=== PATIENT | female | born 1940 | race Hispanic/Latino ===

== ENCOUNTER 2018-08-24 08:00 | Emergency (ER) | payer OTHER ==
[2018-08-24] MEDS ORDERED: LEVALBUTEROL 1.25 MG/3 ML NEB ONE ×3 (08:51→10:12)
[2018-08-24 08:56] LABS: Absolute Lymphocytes (CBC) 1.9 K/uL (0.7-4.9); Absolute Monocytes 0.5 K/uL (0.1-1.3); Absolute Neutrophil 5.2 K/uL (1.8-8.0); Basophils % 0.7 % (0-1.3); Eosinophils % 6.4 % (0-4.4); Hematocrit 33.4 % (36.0-45.0); Lymphocytes % 22.8 % (15.3-44.8); MCH 32.6 pg (27.0-35.0); MCV 95.1 fL (80-100); MPV 10.9 fL (7.6-11.3); Monocytes % 6.6 % (3.3-12.3); RBC Red Blood Cell Count 3.51 M/uL (3.86-4.86)
[2018-08-24 08:57] LABS: Protime INR 1.02
[2018-08-24 09:14] LABS: ALT/SGPT 21 U/L (12-78); AST/SGOT 14 U/L (15-37); Albumin 3.4 g/dL (3.4-5.0); Alkaline Phosphatase 46 U/L (45-117); BUN Blood Urea Nitrogen 28 mg/dL (7-18); Bicarbonate 26 mmol/L (21-32); Bilirubin Direct 0.1 mg/dL (0-0.2); Bilirubin Total 0.3 mg/dL (0.2-1.0); Glucose Level 137 mg/dL (74-106); Magnesium 2.1 mg/dL (1.8-2.4); NT PRO-BNP 377 pg/mL (<450); Potassium 4.7 mmol/L (3.5-5.1); Protein, Total 7.1 g/dL (6.4-8.2); Sodium Level 143 mmol/L (136-145); Troponin (Emerg Dept Use Only) < 0.02 ng/mL (0.0-0.045)
--- NOTE | 2018-08-24 09:15 | RAD REPORT ---
EXAM DESCRIPTION: RAD - Chest Single View - 08/24/2018 8:56 am CLINICAL HISTORY: Cough, and a history of back pain COMPARISON: December 2017 TECHNIQUE: AP portable chest image was obtained 0828 hours . FINDINGS: Lung volumes are low. Mild baseline interstitial pattern is not clearly different. No foca l infiltrate, mass or failure finding. Heart and vasculature are normal. No measurable pleural effusi on and no pneumothorax. No acute bony abnormality seen. No acute aortic findings suspected. IMPRESSION: No acute cardiopulmonary process. No significant change from comparison.
[2018-08-24] MEDS ORDERED: TRAMADOL HCL 50 MG TAB ONE (10:11)
--- NOTE | 2018-08-24 10:12 | EDPHYS ---
Physician Documentation [facility] Name: Poly Granados Age: 77 yrs Sex: Female : 1940 Arrival Date: 08/24/2018 Time: 08:06 Bed 6 Private MD: Danial Crowder ED Physician Alfonso Silva HPI: 08/24 17:36 This 77 yrs old Female presents to ER via Ambulatory with complaints of Back kdr Pain \\T\\ cough. 17:37 The patient c/o generalized back pain and cough that has been ongoing got the last few kdr weeks. She has seen her doctor for this problem and was given Neurontin for the pain but she had continued to have the pain and has now developed a cough and mild SOB. 22:57 Onset: The symptoms/episode began/occurred gradually, 3 week(s) ago. Severity of kdr symptoms: At their worst the symptoms were mild moderate just prior to arrival, in the emergency department the symptoms are unchanged. The patient has not experienced similar symptoms in the past. The patient has been recently seen by a physician: Dr. Crowder. Historical: - Allergies: 08:08 NKDA; aa5 - Home Meds: 09:15 Vitamin D3 oral oral daily [Active]; alendronate 70 mg oral tab once wkly [Active]; aa5 metformin 500 mg Oral tab BID. Pt states "I only take it once a day because my kidney doctor said to do that instead of twice a day" [Active]; gabapentin 300 mg oral cap 1 cap 3 times per day [Active]; fenofibrate 54 mg oral tab once daily [Active]; losartan 50 mg oral tab once daily [Active]; - PMHx: 08:08 Diabetes - NIDDM; Hypertension; Hyperlipidemia; Arthritis; "heart burn"; aa5 - PSHx: 08:08 None; aa5 - Immunization history:: Pneumococcal vaccine is up to date, Flu vaccine is up to date. - Social history:: Smoking status: Patient/guardian denies using tobacco. - Ebola Screening: : No symptoms or risks identified at this time. ROS: 22:57 Constitutional: Negative for fever, chills, and weight loss, Eyes: Negative for injury, kdr pain, redness, and discharge, ENT: Negative for injury, pain, and discharge, Neck: Negative for injury, pain, and swelling, Cardiovascular: Negative for chest pain, palpitations, and edema, Abdomen/GI: Negative for abdominal pain, nausea, vomiting, diarrhea, and constipation, : Negative for injury, bleeding, discharge, and swelling, MS/Extremity: Negative for injury and deformity, Skin: Negative for injury, rash, and discoloration, Neuro: Negative for headache, weakness, numbness, tingling, and seizure activity. Psych: Negative for depression, anxiety, suicide ideation, homicidal ideation, and hallucinations, Allergy/Immunology: Negative for hives, rash, and allergies, Endocrine: Negative for neck swelling, polydipsia, polyuria, polyphagia, and marked weight changes, Hematologic/Lymphatic: Negative for swollen nodes, abnormal bleeding, and unusual bruising. 22:57 Respiratory: Positive for cough, with no reported sputum, dyspnea on exertion, shortness of breath, Negative for hemoptysis, orthopnea, pleurisy, sputum production. 22:57 Back: Positive for pain at rest, pain with movement, Diffuse broad pain. Exam: 22:57 Constitutional: This is a well developed, well nourished patient who is awake, alert, kdr and in no acute distress. Head/Face: Normocephalic, atraumatic. Eyes: Pupils equal round and reactive to light, extra-ocular motions intact. Lids and lashes normal. Conjunctiva and sclera are non-icteric and not injected. Cornea within normal limits. Periorbital areas with no swelling, redness, or edema. Neck: Trachea midline, no thyromegaly or masses palpated, and no cervical lymphadenopathy. Supple, full range of motion without nuchal rigidity, or vertebral point tenderness. No Meningismus. Chest/axilla: Normal chest wall appearance and motion. Nontender with no deformity. No lesions are appreciated. Cardiovascular: Regular rate and rhythm with a normal S1 and S2. No gallops, murmurs, or rubs. Normal PMI, no JVD. No pulse deficits. Respiratory: Lungs have equal breath sounds bilaterally, clear to auscultation and percussion. No rales, rhonchi or wheezes noted. No increased work of breathing, no retractions or nasal flaring. Abdomen/GI: Soft, non-tender, with normal bowel sounds. No distension or tympany. No guarding or rebound. No evidence of tenderness throughout. Skin: Warm, dry with normal turgor. Normal color with no rashes, no lesions, and no evidence of cellulitis. MS/ Extremity: Pulses equal, no cyanosis. Neurovascular intact. Full, normal range of motion. Neuro: Awake and alert, GCS 15, oriented to person, place, time, and situation. Cranial nerves II-XII grossly intact. Motor strength 5/5 in all extremities. Sensory grossly intact. Cerebellar exam normal. Normal gait. Psych: Awake, alert, with orientation to person, place and time. Behavior, mood, and affect are within normal limits. 22:57 Back: pain, that is very mild, of the left trapezius, left scapular area, right scapular area, left flank and right flank, ROM is painful, with all movement, Very minor - she is poorly mobile and not flexible as she is semi-contracted. Vital Signs: 08:10 BP 138 / 68; Pulse 80; Resp 16 S; Temp 98.6(TE); Pulse Ox 97% on R/A; Weight 69.4 kg aa5 (R); Height 5 ft. 1 in. (154.94 cm) (R); Pain 8/10; 09:00 BP 138 / 74; Pulse 80; Resp 18 S; Pulse Ox 99% on R/A; aa5 10:15 BP 124 / 84; Pulse 80; Resp 18 S; Temp 98.4(TE); Pulse Ox 97% on R/A; Pain 5/10; aa5 08:10 Body Mass Index 28.91 (69.40 kg, 154.94 cm) aa5 MDM: 10:11 Patient medically screened. kdr 22:57 Data reviewed: vital signs, nurses notes, lab test result(s), radiologic studies. kdr Counseling: I had a detailed discussion with the patient and/or guardian regarding: the historical points, exam findings, and any diagnostic results supporting the discharge/admit diagnosis, lab results, radiology results, the need for outpatient follow up. 08/24 08:29 Order name: Basic Metabolic Panel; Complete Time: :53 kdr 08/24 08:29 Order name: CBC with Diff; Complete Time: :53 kdr 08/24 08:29 Order name: LFT's; Complete Time: kdr 08/24 08:29 Order name: Magnesium; Complete Time: kdr 08/24 08:29 Order name: NT PRO-BNP; Complete Time: 09:53 kdr 08/24 08:29 Order name: PT-INR; Complete Time: 09:53 kdr 08/24 08:29 Order name: Troponin (emerg Dept Use Only); Complete Time: 09:53 kdr 08/24 08:29 Order name: XRAY Chest (1 view); Complete Time: 09:53 kdr 08/24 08:29 Order name: EKG; Complete Time: 08:30 kdr 08/24 08:29 Order name: Cardiac monitoring; Complete Time: 08:51 kdr 08/24 08:29 Order name: EKG - Nurse/Tech; Complete Time: 08:51 kdr 08/24 08:29 Order name: IV Saline Lock; Complete Time: 08:51 kdr 08/24 08:29 Order name: Labs collected and sent; Complete Time: 08:51 kdr 08/24 08:29 Order name: O2 Per Protocol; Complete Time: 08:51 kdr 08/24 08:29 Order name: O2 Sat Monitoring; Complete Time: 08:51 kdr Administered Medications: 08:45 Drug: Xopenex (3) 1.25 mg Route: Inhalation; aa5 09:59 Drug: traMADol 50 mg Route: PO; aa5 10:25 Follow up: Response: No adverse reaction; Pain is decreased aa5 09:59 Drug: Xopenex 1.25 mg Route: Inhalation; aa5 10:31 Follow up: Response: No adverse reaction aa5 Disposition: 08/24/18 10:11 Discharged to Home. Impression: Cough, Generalized back pain, Congestion, Bronchitis. - Condition is Stable. - Discharge Instructions: Back Pain, Adult, Chronic Back Pain, Cough, Adult, [id number]. - Prescriptions for Albuterol Sulfate 90 mcg/actuation - inhale 1-2 puff by INHALATION route every 4-6 hours; 1 Inhaler. Tramadol 50 mg Oral Tablet - take 1 tablet by ORAL route every 8 hours as needed; 12 tablet. - Medication Reconciliation Form, Thank You Letter form. - Follow up: Danial Crowder MD; When: 2 - 3 days; Reason: If symptoms return, Further diagnostic work-up, Recheck today's complaints, Continuance of care, Re-evaluation by your physician. Signatures: Dispatcher [employer] [facility] Alfonso Silva MD MD kdr Debbie Moss, RN RN aa5 Corrections: (The following items were deleted from the chart) 10:50 10:11 08/24/2018 10:11 Discharged to Home. Impression: Cough; Generalized back pain; aa5 Congestion; Bronchitis. Condition is Stable. Forms are Medication Reconciliation Form, Thank You Letter, Antibiotic Education, Prescription Opioid Use. Follow up: Danial Crowder; When: 2 - 3 days; Reason: If symptoms return, Further diagnostic work-up, Recheck today's complaints, Continuance of care, Re-evaluation by your physician. kdr 23:03 17:37 The patient c/o generalized back poain and cough that has been ongoing got the . kdr kdr
--- NOTE | 2018-08-24 10:12 | ER ---
Nurse's Notes [facility] Name: Poly Granados Age: 77 yrs Sex: Female : 1940 Arrival Date: 08/24/2018 Time: 08:06 Bed 6 Private MD: Danial Crowder Diagnosis: Cough;Generalized back pain;Congestion;Bronchitis Presentation: 08/24 08:08 Presenting complaint: Patient states: upper back pain that began 10 days ago. Pt also aa5 reports cough with whitish sputum x 10 days ago. Pt reports worse pain is to right subscapular area. Transition of care: patient was not received from another setting of care. Onset of symptoms was August 2018. Risk Assessment: Do you want to hurt yourself or someone else? Patient reports no desire to harm self or others. Initial Sepsis Screen: Does the patient meet any 2 criteria? No. Patient's initial sepsis screen is negative. Does the patient have a suspected source of infection? No. Patient's initial sepsis screen is negative. Care prior to arrival: None. 08:08 Method Of Arrival: Ambulatory aa5 08:08 Acuity: CODY 3 aa5 Historical: - Allergies: 08:08 NKDA; aa5 - Home Meds: 09:15 Vitamin D3 oral oral daily [Active]; alendronate 70 mg oral tab once wkly [Active]; aa5 metformin 500 mg Oral tab BID. Pt states "I only take it once a day because my kidney doctor said to do that instead of twice a day" [Active]; gabapentin 300 mg oral cap 1 cap 3 times per day [Active]; fenofibrate 54 mg oral tab once daily [Active]; losartan 50 mg oral tab once daily [Active]; - PMHx: 08:08 Diabetes - NIDDM; Hypertension; Hyperlipidemia; Arthritis; "heart burn"; aa5 - PSHx: 08:08 None; aa5 - Immunization history:: Pneumococcal vaccine is up to date, Flu vaccine is up to date. - Social history:: Smoking status: Patient/guardian denies using tobacco. - Ebola Screening: : No symptoms or risks identified at this time. Screenin:10 Abuse screen: Denies threats or abuse. Nutritional screening: No deficits noted. aa5 Tuberculosis screening: No symptoms or risk factors identified. Fall Risk None identified. Assessment: 08:15 General: Appears uncomfortable, Behavior is calm, cooperative. Pain: Complains of pain aa5 in left scapular area, right scapular area, left subscapular area and right subscapular area Pain does not radiate. Pain currently is 8 out of 10 on a pain scale. Quality of pain is described as aching, Pain began 10 days ago Is continuous, Aggravated by increased activity. Neuro: Level of Consciousness is awake, alert, obeys commands, Oriented to person, place, time, situation. Cardiovascular: Heart tones S1 S2 present Rhythm is regular. Respiratory: Airway is patent Respiratory effort is even, unlabored, Respiratory pattern is regular, symmetrical, Breath sounds are clear in right upper lobe, left upper lobe, right middle lobe, left lower lobe, right lower lobe, left posterior upper lobe and right posterior upper lobe Breath sounds are coarse in left posterior lower lobe, right posterior middle lobe and right posterior lower lobe. GI: No signs and/or symptoms were reported involving the gastrointestinal system. : No signs and/or symptoms were reported regarding the genitourinary system. EENT: No signs and/or symptoms were reported regarding the EENT system. Derm: Skin is pink, warm \\T\\ dry. Musculoskeletal: Range of motion: intact in all extremities. 08:45 Reassessment: Patient and/or family updated on plan of care and expected duration. Pain aa5 level reassessed. Patient is alert, oriented x 3, equal unlabored respirations, skin warm/dry/pink. Pt sitting up in bed receiving neb tx at this time. . Cardiovascular: Rhythm is sinus rhythm. 09:00 Reassessment: Patient and/or family updated on plan of care and expected duration. Pain aa5 level reassessed. Patient is alert, oriented x 3, equal unlabored respirations, skin warm/dry/pink. Patient states feeling better. Respiratory: Breath sounds are coarse bilaterally. 09:00 Pain: Pain currently is 6 out of 10 on a pain scale. aa5 10:15 Reassessment: Patient and/or family updated on plan of care and expected duration. Pain aa5 level reassessed. Patient is alert, oriented x 3, equal unlabored respirations, skin warm/dry/pink. Patient states feeling better. 10:25 Reassessment: Dr. Silva speaking to patient about plan of care. . aa5 10:25 Reassessment: Patient and/or family updated on plan of care and expected duration. Pain aa5 level reassessed. Patient is alert, oriented x 3, equal unlabored respirations, skin warm/dry/pink. Respiratory: Breath sounds are clear bilaterally. 10:45 Reassessment: Patient is alert, oriented x 3, equal unlabored respirations, skin aa5 warm/dry/pink. Vital Signs: 08:10 BP 138 / 68; Pulse 80; Resp 16 S; Temp 98.6(TE); Pulse Ox 97% on R/A; Weight 69.4 kg aa5 (R); Height 5 ft. 1 in. (154.94 cm) (R); Pain 8/10; 09:00 BP 138 / 74; Pulse 80; Resp 18 S; Pulse Ox 99% on R/A; aa5 10:15 BP 124 / 84; Pulse 80; Resp 18 S; Temp 98.4(TE); Pulse Ox 97% on R/A; Pain 5/10; aa5 08:10 Body Mass Index 28.91 (69.40 kg, 154.94 cm) aa5 ED Course: 08:06 Patient arrived in ED. mr 08:06 Danial Crowder MD is Private Physician. mr 08:08 Arm band placed on. aa5 08:08 Patient has correct armband on for positive identification. Placed in gown. Bed in low aa5 position. Call light in reach. Side rails up X2. 08:13 Debbie Moss, RN is Primary Nurse. aa5 08:13 Alfonso Silva MD is Attending Physician. kdr 08:16 Triage completed. aa5 08:42 X-ray completed. Portable x-ray completed in exam room. Patient tolerated procedure jb2 well. 08:44 EKG done, by radiocommunications technician. reviewed by Alfonso Silva MD. at1 08:50 XRAY Chest (1 view) In Process Unspecified. EDMS 08:56 Initial lab(s) drawn, by me, sent to lab. Inserted saline lock: 20 gauge in right em1 antecubital area, using aseptic technique. Blood collected. 10:00 No provider procedures requiring assistance completed. aa5 10:09 Danial Crowder MD is Referral Physician. kdr 10:45 IV discontinued, intact, bleeding controlled, No redness/swelling at site. Pressure aa5 dressing applied. Administered Medications: 08:45 Drug: Xopenex (3) 1.25 mg Route: Inhalation; aa5 09:59 Drug: traMADol 50 mg Route: PO; aa5 10:25 Follow up: Response: No adverse reaction; Pain is decreased aa5 09:59 Drug: Xopenex 1.25 mg Route: Inhalation; aa5 10:31 Follow up: Response: No adverse reaction aa5 Outcome: 10:11 Discharge ordered by . kdr 10:45 Discharged to home ambulatory, with family. aa5 10:45 Condition: stable 10:45 Discharge instructions given to patient, family, Instructed on discharge instructions, follow up and referral plans. medication usage, Demonstrated understanding of instructions, follow-up care, medications, Prescriptions given X 2. 10:50 Patient left the ED. aa5 Signatures: Dispatcher [employer] EDMS Alfonso Silva MD MD kdr Rivera, Jacquie RooseveltcindiCodey Eric em1 Debbie Moss RN RN aa5 Evelia Lopez, lead warehouse associate EKG Tat1 Corrections: (The following items were deleted from the chart) 08:15 Presenting complaint: Patient states: upper back pain that began 10 days ago. Pt aa5 also reports cough with whitish sputum x 10 days ago. Pt reports worse pain is to right subscapular area. aa5 08:15 Transition of care: patient was not received from another setting of care. aa5 aa5 08:15 Onset of symptoms was August 2018 aa5 aa5 08:15 Risk Assessment: Do you want to hurt yourself or someone else? Patient reports no aa5 desire to harm self or others. aa5 08:15 Initial Sepsis Screen: Does the patient meet any 2 criteria? No. Patient's aa5 initial sepsis screen is negative. Does the patient have a suspected source of infection? No. Patient's initial sepsis screen is negative. aa5 08:15 Care prior to arrival: None. aa5 aa5 08:15 Method Of Arrival: Ambulatory aa5 aa5 08:15 Acuity: CODY 3 aa5 aa5
[2018-08-24 10:59] VITALS: BP 124/84; TEMP 98.4; O2SAT 97
--- NOTE | 2018-08-24 14:28 | EKG ---
Test Date: 2018-08-24 Test Time: 08:41:06 Panel Gluer: KATHERIN MEASUREMENT RESULTS: Intervals: Rate: 73 NJ: 128 QRSD: 84 QT: 388 QTc: 427 Farina: P: 84 NJ: 128 QRS: 20 T: 42 INTERPRETIVE STATEMENTS: Sinus rhythm with frequent premature ventricular complexes Otherwise normal ECG Compared to ECG 12/24/2017 13:13:51 Ventricular premature complex(es) now present Electronically Signed On 08-24-18 14:26:23 CDT by Jai Glover
== END 2018-08-24 10:50 | disposition home or self-care (01) ==
LOC: ER 08:00
DX: J40 Bronchitis, not specified as acute or chronic (principal); M54.89 Other dorsalgia; R09.89 Other specified symptoms and signs involving the circulatory and respiratory systems; I10 Essential (primary) hypertension; E11.9 Type 2 diabetes mellitus without complications; E78.5 Hyperlipidemia, unspecified
CPT/HCPCS: 36415; 71045; 80048; 80076; 83735; 83880; 84484; 85025; 85610; 93005; 99285

== ENCOUNTER 2018-09-09 16:49 | Emergency (ER) | payer OTHER ==
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
[2018-09-09 18:06] VITALS: TEMP 98
[2018-09-09 18:07] VITALS: BP 156/80; O2SAT 97
== END 2018-09-09 18:01 | disposition home or self-care (01) ==
LOC: ER 16:49
DX: G89.11 Acute pain due to trauma (principal); V43.62XA Car passenger injured in collision with other type car in traffic accident, initial encounter; Y93.89 Activity, other specified; Y92.410 Unspecified street and highway as the place of occurrence of the external cause; Z88.6 Allergy status to analgesic agent
CPT/HCPCS: 71046; 99283

== ENCOUNTER 2019-02-01 09:56 | Emergency (ER) | payer OTHER ==
--- OUTSIDE RECORDS SUMMARY | 2019-02-01 09:58 | XMS REPORT ---
:1940 Author Organization eClinicalWorks Care Team Providers Name Role Phone Gill, Na Provider Role Unavailable Allergies No Known Allergies Problems Problem Type Condition Code Onset Dates Condition Status Problem Hyperlipemia E78.5 Active Problem Benign essential HTN I10 Active Problem Gastro-esophageal reflux K21.9 Active Problem Controlled type 2 diabetes E11.9 Active mellitus without complication, without long-term current use of insulin Problem Osteoporosis without current M81.0 Active pathological fracture, unspecified osteoporosis type Problem Mixed stress and urge urinary N39.46 Active incontinence Problem Osteoarthritis of both knees, M17.0 Active unspecified osteoarthritis type Problem Acute gout M10.9 Active Problem Chronic kidney disease (CKD), N18.3 Active stage III (moderate) Problem Neuropathy G62.9 Active Problem Diabetes E11.9 Active Problem Other osteoporosis M81.8 Active Problem Respiratory tract congestion with R05 Active cough Problem Systolic congestive heart failure I50.20 Active Problem DJD (degenerative joint disease), M51.37 Active lumbosacral Problem Allergic rhinitis, seasonal J30.2 Active Problem Lumbosacral spinal stenosis M48.07 Active Problem Varicose vein I86.8 Active Problem Generalized osteoarthritis M15.9 Active Problem Compression fracture of spine M48.50XA Active Medications No Known Medications Results No Known Results Summary Purpose eClinicalWorks Submission
--- OUTSIDE RECORDS SUMMARY | 2019-02-01 09:59 | XMS REPORT ---
:1940 Author Organization eClinicalWorks Care Team Providers Name Role Phone Gill, Na Provider Role Unavailable Allergies, Adverse Reactions, Alerts Substance Reaction Event Type N.K.D.A. Info Not Available Non Drug Allergy Problems Problem Type Condition Code Onset Dates Condition Status Assessment Chronic kidney disease (CKD), N18.3 Active stage III (moderate) Assessment Osteoporosis without current M81.0 Active pathological fracture, unspecified osteoporosis type Assessment Gastro-esophageal reflux K21.9 Active Assessment DJD (degenerative joint disease), M51.37 Active lumbosacral Assessment Osteoarthritis of both knees, M17.0 Active unspecified osteoarthritis type Assessment Systolic congestive heart failure I50.20 Active Problem Varicose vein I86.8 Active Assessment Neuropathy G62.9 Active Problem Compression fracture of spine M48.50XA Active Assessment Hyperlipemia E78.5 Active Problem Hyperlipemia E78.5 Active Problem Benign essential HTN I10 Active Problem Gastro-esophageal reflux K21.9 Active Problem Controlled type 2 diabetes E11.9 Active mellitus without complication, without long-term current use of insulin Problem Osteoporosis without current M81.0 Active pathological fracture, unspecified osteoporosis type Assessment Controlled type 2 diabetes E11.9 Active mellitus without complication, without long-term current use of insulin Problem Mixed stress and urge urinary N39.46 Active incontinence Assessment Benign essential HTN I10 Active Problem Osteoarthritis of both knees, M17.0 Active [...] Problem Lumbosacral spinal stenosis M48.07 Active Problem Generalized osteoarthritis M15.9 Active Medications Medication Code Code Instructions Start End Status Dosage System Date Date Gabapentin NDC 46593285663 300MG Active TAKE ONE CAPSULE BY MOUTH THREE TIMES DAILY Lyrica [facility] 24953303997 75 MG Orally Sep 27, Active 1 capsule Twice a day [address] [facility] 48742812232 70 MG Orally Active [address] [facility] 82143599181 0.05 % Active 1 drop into Ophthalmic affected Twice a day eye Metformin HCl [facility] 67392028889 500 MG Orally Active 1 tablet Once a day with meals Fenofibrate [facility] 51999922869 54 MG Active TAKE ONE TABLET BY MOUTH ONCE DAILY Voltaren [facility] 04144815687 1% Active APPLY TO AFFECTED AREA(S) UP TO FOUR TIMES A DAY NEEDED FOR PAIN Losartan [facility] 74991749435 50 MG Active TAKE ONE Potassium TABLET BY MOUTH ONCE DAILY Nexium [facility] 85259796386 40 MG Orally Active 1 capsule Once a day Results No Known Results Summary Purpose eClinicalWorks Submission
--- OUTSIDE RECORDS SUMMARY | 2019-02-01 09:59 | XMS REPORT ---
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 [...] Compression fracture of spine M48.50XA Active Medications Medication Code Code Instructions Start End Status Dosage System Date Fenofibrate ND 55226806134 54 MG Active TAKE ONE TABLET BY MOUTH ONCE DAILY Nexium ND 11958446487 40 MG Orally Active 1 capsule Once a day Lyrica ND 04012242184 75MG Active TAKE 1 CAPSULE BY MOUTH TWICE DAILY Losartan ND 48379659712 50 MG Active TAKE ONE Potassium TABLET BY MOUTH ONCE DAILY Restasis ND 25142631051 0.05 % Active 1 drop into Ophthalmic affected Twice a day eye Metformin HCl ND 89026469183 500 MG Orally Active 1 tablet Once a day with meals Fosamax ND 27861239404 70 MG Orally April Active 1 tablet weekly 2018 Accu-Chek Sue ND 55043977458 - test once a Active USE Plus day DIRECTED Ale [facility] 79215350877 1% Active APPLY TO AFFECTED AREA(S) UP TO FOUR TIMES A DAY NEEDED FOR PAIN Results No Known Results Summary Purpose eClinicalWorks Submission
--- OUTSIDE RECORDS SUMMARY | 2019-02-01 09:59 | XMS REPORT ---
[...] Medications Medication Code Code Instructions Start End Date Status [facility]osage System Date [facility] [id number] - once a day Active USE Sue Plus DIRECTED Results No Known Results Summary Purpose eClinicalWorks Submission
--- OUTSIDE RECORDS SUMMARY | 2019-02-01 09:59 | XMS REPORT ---
:1940 Author Organization eClinicalWorks Care Team Providers Name Role Phone Gill, Na Provider Role Unavailable Allergies No Known Allergies Problems Problem Type Condition Code Onset Dates Condition Status Assessment Mixed stress and urge urinary N39.46 Active incontinence Assessment Chronic kidney disease (CKD), N18.3 Active [...] Active pathological fracture, unspecified osteoporosis type Assessment Benign essential HTN I10 Active Problem Mixed stress and urge urinary N39.46 Active incontinence Assessment Controlled type 2 diabetes E11.9 Active mellitus without complication, without long-term current use of insulin Problem Osteoarthritis of both knees, M17.0 Active [...] Start End Status Dosage System Date Date Lyrica [facility] 11239876235 75 MG Orally Active 1 capsule Twice a day Fosamax [facility] 07258757801 70 MG Orally Jenae Active 1 tablet weekly 2018 Voltaren [facility] 69736950921 1% Active APPLY TO AFFECTED AREA(S) UP TO FOUR TIMES A DAY NEEDED FOR PAIN Gabapentin [facility] 88032409076 300MG Inactive TAKE ONE CAPSULE BY MOUTH THREE TIMES DAILY Fenofibrate [facility] 35426606187 54 MG Active TAKE ONE TABLET BY MOUTH ONCE DAILY Restasis [facility] 84804278169 0.05 % Active 1 drop into Ophthalmic affected Twice a day eye Metformin HCl [facility] 06777323967 500 MG Orally Active 1 tablet Once a day with meals Nexium [facility] 87570067607 40 MG Orally Active 1 capsule Once a day Losartan [facility] 44891196382 50 MG Active TAKE ONE Potassium TABLET BY MOUTH ONCE DAILY Results No Known Results Summary Purpose eClinicalWorks Submission
--- NOTE | 2019-02-01 10:44 | ER ---
Nurse's Notes [facility] Name: Poly Granados Age: 78 yrs Sex: Female : 1940 Arrival Date: 02/01/2019 Time: 09:58 Bed 9 Private MD: Diagnosis: Pain in thoracic spine;Low back pain Presentation: 02/01 10:09 Presenting complaint: Patient states: back pain since December, worse yesterday. no ch trauma. now having numbness and tingling down both arms. states the pain is all in spine. denies urinary symptoms. Transition of care: patient was not received from another setting of care. Onset of symptoms was December 2018. Risk Assessment: Do you want to hurt yourself or someone else? Patient reports no desire to harm self or others. Initial Sepsis Screen: Does the patient meet any 2 criteria? No. Patient's initial sepsis screen is negative. Does the patient have a suspected source of infection? No. Patient's initial sepsis screen is negative. Care prior to arrival: None. 10:09 Method Of Arrival: Ambulatory 10:09 Acuity: CODY 4 Triage Assessment: 10:10 General: Appears in no apparent distress. uncomfortable, Behavior is calm, cooperative, ch appropriate for age. Pain: Complains of pain in left trapezius, right trapezius, thoracic area, lumbar area, right arm and left arm Pain currently is 9 out of 10 on a pain scale. Musculoskeletal: Circulation, motion, and sensation intact. Capillary refill < 3 seconds. Historical: - Allergies: 10:10 Ibuprofen; ch - PMHx: 10:10 "heart burn"; Arthritis; Diabetes - NIDDM; Hyperlipidemia; Hypertension; - PSHx: 10:10 None; ch - Immunization history:: Adult Immunizations up to date, Flu vaccine is not up to date. - Social history:: Smoking status: Patient/guardian denies using tobacco. - Ebola Screening: : Patient negative for fever greater than or equal to 101.5 degrees Fahrenheit, and additional compatible Ebola Virus Disease symptoms Patient denies exposure to infectious person Patient denies travel to an Ebola-affected area in the 21 days before illness onset No symptoms or risks identified at this time. Screenin:15 Abuse screen: Denies threats or abuse. Denies injuries from another. Nutritional ch screening: No deficits noted. Tuberculosis screening: No symptoms or risk factors identified. Fall Risk None identified. Assessment: 10:15 Reassessment: Patient appears in no apparent distress at this time. Patient and/or family updated on plan of care and expected duration. Pain level reassessed. Patient is alert, oriented x 3, equal unlabored respirations, skin warm/dry/pink. Reassessment: No changes from previously documented assessment. General: Appears in no apparent distress. uncomfortable, Behavior is calm, cooperative, appropriate for age. Pain:. Neuro: No deficits noted. Vital Signs: 10:10 BP 160 / 90; Pulse 80; Resp 16; Temp 98.2; Pulse Ox 99% on R/A; Weight 70.76 kg; Height ch 5 ft. (152.40 cm); Pain 9/10; 10:10 Body Mass Index 30.47 (70.76 kg, 152.40 cm) ED Course: 09:58 Patient arrived in ED. as 10:10 Triage completed. ch 10:10 Arm band placed on left wrist. Patient placed in an exam room, on a stretcher. ch 10:15 Enedina Rayo, RN is Primary Nurse. iw 10:15 No apparent distress. Resting quietly. ch 10:15 Patient has correct armband on for positive identification. Bed in low position. Call light in reach. Side rails up X 1. 10:15 No provider procedures requiring assistance completed. Patient did not have IV access ch during this emergency room visit. 10:19 Diana Corrigan FNP-C is [facility]. kb 10:19 Patrick Villeda MD is Attending Physician. kb Administered Medications: No medications were administered Outcome: 10:43 Discharge ordered by . kb 10:51 Discharged to home ambulatory. iw 10:51 Condition: good 10:51 Discharge instructions given to patient, Instructed on discharge instructions, follow up and referral plans. medication usage, Demonstrated understanding of instructions, follow-up care, medications, Prescriptions given X 1. 10:52 Patient left the ED. iw Signatures: Diana Corrigan FNP-C FNP-Tia Kim, RN RN Helen Magdaleno as Enedina Rayo, RN RN iw
--- NOTE | 2019-02-01 10:44 | EDPHYS ---
Physician Documentation [facility] Name: Poly Granados Age: 78 yrs Sex: Female : 1940 Arrival Date: 02/01/2019 Time: 09:58 Bed 9 Private MD: ED Physician Patrick Villeda HPI: 02/01 10:37 This 78 yrs old Female presents to ER via Ambulatory with complaints of Back kb Pain. 10:37 The patient presents with pain that is chronic, with no known mechanism of injury, and kb tenderness. The symptoms are located in the thoracic area. Onset: The symptoms/episode began/occurred 2 month(s) ago. The pain does not radiate. Associated signs and symptoms: Pertinent positives: tingling, Pertinent negatives: abdominal pain, chest pain, constipation, dysuria, fever, headache, hematuria, incontinence, nausea, numbness, urinary retention, vomiting, weakness. The problem was sustained without known cause. Modifying factors: The patient symptoms are alleviated by nothing, the patient symptoms are aggravated by any movement. Severity of symptoms: At their worst the symptoms were moderate, in the emergency department the symptoms are unchanged. The patient has not experienced similar symptoms in the past. The patient has not recently seen a physician. Historical: - Allergies: 10:10 Ibuprofen; ch - PMHx: 10:10 "heart burn"; Arthritis; Diabetes - NIDDM; Hyperlipidemia; Hypertension; ch - PSHx: 10:10 None; ch - Immunization history:: Adult Immunizations up to date, Flu vaccine is not up to date. - Social history:: Smoking status: Patient/guardian denies using tobacco. - Ebola Screening: : Patient negative for fever greater than or equal to 101.5 degrees Fahrenheit, and additional compatible Ebola Virus Disease symptoms Patient denies exposure to infectious person Patient denies travel to an Ebola-affected area in the 21 days before illness onset No symptoms or risks identified at this time. ROS: 10:36 Constitutional: Negative for fever, chills, and weight loss, Cardiovascular: Negative kb for chest pain, palpitations, and edema, Respiratory: Negative for shortness of breath, cough, wheezing, and pleuritic chest pain, Abdomen/GI: Negative for abdominal pain, nausea, vomiting, diarrhea, and constipation, : Negative for injury, bleeding, discharge, and swelling, MS/Extremity: Negative for injury and deformity, Skin: Negative for injury, rash, and discoloration, Neuro: Negative for headache, weakness, numbness, tingling, and seizure. 10:36 Back: Positive for pain at rest, pain with movement, of the thoracic area. Exam: 10:36 Constitutional: This is a well developed, well nourished patient who is awake, alert, kb and in no acute distress. Head/Face: Normocephalic, atraumatic. Chest/axilla: Normal chest wall appearance and motion. Nontender with no deformity. No lesions are appreciated. Cardiovascular: Regular rate and rhythm with a normal S1 and S2. No gallops, murmurs, or rubs. Normal PMI, no JVD. No pulse deficits. Respiratory: Lungs have equal breath sounds bilaterally, clear to auscultation and percussion. No rales, rhonchi or wheezes noted. No increased work of breathing, no retractions or nasal flaring. Abdomen/GI: Soft, non-tender, with normal bowel sounds. No distension or tympany. No guarding or rebound. No evidence of tenderness throughout. Skin: Warm, dry with normal turgor. Normal color with no rashes, no lesions, and no evidence of cellulitis. MS/ Extremity: Pulses equal, no cyanosis. Neurovascular intact. Full, normal range of motion. Neuro: Awake and alert, GCS 15, oriented to person, place, time, and situation. Cranial nerves II-XII grossly intact. Motor strength 5/5 in all extremities. Sensory grossly intact. Cerebellar exam normal. Normal gait. 10:36 Back: pain, that is moderate, ROM is painful, with rotation to the right, with rotation to the left, normal spinal alignment noted, CVA tenderness, is absent, vertebral tenderness, is appreciated at thoracic spine and lumbar spine. Vital Signs: 10:10 BP 160 / 90; Pulse 80; Resp 16; Temp 98.2; Pulse Ox 99% on R/A; Weight 70.76 kg; Height ch 5 ft. (152.40 cm); Pain 9/10; 10:10 Body Mass Index 30.47 (70.76 kg, 152.40 cm) MDM: 10:19 Patient medically screened. kb 10:35 Data reviewed: vital signs, nurses notes. Data interpreted: Pulse oximetry: on room air kb is 99 %. Interpretation: normal. Counseling: I had a detailed discussion with the patient and/or guardian regarding: the historical points, exam findings, and any diagnostic results supporting the discharge/admit diagnosis, the need for outpatient follow up, a family practitioner, to return to the emergency department if symptoms worsen or persist or if there are any questions or concerns that arise at home. 10:40 ED course: Pt educated that she needs to have outpatient MRI done to evaluate back pain kb that has been going on for 2 months. Pt has full ROM of extremities, equal strength. . 02/01 10:30 Order name: Urine Dipstick--Ancillary (enter results) [id number] Administered Medications: No medications were administered Disposition: 12:37 Co-signature as Attending Physician, Patrick Villeda MD I agree with the assessment and raymond plan of care. Disposition: 02/01/19 10:43 Discharged to Home. Impression: Pain in thoracic spine, Low back pain. - Condition is Stable. - Discharge Instructions: Back Pain, Adult, [id number], Back Exercises, [id number]. - Prescriptions for Cyclobenzaprine 5 mg Oral Tablet - take 1 tablet by ORAL route 3 times per day As needed; 15 tablet. - Medication Reconciliation Form, Thank You Letter form. - Follow up: Emergency Department; When: As needed; Reason: Worsening of condition. Follow up: Private Physician; When: 2 - 3 days; Reason: Recheck today's complaints, Continuance of care, Re-evaluation by your physician. Signatures: Dispatcher [employer] EDDiana Diallo, GINNY-C LEAD SPRINKLER-Tia Kim RN RN ch Anderson, Corey, MD MD cha Williams, Irene RN RN iw Corrections: (The following items were deleted from the chart) 10:42 10:36 Back: pain, that is moderate, ROM is painful, with rotation to the right, with kb rotation to the left, normal spinal alignment noted, CVA tenderness, is absent, kb 10:52 10:43 02/01/2019 10:43 Discharged to Home. Impression: Pain in thoracic spine; Low back iw pain. Condition is Stable. Forms are Medication Reconciliation Form, Thank You Letter, Antibiotic Education, Prescription Opioid Use. Follow up: Emergency Department; When: As needed; Reason: Worsening of condition. Follow up: Private Physician; When: 2 - 3 days; Reason: Recheck today's complaints, Continuance of care, Re-evaluation by your physician. kb
[2019-02-01 11:45] LABS: Urine Blood NEGATIVE (NEG); Urine Glucose NEGATIVE (NEG); Urine Protein NEGATIVE (NEG)
[2019-02-01 12:27] VITALS: BP 160/90; TEMP 98.2; O2SAT 99
== END 2019-02-01 10:52 | disposition home or self-care (01) ==
LOC: ER 09:56
DX: M54.6 Pain in thoracic spine (principal); M54.5 Low back pain; E11.9 Type 2 diabetes mellitus without complications; E78.5 Hyperlipidemia, unspecified; I10 Essential (primary) hypertension
CPT/HCPCS: 81003; 99282

== ENCOUNTER 2019-09-15 11:00 | Observation (INO) | payer OTHER ==
[2019-09-15 12:05] LABS: Absolute Lymphocytes (CBC) 1.3 K/uL (0.7-4.9); Basophils % 0.9 % (0-1.3); Hematocrit 33.9 % (36.0-45.0); MPV 10.9 fL (7.6-11.3); RBC Red Blood Cell Count 3.54 M/uL (3.86-4.86)
[2019-09-15 12:06] LABS: Protime INR 1.08
--- NOTE | 2019-09-15 12:22 | RAD REPORT ---
EXAM DESCRIPTION: RAD - Chest Single View - 09/15/2019 11:56 am CLINICAL HISTORY: CHEST PAIN Chest pain. COMPARISON: Chest Pa And Lat (2 Views) dated 02/14/2019; Chest Pa And Lat (2 Views) dated 09/09/2018; Chest Single View dated 08/24/2018; Chest Single View dated 12/24/2017 FINDINGS: Portable technique limits examination quality. Mild interstitial pulmonary edema. The heart is upper limit of normal in size. No displaced fractures . IMPRESSION: No acute intrathoracic process suspected.
[2019-09-15 12:27] LABS: ALT/SGPT 23 U/L (12-78); AST/SGOT 22 U/L (15-37); Albumin 3.5 g/dL (3.4-5.0); Alkaline Phosphatase 53 U/L (45-117); BUN Blood Urea Nitrogen 33 mg/dL (7-18); Bicarbonate 25 mmol/L (21-32); Bilirubin Direct < 0.1 mg/dL (0-0.2); Bilirubin Total 0.3 mg/dL (0.2-1.0); Glucose Level 107 mg/dL (74-106); Magnesium 2.3 mg/dL (1.8-2.4); NT PRO-BNP 379 pg/mL (<450); Potassium 4.1 mmol/L (3.5-5.1); Sodium Level 143 mmol/L (136-145); Troponin (Emerg Dept Use Only) < 0.02 ng/mL (0.0-0.045)
[2019-09-15] MEDS ORDERED: MAGNE/ALUM HYDROXD 30 ML UCUP ONE (12:40)
[2019-09-15] MEDS ORDERED: LIDOCAINE VISCOUS 2% SOLN 15 ML UDC ONE (12:40)
[2019-09-15] MEDS ORDERED: NA CHLORIDE 0.9% 500 ML ONE (12:40)
--- NOTE | 2019-09-15 14:52 | EDPHYS ---
Physician Documentation [facility] Name: Poly Granados Age: 78 yrs Sex: Female : 1940 Arrival Date: 09/15/2019 Time: 11:02 Bed 19 Private MD: Shabana Gill ED Physician Biju Parr HPI: 09/15 12:09 This 78 yrs old Female presents to ER via Ambulatory with complaints of Chest pm1 Pain, Back Pain, Headache. 12:09 The patient or guardian reports chest pain that is located primarily in the mid-sternal pm1 area. Onset: On and off for multiple months and became worse yesterday. The pain does not radiate. Associated signs and symptoms: Pertinent positives: headache, palpitations, back pain, Pertinent negatives: abdominal pain, dizziness, shortness of breath. The chest pain is described as sharp. Duration: The patient or guardian reports multiple episodes, with no pattern. Modifying factors: The symptoms are alleviated by nothing. the symptoms are aggravated by eating, exertion, movement. Severity of pain: in the emergency department the pain is actually worse. The patient has not recently seen a physician, the patient's primary care provider is Dr. Gill. Historical: - Allergies: 11:04 Ibuprofen; la1 - PMHx: 11:04 "heart burn"; Arthritis; Diabetes - NIDDM; Hyperlipidemia; Hypertension; la1 - Immunization history:: Adult Immunizations up to date. - Social history:: Smoking status: Patient/guardian denies using tobacco. - Ebola Screening: : No symptoms or risks identified at this time. ROS: 12:09 Constitutional: Negative for fever, chills, and weight loss, Eyes: Negative for injury, pm1 pain, redness, and discharge, ENT: Negative for injury, pain, and discharge, Neck: Negative for injury, pain, and swelling. 12:09 Respiratory: Negative for shortness of breath, cough, wheezing, and pleuritic chest pain, Abdomen/GI: Negative for abdominal pain, nausea, vomiting, diarrhea, and constipation, Back: Negative for injury and pain, : Negative for injury, bleeding, discharge, and swelling, MS/Extremity: Negative for injury and deformity, Skin: Negative for injury, rash, and discoloration, Neuro: Negative for headache, weakness, numbness, tingling, and seizure. 12:09 Cardiovascular: Positive for chest pain, palpitations, Negative for edema, orthopnea. Exam: 12:09 Constitutional: This is a well developed, well nourished patient who is awake, alert, pm1 and in no acute distress. Head/Face: Normocephalic, atraumatic. Neck: Trachea midline, no thyromegaly or masses palpated, and no cervical lymphadenopathy. Supple, full range of motion without nuchal rigidity, or vertebral point tenderness. No Meningismus. Chest/axilla: Normal chest wall appearance and motion. Nontender with no deformity. No lesions are appreciated. Cardiovascular: Regular rate and rhythm with a normal S1 and S2. No gallops, murmurs, or rubs. Normal PMI, no JVD. No pulse deficits. Respiratory: Lungs have equal breath sounds bilaterally, clear to auscultation and percussion. No rales, rhonchi or wheezes noted. No increased work of breathing, no retractions or nasal flaring. 12:09 Abdomen/GI: Soft, non-tender, with normal bowel sounds. No distension or tympany. No guarding or rebound. No evidence of tenderness throughout. Back: No spinal tenderness. No costovertebral tenderness. Full range of motion. Skin: Warm, dry with normal turgor. Normal color with no rashes, no lesions, and no evidence of cellulitis. MS/ Extremity: Pulses equal, no cyanosis. Neurovascular intact. Full, normal range of motion. 12:09 Neuro: Orientation: is normal, Motor: is normal, moves all fours. Vital Signs: 11:07 Pulse 86; Resp 16; Temp 97.9; Pulse Ox 97% on R/A; Weight 72.57 kg; la1 11:07 BP 143 / 67; la1 12:09 BP 121 / 71; Pulse 79; Resp 18; Pulse Ox 99% on R/A; Pain 8/10; em 13:31 BP 155 / 73; Pulse 81; Resp 15; Pulse Ox 97% on R/A; Pain 6/10; em 14:25 BP 172 / 76; Pulse 78; Resp 18; Pulse Ox 99% on R/A; Pain 5/10; em 16:01 BP 144 / 70; Pulse 89; Resp 18; Pulse Ox 97% on R/A; Pain 5/10; em 16:44 BP 169 / 79; Pulse 77; Resp 22; Temp 98.1(O); Pulse Ox 96% on R/A; mh5 18:14 BP 140 / 75; Pulse 78; Resp 18; Pulse Ox 99% on R/A; Pain 5/10; em MDM: 11:27 Patient medically screened. pm1 14:50 Data reviewed: vital signs. Data interpreted: Pulse oximetry: on room air is 99 %. pm1 Interpretation: normal. Counseling: I had a detailed discussion with the patient and/or guardian regarding: the historical points, exam findings, and any diagnostic results supporting the discharge/admit diagnosis, lab results, radiology results, the need for further work-up and treatment in the hospital. 09/15 11:26 Order name: Basic Metabolic Panel; Complete Time: 12:36 pm1 09/15 11:26 Order name: CBC with Diff; Complete Time: 12:11 pm1 09/15 11:26 Order name: LFT's; Complete Time: 12:36 pm1 09/15 11:26 Order name: Magnesium; Complete Time: 12:36 pm1 09/15 11:26 Order name: NT PRO-BNP; Complete Time: 12:36 pm1 09/15 11:26 Order name: PT-INR; Complete Time: 12:11 pm1 09/15 11:26 Order name: Troponin (emerg Dept Use Only); Complete Time: 12:36 pm1 09/15 11:26 Order name: XRAY Chest (1 view); Complete Time: 12:36 pm1 09/15 11:27 Order name: Flu; Complete Time: 12:36 pm1 09/15 11:45 Order name: Strep; Complete Time: 12:36 pm1 09/15 12:26 Order name: Throat Culture EDIA 09/15 11:11 Order name: EKG; Complete Time: 11:11 iw 09/15 11:11 Order name: EKG - Nurse/Tech; Complete Time: 11: iw 09/15 11:26 Order name: Cardiac monitoring; Complete Time: 11:31 pm1 09/15 11:26 Order name: IV Saline Lock; Complete Time: 13:01 pm1 09/15 11:26 Order name: Labs collected and sent; Complete Time: 11: pm1 11/03 11:26 Order name: O2 Per Protocol; Complete Time: 11:31 pm1 09/15 11:26 Order name: O2 Sat Monitoring; Complete Time: 11:31 pm1 09/15 13:04 Order name: EKG - Nurse/Tech; Complete Time: 14:01 pm1 09/15 13:04 Order name: EKG; Complete Time: 13:04 pm1 09/15 16:49 Order name: Diet Ada 1800 Valentin; Complete Time: 16:49 em EC:09 Rate is 87 beats/min. Rhythm is regular, Sinus Rhythm with Trigemeny. No Q waves. T pm1 waves are Normal. No ST changes noted. Clinical impression: Trigemeny. Administered Medications: 12:50 Drug: NS 0.9% 500 ml Route: IV; Rate: bolus; Site: left antecubital; em 14:37 Follow up: IV Status: Completed infusion; IV Intake: 500ml em 12:50 Drug: GI Cocktail without - (Maalox Suspension 30 ml, Lidocaine Liquid 2 % 15 em ml) Route: PO; 13:27 Follow up: Response: No adverse reaction; Pain is decreased em 16:11 Drug: Calcium Carbonate 500 mg Route: PO; em 16:49 Follow up: Response: No adverse reaction em Disposition: 18:54 Co-signature as Attending Physician, Biju Parr MD. rn Disposition: 09/15/19 14:51 Hospitalization ordered by Pankaj Daniel for Observation. Preliminary diagnosis are Chest pain, unspecified, Abnormal electrocardiogram [ECG] [EKG] - Trigeminy. - Bed requested for Telemetry/MedSurg (observation). - Status is Observation. em - Condition is Stable. - Problem is new. - Symptoms have improved. UTI on Admission? No Signatures: Dispatcher [employer] EDMS Albert, Guillermo, WORKING SECOND HAND WORKING SECOND HAND em Enedina Rayo RN CARLOS iw Biju Parr MD MD rn Attema, Lee, RN RN la1 Enrique Alvarez NP MACHINE ADJUSTER LEADER CASE TRIM pm1 Corrections: (The following items were deleted from the chart) 16:54 14:51 Hospitalization Ordered by Pankaj Daniel DO for Observation. Preliminary iw diagnosis is Chest pain, unspecified; Abnormal electrocardiogram [ECG] [EKG] - Trigeminy. Bed requested for Telemetry/MedSurg (observation). Status is Observation. Condition is Stable. Problem is new. Symptoms have improved. UTI on Admission? No. pm1 18:22 16:54 09/15/2019 14:51 Hospitalization Ordered by Pankaj Daniel DO for Observation. em Preliminary diagnosis is Chest pain, unspecified; Abnormal electrocardiogram [ECG] [EKG] - Trigeminy. Bed requested for Telemetry/MedSurg (observation). Status is Observation. Condition is Stable. Problem is new. Symptoms have improved. UTI on Admission? No. iw
--- NOTE | 2019-09-15 14:52 | ER ---
Nurse's Notes [facility] Name: Poly Granados Age: 78 yrs Sex: Female : 1940 Arrival Date: 09/15/2019 Time: 11:02 Bed 19 Private MD: Shabana Gill Diagnosis: Chest pain, unspecified;Abnormal electrocardiogram [ECG] [EKG]-Trigeminy Presentation: 09/15 11:04 Presenting complaint: Patient states: Pain in chest, back, head, since Monday but worse la1 yesterday and today. Transition of care: patient was not received from another setting of care. Onset of symptoms was September 15, 2019. Risk Assessment: Do you want to hurt yourself or someone else? Patient reports no desire to harm self or others. Initial Sepsis Screen: Does the patient meet any 2 criteria? No. Patient's initial sepsis screen is negative. Does the patient have a suspected source of infection? No. Patient's initial sepsis screen is negative. Care prior to arrival: None. 11:04 Method Of Arrival: Ambulatory la1 11:04 Acuity: CODY 3 la1 Historical: - Allergies: 11:04 Ibuprofen; la1 - PMHx: 11:04 "heart burn"; Arthritis; Diabetes - NIDDM; Hyperlipidemia; Hypertension; la1 - Immunization history:: Adult Immunizations up to date. - Social history:: Smoking status: Patient/guardian denies using tobacco. - Ebola Screening: : No symptoms or risks identified at this time. Screenin:18 Abuse screen: Denies threats or abuse. Nutritional screening: No deficits noted. em Tuberculosis screening: No symptoms or risk factors identified. Fall Risk None identified. Assessment: 11:17 General: Appears in no apparent distress. comfortable, Behavior is calm, cooperative, em appropriate for age, Denies fever. Pain: Complains of pain in xyphoid area Pain radiates to back Pain currently is 8 out of 10 on a pain scale. Pain began 0500 this morning. Neuro: Level of Consciousness is awake, alert, obeys commands, Oriented to person, place, time, situation, Appropriate for age. Cardiovascular: Denies nausea, shortness of breath, vomiting, Capillary refill < 3 seconds Patient's skin is warm and dry. Rhythm is sinus rhythm with unifocal PVCs. Respiratory: Airway is patent Respiratory effort is even, unlabored, Respiratory pattern is regular, symmetrical, Breath sounds are clear bilaterally. Denies cough. EENT: Nares are clear Oral mucosa is moist. Throat is clear is pink Reports pain when swallowing. Derm: Skin is intact, is healthy with good turgor, Skin is pink, warm \\T\\ dry. Musculoskeletal: Capillary refill < 3 seconds, Range of motion: intact in all extremities. 12:09 Reassessment: Patient appears in no apparent distress at this time. Patient and/or em family updated on plan of care and expected duration. Pain level reassessed. Patient is alert, oriented x 3, equal unlabored respirations, skin warm/dry/pink. 13:30 Reassessment: Patient appears in no apparent distress at this time. Patient and/or em family updated on plan of care and expected duration. Pain level reassessed. Patient is alert, oriented x 3, equal unlabored respirations, skin warm/dry/pink. rates pain 6/10 Patient states feeling better. Patient states symptoms have improved. 14:24 Reassessment: Patient appears in no apparent distress at this time. Patient and/or em family updated on plan of care and expected duration. Pain level reassessed. Patient is alert, oriented x 3, equal unlabored respirations, skin warm/dry/pink. 16:01 Reassessment: Patient appears in no apparent distress at this time. Patient and/or em family updated on plan of care and expected duration. Pain level reassessed. Patient is alert, oriented x 3, equal unlabored respirations, skin warm/dry/pink. pending room assignment Patient states feeling better. Patient states symptoms have improved. 16:30 Reassessment: Patient appears in no apparent distress at this time. Patient and/or em family updated on plan of care and expected duration. Pain level reassessed. Patient is alert, oriented x 3, equal unlabored respirations, skin warm/dry/pink. dinner tray given, tolerated well. 16:57 Reassessment: unable to received report due to nurse not available. em 17:27 Reassessment: unable to give report due to floor nurse pt having an incident on the em fourth floor, charge nurse notified. 18:13 Reassessment: Patient appears in no apparent distress at this time. Patient and/or em family updated on plan of care and expected duration. Pain level reassessed. Patient is alert, oriented x 3, equal unlabored respirations, skin warm/dry/pink. Vital Signs: 11:07 Pulse 86; Resp 16; Temp 97.9; Pulse Ox 97% on R/A; Weight 72.57 kg; la1 11:07 BP 143 / 67; la1 12:09 BP 121 / 71; Pulse 79; Resp 18; Pulse Ox 99% on R/A; Pain 8/10; em 13:31 BP 155 / 73; Pulse 81; Resp 15; Pulse Ox 97% on R/A; Pain 6/10; em 14:25 BP 172 / 76; Pulse 78; Resp 18; Pulse Ox 99% on R/A; Pain 5/10; em 16:01 BP 144 / 70; Pulse 89; Resp 18; Pulse Ox 97% on R/A; Pain 5/10; em 16:44 BP 169 / 79; Pulse 77; Resp 22; Temp 98.1(O); Pulse Ox 96% on R/A; mh5 18:14 BP 140 / 75; Pulse 78; Resp 18; Pulse Ox 99% on R/A; Pain 5/10; em ED Course: 11:02 Patient arrived in ED. as 11:02 Shabana Gill MD is Private Physician. as 11:05 Triage completed. la1 11:05 Arm band placed on left wrist. la1 11:11 Enrique Alvarez NP is PHCP. pm1 11:11 Biju Parr MD is Attending Physician. pm1 11:12 Guillermo Price LVN is Primary Nurse. em 11:18 Patient maintains SpO2 saturation greater than 95% on room air. em 11:19 EKG done, by ED staff, reviewed by Enrique Alvarez NP. em 11:54 Patient has correct armband on for positive identification. Placed in gown. Bed in low mh5 position. Call light in reach. Side rails up X 1. Adult w/ patient. Warm blanket given. Pillow given. sanitarian on. Pulse ox on. NIBP on. 11:54 Initial lab(s) drawn, by me, sent to lab. Missed attempt(s): 22 gauge in right mh5 antecubital area. upper arm. 11:55 Troponin (emerg Dept Use Only) Sent. 5 11:55 Basic Metabolic Panel Sent. 5 11:56 CBC with Diff Sent. mh5 11:56 LFT's Sent. mh5 11:56 Magnesium Sent. mh5 11:56 NT PRO-BNP Sent. mh5 11:56 PT-INR Sent. mh5 12:02 XRAY Chest (1 view) In Process Unspecified. EDMS 14:51 Pankaj Daniel DO is Hospitalizing Provider. pm1 18:11 No provider procedures requiring assistance completed. Patient admitted, IV remains in em place. Administered Medications: 12:50 Drug: NS 0.9% 500 ml Route: IV; Rate: bolus; Site: left antecubital; em 14:37 Follow up: IV Status: Completed infusion; IV Intake: 500ml em 12:50 Drug: GI Cocktail without - (Maalox Suspension 30 ml, Lidocaine Liquid 2 % 15 em ml) Route: PO; 13:27 Follow up: Response: No adverse reaction; Pain is decreased em 16:11 Drug: Calcium Carbonate 500 mg Route: PO; em 16:49 Follow up: Response: No adverse reaction em Intake: 14:37 IV: 500ml; Total: 500ml. em Outcome: 14:51 Decision to Hospitalize by Provider. pm1 18:13 Admitted to Tele accompanied by tech, family with patient, via wheelchair, room 411, em with chart, Report called to CARLOS Pacheco 18:13 Condition: good 18:13 Instructed on the need for admit, Demonstrated understanding of instructions. 18:22 Patient left the ED. em Signatures: Dispatcher [employer] EDNV Guillermo Price, REGISTERED NURSE CARDIOVASCULAR ICU REGISTERED NURSE CARDIOVASCULAR ICU em Helen Magdaleno Lee, RN RN omar1 Enrique Alvarez NP CLOTH PRINTING UTILITY WORKER 1 Nelda Magdaleno [facility]
[2019-09-15] MEDS ORDERED: CALCIUM CARBONATE 500 MG TAB PO ONE (16:00)
--- NOTE | 2019-09-15 16:32 | P.HP ---
Certification for Inpatient Patient admitted to: Observation With expected LOS: <2 Midnights Patient will require the following post-hospital care: None Practitioner: I am a practitioner with admitting privileges, knowledge of patient current condition, hospital course, and medical plan of care. Services: Services provided to patient in accordance with Admission requirements found in Title 42 Section 412.3 of the Code of Federal Regulations Patient History Date of Service: 09/15/19 Primary Care Provider: Dr. Gill; Cardiology-Dr. Glover Reason for admission: Chest pain History of Present Illness: 78-year-old female with history of diabetes, hypertension, diabetic neuropathy presented to the emergency room with chest pain. Over the last 2 days patient has been reporting chest pain to the substernal region. It radiates to the epigastric region. Mild shortness of breath is noted. She denies any nausea, vomiting. Reports some radiation to her extremities as well. Patient is seen by cardiology. It is been quite sometime since she last saw Cardiology. Patient denies any fever, chills, significant headaches or dizziness. She came to the ER for further evaluation. In the ER patient evaluated. Blood pressure was elevated at 150/100. Heart rate 101. Initial EKG showed PVCs with trigeminy. On lab white count 6.4, hemoglobin 11.3. Platelet count 171. Sodium 143, potassium 4.1, BUN of 33, creatinine 1.29 with a GFR 40. Glucose 107. Troponin unremarkable. Chest x- ray unremarkable. Patient was given IV fluids in the emergency room. She was admitted for further evaluation and treatment. When I saw the patient in the ER, she appeared stable. Chest pain has resolved. Chest pain has been new. Patient does not report any palpitations. Allergies ibuprofen [From Advil] Adverse Reaction (Verified 04/04/12 10:31) kidney damage naproxen Adverse Reaction (Verified 04/04/12 10:31) kidney damage NKA Allergy (Uncoded 11/03/15 00:28) Unknown NKDA Allergy (Uncoded 11/30/15 04:44) Unknown No Known Aller Allergy (Uncoded 08/12/16 15:12) Unknown Home medications list reviewed: Yes Home Medications: Esomeprazole Mag Trihydrate [Nexium] 40 mg PO DAILY 12/31/13 Fenofibrate [Lofibra] 54 mg PO DAILY 02/18/14 Gabapentin [Neurontin*] 100 mg PO TID 12/31/13 Glipizide [Glipizide ER] 5 mg PO BID 12/31/13 Lisinopril [Zestril] 2.5 mg PO DAILY 12/31/13 Metoprolol Tartrate [Lopressor*] 25 mg PO BID 12/31/13 Multivitamin/Iron/Folic Acid [Multi-Day Plus Iron Tablet] 1 each PO DAILY Pentoxifylline 400 mg PO DAILY 12/31/13 Tramadol HCl [Ultram] 50 mg PO TID PRN 12/31/13 Aspirin [Ecotrin 81 MG] 81 mg PO DAILY 02/17/15 Cyclosporine [Restasis] 1 each OP BID 02/17/15 Hydrocodone 7.5/APAP 325 [[place] 7.5/325 mg*] 1 tab PO Q6H PRN 02/17/15 levoFLOXacin [Levaquin*] 500 mg PO DAILY #7 tab 02/18/15 methylPREDNISolone [Medrol*] 4 mg PO DAILY #1 tab 02/18/15 - Past Medical/Surgical History Diabetic: Yes -: HTN -: GERD -: Diabetic neuropathy -: Diabetes mellitus type 2 [id number] -: Chronic renal disease stage III -: Cataracts -: Bryce leg surgery for varicose veins Psychosocial/ Personal History: Patient lives at home by herself. - Family History Father -: Other (see notes) Notes: Asthma Mother Notes: Rheumatoid Arthritis - Social History Smoking Status: Never smoker Alcohol use: No CD- Drugs: No Caffeine use: Yes Place of Residence: Home Review of Systems General: As per HPI Eyes: Unremarkable ENT: Unremarkable Respiratory: Shortness of Breath, As per HPI Cardiovascular: Chest Pain, As per HPI Gastrointestinal: Unremarkable Genitourinary: Unremarkable Musculoskeletal: Pedal edema, As per HPI Integumentary: Unremarkable Neurological: Unremarkable Lymphatics: Unremarkable Physical Examination - Physical Exam General: Alert, In no apparent distress, Oriented x3, Cooperative HEENT: Atraumatic, Normocephalic, Mucous membr. moist/pink Neck: Supple, No Thyromegaly Respiratory: Clear to auscultation bilaterally, Normal air movement Cardiovascular: Normal pulses, Regular rate/rhythm Gastrointestinal: Normal bowel sounds, Soft and benign, Non-distended, No tenderness, No masses, No rebound, No guarding Musculoskeletal: No erythema, No tenderness, No warmth Integumentary: No tenderness/swelling, No erythema, No warmth, No cyanosis Neurological: Normal speech, Normal strength at 5/5 x4 extr, Normal tone, Normal affect Lymphatics: No axilla or inguinal lymphadenopathy - Studies Laboratory Data (last 24 hrs) 09/15/19 11:50: PT 12.7 H, INR 1.08 09/15/19 11:50: WBC 6.4, Hgb 11.3 L, Hct 33.9 L, Plt Count 171 09/15/19 11:50: Sodium 143, Potassium 4.1, BUN 33 H, Creatinine 1.29, Glucose 107 H, Magnesium 2.3, Total Bilirubin 0.3, AST 22, ALT 23, Alkaline Phosphatase 53 Microbiology Data (last 24 hrs): 09/15/19 11:50 Throat Group A Streptococcus Rapid Screen - Final 09/15/19 11:50 Nasopharnyx Influenza Type A Antigen Screen - Final 09/15/19 11:50 Nasopharnyx Influenza Type B Antigen Screen - Final Assessment and Plan - Plan Impression: Chest pain with PVCs Diabetes mellitus type 2 non insulin-dependent Hypertension Chronic renal disease stage III Diabetic neuropathy GERD Plan: Chest pain with PVCs: Patient will be admitted for further evaluation and observation. Will continue to monitor telemetry and cardiac enzymes. Will order echocardiogram to further evaluate. Will consult cardiology for further evaluation and recommendation. Will keep the patient NPO as the patient may require further cardiac evaluation/intervention. Patient is allergic to anti- inflammatories therefore will not start aspirin. Will verify this. Will continue with DVT prophylaxis-Lovenox. Will provide metoprolol. Provide nitroglycerin as needed. Will monitor closely. Await further recommendation from Cardiology. I will turn the service over to Dr. Steele tomorrow. I will go over the plan with her with her. Anticipate discharge likely tomorrow pending clinical evaluation and cardiology workup. Diabetes mellitus type 2 non insulin-dependent: Will continue with Accu-Cheks and sliding scale. Hold metformin at this time. Hypertension: Continue with metoprolol. Obtain and restart other home medication. Chronic renal disease stage III: Patient given IV fluids in the emergency room. Will recheck lab in the morning. This appears stable. Diabetic neuropathy: Continue Lyrica. GERD: Continue with home medication Discharge Plan: Home Plan to discharge in: 24 Hours - Advance Directives Does patient have a Living Will: No Does patient have a Durable POA for Healthcare: No - Code Status/Comfort Care Code Status Assessed: Yes (Patient is full code) Time Spent Managing Pts Care (In Minutes): 55
[2019-09-15 18:54] VITALS: BMI 29.2
[2019-09-15] MEDS ORDERED: ACETAMINOPHEN 500 MG TAB PO PRN (19:23)
[2019-09-15] MEDS ORDERED: ONDANSETRON 4 MG/2 ML VIAL IV PRN (19:23)
[2019-09-15] MEDS: INSULIN -REGULAR HUMAN 50 UNIT/0.5 ML ML SQ SCH ×2 (19:23→19:57)
[2019-09-15 20:12] LABS: CKMB Creatine Kinase MB 1.4 ng/mL (0.3-3.6); Creatine Phosphokinase 103 U/L (26-192); Troponin I < 0.02 ng/mL (0.0-0.045)
[2019-09-15] MEDS: METOPROLOL TAR 25 MG TAB PO SCH (20:22)
[2019-09-15] MEDS: PREGABALIN 75 MG CAP PO SCH (20:23)
[2019-09-15] MEDS ORDERED: ENOXAPARIN 30 MG/0.3 ML SQ SCH (21:00)
[2019-09-15] MEDS ORDERED: ATORVASTATIN 40 MG TAB PO SCH (21:00)
[2019-09-15] MEDS ORDERED: FENOFIBRATE 48 MG TAB PO SCH (21:00)
[2019-09-16 03:57] LABS: Absolute Lymphocytes (CBC) 1.8 K/uL (0.7-4.9); Basophils % 0.9 % (0-1.3); Hematocrit 33.9 % (36.0-45.0); Lymphocytes % 31.9 % (15.3-44.8); MPV 11.1 fL (7.6-11.3); RBC Red Blood Cell Count 3.56 M/uL (3.86-4.86)
[2019-09-16 04:20] LABS: Magnesium 2.3 mg/dL (1.8-2.4); Potassium 4.1 mmol/L (3.5-5.1); Thyroid Stimulating Hormone 1.43 uIU/mL (0.360-3.740)
[2019-09-16 04:21] LABS: CKMB Creatine Kinase MB 1.1 ng/mL (0.3-3.6); Creatine Phosphokinase 89 U/L (26-192); Troponin I < 0.02 ng/mL (0.0-0.045)
[2019-09-16 05:11] LABS: Urine Appearance CLEAR; Urine Bilirubin NEGATIVE (NEG); Urine Blood NEGATIVE (NEG); Urine Color YELLOW; Urine Glucose NEGATIVE (NEG); Urine Protein NEGATIVE (NEG); Urine Urobilinogen 0.2 mg/dL (0.2-1.0); Urine pH 7.5 (5.0-7.0)
--- NOTE | 2019-09-16 05:20 | EKG ---
Test Date: 2019-09-15 Test Time: 14:56:31 Web Applications Developer: SHIRA MEASUREMENT RESULTS: Intervals: Rate: 83 AR: 146 QRSD: 88 QT: 388 QTc: 455 [place]: P: 17 AR: 146 QRS: 4 T: 42 INTERPRETIVE STATEMENTS: Sinus rhythm with occasional premature ventricular complexes Otherwise normal ECG Compared to ECG 09/15/2019 12:19:44 No significant changes Electronically Signed On 09-16-19 05:20:24 PHYSICAL PLANT EMPLOYEE by Jai Glover
--- NOTE | 2019-09-16 05:23 | EKG ---
Test Date: 2019-09-15 Test Time: 12:19:44 Patient Care Coordinator: SHIRA MEASUREMENT RESULTS: Intervals: Rate: 87 NM: 128 QRSD: 84 QT: 372 QTc: 447 [place]: P: 12 NM: 128 QRS: -4 T: 34 INTERPRETIVE STATEMENTS: Sinus rhythm with frequent premature ventricular complexes Otherwise normal ECG Compared to ECG 08/24/2018 08:41:06 No significant changes Electronically Signed On 09-16-19 05:22:35 PILE FABRIC KNITTER by Jai Glover
[2019-09-16] MEDS ORDERED: HYDRALAZINE HCL 20 MG/ML VIAL IV ONE (05:27)
[2019-09-16] MEDS: METOPROLOL TAR 25 MG TAB PO SCH (05:27)
[2019-09-16 05:28] LABS: Urine Microscopic Reflex NO UMIC
[2019-09-16] MEDS ORDERED: SODIUM CHLORIDE 0.9% 10ML INJ IV PRN (05:28)
[2019-09-16] MEDS ORDERED: PANTOPRAZOLE 40 MG INJ IVP ONE (05:28)
[2019-09-16] MEDS ORDERED: PANTOPRAZOLE 40MG TABLET PO SCH (06:30)
[2019-09-16] MEDS: INSULIN -REGULAR HUMAN 50 UNIT/0.5 ML ML SQ SCH ×2 (07:30→11:30)
--- NOTE | 2019-09-16 07:34 | EKG ---
Test Date: 2019-09-15 Test Time: 14:57:06 Planting Machine Operator: SHIRA MEASUREMENT RESULTS: Intervals: Rate: 85 RI: 146 QRSD: 90 QT: 384 QTc: 456 [place]: P: 35 RI: 146 QRS: 4 T: 22 INTERPRETIVE STATEMENTS: Sinus rhythm with occasional premature ventricular complexes Otherwise normal ECG Compared to ECG 09/15/2019 14:56:31 No significant changes Electronically Signed On 09-16-19 07:33:06 SURVEYOR GEODETIC by Jai Glover
[2019-09-16] MEDS: PREGABALIN 75 MG CAP PO SCH (08:25)
[2019-09-16 08:29] VITALS: BP 124/66; TEMP 98.4
[2019-09-16] MEDS ORDERED: ASPIRIN EC 81 MG TAB PO SCH (09:00)
[2019-09-16 10:36] VITALS: O2SAT 94
--- NOTE | 2019-09-16 12:36 | CON ---
History Of Present Illness: Ms. Granados is 78 and she was admitted to the hospital for chest pain. He r chest pain actually began 3 days before admission and has now completely resolved. It started afte r a flu shot. She started having pain in her back, shoulders, upper part of her chest, lower part of her chest. It was not pleuritic. There may have been a slight fever associated with it and she nate mes it on the flu shot. Since she has been in the hospital, EKGs show PVCs, otherwise normal. Her l aboratory exam shows all normal cardiac enzymes. Troponins are less than 0.02, and her pain is compl etely resolved. She has underlying diabetes, hypertension, dyslipidemia. She takes aspirin, ranitidine, Lyrica, losartan, glimepiride, Flovent, fenofibrate, cyclosporine, vit peacock B12, cetirizine, alendronate. Physical Examination: General: 5 feet 2 inches, 160 pounds, mildly overweight. Alert, oriented, pleasant, cooperative, no t in distress. Lungs: Clear. Cardiac: Within normal limits. Abdomen: Soft. Vital Signs: Blood pressure yesterday was 117/63, this morning 160/70, and I think she missed her us ual blood pressure medicines. Extremities: Diminished but palpable distal pulses. No cyanosis, clubbing, or edema. Impression: The patient could be discharged right now and she will call my office. We will schedule an outpatient pharmacologic nuclear stress test. She has diabetic peripheral neuropathy and does not believe she could walk on a treadmi ll. DAYANA/NEYMAR Voice ID: [id number] Report ID: [id number]
--- NOTE | 2019-09-16 12:45 | ECHO ---
HEIGHT: 5 ft 2 in WEIGHT: 160 lb 0 oz DATE OF STUDY: 09/16/[address]: Pankaj Daniel DO 2-DIMENSIONAL: YES M.MODE: YES DOPPLER: YES COLOR FLOW: YES TDS: PORTABLE: DEFINITY: BUBBLE STUDY: DIAGNOSIS: CHEST PAIN/ PERIPHERAL VASCULAR DISEASE CARDIAC HISTORY: CATHERIZATION: NO SURGERY: NO PROSTHETIC VALVE: NO PACEMAKER: NO MEASUREMENTS (cm) DIASTOLIC (NORMALS) SYSTOLIC (NORMALS) IVSd 1.2 (0.6-1.2) LA Diam 3.6 (1.9-4.0) LVEF 66% LVIDd 4.1 (3.5-5.7) LVIDs 2.6 (2.0-3.5) %FS 36% LVPWd 1.2 (0.6-1.2) Ao Diam 2.4 (2.0-3.7) 2 DIMENSIONAL ASSESSMENT: RIGHT ATRIUM: NORMAL LEFT ATRIUM: NORMAL RIGHT VENTRICLE: NORMAL LEFT VENTRICLE: NORMAL TRICUSPID VALVE: NORMAL MITRAL VALVE: MITRAL ANNULAR CALCIFICATION PULMONIC VALVE: NORMAL AORTIC VALVE: NORMAL PERICARDIAL EFFUSION: NONE AORTIC ROOT: NORMAL LEFT VENTRICULAR WALL MOTION: NORMAL DOPPLER/COLOR FLOW: MILD MITRAL AND TRICUSPID REGURGITATION. NORMAL RIGHT VENTRICULAR SYSTOLIC PRESSURE. COMMENTS: NORMAL LEFT VENTRICULAR EJECTION FRACTION. MITRAL ANNULAR CALCIFICATION. MILD MITRAL AND TRICUSPID REGURGITATION. TECHNOLOGIST: NIKI JANG
--- NOTE | 2019-09-16 14:57 | P.SSS ---
Patient History Date of Service: 09/16/19 Primary Care Provider: Dr. Gill; Cardiology-Dr. Glover Reason for admission: Chest pain History of Present Illness: See HPI Allergies No Known Allergies Allergy (Unverified 09/16/19 01:36) Home Medications: Acetaminophen [8Hr Arthritis Pain] 1 tab PO BIDP PRN 09/15/19 Alendronate Sodium [Fosamax] 1 tab PO DIRECTED 09/15/19 Aspirin Chewable [Aspirin Chewable*] 1 tab PO DAILY 09/15/19 Cetirizine HCl [Zyrtec*] 10 mg PO DAILY PRN 09/15/19 Cyanocobalamin (Vitamin B-12) [Vitamin B12] 1 tab PO DAILY 09/15/19 Cyclosporine [Restasis] 1 gtt OPTH BID 09/15/19 Fenofibrate [Tricor*] 54 mg PO DAILY 09/15/19 Fluticasone Propionate [Flovent Diskus] 1 sherri IH BIDP PRN 09/15/19 Glimepiride 1 tab PO DAILY 09/15/19 Losartan Potassium 1 tab PO DAILY 09/15/19 Pregabalin [Lyrica*] 1 tab PO BID 09/15/19 Ranitidine [Zantac*] 1 tab PO BID 09/15/19 Turmeric Root Extract [Turmeric Curcumin] 1 tab PO DAILY 09/15/19 - Past Medical/Surgical History Has patient received pneumonia vaccine in the past: Yes Diabetic: Yes -: HTN -: GERD -: Diabetic neuropathy -: Diabetes mellitus type 2 [id number] -: Chronic renal disease -: Hyperlipidemia -: Arthritis?unsure what kind -: eye - lens placement -: Bryce leg surgery for varicose veins Psychosocial/ Personal History: Patient lives at home by herself. - Family History Father -: Other (see notes) Notes: Asthma Mother Notes: Rheumatoid Arthritis - Social History Smoking Status: Never smoker Alcohol use: No CD- Drugs: No Caffeine use: Yes Place of Residence: Home Review of Systems 10-point ROS is otherwise unremarkable Physical Examination - Vital Signs Temperature: 98.4 F Blood Pressure: 124/66 Pulse: 66 Respirations: 66 Pulse Ox (%): 97 - Physical Exam General: Alert, In no apparent distress HEENT: Atraumatic, PERRLA, Mucous membr. moist/pink, EOMI, Sclerae nonicteric Neck: Supple, 2+ carotid pulse no bruit, No LAD, Without JVD or thyroid abnormality Respiratory: Clear to auscultation bilaterally, Normal air movement Cardiovascular: Regular rate/rhythm, Normal S1 S2 Gastrointestinal: Normal bowel sounds, No tenderness Musculoskeletal: No tenderness Integumentary: No rashes Neurological: Normal gait, Normal speech, Normal strength at 5/5 x4 extr, Normal tone, Normal affect Lymphatics: No axilla or inguinal lymphadenopathy - Studies Microbiology Data (last 24 hrs): 09/15/19 11:50 Throat Group A Streptococcus Rapid Screen - Final 09/15/19 11:50 Nasopharnyx Influenza Type A Antigen Screen - Final 09/15/19 11:50 Nasopharnyx Influenza Type B Antigen Screen - Final - Diagnosis (Problem(s)) (1) Chest pain Status: Acute Qualifiers: Chest pain type: unspecified Qualified Code(s): R07.9 - Chest pain, unspecified (2) Diabetes mellitus Status: Chronic (3) Gastroesophageal reflux disease Status: Chronic (4) History of - hypertension Status: Chronic Treatment Summary: Overall during the hospital stay patient remained stable Patient was initially admitted to the hospital for chest pain. Troponin x2 was negative. Cardiology was consulted. Cardiology recommended outpatient stress test and echocardiogram. Patient's chest pain resolved and thus she was discharged home under stable condition. - Disposition Disposition: ROUTINE DISCHARGE Condition: GOOD Patient Discharge Instructions: Please f.u with Cardiology in 1 week post discharge to Schedule for Outpt Stress test Diet: Regular Activity: Ad manisha
--- OUTSIDE RECORDS SUMMARY | 2019-09-22 20:19 | XMS REPORT ---
:1940 Author Organization [employer] Care Team Providers Name Role Phone Gill, Na Provider Role Unavailable Allergies, Adverse Reactions, Alerts Substance Reaction Event Type N.K.D.A. Info Not Available Non Drug Allergy Problems Problem Type Condition Code Onset Dates Condition Status Assessment Generalized headaches R51 Active Assessment Osteoarthritis of both knees, M17.0 Active unspecified osteoarthritis type Assessment Neuropathy G62.9 Active Assessment Infection of skin L08.9 Active Assessment DJD (degenerative joint disease), M51.37 Active lumbosacral Assessment Chronic kidney disease, stage III N18.3 Active (moderate) Assessment Hyperlipemia E78.5 Active Assessment Type 2 diabetes mellitus with E11.22 Active diabetic chronic kidney disease Assessment Benign essential HTN I10 Active Problem Systolic congestive heart failure I50.20 Active Problem Acute gout M10.9 Active Problem Respiratory tract congestion with R05 Active cough Problem Osteoarthritis of both knees, M17.0 Active unspecified osteoarthritis type Problem Osteoporosis without current M81.0 Active pathological fracture, unspecified osteoporosis type Problem Chronic kidney disease (CKD), N18.3 Active stage III (moderate) Problem Type 2 diabetes mellitus with E11.22 Active diabetic chronic kidney disease Problem Wheezing R06.2 Active Problem DJD (degenerative joint disease), M51.37 Active lumbosacral Problem Generalized osteoarthritis M15.9 Active Problem Chronic kidney disease, stage III N18.3 Active (moderate) Problem Lumbosacral spinal stenosis M48.07 Active Problem Neuropathy G62.9 Active Problem Controlled type 2 diabetes E11.9 Active mellitus without complication, without long-term current use of insulin Problem Pneumonia of both lower lobes due J18.1 Active to infectious organism Problem Mixed stress and urge urinary N39.46 Active incontinence Assessment Gastro-esophageal reflux K21.9 Active Problem Varicose vein I86.8 Active Assessment Systolic congestive heart failure I50.20 Active Problem Compression fracture of spine M48.50XA Active Problem Diabetes E11.9 Active Assessment Allergic rhinitis, seasonal J30.2 Active Problem Allergic rhinitis, seasonal J30.2 Active Problem Benign essential HTN I10 Active Problem Other osteoporosis M81.8 Active Problem Hyperlipemia E78.5 Active Problem Gastro-esophageal reflux K21.9 Active Medications Medication Code Code Instructions Start End Status Dosage System Date Date Tramadol HCl [facility] 32460702713 50 MG Orally Jun 27Jul Active 1 tablet every 12 hours 2018 14, prn pain of 2019 7-10 scale Fenofibrate [facility] 92391019076 54 MG Active TAKE ONE TABLET BY MOUTH ONCE DAILY Lyrica [facility] 55918304277 75MG Active TAKE 1 CAPSULE BY MOUTH TWICE DAILY Flonase [facility] 60637329789 50 MCG/ACT Active 2 spray in Nasally Once a each nostril day Ranitidine HCl [facility] 31344061731 150 MG Orally Active 1 tablet Twice a day Accu-Chek [facility] 91451786394 - Active USE Sue Plus DIRECTED DAILY Losartan ND 01460072134 100 MG Orally Active take one Potassium Once a day tablet by mouth once daily Metformin HCl [facility] 65486734828 500 MG Orally Inactive 1 tablet with Once a day meals Zyrtec Allergy [facility] 02058716029 10 MG Orally Active 1 tablet Once a day Glimepiride [facility] 48369127839 1 MG Orally Active 1 tablet with Once a day breakfast or the first main meal of the day Voltaren [facility] 09372791368 1% Active APPLY TO AFFECTED AREA(S) UP TO FOUR TIMES A DAY NEEDED FOR PAIN Fosamax [facility] 14546823090 70 MG Orally Active 1 tablet weekly Nexium [facility] 23110437313 40 MG Orally Active 1 capsule Once a day Mupirocin [facility] 77454094725 2 % Externally Jun 27Jun Active 1 application Three times a 2018 22, to affected day 2019 area Lyrica [facility] 38535029935 75 MG Orally Active 1 capsule three times a day Fosamax [facility] 00557298200 70 MG Orally Active 1 tablet weekly ProAir HFA [facility] 35357293056 108 (90 Base) February Active 2 puffs as MCG/ACT 04, needed Inhalation 2018 every 6 hrs Tylenol ND 0 Active not defined Arthritis Pain Restasis ND 07790660648 0.05 % Active 1 drop into Ophthalmic affected eye Twice a day Nexium [facility] 48281133783 40 MG Orally Active 1 capsule Once a day Results No Known Results Summary Purpose [employer] Submission
== END 2019-09-16 12:35 | disposition home or self-care (01) ==
LOC: ER 11:00 → ERHOLD 16:18 → 4TH 18:13
PROVIDERS: ADMIT Family Medicine; ATTEND Family Medicine
DX: I49.3 Ventricular premature depolarization (principal); R07.9 Chest pain, unspecified; E11.40 Type 2 diabetes mellitus with diabetic neuropathy, unspecified; I12.9 Hypertensive chronic kidney disease with stage 1 through stage 4 chronic kidney disease, or unspecified chronic kidney disease; N18.3 Chronic kidney disease, stage 3 (moderate); K21.9 Gastro-esophageal reflux disease without esophagitis; E11.22 Type 2 diabetes mellitus with diabetic chronic kidney disease
CPT/HCPCS: 96361; 93005 ×3; 93306; 87070; 85025 ×2; 80048 ×2; 36415; 83735 ×2; 82550 ×2; 85610; 80061; 82947 ×3; 80076; 87081; 84443; 81003; 84484 ×3; 82553 ×2; 84439; 83880; 87804 ×2; 71045; 96360; 99285; J0360; C9113; J1650; J7040; G0378 ×3

== ENCOUNTER 2020-07-24 22:43 | Emergency (ER) | payer OTHER ==
--- OUTSIDE RECORDS SUMMARY | 2020-07-24 22:45 | XMS REPORT ---
:1940 Author Organization eClinicalWorks Care Team Providers Name Role Phone Gill, Na Provider Role Unavailable Allergies, Adverse Reactions, Alerts Substance Reaction Event Type N.K.D.A. Info Not Available Non Drug Allergy Problems Problem Type Condition Code Onset Dates Condition Statu s Assessment DJD (degenerative joint disease), M51.37 Active lumbosacral Assessment Osteoarthritis of multiple joints, M15.9 Active unspecified osteoarthritis type Assessment Chronic kidney disease, stage III N18.3 Active (moderate) Assessment Yeast dermatitis B37.2 Active Assessment Hyperlipemia E78.5 Active Assessment Benign essential HTN I10 Active Assessment Type 2 diabetes mellitus with E11.22 Active diabetic chronic kidney disease Problem Respiratory tract congestion with R05 Active cough Problem Generalized osteoarthritis M15.9 A ctive Problem Osteoarthritis of both knees, M17.0 Active unspecified osteoarthritis type Problem Chronic kidney disease (CKD), N18.3 Active stage III (moderate) Problem DJD (degenerative joint disease), M51.37 Active lumbosacral Problem Osteoporosis without current M81.0 Active pathological fracture, unspecified osteoporosis type Problem Neuropathy G62.9 Active Problem Controlled type 2 diabetes E11.9 A ctive mellitus without complication, without long-term current use of insulin Problem Osteoarthritis of multiple joints, M15.9 Active unspecified osteoarthritis type Problem Chronic kidney disease, stage III N18.3 Active (moderate) Problem Allergic rhinitis, seasonal J30.2 Active Problem Lumbosacral spinal stenosis M48.07 Active Problem Age-related osteoporosis without M81.0 Active current pathological fracture Problem Diabetes E11.9 Active Problem Wheezing R06.2 Active Problem Mixed stress and urge urinary N39.46 Active incontinence Problem Type 2 diabetes mellitus with E11.22 Active diabetic chronic kidney disease Problem Pneumonia of both lower lobes due J18.1 Active to infectious organism Assessment Allergic rhinitis, seasonal J30.2 Active Problem Hyperlipemia E78.5 Active Assessment Neuropathy G62.9 Active Problem Gastro-esophageal reflux K21.9 Act shwetha Assessment 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 Problem Varicose vein I86.8 Active Assessment Gastro-esophageal reflux K21.9 Act shwetha Problem Compression fracture of spine M48.50XA Active Problem Systolic congestive heart failure I50.20 Active Problem Acute gout M10.9 Active Problem Benign essential HTN I10 Active Problem Other osteoporosis M81.8 Active Medications Medication Code Code Instructions Start End Status Dosage System Date Date Fenofibrate [facility][NOTE 3] 78634834907 54 MG Active TAKE ONE TABLET BY MOUTH ONCE DAILY Losartan ND 52169786967 100 MG Orally Active take one Potassium Once a day tablet by mouth once daily Zyrtec Allergy [facility][NOTE 3] 38977000542 10 MG Orally Active 1 tablet Once a day Restasis ND 71812286388 0.05 % Active 1 drop into Ophthalmic affected eye Twice a day Famotidine ND 77798759481 40 MG Orally Active 1 ta blet as Twice a day needed ProAir HFA [facility][NOTE 3] 08059389707 108 (90 Base) February Active 2 p uffs as MCG/ACT 2018 needed Inhalation every 6 hrs Nexium [facility][NOTE 3] 86448115393 40 MG Orally Active 1 capsu le Once a day Glimepiride [facility][NOTE 3] 14894655462 1 MG Orally Active 1 ta blet with Once a day breakfast or the first main meal of the day Famotidine ND 99674563266 20 MG Orally Oct 18, Active 1 ta blet as Twice a day 2018 needed Nystatin [facility][NOTE 3] 02460395496 264095 UNIT/GM Jun 26, Aug 25, Active 1 ap plication Externally 2019 2019 to affected Twice a day area Fenofibrate ND 29832530030 54 MG Active TAKE ONE TABLET BY MOUTH ONCE DAILY Voltaren [facility][NOTE 3] 21626277023 1% Active APPLY TO AFFECTED AREA(S) UP TO FOUR TIMES A DAY NEEDED FOR PAIN Tramadol HCl ND 08554220096 50 MG Orally Active 1 tablet every 12 hours prn pain of 7-10 scale Fosamax [facility][NOTE 3] 58827350759 70 MG Orally Active 1 table t weekly Flonase [facility][NOTE 3] 82753817847 50 MCG/ACT Active 2 spray i n Nasally Once a each nost ril day Lyrica ND 63033826819 75 MG Orally Active 1 capsu le three times a day Accu-Chek [facility][NOTE 3] 05417052596 - daily Active USE Sue Plus DIRECTED DAILY Glimepiride [facility][NOTE 3] 63246016816 1 MG Active TAKE 1 T ABLET BY MOUTH WITH BREAKFAST OR THE FIRST MAIN MEAL OR THE DAY ONCE A DAY Tylenol NDC 0 Active not defined Arthritis Pain Tramadol HCl [facility][NOTE 3] 20990058889 50 MG Orally Jun 26, Sept Active 1 tablet every 12 hours 2019 13, prn pain 2019 Losartan ND 31611227235 100 MG Orally Active take one Potassium Once a day tablet by mouth once daily Results No Known Results Summary Purpose eClinicalWorks Submission
--- OUTSIDE RECORDS SUMMARY | 2020-07-24 22:45 | XMS REPORT | Continuity of Care Document ---
:1939 Author Organization [facility] t Address [address] [place] [address] Care Team Providers Name Role Phone Brian Lobo MD Attending Clinician Problems Condition Condition Condition Status Onset Resolution Last Treating Co mments Source Name Details Category Date Date Treatment Clinician Date Hyperlipem Hyperlipem Problem Active [facility] Benign Benign Problem Active [facility] essential essential [facility] HTN HTN [facility] Gastro-eso Gastro-eso Problem Active [facility] phageal phageal [facility] reflux reflux [facility] Diabetes Diabetes Problem [facility] Age-relate Age-relate Problem Active [facility] - osteoporos osteoporos Me moria is without is without l current current Outpati pathologic pathologic en t al al Clinics fracture fracture Mixed Mixed Problem Active [facility] stress and stress and Viviane kes - urge urge Memoria urinary urinary l incontinen incontinen Ou tpati ce ce ent Clinics Osteoarthr Osteoarthr Problem Active [facility] itis of itis of [facility] - both both Memoria knees, knees, l unspecifie unspecifie Ou tpati d d ent osteoarthr osteoarthr Cl inics itis type itis type Acute gout Acute gout Problem Active [facility] Chronic Chronic Problem Active [facility] kidney kidney [facility] - disease, disease, Memori a stage III stage III l (moderate) (moderate) Ou tpati ent Clinics Neuropathy Neuropathy Problem [facility] Other Other Problem Active [facility] osteoporos osteoporos [facility]iane kes - [facility] is [facility] Respirator Respirator Problem Active [facility] y tract y tract [facility] - congestion congestion Me moria with cough with cough l [facility] Systolic Systolic Problem Active [facility] congestive congestive Viviane kes - heart heart Memoria failure failure l Outpati ent Clinics DJD DJD Problem Active [facility] (degenerat (degenerat Viviane kes - shwetha joint shwetha joint Sridhar wilfredo disease), disease), l lumbosacra lumbosacra Ou tpati l l ent Clinics Allergic Allergic Problem Active [facility] rhinitis, rhinitis, [facility] - seasonal seasonal Memori a l [facility] Lumbosacra Lumbosacra Problem Active [facility] l spinal l spinal [facility] stenosis stenosis [facility] a [facility] Varicose Varicose Problem Active [facility] vein [facility] Osteoarthr Osteoarthr Problem Active [facility] itis of itis of [facility] - multiple multiple Memori a joints, joints, l unspecifie unspecifie Ou tpati d d ent osteoarthr osteoarthr Cl inics itis type itis type Compressio Compressio Problem Active [facility] n fracture n fracture Viviane kes - of spine of spine [facility]ori a l [facility] Pneumonia Pneumonia Problem Active [facility] of both of both [facility] - lower lower Memoria lobes due lobes due l to to Outpati infectious infectious en t organism organism Clinic s Wheezing Wheezing Problem [facility] Type 2 Type [address] [facility] diabetes diabetes [facility] - mellitus mellitus Memori a with with l diabetic diabetic Outpat i chronic chronic ent kidney kidney Clinics disease disease Allergies, Adverse Reactions, Alerts This patient has no known allergies or adverse reactions. Medications Ordered Filled Start Stop Current Ordering Indication Dosage Frequency Signature Comments Components Source Medication Medication Date Date Medication? Clinician (SIG) Name Name Nystatin Nystatin 2019- Yes Na Gill [address] 06-26 applicatio [facility] - 00:00: 00:00 n to Memoria 00 :00 affected l [facility] Tramadol Tramadol 2019- Yes Na Gill [address] [facility] HCl HCl 8-14 09-13 [facility] - 00:00: 00:00 [facility] 00 [facility] Famotidine Famotidine 2018-11 Yes Na Gill [address] [facility] 2-06 as needed [facility] - 00:[facility]: [facility] 00 [facility] ProAir HFA ProAir HFA Yes Na Gill [address] [facility] 4-04 needed [facility] - 00:[facility]: [facility] 00 [facility] Accu-Chek Accu-Chek Yes Na Gill USE [facility] Sue Plus Sue Plus DIRECTED [facility] - DAILY [facility] Na Gill [address] [facility] Allergy Allergy [facility] Tylenol Tylenol Yes Na Gill not [facility] Arthritis Arthritis defined Viviane kes - Pain Pain [facility] Losartan Losartan Yes Na Gill take one [facility] Potassium Potassium tablet by [facility] - mouth once Memoria daily l [facility] Flonase Flonase Yes Na Gill [address] [facility] each [facility] - nostril [facility]oria l [facility] Glimepiride Glimepiride Yes Na Gill TAKE [address] [facility] [facility] TABLET BY [facility] - MOUTH WITH Memoria BREAKFAST l OR THE [facility] MAIN MEAL Clinics OR THE DAY ONCE A DAY Lyrica Lyrica Yes Na Gill [address] [facility]ics Fenofibrate Fenofibrate Yes Na Gill TAKE ONE [facility] TABLET BY [facility] - MOUTH ONCE Memoria DAILY l [facility] Restasis Restasis Yes Na Gill [address] [facility] - affected [facility]oria eye l [facility] Nexium Nexium Yes Na Gill [address] [facility] Famotidine Famotidine Yes Na Gill [address] as needed [facility] Voltaren Voltaren Yes Na Gill APPLY TO [facility] AFFECTED [facility] - AREA(S) UP Memoria TO FOUR l TIMES A Outpati DAY ent NEEDED FOR Clinics PAIN Fosamax Fosamax Yes Na Gill [address] [facility] Losartan Losartan Yes Na Gill take one [facility] Potassium Potassium tablet by [facility] - mouth once Memoria daily l Outpati ent Clinics Procedures This patient has no known procedures. Encounters Start End Encounter Admission Attending Care Care Encounter Source Date/Time Date/Time Type Type Clinicians Facility Department ID 2020-07-21 2020-07-21 [facility] [id number] [facility] 09:41:00 09:41:00 [employer] Medicine Outpati ent Clinics 2020-06-26 2020-06-26 [facility] [id number] [facility] 10:20:00 10:20:00 t [facility] Medicine Outpati ent Clinics 2020-03-20 2020-03-20 [facility] [id number] [facility] 09:40:00 09:40:00 t [facility] Medicine Outpati ent Clinics 2020-03-06 2020-03-06 [facility] [id number] 17:08:00 17:08:00 t [facility] Medicine Outpati ent Clinics 2020-03-06 2020-03-06 [facility] [id number] 10:51:00 10:51:00 t [facility] Clinics 2020-01-20 2020-01-20 [facility] [id number] [facility] 15:19:00 15:19:00 t [place] Out[facility] Clinics 2020-01-17 2020-01-17 [facility] [id number] 11:00:00 11:00:00 t [place] Medicine Outpati ent Clinics 2019-12-20 2019-12-20 Office [facility] [id number] 09:17:00 09:36:32 Visit [facility] [id number] Surgical [id number] Specialti [id number] [address] 2019-10-24 2019-10-24 [facility] [id number] 13:44:00 13:44:[place] [address] [place] [address] [place] - Drive [facility] Medicine Medicine Outpati ent Clinics 2019-10-24 2019-10-24 [facility] [id number] 13:00:00 13:00:00 [place] [address] [facility] - Drive [facility] l Medicine Outpati ent Clinics 2019-10-21 2019-10-21 [facility] [id number] 12:48:00 12:48:00 [place] [facility] Luke s - Drive [facility] Medicine Outpati ent Clinics 2019-10-21 2019-10-21 [facility] [id number] 09:20:00 09:20:00 [place] [facility] Luke [facility] - Drive [facility] Medicine Outpati ent Clinics 2019-10-18 2019-10-18 [facility] [id number] 13:40:00 13:40:00 [place] [facility] [place] [facility] - Drive [facility] Medicine Outpati ent Clinics 2019-10-07 2019-10-07 [facility] [id number] 15:44:00 15:44:00 [place] [facility] Luke s - Drive [facility] Medicine Outpati ent Clinics 2019-09-23 2019-09-23 [facility] [id number] 16:40:00 16:40:00 [place] [facility] s - Drive [facility] Medicine Outpati ent Clinics 2019-06-27 2019-06-27 [facility] [id number] 10:40:00 10:40:00 [place] [facility] - Drive [facility] Medicine Outpati ent Clinics 2019-06-07 2019-06-07 [facility] [id number] 10:52:00 10:52:00 [place] [facility] [place] [facility] - Drive [facility] Medicine Outpati ent Clinics 2019-04-30 2019-04-30 [facility] [id number] 15:00:00 15:00:00 [place] [facility] Luke [facility] - Drive [facility] Medicine Outpati ent Clinics 2019-02-22 2019-02-22 [facility] [id number] 14:00:00 14:00:00 [place] [address] [place] [address] [place] - Drive [facility] Medicine Outpati ent Clinics 2019-02-18 2019-02-18 [facility] [id number] 11:57:00 11:57:00 [place] [address] [place] [address] [facility] s - Drive [facility] Medicine Outpati ent Clinics 2019-02-14 2019-02-14 [facility] [id number] 11:40:00 11:40:00 [place] [facility] s - Drive [facility] Medicine Outpati ent Clinics 2019-02-14 2019-02-14 [facility] [id number] [facility] 11:31:00 11:31:00 [place] [facility] s - Drive [facility] Medicine Outpati ent Clinics 2018-12-19 2018-12-19 [facility] [id number] [facility] 13:18:00 13:18:00 [place] [facility] - Drive [facility] Medicine Outpati ent Clinics 2018-12-14 2018-12-14 [facility] [id number] 15:13:00 15:13:00 [place] [facility] - Drive [facility] Medicine Outpati ent Clinics 2018-11-08 2018-11-08 [facility] [id number] [facility] 08:15:00 08:15:00 [place] [facility] - Drive [facility] Medicine Outpati ent Clinics 2018-11-07 2018-11-07 [facility] [id number] 10:02:00 10:02:00 [place] [facility] - Drive [facility] Medicine Outpati ent Clinics 2018-09-27 2018-09-27 [facility] [id number] 11:00:00 11:00:00 [place] [facility] - Drive [facility] Medicine Outpati ent Clinics Results This patient has no known results.
--- OUTSIDE RECORDS SUMMARY | 2020-07-24 22:45 | XMS REPORT ---
:1939 Author Organization eClinicalWorks Care Team Providers Name Role Phone Gill, Na Provider Role Unavailable Allergies No Known Allergies Problems Problem Type Condition Code Onset Dates Condition Statu s Problem Respiratory tract congestion with R05 Active [...] due J18.1 Active to infectious organism Problem Hyperlipemia E78.5 Active Problem Gastro-esophageal reflux K21.9 Act shwetha Problem Varicose vein I86.8 Active Problem Compression fracture of spine M48.50XA Active Problem Systolic congestive heart failure I50.20 Active Problem Acute gout M10.9 Active Problem Benign essential HTN I10 Active Problem Other osteoporosis M81.8 Active Medications No Known Medications Results No Known Results Summary Purpose eClinicalWorks Submission
[2020-07-24 23:40] LABS: Absolute Lymphocytes (CBC) 2.2 K/uL (0.7-4.9); Basophils % 0.9 % (0-1.3); Hematocrit 32.6 % (36.0-45.0); Lymphocytes % 37.9 % (15.3-44.8); Protime INR 1.02; RBC Red Blood Cell Count 3.46 M/uL (3.86-4.86)
[2020-07-24 23:58] LABS: ALT/SGPT 23 U/L (12-78); AST/SGOT 15 U/L (15-37); Albumin 3.6 g/dL (3.4-5.0); Alkaline Phosphatase 45 U/L (45-117); BUN Blood Urea Nitrogen 43 mg/dL (7-18); Bicarbonate 27 mmol/L (21-32); Bilirubin Direct < 0.1 mg/dL (0-0.2); Bilirubin Total 0.3 mg/dL (0.2-1.0); Glucose Level 109 mg/dL (74-106); Magnesium 2.2 mg/dL (1.8-2.4); NT PRO-BNP 266 pg/mL (<450); Potassium 4.7 mmol/L (3.5-5.1); Protein, Total 7.3 g/dL (6.4-8.2); Sodium Level 145 mmol/L (136-145); Troponin (Emerg Dept Use Only) < 0.02 ng/mL (0.0-0.045)
--- NOTE | 2020-07-25 00:49 | EDPHYS ---
Physician Documentation [facility] Name: Poly Granados Age: 79 yrs Sex: Female : 1940 Arrival Date: 07/24/2020 Time: 22:46 Bed 8 Private MD: ED Physician Ruben Silva HPI: 07/24 23:51 This 79 yrs old Female presents to ER via Wheelchair with complaints of Chest tw4 Pain. 23:51 The patient or guardian reports chest pain that is located primarily in the substernal tw4 area. Onset: today. The pain does not radiate. Associated signs and symptoms: The patient has no apparent associated signs or symptoms. The chest pain is described as dull. Duration: The patient or guardian reports a single episode. Modifying factors: The symptoms are alleviated by nothing. the symptoms are aggravated by nothing. Severity of pain: At its worst the pain was moderate in the emergency department the pain is unchanged. Historical: - Allergies: 23:17 NKDA; lp1 - Home Meds: 23:17 losartan 100 mg oral tab once daily [Active]; Lyrica 75 mg oral cap three times a day lp1 [Active]; fenofibrate 54 mg Oral tab once daily [Active]; glimepiride 1 mg Oral tab 1 tab once daily [Active]; alendronate 70 mg Oral tab once wkly [Active]; cetirizine 10 mg oral tab 1 tab once daily [Active]; Pepcid 40 mg Oral tab 1 tab 2 times per day [Active]; - PMHx: 23:17 "heart burn"; Arthritis; Diabetes - NIDDM; Hyperlipidemia; Hypertension; lp1 - PSHx: 23:17 None; lp1 - Immunization history:: Adult Immunizations up to date. - Social history:: Smoking status: Patient denies any tobacco usage or history of. ROS: 23:51 Constitutional: Negative for fever, chills, and weight loss. tw4 07/25 03:10 Respiratory: Negative for shortness of breath, cough, wheezing, and pleuritic chest tw4 pain, Abdomen/GI: Negative for abdominal pain, nausea, vomiting, diarrhea, and constipation, Back: Negative for injury and pain, MS/Extremity: Negative for injury and deformity, Skin: Negative for injury, rash, and discoloration, Neuro: Negative for headache, weakness, numbness, tingling, and seizure. Cardiovascular: Positive for chest pain, Negative for edema, orthopnea, palpitations, paroxysmal nocturnal dyspnea. Exam: 03:09 Constitutional: This is a well developed, well nourished patient who is awake, alert, tw4 and in no acute distress. Head/Face: Normocephalic, atraumatic. Chest/axilla: Normal chest wall appearance and motion. Nontender with no deformity. No lesions are appreciated. Cardiovascular: Regular rate and rhythm with a normal S1 and S2. No gallops, murmurs, or rubs. Normal PMI, no JVD. No pulse deficits. Respiratory: Lungs have equal breath sounds bilaterally, clear to auscultation and percussion. No rales, rhonchi or wheezes noted. No increased work of breathing, no retractions or nasal flaring. Abdomen/GI: Soft, non-tender, with normal bowel sounds. No distension or tympany. No guarding or rebound. No evidence of tenderness throughout. Back: No spinal tenderness. No costovertebral tenderness. Full range of motion. MS/ Extremity: Pulses equal, no cyanosis. Neurovascular intact. Full, normal range of motion. Neuro: Awake and alert, GCS 15, oriented to person, place, time, and situation. Cranial nerves II-XII grossly intact. Motor strength 5/5 in all extremities. Sensory grossly intact. Cerebellar exam normal. Normal gait. Vital Signs: 07/24 23:13 BP 149 / 70; Pulse 76; Resp 18; Pulse Ox 97% on R/A; Weight 73.03 kg (R); Height 5 ft. lp1 1 in. (154.94 cm); Pain 8/10; 23:56 BP 150 / 75; Pulse 73; Resp 17; Temp 98.2(O); Pulse Ox 99% on R/A; rv 12 00:50 BP 155 / 66; Pulse 72; Resp 18; Pulse Ox 98% on R/A; ea 01:30 BP 168 / 97; Pulse 72; Resp 18; Pulse Ox 98% on R/A; ea 02:29 BP 175 / 88; Pulse 70; Resp 18; Pulse Ox 98% on R/A; ea 07/24 23:13 Body Mass Index 30.42 (73.03 kg, 154.94 cm) lp1 MDM: 07/24 22:51 Patient medically screened. tw07/25 03:11 Differential diagnosis: pancreatitis, peptic ulcer disease, pericarditis, pulmonary tw4 embolus. HEART Score: History: Moderately Suspicious (1), ECG: Normal (0), Age: > or = 65 years (2), Risk Factors: 1 or 2 risk factors (1), [Hypertension] [DM] Troponin: < or = 1 x Normal Limit (0), Total Score = 4. The patient was given aspirin in the Emergency Department. Data reviewed: vital signs, nurses notes. Data reviewed: lab test result(s), cardiac enzymes, CBC, hepatic panel, EKG, radiologic studies, plain films. Data interpreted: custom bookbinder: rhythm is normal sinus rhythm, Pulse oximetry: Interpretation: normal. Test interpretation: by ED physician or midlevel provider: plain radiologic studies. Counseling: I had a detailed discussion with the patient and/or guardian regarding: the historical points, exam findings, and any diagnostic results supporting the discharge/admit diagnosis, lab results, radiology results. Refusal of service: The patient/guardian displays adequate decision making capability and despite a detailed discussion of alternatives, benefits, risks, and consequences refuses: Admission to the hospital for further work-up and treatment. ED course: risks of leaving explained to patient and pt understood risks. Pt states that she felt her pain was related to arthritis. pt instructed to return to the ED if symptoms return or worsen. 07/24 23:10 Order name: Basic Metabolic Panel; Complete Time: 00:09 07/25 00:09 Interpretation: Normal except: CL 112; GFR 30; CRE 1.63; BUN 43; GLUC 109. 07/24 23:10 Order name: CBC with Diff; Complete Time: 00:09 07/25 00:10 Interpretation: Normal except: RBC 3.46; HGB 11.1; HCT 32.6. 07/24 23:10 Order name: LFT's; Complete Time: 00:09 07/25 00:10 Interpretation: Normal except: GLOB 3.7; A/G 1.0. 07/24 23:10 Order name: Magnesium; Complete Time: 00:09 07/25 00:10 Interpretation: Within normal limits: MG 2.2. 07/24 23:10 Order name: NT PRO-BNP; Complete Time: 00:09 07/25 00:10 Interpretation: Within normal limits: NT PRO-BNP 266. 07/24 23:10 Order name: PT-INR; Complete Time: 00:09 07/25 00:10 Interpretation: Within normal limits: PT 12.0. 07/24 23:10 Order name: Troponin (emerg Dept Use Only); Complete Time: 00:09 07/25 00:11 Interpretation: Within normal limits: TROPED < 0.02. 07/24 23:10 Order name: XRAY Chest (1 view) 07/24 23:10 Order name: EKG; Complete Time: 23:11 07/24 23:10 Order name: Cardiac monitoring; Complete Time: 23:12 07/24 23:10 Order name: EKG - Nurse/Tech; Complete Time: 23:12 07/24 23:10 Order name: IV Saline Lock; Complete Time: 23:34 07/24 23:10 Order name: Labs collected and sent; Complete Time: 23:34 07/25 01:52 Order name: Troponin (emerg Dept Use Only); Complete Time: 03:08 07/25 03:08 Interpretation: Within normal limits: TROPED < 0.02. 07/24 23:10 Order name: O2 Per Protocol; Complete Time: 23:13 07/24 23:10 Order name: O2 Sat Monitoring; Complete Time: 23:13 4 EC:09 Rate is 78 beats/min. Rhythm is regular with Unifocal PVCs. QRS [place] is Normal. DC tw4 interval is normal. QRS interval is normal. QT interval is normal. No Q waves. T waves are Normal. No ST changes noted. Clinical impression: NSR w/ Non-specific ST/T Changes. Interpreted by me. Reviewed by me. Administered Medications: No medications were administered Disposition: 07/25/20 03:05 Patient has left against medical advice. Impression: Other chest pain. - Patients states they are going to Home. - Condition is Stable. - Discharge Instructions: Nonspecific Chest Pain. Medication Reconciliation Form, Thank You Letter, Antibiotic Education form. Follow up: Private Physician; When: Upon discharge from the Emergency Department; Reason: Recheck today's complaints, Continuance of care, Re-evaluation by your physician. - Problem is new. - Symptoms have improved. Signatures: Dispatcher [employer] EDMS Susannah Rodriguez RN CARLOS Malena Singh, RN RN lp1 Elba Collier, RN Ruben Alvarez ea, MD MD tw4 Corrections: (The following items were deleted from the chart) 02:35 00:49 Hospitalization Ordered by Mouna Hayes MD for Observation. Preliminary mw diagnosis is Other chest pain. Bed requested for Telemetry/MedSurg (observation). Status is Observation. Condition is Stable. Problem is new. Symptoms have improved. tw4 02:50 02:35 07/25/2020 00:49 Hospitalization Ordered by Mouna Hayes MD for Observation. Preliminary diagnosis is Other chest pain. Bed requested for Telemetry/MedSurg (observation). Status is Observation. Condition is Stable. Problem is new. Symptoms have improved. 03:04 02:50 07/25/2020 00:49 Hospitalization Ordered by Mouna Hayes MD for Observation. tw4 Preliminary diagnosis is Other chest pain. Bed requested for Telemetry/MedSurg (Inpatient). Status is Observation. Condition is Stable. Problem is new. Symptoms have improved. 03:38 03:05 07/25/2020 03:05 Patients has left against medical advice. Impression: Other ea chest pain. Patient states they are going to Home. Condition is Stable. Follow up: Private Physician; When: Upon discharge from the Emergency Department; Reason: Recheck today's complaints, Continuance of care, Re-evaluation by your physician. Problem is new. Symptoms have improved. tw4
--- NOTE | 2020-07-25 00:49 | ER ---
Nurse's Notes [facility] Name: Poly Granados Age: 79 yrs Sex: Female : 1940 Arrival Date: 07/24/2020 Time: 22:46 Bed 8 Private MD: Diagnosis: Other chest pain Presentation: 07/24 23:13 Chief complaint: Patient states: Chest pain since 1600 today radiating to left arm; lp1 states slight cough; Denies shortness of breath, dizziness at this time. Coronavirus screen: Client denies travel out of the [place] in the last 14 days. cough unrelated to allergies. Ebola Screen: No symptoms or risks identified at this time. Initial Sepsis Screen: Does the patient meet any 2 criteria? No. Patient's initial sepsis screen is negative. Does the patient have a suspected source of infection? No. Patient's initial sepsis screen is negative. Risk Assessment: Do you want to hurt yourself or someone else? Patient reports no desire to harm self or others. Onset of symptoms was July 24, 2020 at 16:00. 23:13 Method Of Arrival: Wheelchair lp1 23:13 Acuity: CODY 3 lp1 Historical: - Allergies: 23:17 NKDA; lp1 - Home Meds: 23:17 losartan 100 mg oral tab once daily [Active]; Lyrica 75 mg oral cap three times a day lp1 [Active]; fenofibrate 54 mg Oral tab once daily [Active]; glimepiride 1 mg Oral tab 1 tab once daily [Active]; alendronate 70 mg Oral tab once wkly [Active]; cetirizine 10 mg oral tab 1 tab once daily [Active]; Pepcid 40 mg Oral tab 1 tab 2 times per day [Active]; - PMHx: 23:17 "heart burn"; Arthritis; Diabetes - NIDDM; Hyperlipidemia; Hypertension; lp1 - PSHx: 23:17 None; lp1 - Immunization history:: Adult Immunizations up to date. - Social history:: Smoking status: Patient denies any tobacco usage or history of. Screenin:17 Abuse screen: Denies threats or abuse. Denies injuries from another. Nutritional lp1 screening: No deficits noted. Tuberculosis screening: No symptoms or risk factors identified. 23:35 Fall Risk IV access (20 points). ea Assessment: 23:32 General: Appears in no apparent distress. Behavior is appropriate for age. Pain: ea Complains of pain in chest Pain radiates to right arm. Pain: Pain began 1 day ago. Neuro: Level of Consciousness is awake, alert, obeys commands, Oriented to person, place, time, situation. Cardiovascular: Patient's skin is warm and dry. Respiratory: Airway is patent Respiratory effort is even, unlabored, Respiratory pattern is regular, symmetrical. Respiratory: Breath sounds with crackles. Derm: Skin is pink, warm \\T\\ dry. 07/25 00:00 Reassessment: Patient and/or family updated on plan of care and expected duration. Pain ea level reassessed. Patient is alert, oriented x 3, equal unlabored respirations, skin warm/dry/pink. 01:50 Reassessment: Patient and/or family updated on plan of care and expected duration. Pain ea level reassessed. Patient is alert, oriented x 3, equal unlabored respirations, skin warm/dry/pink. 02:50 Reassessment: Patient and/or family updated on plan of care and expected duration. Pain ea level reassessed. Patient is alert, oriented x 3, equal unlabored respirations, skin warm/dry/pink. 03:35 Reassessment: Patient and/or family updated on plan of care and expected duration. Pain ea level reassessed. Patient is alert, oriented x 3, equal unlabored respirations, skin warm/dry/pink. Pt reported she did not want to stay in the hospital. AMA form signed pt verbalized the understanding of risk on leaving against medical advice. Pt left ED via wheelchair accompanied by daughter, assisted to private vehicle per ED staff, pt tolerating well. Patient states feeling better. Vital Signs: 07/24 23:13 BP 149 / 70; Pulse 76; Resp 18; Pulse Ox 97% on R/A; Weight 73.03 kg (R); Height 5 ft. lp1 1 in. (154.94 cm); Pain 8/10; 23:56 BP 150 / 75; Pulse 73; Resp 17; Temp 98.2(O); Pulse Ox 99% on R/A; rv 07/25 00:50 BP 155 / 66; Pulse 72; Resp 18; Pulse Ox 98% on R/A; ea 01:30 BP 168 / 97; Pulse 72; Resp 18; Pulse Ox 98% on R/A; ea 02:29 BP 175 / 88; Pulse 70; Resp 18; Pulse Ox 98% on R/A; ea 07/24 23:13 Body Mass Index 30.42 (73.03 kg, 154.94 cm) lp1 ED Course: 07/24 22:46 Patient arrived in ED. cf2 22:51 Ruben Silva MD is Attending Physician. tw4 23:14 Triage completed. lp1 23:14 Arm band placed on. lp1 23:17 Patient maintains SpO2 saturation greater than 95% on room air. lp1 23:18 Patient has correct armband on for positive identification. Placed in gown. Cardiac lp1 monitor on. Pulse ox on. NIBP on. 23:22 Missed attempt(s): 20 gauge in right antecubital area. tt3 23:26 XRAY Chest (1 view) In Process Unspecified. EDMS 23:31 Elba Collier RN is Primary Nurse. ea 23:32 Inserted saline lock: 20 gauge in right antecubital area, using aseptic technique. ea Blood collected. 07/25 00:46 Mouna Hayes MD is Hospitalizing Provider. tw4 02:30 No provider procedures requiring assistance completed. Patient admitted, IV remains in ea place. Administered Medications: No medications were administered Outcome: 00:49 Decision to Hospitalize by Provider. tw4 02:30 Instructed on the need for admit, Demonstrated understanding of instructions. ea 03:35 AMA AMA form signed ea 03:35 Condition: stable 03:38 Patient left the ED. ea Signatures: Dispatcher [employer] EDMS Malena Singh RN RN lp1 Elba Collier, RN Ruben Alvarez ea, MD MD tw4 Mario Lopez RN RN rv [place], [place] cf2 Tank Duong tt3
--- NOTE | 2020-07-25 02:26 | P.CNS ---
Date of Consult: 07/25/20 Reason for Consult: Possible admission Requesting Physician: Ruben Silva Chief Complaint: Chest pain History of Present Illness: 79-year-old Khmer-speaking female with past medical history of rheumatoid arthritis, diabetes mellitus, hyperlipidemia and hypertension presents to the emergency room with complaints of chest pain. Patient states that over the past 2 months she has had progressively worsening pain in her shoulder and more difficulty lifting heavy objects in particular 5 gal bucket and a 1 gal milk. States that at she has rheumatoid arthritis in her left shoulder and that it is just bothering her more. States that her physician started her on Lyrica but it is not helping. Patient states that she told the emergency room nurse that she answered yes when asked if it was chest pain. On physical exam patient is alert and oriented x3, in no distress and very pleasant and cooperative. She is Khmer-speaking only. As described above patient states that her left arm pain has been going on for approximately 2 months and does not believe the Lyrica she gap prescribed is helping any. Daughter bedside. Daughter also states same. States that her mother keeps trying to do more than what she believes she is capable of doing. Patient's neurologic exam is unremarkable. Has some limitation to range of motion of the left shoulder above her head. Strength in all 4 extremities is 5/5. Blood work in the ER his fairly unremarkable. Troponin is negative at <0.02, 2nd troponin pending. BNP is 266, EKG unremarkable. Patient also states that she does not want to be admitted to the hospital. Patient states that this is rheumatoid arthritis flare up and not cardiac. States that she just saw her medical records analyst in the last 2 weeks and was told that everything looked fine. Daughter states similar. Patient does have a slightly elevated creatinine at 1.63 with a GFR of 30. She does have a history of chronic kidney disease, stage3 and is likely at baseline. Discussed with both patient and daughter and both agree that patient does not want to be admitted for observation. Patient and daughter state that if she feels worse or her pain increases she will come back to ER. I discussed her findings with the patient and the daughter, answered all questions to their satisfaction. Allergies No Known Allergies Allergy (Unverified 09/16/19 01:36) Home medications list reviewed: Yes Home Medications: Acetaminophen [8Hr Arthritis Pain] 1 tab PO BIDP PRN 09/15/19 Alendronate Sodium [Fosamax] 1 tab PO DIRECTED 09/15/19 Aspirin Chewable [Aspirin Chewable*] 1 tab PO DAILY 09/15/19 Cetirizine HCl [Zyrtec*] 10 mg PO DAILY PRN 09/15/19 Cyanocobalamin (Vitamin B-12) [Vitamin B12] 1 tab PO DAILY 09/15/19 Cyclosporine [Restasis] 1 gtt OPTH BID 09/15/19 Fenofibrate [Tricor*] 54 mg PO DAILY 09/15/19 Fluticasone Propionate [Flovent Diskus] 1 sherri IH BIDP PRN 09/15/19 Glimepiride 1 tab PO DAILY 09/15/19 Losartan Potassium 1 tab PO DAILY 09/15/19 Pregabalin [Lyrica*] 1 tab PO BID 09/15/19 Ranitidine [Zantac*] 1 tab PO BID 09/15/19 Turmeric Root Extract [Turmeric Curcumin] 1 tab PO DAILY 09/15/19 - Past Medical/Surgical History Diabetic: Yes -: HTN -: GERD -: Diabetic neuropathy -: Diabetes mellitus type 2 [id number] -: Chronic renal disease -: Hyperlipidemia -: Arthritis?unsure what kind -: eye - lens placement -: Bryce leg surgery for varicose veins Psychosocial/ Personal History: Patient lives at home by herself. - Family History Father Medical History: Other (see notes) Notes: Asthma Mother Notes: Rheumatoid Arthritis - Social History Smoking Status: Never smoker Alcohol use: No CD- Drugs: No Caffeine use: Yes Place of Residence: Home Review of Systems General: As per HPI Eyes: Unremarkable ENT: Unremarkable Respiratory: Unremarkable Cardiovascular: Unremarkable Musculoskeletal: Shoulder Pain (Left), As per HPI Neurological: Weakness (Left), As per HPI Lymphatics: Unremarkable Physical Examination General: Alert, In no apparent distress, Oriented x3 HEENT: Atraumatic, Normocephalic, PERRLA Neck: Supple, No Thyromegaly, Other (Trachea midline) Respiratory: Clear to auscultation bilaterally, Normal air movement Cardiovascular: No edema, Normal pulses, Regular rate/rhythm, Normal S1 S2 Capillary refill: <2 Seconds Gastrointestinal: Normal bowel sounds, Soft and benign, Non-distended Musculoskeletal: No clubbing, No swelling, No contractures, No erythema, Tenderness (Left shoulder, mild at rest more moderate when the left arm extended over head), Other (Some limitation in movement of left arm above head) Integumentary: No rashes, No breakdown, No significant lesion, No tenderness/swelling Neurological: Normal gait, Normal speech, Normal strength at 5/5 x4 extr, Normal tone Laboratory Data (last 24 hrs) 07/24/20 23:28: PT 12.0, INR 1.02 07/24/20 23:28: WBC 5.7, Hgb 11.1 L, Hct 32.6 L, Plt Count 162 07/24/20 23:28: Sodium 145, Potassium 4.7, BUN 43 H, Creatinine 1.63 H, Glucose 109 H, Magnesium 2.2, Total Bilirubin 0.3, AST 15, ALT 23, Alkaline Phosphatase 45 Conclusions/Impression: Impression: Chest pain?: History of rheumatoid arthritis: Conclusion: Based on lab work and H&P findings as well as physical findings this is less likely cardiac in nature and more likely a rheumatoid/arthritis flareup of the left shoulder. It has been going on for more than 2 months and the patient's pain is worse when shoulder extended above head. Neurologic exam is unremarkable and patient recently saw her medical records analyst and was told everything looked fine. Lab work also unremarkable. Patient has a known chronic kidney disease with slightly elevated creatinine of 1.6 and a GFR of 30. Troponins were negative x1. 2nd set of troponins pending. Patient states that Lyrica is not helping. Also patient refused admission for observation Overnite. Daughter bedside and agreed. States still come back if her pain increases or worsens. Time Spent Managing Pts care (In Minutes): 50
[2020-07-25 04:04] VITALS: TEMP 98.2
[2020-07-25 04:05] VITALS: O2SAT 98
[2020-07-25 04:08] VITALS: BP 175/88
--- NOTE | 2020-07-25 09:28 | RAD REPORT ---
EXAM DESCRIPTION: RAD - Chest Single View - 07/24/2020 11:27 pm CLINICAL HISTORY: CHEST PAIN COMPARISON: Portable September 2019 TECHNIQUE: AP portable chest image was obtained 07/24/2020 11:27 pm . FINDINGS: Exam suffers from low lung volume effects and respiratory motion artifacts. No peripheral mass or consolidations seen. Patient has a baseline interstitial pattern accentuated by the low lung volumes and motion. Early edema or viral type infiltrate could be masked. Heart size and vasculature are accentuated by low lung volumes and respiratory motion. No significant cardiomegaly suspected. No measurable pleural effusion and no pneumothorax. No acute bony abnormality seen. No acute aortic findings suspected. IMPRESSION: Limited portable examination without acute cardiopulmonary finding.
--- NOTE | 2020-07-26 09:46 | EKG ---
Test Date: 2020-07-24 Test Time: 23:01:58 Semiconductor Technician: MONTRELL MEASUREMENT RESULTS: Intervals: Rate: 78 NM: 150 QRSD: 88 QT: 380 QTc: 433 [place]: P: 46 NM: 150 QRS: 35 T: 40 INTERPRETIVE STATEMENTS: Sinus rhythm with premature atrial complexes with aberrant conduction Otherwise normal ECG Compared to ECG 09/15/2019 14:57:06 Atrial premature complex(es) now present Aberrant conduction of supraventricular beat(s) now present Ventricular premature complex(es) no longer present Electronically Signed On 07-26-20 09:44:31 CDT by Fidencio Marks
== END 2020-07-25 03:38 | disposition left against medical advice (07) ==
LOC: ER 22:43
DX: R07.89 Other chest pain (principal); I10 Essential (primary) hypertension; E78.5 Hyperlipidemia, unspecified; E11.9 Type 2 diabetes mellitus without complications
CPT/HCPCS: 36415; 71045; 80048; 80076; 83735; 83880; 84484; 85025; 85610; 93005; 99285

== ENCOUNTER 2021-01-16 11:23 | Emergency (ER) | payer OTHER ==
[2012-04-04 10:30] VITALS: BP 125/71
--- OUTSIDE RECORDS SUMMARY | 2021-01-16 11:26 | XMS REPORT | Continuity of Care Document ---
:1940 Author Organization [facility] t Address [address] [place] [address] Care Team Providers Name Role Phone Brian Lobo MD Attending Clinician Problems This patient has no known problems. Allergies, Adverse Reactions, Alerts This patient has no known allergies or adverse reactions. Medications Ordered Filled Start Stop Current Ordering Indication Dosage Frequency Signature Comments Components Source Medication Medication Date Date Medication? Clinician (SIG) Name Name Nystatin Nystatin 2020- No Na Gill [address] 06-26 [facility] to [facility] 00 :00 affected l area [facility] Tramadol Tramadol 2019- No Na Gill [address] [facility] HCl HCl 06-26 [facility] Famotidine Famotidine 2018-11 Yes Na Gill [address] [facility] 2-06 as needed [facility] ProAir HFA ProAir HFA Yes Na Gill [address] [facility] 4-04 needed [facility] 00 l [facility] Accu-Chek Accu-Chek Yes Na Gill USE [facility] Sue Plus Sue Plus DIRECTED [facility] - DAILY [facility] Zyrtec Zyrtec Yes Na Gill [address] [facility] Allergy Allergy [facility] Tylenol Tylenol Yes Na Gill not [facility] Arthritis Arthritis defined Viviane kes - Pain Pain [facility] Losartan Losartan Yes Na Gill take one [facility] Potassium Potassium tablet by [facility] - mouth once [facility] daily l [facility] Flonase Flonase Yes Na Gill [address] [facility] each [facility] - nostril [facility] Glimepiride Glimepiride Yes Na Gill TAKE [address] [facility] TABLET BY [facility] - MOUTH WITH [facility] BREAKFAST l OR THE [facility] MAIN MEAL Clinics OR THE DAY ONCE A DAY Lyrica Lyrica Yes Na Gill [address] [facility] Fenofibrate Fenofibrate Yes Na Gill TAKE ONE [facility] TABLET BY [facility] - MOUTH ONCE [facility] DAILY l [facility] Restasis Restasis Yes Na Gill [address] [facility] [address] [facility] affected [facility] eye l [facility] Nexium Nexium Yes Na Gill [address] [facility] Famotidine Famotidine Yes Na Gill [address] [facility] as needed [facility] Voltaren Voltaren Yes Na Gill APPLY TO [facility] AFFECTED [facility] AREA(S) UP Memoria TO FOUR l TIMES A Outpati DAY ent NEEDED FOR Clinics PAIN Fosamax Fosamax Yes Na Gill [address] [facility] Losartan Losartan Yes Na Gill take one [facility] Potassium Potassium tablet by [facility] - mouth once [facility] daily l [facility] Procedures This patient has no known procedures. Encounters Start End Encounter Admission Attending Care Care Encounter Source Date/Time Date/Time Type Type Clinicians Facility Department ID 2021-01-01 2021-01-01 Outpatient [facility] [id number] [facility] 2020-12-25 2020-12-25 Outpatient [facility] [id number] [facility] 2020-10-28 2020[facility]10-28 Out[facility] [id number] [facility] 2020-10-07 2020-10-07 Out[facility] [id number] [facility] 2020-10-06 2020-10-06 Out[facility] [id number] [facility] 2020-10-02 2020-10-02 Out[facility] [id number] [facility] 2020-07-21 2020-07-21 [facility] [id number] [facility] 09[facility]41:00 09:41:00 [place] [employer] [place] [facility] Family Medicine l Medicine Outpati ent Clinics 2020-06-26 2020-06-26 [facility] [id number] 10:20:00 10:20:00 [place] [employer] [place] [address] [facility] Family Medicine l Medicine Outpati ent Clinics 2020-03-20 2020-03-20 [facility] [id number] [facility] 09[facility]40:00 09:40:00 [place] [employer] [place] [facility] Family Medicine l Medicine Outpati ent Clinics 2020-03-06 2020-03-06 [facility] [id number] [facility] 17:08:00 17:08:00 [place] [employer] [place] [address] [facility] Family Medicine l Medicine Outpati ent Clinics 2020-03-06 2020-03-06 [facility] [id number] 10:51:00 10:51:00 [place] [employer] [place] [facility] Medicine l Medicine Outpati ent Clinics 2020-01-20 2020-01-20 [facility] [id number] [facility] 15:19:00 15:19:00 [place] [employer] [place] [address] [facility] Medicine l Medicine Outpati ent Clinics 2020-01-17 2020-01-17 [facility] [id number] 11:00:00 11:00:00 [place] [employer] [facility] Family Medicine l Medicine Outpati ent Clinics 2019-12-20 2019-12-20 Office Yamil RITRISTON [id number] 09:17:00 09:36:32 Visit [facility] [id number] Surgical [id number] [facility] [id number] [address] [place] 2019-10-24 2019-10-24 [facility] [id number] 13:44:00 13:44:00 [place] [employer] - Drive [facility] Family Medicine l Medicine Outpati ent Clinics 2019-10-24 2019-10-24 [facility] [id number] [address] 13:00:00 13:00:00 [place] [employer] [facility] Family Medicine l Medicine Outpati ent Clinics 2019-10-21 2019-10-21 [facility] [id number] 12:48:00 12:48:00 [place] [employer] - Drive [facility] Family Medicine l Medicine Outpati ent Clinics 2019-10-21 2019-10-21 [facility] [id number] 09:20:00 09:20:00 [place] [employer] [facility] Family Medicine l Medicine Outpati ent Clinics 2019-10-18 2019-10-18 [facility] [id number] 13:40:00 13:40:00 [place] [employer] - Drive [facility] Family Medicine l Medicine Outpati ent Clinics 2019-10-07 2019-10-07 [facility] [id number] 15:44:00 15:44:00 [place] [employer] Luke s - Drive [facility] Family Medicine l Medicine Outpati ent Clinics 2019-09-23 2019-09-23 [facility] [id number] 16:40:00 16:40:00 [place] [employer] - Drive [facility] Medicine l Medicine Outpati ent Clinics 2019-06-27 2019-06-27 [facility] [id number] [facility] 10:40:00 10:40:00 [place] [employer] - Drive [facility] Family Medicine l Medicine Outpati ent Clinics 2019-06-07 2019-06-07 [facility] [id number] 10:52:00 10:52:[address] [place] [address] [place] [address] - Drive [facility] Medicine l Medicine Outpati ent Clinics 2019-04-30 2019-04-30 [facility] [id number] 15:00:00 15:00:[address] [place] [address] [address] [place] [address] - Drive [facility] Medicine l Medicine Outpati ent Clinics 2019-02-22 2019-02-22 [facility] 14:00:00 14:00:[address] [place] [address] [place] [address] - Drive [facility] Medicine l Medicine Outpati ent Clinics 2019-02-18 2019-02-18 [facility] [id number] 11:57:00 11:57:00 [place] [employer] Luke s - Drive [facility] Medicine l Medicine Outpati ent Clinics 2019-02-14 2019-02-14 [facility] [id number] [facility] 11:40:00 11:40:[address] [place] [address] [address] [place] [address] - Drive [facility] Medicine l Medicine Outpati ent Clinics 2019-02-14 2019-02-14 [facility] [id number] [facility] 11:31:00 11:31:00 [place] [employer] Luke s - Drive [facility] Medicine l Medicine Outpati ent Clinics 2018-12-19 2018-12-19 [facility] [id number] [facility] 13:18:00 13:18:[address] [place] [address] [address] [place] [address] - Drive [facility] Medicine l Medicine Outpati ent Clinics 2018-12-14 2018-12-14 [facility] [id number] 15:13:00 15:13:[address] [place] [address] [address] [place] [address] - Drive [facility] Medicine l Medicine Outpati ent Clinics 2018-11-08 2018-11-08 [facility] [id number] [facility] 08:15:00 08:15:[address] [place] [address] [address] [place] [address] - Drive [facility] Medicine l Medicine Outpati ent Clinics 2018-11-07 2018-11-07 [facility] [id number] [facility] 10:02:00 10:02:[address] [place] [address] [address] Luke [address] - Drive [facility] ent [facility] 2018-09-27 2018-09-27 Outpatient Huy Mcnamara [id number] [facility] 11[facility]00 t [employer] [facility] ent Clinics Results This patient has no known results.
--- NOTE | 2021-01-16 12:13 | ER ---
Nurse's Notes [facility] Name: Poly Granados Age: 80 yrs Sex: Female : 1940 Arrival Date: 01/16/2021 Time: 11:25 Bed Waiting Private MD: Shabana Gill Diagnosis: ED Course: 01/16 11:25 Patient arrived in ED. am2 11:26 Shabana Gill MD is Private Physician. am2 12:08 Enrique Alvarez NP is PHCP. pm1 12:08 Patrick Villeda MD is Attending Physician. pm1 12:13 Patrick Villeda MD is Attending Physician. aa5 Administered Medications: No medications were administered Outcome: 12:06 Patient left the ED. aa5 12:06 Eloped from waiting room, Pt states she is leaving ER due to no visitor policy at this aa5 time per hospital (pt does not have hx of dementia). Signatures: Debbie Moss RN RN aa5 Enrique Alvarez NP [employer] pm1 Evelia Wells am2 Corrections: (The following items were deleted from the chart) 12:13 12:13 Patient left the ED. aa5 aa5 12:14 12:12 Patient left the ED. aa5 aa5
== END 2021-01-16 12:13 | disposition left against medical advice (07) ==
LOC: ER 11:23
DX: Z02.9 Encounter for administrative examinations, unspecified (principal)

== ENCOUNTER 2021-11-07 15:14 | Emergency (ER) | payer OTHER ==
--- OUTSIDE RECORDS SUMMARY | 2021-11-07 15:19 | XMS REPORT | Continuity of Care Document ---
:1940 Author Organization [facility] t Address [address] [place] [address] Care Team Providers Name Role Phone LUIS CARLOS LUKE Primary Care Physician Unavailable MICHELE Attending Clinician Unavailable Thompson LEYVA Attending Clinician Unavailable Gordon MASTERSON S Attending Clinician Victor Manuel RAMIRES S Attending Clinician Skip MASTERSON Attending Clinician Doctor Unassigned, Name Attending Clinician Unavailable Gloria BOOTH Attending Clinician Unavailable Yamil MASTERSON L Attending Clinician Sarah GROSS R Attending Clinician Thompson LEYVA Admitting Clinician Unavailable Payers Payer Name Policy Type Policy Number Effective Date Expiration Date S nisha MEDICARE PART A \\T\\ [id number] 2004 B 00:00:00 [place]ICAID [place] [id number] 2011 00:00:00 [facility] [id number] 2016 MEDICAID 00:00:00 Problems Condition Condition Condition Status Onset Resolution Last Treating Co mments Source Name Details Category Date Date Treatment Clinician Date Venous Venous Disease Active 2016-11 Univers stasis stasis -03 ity of ulcer of ulcer of 00:00: [place] right right 00 Medical ankle with ankle with Br anch fat layer fat layer exposed exposed with with varicose varicose veins veins Allergies, Adverse Reactions, Alerts Allergy Allergy Status Severity Reaction(s) Onset Inactive Treating Comm ents Source Name Type Date Date Clinician NO KNOWN Drug Active [facility] ALLERGIE Class ity of S [facility] Social History Social Habit Start Date Stop Date Quantity Comments Source Exposure to Not sure [facility] SARS-CoV-2 [facility] (event) Branch Alcohol intake 2021-10-21 2021-10-21 Current [facility] 00:00:00 00:00:00 non-drinker of [facility] alcohol [place] (finding) Tobacco use and 2017-09-19 2017-09-19 Never used Universit y of exposure 00:00:00 00:00:00 [facility] Sex Assigned At [birth year] Universit y of 00:00:00 00:00:00 [facility] Smoking Status Start Date Stop Date Source Never smoker [facility] Medications Ordered Filled Start Stop Current Ordering Indication Dosage Frequency Signature Comments Components Source Medication Medication Date Date Medication? Clinician (SIG) Name Name HYDROcodone 2020-11- No 1{tbl} 1 tablet, Univers -acetaminop 12-23-10 Oral, ity of hen (NORCO 03:15: 03:04 ONCE, 1 M[place] as 5) 5-325 mg 00 :00 dose, On [facility] anthony tablet u [place] tablet 10/21/21 at 2115, [place] traMADoL 2020-11 Yes [id number] 50mg Take 1 Univers (ULTRAM) 50 2-09 tablet by ity of mg tablet 00:00: mouth [place] 00 every 6 Medical (six) Branch hours as needed for Pain (scale 7-10). Indication s: acute pain iopamidol 2020- No [id number] 80mL 80 mL, Univers (ISOVUE 04-13 Intravenou ity o f 370-500 mL) 02:30: 01:26 s, ONCE, 1 [place] injection 00 :00 dose, Mon Medic al 80 mL 04/12/21 at Branch 2130, Routine NaCl 0.9% 2020- No 500mL at 999 Univ ers (NS) bolus 04-13 mL/hr, 500 it y of infusion 02:00: 02:00 mL, IV [place] 500 mL 00 :00 Infusion, Medical ONCE, 1 Branch dose, 04/12/21 at 2100, STAT ondansetron 2020- No 4mg 4 mg, Slow Univers (ZOFRAN 04-13 IV Push, ity of (PF)) 01:45: 00:52 ONCE, 1 [place] injection 4 00 :00 dose, Mon Med ical mg 04/12/21 at Branch 2045, [place] ondansetron Yes [id number] 4mg Take 1 Univers (ZOFRAN 5-31 tablet by ity of ODT) 4 mg 00:00: mouth [place] disintegrat 00 every 8 Medic al ing tablet (eight) Branch hours as needed for Nausea and Vomiting (N/V). ondansetron Yes [id number] 4mg Take 1 Univers (ZOFRAN 5-31 tablet by ity of ODT) 4 mg 00:00: mouth [place] disintegrat 00 every 8 Medic al ing tablet (eight) Branch hours as needed for Nausea and Vomiting (N/V). ketorolac 2020- No 15mg 15 mg, Unive rs (TORADOL) 01-16 03-06 Slow IV ity of injection 21:00: 19:58 Push, [place] 15 mg 00 :00 ONCE, 1 Medical dose, Sat Branch 01/16/21 at 1500, [place]
[facility] Restricted medication : JOSE VALDIVIA predniSONE Yes [id number] 10mg Take 1 U nivers 10 mg 3-06 tablet by ity of tablet 00:00: mouth [place] 00 daily. [facility] Branch methocarbam 2020- Yes [id number] 500mg Take 1 Univers oL 500 mg 3-06 tablet by ity o f tablet 00:00: mouth 2 [place] 00 (two) Medical times Branch daily as needed for Pain (scale 7-10). predniSONE 2020- Yes [id number] 10mg Take 1 U nivers 10 mg 3-06 tablet by ity of tablet 00:00: mouth [place] 00 daily. [facility] Branch methocarbam Yes [id number] 500mg Take 1 Univers oL 500 mg 3-06 tablet by ity o f tablet 00:00: mouth 2 (two) Medical times Branch daily as needed for Pain (scale 7-10). predniSONE Yes [id number] 10mg Take 1 U nivers 10 mg 3-06 tablet by ity of tablet 00:00: mouth 00 daily. Medical Branch methocarbam Yes [id number] 500mg Take 1 Univers oL 500 mg 3-06 tablet by ity o f tablet 00:00: mouth 2 (two) Medical times Branch daily as needed for Pain (scale 7-10). Nystatin Nystatin 2020- No Na Luke [address] 06-26 applicatio [facility]: [facility] n to [facility]oria 00 :00 affected l area Outpati ent Clinics Tramadol Tramadol 0 2020- No Na Luke [address] HCl HCl 06-26 [facility] - 00:00: 00:00 [facility] alendronate 2019-0 Yes TAKE 1 Univ ers 70 mg 2-02 TABLET BY ity of tablet 00:00: MOUTH ONCE A WEEK FOR Medical 90 DAYS Branch glimepiride 2020-0 Yes TAKE 1 Univ ers 1 mg tablet 2-02 TABLET BY ity of 00:00: MOUTH WITH BREAKFAST Medical OR THE Branch FIRST MAIN MEAL OR THE DAY ONCE A DAY pregabalin 2020-0 Yes TAKE 1 Unive rs 75 mg 2-02 CAPSULE BY ity of capsule 00:00: MOUTH THREE Medical TIMES Branch DAILY FOR 30 DAYS alendronate 2020-0 Yes TAKE 1 Univ ers 70 mg 2-02 TABLET BY ity of tablet 00:00: MOUTH ONCE A WEEK FOR Medical 90 DAYS Branch glimepiride 2020-0 Yes TAKE 1 Univ ers 1 mg tablet 2-02 TABLET BY ity of 00:00: MOUTH WITH BREAKFAST Medical OR THE Branch FIRST MAIN MEAL OR THE DAY ONCE A DAY pregabalin 2020-0 Yes TAKE 1 Unive rs 75 mg 2-02 CAPSULE BY ity of capsule 00:00: MOUTH THREE Medical TIMES Branch DAILY FOR 30 DAYS alendronate 2020-0 Yes TAKE 1 Univ ers 70 mg 2-02 TABLET BY ity of tablet 00:00: MOUTH ONCE 00 A WEEK FOR Medical 90 DAYS Branch glimepiride 2020-0 Yes TAKE 1 Univ ers 1 mg tablet 2-02 TABLET BY ity of 00:00: MOUTH WITH [place] BREAKFAST Medical OR THE Branch FIRST MAIN MEAL OR THE DAY ONCE A DAY pregabalin 2020-0 Yes TAKE 1 Unive rs 75 mg 2-02 CAPSULE BY ity of capsule 00:00: MOUTH THREE Medical TIMES Branch DAILY FOR 30 DAYS alendronate 2020-0 Yes TAKE 1 Univ ers 70 mg 2-02 TABLET BY ity of tablet 00:00: MOUTH ONCE A WEEK FOR Medical 90 DAYS Branch glimepiride 2020-0 Yes TAKE 1 Univ ers 1 mg tablet 2-02 TABLET BY ity of 00:00: MOUTH WITH BREAKFAST Medical OR THE Branch FIRST MAIN MEAL OR THE DAY ONCE A DAY pregabalin 2020-0 Yes TAKE 1 Unive rs 75 mg 2-02 CAPSULE BY ity of capsule 00:00: MOUTH THREE Medical TIMES Branch DAILY FOR 30 DAYS alendronate 2020-0 Yes TAKE 1 Univ ers 70 mg 2-02 TABLET BY ity of tablet 00:00: MOUTH ONCE A WEEK FOR Medical 90 DAYS Branch glimepiride 2020-0 Yes TAKE 1 Univ ers 1 mg tablet 2-02 TABLET BY ity of 00:00: MOUTH WITH BREAKFAST Medical OR THE Branch FIRST MAIN MEAL OR THE DAY ONCE A DAY pregabalin 2020-0 Yes TAKE 1 Unive rs 75 mg 2-02 CAPSULE BY ity of capsule 00:00: MOUTH THREE Medical TIMES Branch DAILY FOR 30 DAYS alendronate 2020-0 Yes TAKE 1 Univ ers 70 mg 2-02 TABLET BY ity of tablet 00:00: MOUTH ONCE A WEEK FOR Medical 90 DAYS Branch glimepiride 2020-0 Yes TAKE 1 Univ ers 1 mg tablet 2-02 TABLET BY ity of 00:00: MOUTH WITH BREAKFAST Medical OR THE Branch FIRST MAIN MEAL OR THE DAY ONCE A DAY pregabalin 2020-0 Yes TAKE 1 Unive rs 75 mg 2-02 CAPSULE BY ity of capsule 00:00: MOUTH THREE Medical TIMES Branch DAILY FOR 30 DAYS RESTASIS 2020-0 Yes INSTILL 1 Univ ers 0.05 % 1-27 DROP INTO ity of ophthalmic 00:00: EACH EYE Miki as drops 00 TWICE Medical DAILY Branch RESTASIS 2020-0 Yes INSTILL 1 Univ ers 0.05 % 1-27 DROP INTO ity of ophthalmic 00:00: EACH EYE [place] as drops 00 TWICE Medical DAILY Branch RESTASIS 2020-0 Yes INSTILL 1 Univ ers 0.05 % 1-27 DROP INTO ity of ophthalmic 00:00: EACH EYE [place] as drops 00 TWICE Medical DAILY Branch RESTASIS 2020-0 Yes INSTILL 1 Univ ers 0.05 % 1-27 DROP INTO ity of ophthalmic 00:00: EACH EYE [place] as drops 00 TWICE Medical DAILY Branch RESTASIS 2020-0 Yes INSTILL 1 Univ ers 0.05 % 1-27 DROP INTO ity of ophthalmic 00:00: EACH EYE [place] as drops 00 TWICE Medical DAILY Branch RESTASIS 2020-0 Yes INSTILL 1 Univ ers 0.05 % 1-27 DROP INTO ity of ophthalmic 00:00: EACH EYE [place] as drops 00 TWICE Medical DAILY Branch cefdinir 2020-0 Yes 300mg Take 300 Univ ers 300 mg 1-24 mg by ity of capsule 00:00: mouth [place] (two) Medical times Branch daily. cefdinir 2020-0 Yes 300mg Take 300 Univ ers 300 mg 1-24 mg by ity of capsule 00:00: mouth [place] (two) Medical times Branch daily. cefdinir 2020-0 Yes 300mg Take 300 Univ ers 300 mg 1-24 mg by ity of capsule 00:00: mouth [place] (two) Medical times Branch daily. cefdinir 2020-0 Yes 300mg Take 300 Univ ers 300 mg 1-24 mg by ity of capsule 00:00: mouth [place] (two) Medical times Branch daily. cefdinir 2020-0 Yes 300mg Take 300 Univ ers 300 mg 1-24 mg by ity of capsule 00:00: mouth [place] (two) Medical times Branch daily. cefdinir 2020-0 Yes 300mg Take 300 Univ ers 300 mg 1-24 mg by ity of capsule 00:00: mouth [place] (two) Medical times Branch daily. famotidine 2018-11 Yes TAKE 1 Unive rs 40 mg 2-19 TABLET BY ity of tablet 00:00: MOUTH [place] TWICE Medical DAILY Branch NEEDED FOR 90 DAYS famotidine 2018-11 Yes TAKE 1 Unive rs 40 mg 2-19 TABLET BY ity of tablet 00:00: MOUTH [place] 00 TWICE Medical DAILY Branch NEEDED FOR 90 DAYS famotidine 2019 Yes TAKE 1 Unive rs 40 mg 2-19 TABLET BY ity of tablet 00:00: MOUTH 00 TWICE Medical DAILY Branch NEEDED FOR 90 DAYS famotidine 2018-11 Yes TAKE 1 Unive rs 40 mg 2-19 TABLET BY ity of tablet 00:00: MOUTH 00 TWICE Medical DAILY Branch NEEDED FOR 90 DAYS famotidine 2018-11 Yes TAKE 1 Unive rs 40 mg 2-19 TABLET BY ity of tablet 00:00: MOUTH 00 TWICE Medical DAILY Branch NEEDED FOR 90 DAYS famotidine 2018-11 Yes TAKE 1 Unive rs 40 mg 2-19 TABLET BY ity of tablet 00:00: MOUTH 00 TWICE Medical DAILY Branch NEEDED FOR 90 DAYS ACCU-CHEK 2018-11 Yes USE Univer s SUE PLUS 2-12 DIRECTED ity o f TEST STRP 00:00: DAILY [place] strip Medical Branch traMADol 50 2018- Yes TAKE 1 Univ ers mg tablet 2-12 TABLET BY ity o f 00:00: MOUTH 00 EVERY 12 Medical HOURS Branch NEEDED FOR PAIN OF 7 10 SCALE FOR 10 DAYS ACCU-CHEK 2018-11 Yes USE Univer s SUE PLUS 2-12 DIRECTED ity o f TEST STRP 00:00: DAILY [place] strip Medical Branch traMADol 50 2018- Yes TAKE 1 Univ ers mg tablet 2-12 TABLET BY ity o f 00:00: MOUTH 00 EVERY 12 Medical HOURS Branch NEEDED FOR PAIN OF 7 10 SCALE FOR 10 DAYS ACCU-CHEK 2019 Yes USE Univer s SUE PLUS 2-12 DIRECTED ity o f TEST STRP 00:00: DAILY [place] strip Medical Branch traMADol 50 2019- Yes TAKE 1 Univ ers mg tablet 2-12 TABLET BY ity o f 00:00: MOUTH 00 EVERY 12 Medical HOURS Branch NEEDED FOR PAIN OF 7 10 SCALE FOR 10 DAYS ACCU-CHEK 2019- Yes USE Univer s SUE PLUS 2-12 DIRECTED ity o f TEST STRP 00:00: DAILY [place] strip Medical Branch traMADol 50 2019- Yes TAKE 1 Univ ers mg tablet 2-12 TABLET BY ity o f 00:00: MOUTH [place] 00 EVERY 12 Medical HOURS Branch NEEDED FOR PAIN OF 7 10 SCALE FOR 10 DAYS ACCU-CHEK 2018-11 Yes USE Univer s SUE PLUS 2-12 DIRECTED ity o f TEST STRP 00:00: DAILY [address] Branch traMADol 50 2018-11 Yes TAKE 1 Univ ers mg tablet 2-12 TABLET BY ity o f 00:00: MOUTH [place] EVERY 12 Medical HOURS Branch NEEDED FOR PAIN OF 7 10 SCALE FOR 10 DAYS ACCU-CHEK 2018-11 Yes USE Univer s SUE PLUS 2-12 DIRECTED ity o f TEST STRP 00:00: DAILY [place] [address] Medical Branch traMADol 50 2018-11 Yes TAKE 1 Univ ers mg tablet 2-12 TABLET BY ity o f 00:00: MOUTH [place] [id number] EVERY 12 Medical HOURS Branch NEEDED FOR PAIN OF 7 10 SCALE FOR 10 DAYS fenofibrate 2018-11 Yes 54mg Take 54 mg Univers 54 mg 2-09 by mouth ity of tablet 00:00: daily. [place] [facility] fenofibrate 2018-11 Yes 54mg Take 54 mg Univers 54 mg 2-09 by mouth ity of tablet 00:00: daily. [place] [facility] fenofibrate 2018-11 Yes 54mg Take 54 mg Univers 54 mg 2-09 by mouth ity of tablet 00:00: daily. [place] [facility] fenofibrate 2018-11 Yes 54mg Take 54 mg Univers 54 mg 2-09 by mouth ity of tablet 00:00: daily. [place] [facility] fenofibrate 2018-11 Yes 54mg Take 54 mg Univers 54 mg 2-09 by mouth ity of tablet 00:00: daily. [address] fenofibrate 2018-11 Yes 54mg Take 54 mg Univers 54 mg 2-09 by mouth ity of tablet 00:00: daily. [address] fluticasone 2018-11 Yes USE 2 Unive rs propionate 2-06 SPRAY(S) ity o f 50 00:00: IN EACH [place] mcg/actuati 00 NOSTRIL Medic al on nasal ONCE DAILY Branc h spray FOR 30 DAYS fluticasone 2018-11 Yes USE 2 Unive rs propionate 2-06 SPRAY(S) ity o f 50 00:00: IN EACH [place] mcg/actuati 00 NOSTRIL Medic al on nasal ONCE DAILY Branc h spray FOR 30 DAYS fluticasone 2018-11 Yes USE 2 Unive rs propionate 2-06 SPRAY(S) ity o f 50 00:00: IN EACH [place] mcg/actuati 00 NOSTRIL Medic al on nasal ONCE DAILY Branc h spray FOR 30 DAYS fluticasone 2018-11 Yes USE 2 Unive rs propionate 2-06 SPRAY(S) ity o f 50 00:00: IN EACH [place] mcg/actuati 00 NOSTRIL Medic al on nasal ONCE DAILY Branc h spray FOR 30 DAYS fluticasone 2018-11 Yes USE 2 Unive rs propionate 2-06 SPRAY(S) ity o f 50 00:00: IN EACH [place] mcg/actuati 00 NOSTRIL Medic al on nasal ONCE DAILY Branc h spray FOR 30 DAYS fluticasone 2018-11 Yes USE 2 Unive rs propionate 2-06 SPRAY(S) ity o f 50 00:00: IN EACH [place] mcg/actuati 00 NOSTRIL Medic al on nasal ONCE DAILY Branc h spray FOR 30 DAYS Famotidine Famotidine 2018-11 Yes Na Luke [address] [facility] 2-06 as needed [facility] - 00:[facility]: [facility] 00 l Outpati ent Clinics losartan 2018-11 Yes TAKE 1 Univers 100 mg 1-29 TABLET BY ity of tablet 00:00: MOUTH ONCE [place] DAILY FOR Medical 90 DAYS Branch losartan 2018-11 Yes TAKE 1 Univers 100 mg 1-29 TABLET BY ity of tablet 00:00: MOUTH ONCE [place] DAILY FOR Medical 90 DAYS Branch losartan 2018-11 Yes TAKE 1 Univers 100 mg 1-29 TABLET BY ity of tablet 00:00: MOUTH ONCE [place] DAILY FOR Medical 90 DAYS Branch losartan 2018-11 Yes TAKE 1 Univers 100 mg 1-29 TABLET BY ity of tablet 00:00: MOUTH ONCE [place] DAILY FOR Medical 90 DAYS Branch losartan 2018-11 Yes TAKE 1 Univers 100 mg 1-29 TABLET BY ity of tablet 00:00: MOUTH ONCE [place] DAILY FOR Medical 90 DAYS Branch losartan 2018-11 Yes TAKE 1 Univers 100 mg 1-29 TABLET BY ity of tablet 00:00: MOUTH ONCE [place] DAILY FOR Medical 90 DAYS Branch loratadine 2018-11 Yes 10mg Take 10 mg U nivers 10 mg 1-15 by mouth ity of tablet 00:00: daily. [place] Medical Branch loratadine 2018-11 Yes 10mg Take 10 mg U nivers 10 mg 1-15 by mouth ity of tablet 00:00: daily. [place] [facility] loratadine 2018-11 Yes 10mg Take 10 mg U nivers 10 mg 1-15 by mouth ity of tablet 00:00: daily. [place] [facility] loratadine 2018-11 Yes 10mg Take 10 mg U nivers 10 mg 1-15 by mouth ity of tablet 00:00: daily. [place] [facility] loratadine 2018-11 Yes 10mg Take 10 mg U nivers 10 mg 1-15 by mouth ity of tablet 00:00: daily. [place] [facility] loratadine 2018-11 Yes 10mg Take 10 mg U nivers 10 mg 1-15 by mouth ity of tablet 00:00: daily. [place] [facility] ProAir HFA ProAir HFA Yes Na Luke [address] [facility] [address] 4-04 needed [facility] - 00:[facility]: [facility] 00 l Outpat[facility] Clinics Hydrocolloi Yes [id number] Use as Univers d Dressing 5-10 directed ity o f (DUODERM 00:00: [place] CGF EXTRA 00 Medical THIN) 4 X 4 Branch " Bndg Hydrocolloi Yes [id number] Use as Univers d Dressing 5-10 directed ity o f (DUODERM 00:00: [place] CGF EXTRA 00 Medical THIN) 4 X 4 Branch " Bndg Hydrocolloi Yes [id number] Use as Univers d Dressing 5-10 directed ity o f (DUODERM 00:00: [place] CGF EXTRA 00 Medical THIN) 4 X 4 Branch " Bndg Hydrocolloi Yes [id number] Use as Univers d Dressing 5-10 directed ity o f (DUODERM 00:00: [place] CGF EXTRA 00 Medical THIN) 4 X 4 Branch " Bndg Hydrocolloi Yes [id number] Use as Univers d Dressing 5-10 directed ity o f (DUODERM 00:00: [place] CGF EXTRA 00 Medical THIN) 4 X 4 Branch " Bndg Hydrocolloi Yes [id number] Use as Univers d Dressing 5-10 directed ity o f (DUODERM 00:00: [place] CGF EXTRA 00 Medical THIN) 4 X 4 Branch " Bndg Hydrocolloi Yes [id number] Use as Univers d Dressing 5-10 directed ity o f (DUODERM 00:00: [place] CGF EXTRA 00 Medical THIN) 4 X 4 Branch " Bndg Hydrocolloi 2018-0 Yes [id number] Use as Univers d Dressing 5-10 directed ity o f (DUODERM 00:00: [place] CGF EXTRA 00 Medical THIN) 4 X 4 Branch " Bndg Hydrocolloi 2018-0 Yes [id number] Use as Univers d Dressing 5-10 directed ity o f (DUODERM 00:00: [place] CGF EXTRA 00 Medical THIN) 4 X 4 Branch " Bndg collagenase Yes Apply to U nivers (SANTYL) 1-09 affected ity of 250 00:00: area(s) [place] unit/gram 00 daily. Medical ointment Branch acetaminoph Yes [id number] 1{tbl} Take 1 Univers en-codeine 1-09 tablet by ity of 300-30 mg 00:00: mouth [place] tablet 00 every 4 Medical (four) Branch hours as needed for Pain (scale 4-6). collagenase Yes Apply to U nivers (SANTYL) 11-21 affected ity of 250 00:00: area(s) [place] unit/gram 00 daily. Medical ointment Branch acetaminoph Yes [id number] 1{tbl} Take 1 Univers en-codeine 1-09 tablet by ity of 300-30 mg 00:00: mouth [place] tablet 00 every 4 Medical (four) Branch hours as needed for Pain (scale 4-6). collagenase Yes Apply to U nivers (SANTYL) 11-21 affected ity of 250 00:00: area(s) [place] unit/gram 00 daily. Medical ointment Branch acetaminoph Yes [id number] 1{tbl} Take 1 Univers en-codeine 1-09 tablet by ity of 300-30 mg 00:00: mouth [place] tablet 00 every 4 Medical (four) Branch hours as needed for Pain (scale 4-6). collagenase 2017-0 Yes Apply to U nivers (SANTYL) 11-21 affected ity of 250 00:00: area(s) [place] unit/gram 00 daily. Medical ointment Branch acetaminoph 0 Yes [id number] 1{tbl} Take 1 Univers en-codeine 1-09 tablet by ity of 300-30 mg 00:00: mouth [place] tablet 00 every 4 Medical (four) Branch hours as needed for Pain (scale 4-6). collagenase 2017- Yes Apply to U nivers (SANTYL) 1- affected ity of 250 00:00: area(s) [place] unit/gram 00 daily. Medical ointment Branch acetaminoph Yes [id number] 1{tbl} Take 1 Univers en-codeine 1-09 tablet by ity of 300-30 mg 00:00: mouth [place] tablet 00 every 4 Medical (four) Branch hours as needed for Pain (scale 4-6). collagenase 2017-0 Yes Apply to U nivers (SANTYL) 1- affected ity of 250 00:00: area(s) [place] unit/gram 00 daily. Medical ointment Branch acetaminoph Yes [id number] 1{tbl} Take 1 Univers en-codeine 1-09 tablet by ity of 300-30 mg 00:00: mouth [place] tablet 00 every 4 Medical (four) Branch hours as needed for Pain (scale 4-6). collagenase 2017- Yes Apply to U nivers (SANTYL) 11-21 affected ity of 250 00:00: area(s) [place] unit/gram 00 daily. Medical ointment Branch acetaminoph Yes [id number] 1{tbl} Take 1 Univers en-codeine 1-09 tablet by ity of 300-30 mg 00:00: mouth [place] tablet 00 every 4 Medical (four) Branch hours as needed for Pain (scale 4-6). collagenase 2017- Yes Apply to U nivers (SANTYL) 11-21 affected ity of 250 00:00: area(s) [place] unit/gram 00 daily. Medical ointment Branch acetaminoph Yes [id number] 1{tbl} Take 1 Univers en-codeine 1-09 tablet by ity of 300-30 mg 00:00: mouth [place] tablet 00 every 4 Medical (four) Branch hours as needed for Pain (scale 4-6). collagenase 2017-0 Yes Apply to U nivers (SANTYL) 11-21 affected ity of 250 00:00: area(s) [place] unit/gram 00 daily. Medical ointment Branch acetaminoph 2017-0 Yes [id number] 1{tbl} Take 1 Univers en-codeine 1-09 tablet by ity of 300-30 mg 00:00: mouth [place] tablet 00 every 4 Medical (four) Branch hours as needed for Pain (scale 4-6). Accu-Chek Accu-Chek Yes Na Luke USE [facility] Sue Plus Sue Plus DIRECTED [facility] - DAILY [facility] Clin[facility] Yes Na Luke [address] [facility] Allergy Allergy [facility] Tylenol Tylenol Yes Na Luke not [facility] Arthritis Arthritis defined Viviane kes - Pain Pain [facility] Losartan Losartan Yes Na Luke take one [facility] Potassium Potassium tablet by [facility] - mouth once Memoria daily l Outpati ent Clinics Flonase Flonase Yes Na Luke [address] [facility] each [facility] - nostril [facility] Glimepiride Glimepiride Yes Na Luke TAKE [address] [facility] TABLET BY [facility] - MOUTH WITH Memoria BREAKFAST l OR THE [facility] MAIN MEAL Clinics OR THE DAY ONCE A DAY Lyrica Lyrica Yes Na Luke [address] [facility] Fenofibrate Fenofibrate Yes Na Luke TAKE ONE [facility] TABLET BY [facility] - MOUTH ONCE Memoria DAILY l Outpati ent Clinics Restasis Restasis Yes Na Luke [address] [facility] - affected Memoria eye l Outpati ent Clinics Nexium Nexium Yes Na Luke [address] [facility] Famotidine Famotidine Yes Na Luke [address] [facility] as needed [facility] Voltaren Voltaren Yes Na Luke APPLY TO [facility] AFFECTED [facility] - AREA(S) UP Memoria TO FOUR l TIMES A Outpati DAY ent NEEDED FOR Clinics PAIN Fosamax Fosamax Yes Na Luke [address] [facility] Losartan Losartan Yes Na Luke take one [facility] Potassium Potassium tablet by [facility] - mouth once [facility]oria daily l [facility] Immunizations Ordered Filled Immunization Date Status Comments [facility] e Immunization Name Name SARS-COV-2 COVID-19 2020-12-20 Completed Unive rsity of MODERNA VACCINE 00:00:00 [facility] Branch SARS-COV-2 COVID-19 2020-12-20 Completed Unive rsity of MODERNA VACCINE 00:00:00 [facility] ical Branch SARS-COV-2 COVID-19 2020-12-20 Completed Unive rsity of MODERNA VACCINE 00:00:00 [facility] ical Branch SARS-COV-2 COVID-19 2020-12-20 Completed Unive rsity of MODERNA VACCINE 00:00:00 [facility] Branch SARS-COV-2 COVID-19 2020-11-22 Completed Unive rsity of MODERNA VACCINE 00:00:00 [facility] Branch SARS-COV-2 COVID-19 2020-11-22 Completed Unive rsity of MODERNA VACCINE 00:00:00 [facility] Branch SARS-COV-2 COVID-19 2020-11-22 Completed Unive rsity of MODERNA VACCINE 00:00:00 [place] [facility] SARS-COV-2 COVID-19 2020-11-22 Completed Unive rsity of MODERNA VACCINE 00:00:00 [facility] Vital Signs Vital Name Observation Time Observation Value Comments Source Systolic blood 2021-10-22 04:48:26 174 mm[Hg] Univer sity of pressure [facility] Diastolic blood 2021-10-22 04:48:26 64 mm[Hg] Unive rsity of pressure [facility] Heart rate 2021-10-22 04:48:26 63 /min [facility] Body temperature 2021-10-22 04:48:26 35.67 [facility] rate 2021-10-22 04:48:26 18 /min [facility] Oxygen saturation in 2021-10-22 04:48:26 98 /min [facility] Arterial blood by [facility] Pulse oximetry [place] Body height 2021-10-22 01:05:00 154.9 cm [facility] Body weight 2021-10-22 01:05:00 74.844 kg [facility] BMI 2021-10-22 01:05:00 31.18 kg/m2 [facility] Systolic blood 2021-04-13 03:12:37 141 mm[Hg] Univer sity of pressure [facility] Diastolic blood 2021-04-13 03:12:37 60 mm[Hg] Unive [facility] Heart rate 2021-04-13 03:12:37 84 /min [facility] Respiratory rate 2021-04-13 03:12:37 21 /min [facility] [place] [facility] Oxygen saturation in 2021-04-13 03:12:37 96 /min [facility] of Arterial blood by [facility] Pulse oximetry Branch Body temperature 2021-04-12 22:39:00 37 Aruna [facility] [place] [facility] Body height 2021-04-12 22:39:00 157.5 cm [facility] Body weight 2021-04-12 22:39:00 75.751 kg [facility] BMI 2021-04-12 22:39:00 30.54 kg/m2 [facility] Systolic blood 2021-01-16 21:10:00 164 mm[Hg] [facility]iver [facility] Diastolic blood 2021-01-16 21:10:00 83 mm[Hg] Unive [facility] Heart rate 2021-01-16 21:10:00 73 /min [facility] Respiratory rate 2021-01-16 21:10:00 12 /min [facility] Oxygen saturation in 2021-01-16 21:10:00 97 /min [facility] of Arterial blood by [facility] Pulse oximetry Branch Body temperature 2021-01-16 18:41:00 36.72 Aruna [facility] Body weight 2021-01-16 18:41:00 70.308 kg [facility] [place] [facility] BMI 2021-01-16 18:41:00 26.61 kg/m2 [facility] Systolic blood 2019-12-20 15:18:00 122 mm[Hg] [facility] Diastolic blood 2019-12-20 15:18:00 58 mm[Hg] Unive [facility] Heart rate 2019-12-20 15:18:00 89 /min [facility] Respiratory rate 2019-12-20 15:18:00 20 /min [facility] Body height 2019-12-20 15:18:00 162.6 cm [facility] Body weight 2019-12-20 15:18:00 68.947 kg [facility] BMI 2019-12-20 15:18:00 26.09 kg/m2 [facility] Systolic blood 2019-12-20 15:18:00 122 mm[Hg] Univer sity of pressure [facility] Diastolic blood 2019-12-20 15:18:00 58 mm[Hg] Unive rsity of [facility] Heart rate 2019-12-20 15:18:00 89 /min [facility] Respiratory rate 2019-12-20 15:18:00 20 /min Univ ersity of [facility] Body height 2019-12-20 15:18:00 162.6 cm Universi ty of [facility] Body weight 2019-12-20 15:18:00 68.947 kg [facility]i [facility] BMI 2019-12-20 15:18:00 26.09 kg/m2 [facility] Systolic blood 2019-12-06 20:22:00 139 mm[Hg] Univer sity of [facility] Diastolic blood 2019-12-06 20:22:00 73 mm[Hg] Unive rsity of [facility] Heart rate 2019-12-06 20:22:00 77 /min Universi ty of [facility] Body temperature 2019-12-06 20:22:00 36.72 Aruna Univ ersity of [facility] Respiratory rate 2019-12-06 20:22:00 16 /min Univ ersity of [facility] Body weight 2019-12-06 20:22:00 68.947 kg Universi ty of [facility] BMI 2019-12-06 20:22:00 26.09 kg/m2 [facility] of [facility] Oxygen saturation in 2019-12-06 20:22:00 96 /min [facility] Arterial blood by [facility] Pulse oximetry Branch Procedures Procedure Date / Time Performing Clinician Source Performed XR ANKLE 3+ VW RIGHT 2021-10-22 02:41:39 Jake Leyva [facility] XR HIP 1 VW RIGHT 2021-10-22 02:41:39 Jake Leyva [facility] CONSENT/REFUSAL FOR 2021-10-22 00:54:58 Doctor Unassigned, No [facility] Name Medical [place] [facility] ABDOMEN PELVIS W 2021-04-13 01:28:42 Ml [facility] CONTRAST Medical Branch LIPASE 2021-04-12 23:29:00 Victor Manuel [facility] COMP. METABOLIC PANEL 2021-04-12 23:29:00 Ml Rush [facility] ([id number]) Medical Branch CBC WITH DIFF 2021-04-12 23:29:00 Victor Manuel [facility] URINALYSIS 2021-04-12 23:29:00 Rush, [place] [facility] CONSENT/REFUSAL FOR 2021-04-12 22:15:41 Doctor Unassigned, [facility] Name [facility] CT CERVICAL SPINE WO 2021-01-16 20:15:05 Jose Valdivia [facility] MAGNESIUM 2021-01-16 19:43:00 Jose Valdivia [facility] TROPONIN I 2021-01-16 19:43:00 Skip Jose [facility] HEPATIC FUNCTION PANEL 2021-01-16 19:43:00 Jose Valdivia [facility] ([id number]) (ALB,T.PRO,BILI [facility] T,BU/BC,ALT,AST,ALK PHOS) BASIC METABOLIC PANEL 2021-01-16 19:43:00 Jose Valdivia [facility] (NA, K, CL, CO2, Medical Branch GLUCOSE, BUN, CREATININE, CA) CBC WITH DIFF 2021-01-16 19:43:00 Jose Valdivia [facility] PROTHROMBIN TIME / INR 2021-01-16 19:43:00 Jose Valdivia [facility] ACTIVATED PARTIAL 2021-01-16 19:43:00 Skip Jose [facility] THRMPLAS LESLYE [facility] N-TERMINAL PRO-BNP 2021-01-16 19:43:00 Jose Valdivia [facility] XR CHEST 1 VW 2021-01-16 19:40:05 Jose Valdivia [facility] NOTICE OF PRIVACY 2021-01-16 18:36:17 Doctor Unassigned, No [facility] CONSENT/REFUSAL FOR 2021-01-16 18:35:46 Doctor Unassigned, No [facility] [place] [facility] Name Medical Branch ASSIGNMENT OF BENEFITS 2019-12-20 15:14:51 Doctor Unassigned, No [facility] Medical Branch XR ANKLE 3+ VW LEFT 2019-12-06 20:59:17 Lori Smith [facility] XR FOOT 3+ VW LEFT 2019-12-06 20:59:17 Lori Smith [facility] ED SPLINT APPLICATION 2019-12-06 20:29:22 Lori Smith [facility] NOTICE OF PRIVACY 2019-12-06 20:09:42 Doctor Unassigned, No [facility] Medical Branch CONSENT/REFUSAL FOR 2019-12-06 20:09:21 Doctor Unassigned, No [facility] [place] [facility]AT[facility] Name Medical Branch Encounters Start End Encounter Admission Attending Care Care Encounter Source Date/Time Date/Time Type Type Clinicians Facility Department ID 2021-09-12 Emergency [facility] [id number] Univers 22:14:50 [facility] 2021-09-12 Emergency [facility] [id number] Univers 03:47:55 [facility] 2021-11-08 2021-11-08 Outpatient R [facility] [id number] Univers 19:45:00 19:45:00 [id number] [facility] 2021-11-08 2021-11-08 [facility] [id number] Univers 19:45:00 19:45:00 BLESSING ity [facility] 2021-10-21 2021-10-21 Emergency X [facility] [id number] Univers 19:15:00 23:06:00 JAKE [facility] 2021-10-21 2021-10-21 Emergency [facility] [id number] Univers 19:15:00 23:06:00 Jake AN [id number] ity [facility] [id number] [facility] [id number] [facility] 084 Branch 2021-07-30 2021-07-30 Outpatient [facility]ML[facility] [id number] [facility] 2021-04-12 2021-04-12 Emergency [facility] [id number] Univers 17:42:00 23:14:00 Ml An [id number] i ty of [place] 4.2.7.2.686 [facility] [phone] [facility] 084 Branch 2021-03-01 2021-03-01 Outpatient STLMLC STLMLC [id number] [facility] 2021-01-16 2021-01-16 Emergency [facility] [id number] Univers 12:44:00 15:51:00 Jose An [id number] i ty of [place] [id number] [facility] [phone] [facility] 084 Branch 2021-01-16 2021-01-16 Orders Doctor BLESSING [id number] Univers 00:00:00 00:00:00 Only Unassigned, DOMO [id number] ity of [place] [facility] [id number] [facility] [phone] [facility] 009 Branch 2021-01-01 2021-01-01 Outpatient STLMLC [facility] [id number] [facility] 2020-12-25 2020-12-25 Outpatient STLMLC [facility]LMLC [id number] [facility] 2020-12-20 2020-12-20 Outpatient Ethan BOOTH [facility] [id number] Univers 12:30:00 12:30:00 IZZY [id number] ity of [facility] 2020-12-20 2020-12-20 Outpatient Ethan BOOTH [facility] [id number] Univers 12:30:00 09:07:41 IZZY [facility] 2020-11-22 2020-11-22 Outpatient Ethan EMMY, [facility] [id number] Univers 12:30:00 12:30:00 IZZY [id number] [facility] 2020-11-22 2020-11-22 Outpatient Ethan EMMY, [facility] [id number] Univers 12:30:00 11:53:01 IZZY [facility] 2020-10-28 2020-10-28 Outpatient STLMLC [facility]LMLC [id number] [facility] 2020-10-07 2020-10-07 Outpatient STLMLC [facility]ML[facility] [id number] [facility] 2020-10-06 2020-10-06 Outpatient STLMLC [facility]LMLC [id number] [facility] 2020-10-02 2020-10-02 Outpatient STLMLC [facility]LMLC [id number] [facility] 2020-07-21 2020-07-21 [facility] [id number] 09:41:00 09:41:00 t SureVisit s - Drive [facility] Family Medicine l Medicine Outpati ent Clinics 2020-06-26 2020-06-26 [facility] [id number] 10:20:00 10:20:00 t Sure[employer] s - Drive [facility] Family Medicine l Medicine Outpati ent Clinics 2020-03-20 2020-03-20 [facility] [id number] 09:40:00 09:40:00 t SureVisit s - Drive [facility] Family Medicine l Medicine Outpati ent Clinics 2020-03-06 2020-03-06 [facility] [id number] 17:08:00 17:08:00 t SureVisit s - Drive [facility] Family Medicine l Medicine Outpati ent Clinics 2020-03-06 2020-03-06 [facility] [id number] 10:51:00 10:51:00 [employer] [facility] 2020-01-20 2020-01-20 [facility] [id number] 15:19:00 15:19:00 t [employer] [facility] 2020-01-17 2020-01-17 [facility] [id number] 11:00:00 11:00:00 [facility] [employer] [facility] ent [facility] 2019-12-20 2019-12-20 Office [facility] [id number] Univers 09:17:00 09:36:32 Visit [facility] [id number] it y of Surgical [id number] Miki as Specialti [phone] Me dical es [address] [place] [address] 2019-12-20 2019-12-20 Office [facility] [id number] 09:17:00 09:36:32 Visit [facility] [id number] Surgical [id number] Specialti [id number] es [address] [place] [address] 2019-12-20 2019-12-20 Orders Doctor BLESSING [id number] Univers 00:00:00 00:00:00 Only Unassigned, DOMO [id number] ity of [place] [facility] 4.2.7.2.686 Miki as [id number] [facility] 009 [place] 2019-12-06 2019-12-06 Emergency Sarah, [facility] [id number] Univers 14:27:57 16:23:00 Lori An [id number] i ty of [place] 4.2.7.2.686 [place] [facility] [id number] [facility] 084 Branch 2019-12-06 2019-12-06 Orders Doctor BLESSING [id number] Univers 00:00:00 00:00:00 Only Unassigned, DOMO [id number] ity [place] [facility] [id number] Miik as [phone] [address] 2019-10-24 2019-10-24 [facility] [id number] 13:44:00 13:44:00 t Osborn [employer] Luke s - Drive [facility] Medicine Medicine Outpati ent Clinics 2019-10-24 2019-10-24 [facility] [id number] 13:00:00 13:00:00 t [employer]born [employer] Luke s - Drive [facility] Medicine l Medicine Outpati ent Clinics 2019-10-21 2019-10-21 [facility] [id number] 12:48:00 12:48:00 t Osborn [employer] s - Drive [facility] Medicine Outpati ent Clinics 2019-10-21 2019-10-21 [facility] [id number] 09:20:00 09:20:00 t Osborn [employer] s - Drive [facility] Medicine Medicine Outpati ent Clinics 2019-10-18 2019-10-18 [facility] [id number] 13:40:00 13:40:00 t [employer]born [employer] s - Drive [facility] Medicine Medicine Outpati ent Clinics 2019-10-07 2019-10-07 [facility] [id number] 15:44:00 15:44:00 t [employer]born [employer] Luke s - Drive [facility] Medicine Medicine Outpati ent Clinics 2019-09-23 2019-09-23 [facility] [id number] 16:40:00 16:40:00 t [employer]born [employer] Luke s - Drive [facility] Medicine Medicine Outpati ent Clinics 2019-06-27 2019-06-27 [facility] [id number] 10:40:00 10:40:00 t [employer]born [employer] s - Drive [facility] Medicine Outpati ent Clinics 2019-06-07 2019-06-07 [facility] [id number] 10:52:00 10:52:00 t Osborn [employer] Luke s - Drive [facility] Medicine Outpati ent Clinics 2019-04-30 2019-04-30 [facility] [id number] 15:00:00 15:00:[address] Luke s - Drive [facility] Medicine l Medicine Outpati ent Clinics 2019-02-22 2019-02-22 [facility] [id number] 14:00:00 14:00:[address] Luke s - Drive [facility] Medicine l Medicine Outpati ent Clinics 2019-02-18 2019-02-18 [facility] [id number] 11:57:00 11:57:[address] Luke s - Drive [facility] Medicine l Medicine Outpati ent Clinics 2019-02-14 2019-02-14 [facility] [id number] 11:40:00 11:40:[address] Luke s - Drive [facility] Medicine l Medicine Outpati ent Clinics 2019-02-14 2019-02-14 [facility] [id number] 11:31:00 11:31:[address] Luke s - Drive [facility] Medicine l Medicine Outpati ent Clinics 2018-12-19 2018-12-19 [facility] [id number] 13:18:00 13:18:[address] Luke s - Drive [facility] Medicine l Medicine Outpati ent Clinics 2018-12-14 2018-12-14 [facility] [id number] 15:13:00 15:13:[address] Luke s - Drive [facility] Medicine l Medicine Outpati ent Clinics 2018-11-08 2018-11-08 [facility] [id number] 08:15:00 08:15:[address] Luke s - Drive [facility] Medicine l Medicine Outpati ent Clinics 2018-11-07 2018-11-07 [facility] [id number] 10:02:00 10:02:[address] Luke s - Drive [facility] Medicine l Medicine Outpati ent Clinics 2018-09-27 2018-09-27 [facility] [id number] 11:00:00 11:00:[address] Luke s - Drive [facility] Medicine [facility] Clin[facility] Results Test Description Test Time Test Comments Results Result Comments Source Urinalysis 2021-04-13 00:26:21 Test Item Value Reference Range Interpretation Comme nts APPEARANCE (test code = Clear Clear 7281790650) COLOR (test code = 8978697785) Straw Yellow A PH (test code = 4714177487) 4.8-8.0 SP GRAVITY (test code = 1.003-1.030 6490122168) GLU U QUAL (test code = Normal Normal 7920086306) BLOOD (test code = 9999287541) Negative Negative KETONES (test code = 3450311567) Negative Negative PROTEIN (test code = 2887-8) Negative Negative UROBILIN (test code = 0912682031) Normal Normal BILIRUBIN (test code = Negative Negative 8609790902) NITRITE (test code = 2148820018) Negative Negative LEUK HOMER (test code = Negative Negative 8770865284) RBC/HPF (test code = 9585692353) <1 See_Comment [Automated message] The system which ge nerated this result transmit dion reference range: 0 - 3 HP F. The reference range was not used to interpret th is result as normal/abnormal . WBC/HPF (test code = 8925652744) <1 See_Comment [Automated message] The system which ge nerated this result transmit dion reference range: 0 - 5 HP F. The reference range was not used to interpret th is result as normal/abnormal . BACTERIA (test code = 8482682261) Negative Negative SQ EPITH (test code = 6907279535) <1 HPF Lab Interpretation (test code = Abnormal 01388-2) [facility] [id number] 00:16:40 Test Item Value Reference Range Interpretation Comments NA (test code = 137 mmol/L 135-145 2877818618) K (test code = 5.2 mmol/L 3.5-5.0 H 9295463941) CL (test code = 101 mmol/L 98-108 8108971145) CO2 TOTAL (test code = 28 mmol/L 23-31 0076708743) AGAP (test code = 2-16 0817257631) BUN (test code = 56 mg/dL 7-23 H 0405066336) GLUCOSE (test code = 75 mg/dL 70-110 3563606571) CREATININE (test code = 1.46 mg/dL 0.50-1.04 H 3705514086) TOTAL BILI (test code = 0.4 mg/dL 0.1-1.5 0878758585) CALCIUM (test code = 9.6 mg/dL 8.6-10.6 9619293797) T PROTEIN (test code = 7.3 g/dL 6.3-8.2 6383201888) ALBUMIN (test code = 4.2 g/dL 3.5-5.0 0154437050) ALK PHOS (test code = 44 U/L 34-122 8456081754) ALTv (test code = 22 U/L 5-35 1742-6) AST(SGOT) (test code = 52 U/L 13-40 H 2790294487) eGFR (test code = mL/min/1.73m2 3159782045) MONTY (test code = MONTY) Association of Glomerular Filtration Rate (GFR) and Staging of Kidney Disease* + --+ --+ ------+| GFR (mL/min/1.73 m2) ?| With Kidney Damage ?| ?Without Kidney Damage+ --------+ --------+ +| ?>90 ?| ?Stage one ?| ? Normal ?+ ---+ ---+ -------+| ?60-89 ?| ?Stage two ?| ? Decreased GFR ? + --+ --+ ------+| ?30-59 ?| ?Stage three ?| ? Stage three ? + --+ --+ ------+| ?15-29 ?| ?Stage four ? | ? Stage four ?+ ---+ ---+ -------+| ?<15 (or dialysis) ? ?| ?Stage five ? | ? Stage five ?+ ---+ ---+ -------+ *Each stage assumes the associated GFR level has been in effect for at least three months. ?Stages 1 to 5, with or without kidney disease, indicate chronic kidney disease. Notes: Determination of stages one and two (with eGFR >59mL/min/1.73 m2) requires estimation of kidney damage for at least three months as defined by structural or functional abnormalities of the kidney, manifested by either:Pathological abnormalities or Markers of kidney damage (including abnormalities in the composition of the blood or urine or abnormalities in imaging tests). Lab Interpretation Abnormal (test code = 03980-2) [facility], [id number] 00:16:25 Test Item Value Reference Range Interpretation Comments LIPASE (test code = 2594265468) 143 U/L 0-220 Lab Interpretation (test code = Normal 65428-5) [facility] with [id number] 23:50:22 Test Item Value Reference Range Interpretation Comments WBC (test code = See_Comment [Automated 6690-2) message] The sy stem which generated this result transmitted reference range : 4.30 - 11.10 10*3/?L. The reference range was not used to interpret this result as normal/abnormal . RBC (test code = See_Comment L [Automated 789-8) message] The sy stem which generated this result transmitted reference range : 3.93 - 5.25 10*6/?L. The reference range was not used to interpret this result as normal/abnormal . HGB (test code = 10.5 g/dL 11.6-15.0 L 718-7) HCT (test code = 32.2 % 35.7-45.2 L 4544-3) MCV (test code = 96.1 fL 80.6-95.5 H 787-2) MCH (test code = 31.3 pg 25.9-32.8 785-6) MCHC (test code = 32.6 g/dL 31.6-35.1 786-4) RDW-SD (test code = 47.1 fL 39.0-49.9 35794-3) RDW-CV (test code = 13.5 % 12.0-15.5 788-0) PLT (test code = See_Comment [Automated 777-3) message] The sy stem which generated this result transmitted reference range : 166 - 358 10*3/ ?L. The reference r melisa was not used to interpret this result as normal/abnormal . MPV (test code = 12.5 fL 9.5-12.9 78433-1) NRBC/100 WBC (test See_Comment [Automat ed code = 0068245679) message] The system which generated this result transmitted reference range : 0.0 - 10.0 /100 WBCs. The refer ence range was not u sed to interpret th is result as normal/abnormal . NRBC x10^3 (test code <0.01 See_Comment [Auto mated = 1300124501) message] The s ystem which generated this result transmitted reference range : 10*3/?L. The reference range was not used to interpret this result as normal/abnormal . GRAN MAT (NEUT) % 54.9 % (test code = 770-8) IMM GRAN % (test code 0.20 % = 3246321182) LYMPH % (test code = 30.0 % 736-9) MONO % (test code = 10.0 % 5905-5) EOS % (test code = 4.4 % 713-8) BASO % (test code = 0.5 % 706-2) GRAN MAT x10^3(ANC) 4.62 10*3/uL 1.88-7.09 (test code = 8200674867) IMM GRAN x10^3 (test <0.03 0.00-0.06 code = 5125457915) LYMPH x10^3 (test code 2.52 10*3/uL 1.32-3.29 = 731-0) MONO x10^3 (test code 0.84 10*3/uL 0.33-0.92 = 742-7) EOS x10^3 (test code = 0.37 10*3/uL 0.03-0.39 711-2) BASO x10^3 (test code 0.04 10*3/uL 0.01-0.07 = 704-7) Lab Interpretation Abnormal (test code = 18047-1) [facility] WO [id number] 20:44:07 No acute fracture or traumatic malalignment of the cervical spine.Degenerative changes of the cervical spine as detailed with right C4- N4pnimer foraminal narrowing. EXAMINATION: CT CERVICAL SPINE [place] HISTORY: Neck pain, chronic, no prior imaging Osteoarthritis, cervical Neckpain, acute, no red flags COMPARISON: None available. TECHNIQUE: Routine unenhanced CT of the cervical spine. ? FINDINGS: No acute fracture of the cervical spine. No traumatic malalignment of thecervical spine. This examination does not assess for ligamentous injury orstability.There is mild anterolisthesis of C4 onC5. There are subchondral cysticchanges in C2 and hypertrophic changes posterior to the dens. There aredegenerative changes of the cervical spine with right C2-C3, left C3-C4,and right C4-C5 and C5-C6 facet arthropathy. There is right C4-C5 neuralforaminal narrowing.Nonspecific sclerosis in right C4 pedicle, possibly bone island. [facility], Radiant Results Inft User - 01/16/2021 2:45 PM CSTEXAMINATION: CT CERVICAL SPINE WO CONTRASTHISTORY: Neck pain, chronic, no prior imaging Osteoarthritis, cervical Neckpain, acute, no red flags COMPARISON: None available. TECHNIQUE: Routine unenhanced CT of the cervical spine. FINDINGS:No acute fracture of the cervical spine. No traumatic malalignment of thecervical spine. This examination does not assess for ligamentous injury orstability.There is mild anterolisthesis of C4 on C5. There are subchondral cysticchanges in C2 and hypertrophic changes posterior to the dens. There aredegenerative changes of the cervical spine with right C2-C3, left C3-C4,and right C4-C5 and C5-C6 facet arthropathy. There is right C4-C5 neuralforaminal narrowing.Nonspecific sclerosisin right C4 pedicle, possibly bone island.IMPRESSIONNo acute fracture or traumatic malalignment of the cervical spine.Degenerative changes of the cervical spine as detailed with right C4- A5xiwprh foraminal narrowing.[facility] [facility]:14[facility]00 Test Item Value Reference Range Interpretation Comments TROPONIN I (test 0.005 ng/mL See_Comment [Automated code = 1426532642) message] The system which generated this result transmitted reference range : <=0.034. The reference range was not used to interpret this result as normal/abnormal . MONTY (test code = Equal or Less than MONTY) 0.034 ng/ml---Normal ?Note: Cardiac troponin begins to rise 3-4 hours after the onset of ischemia. Repeat in 4-6 hours if the sample was drawn within 3-4 hours of the onset of the symptom and found normal. Between 0.035 and 0.120 ng/mL--- Borderline. Questionable myocardial injury or necrosis ? ?Note: Serial measurement may be necessary to confirm or exclude the diagnosis of myocardial injury or necrosis; Clinical correlation (symptoms, EKGs, imaging studies, and others) required; Repeat in 4-6 hours if clinically indicated. ? Equal or Higher than 0.121 ng/mL---Abnormal. Myocardial Injury or Necrosis Likely ? Biotin has been reported to cause a negative bias, interpret results relative to patient's use of biotin. ? Lab Interpretation Normal (test code = 58106-1) [id number] 20:10:00 Test Item Value Reference Range Interpretation Comments NT-proBNP (test code 466 pg/mL See_Comment H [Autom ated = 0478323357) message] The system which generated this result transmitted reference range : <=450. The reference range was not used to interpret this result as normal/abnormal . MONTY (test code = MONTY) Biotin has been reported to cause a negative bias, interpret results relative to patient's use of biotin. Lab Interpretation Abnormal (test code = 24466-7) [facility] 1 [id number] 20:09:52 No acute cardiopulmonary abnormality. Preliminary Report Dictated by Resident: Norman Bull MD., have reviewed this study and agree with the abovereport.EXAM: XR CHEST 1 VW CLINICAL INDICATION: left shoulder pain COMPARISON: None FINDINGS: The lungs are well-expanded and clear without focal consolidation, pleuraleffusion, or pneumothorax. Mild cardiomegaly. The aorta is tortuous No acute osseous abnormality. [facility], Radiant Results Inft User - 01/16/2021 2:10 PM CSTEXAM: XR CHEST1 VWCLINICAL INDICATION: left shoulder pain COMPARISON: NoneFINDINGS:The lungs are well-expanded andclear without focal consolidation, pleuraleffusion, or pneumothorax. Mild cardiomegaly. The aorta is tortuousNo acute osseous abnormality. IMPRESSIONNo acute cardiopulmonary abnormality.Preliminary Report Dictated by Resident: Norman Clifton MD., have reviewed this study and agree with the abovereport.[facility] 20:03:00 Test Item Value Reference Range Interpretation Comments APTT Patient (test See_Comment [Automat ed code = 3173-2) message] The system which generated this result transmitted reference range : 23 - 38 Seconds . The reference range was not used to interpr et this result as normal/abnormal . MONTY (test code = MONTY) The [facility] patient population mean normal value for aPTT is 30 seconds. Lab Interpretation Normal (test code = 83214-6) [facility] Metabolic Panel (NA, K, CL, CO2, GLUCOSE, BUN, CREATININE, CA)2021-01-16 20:02:00 Test Item Value Reference Range Interpretation Comments NA (test code = 140 mmol/L 135-145 5412755986) K (test code = 4.5 mmol/L 3.5-5 0293499023) CL (test code = 102 mmol/L 98-108 1417892933) CO2 TOTAL (test code = 31 mmol/L 23-31 6646950819) AGAP (test code = 2-16 0977183416) BUN (test code = 43 mg/dL 7-23 H 9056170009) GLUCOSE (test code = 119 mg/dL 70-110 H 1564741847) CREATININE (test code = 1.20 mg/dL 0.5-1.04 H 3210607491) CALCIUM (test code = 9.4 mg/dL 8.6-10.6 1412098381) eGFR Calculation mL/min/1.73m2 (Non-) (test code = 5755320724) eGFR Calculation mL/min/1.73m2 () (test code = 3929948964) MONTY (test code = MONTY) Association of Glomerular Filtration Rate (GFR) and Staging of Kidney Disease* + --+ --+ ------+| GFR (mL/min/1.73 m2) ?| With Kidney Damage ?| ?Without Kidney Damage+ --------+ --------+ +| ?>90 ?| ?Stage one ?| ? Normal ?+ ---+ ---+ -------+| ?60-89 ?| ?Stage two ?| ? Decreased GFR ? + --+ --+ ------+| ?30-59 ?| ?Stage three ?| ? Stage three ? + --+ --+ ------+| ?15-29 ?| ?Stage four ? | ? Stage four ?+ ---+ ---+ -------+| ?<15 (or dialysis) ? ?| ?Stage five ? | ? Stage five ?+ ---+ ---+ -------+ *Each stage assumes the associated GFR level has been in effect for at least three months. ?Stages 1 to 5, with or without kidney disease, indicate chronic kidney disease. Notes: Determination of stages one and two (with eGFR >59mL/min/1.73 m2) requires estimation of kidney damage for at least three months as defined by structural or functional abnormalities of the kidney, manifested by either:Pathological abnormalities or Markers of kidney damage (including abnormalities in the composition of the blood or urine or abnormalities in imaging tests). Lab Interpretation Abnormal (test code = 03068-7) [facility] (ALB, T.PRO, BILI T, BU/BC, ALT, AST, ALK PHOS)2021-01-16 20:02:00 Test Item Value Reference Range Interpretation Comments TOTAL BILI (test code = 6703471262) 0.4 mg/dL 0.1-1.1 BILI UNCON (test code = 4434968502) 0.3 mg/dL 0.1-1.1 BILI CONJ (test code = 1263060293) 0.0 mg/dL 0-0.3 T PROTEIN (test code = 0079233178) 7.5 g/dL 6.3-8.2 ALBUMIN (test code = 1845778840) 4.6 g/dL 3.5-5 ALK PHOS (test code = 6022114525) 46 U/L 34-122 ALTv (test code = 1742-6) 17 U/L 5-35 AST(SGOT) (test code = 6802613225) 26 U/L 13-40 Lab Interpretation (test code = Normal 97881-4) [facility]2021-03-06 20:02:00 Test Item Value Reference Range Interpretation Comments MAGNESIUM (test code = 5595427506) 1.9 mg/dL 1.7-2.4 Lab Interpretation (test code = Normal 73267-9) [facility] Irving[facility]th[facility] (PT) / [id number] 20:01:00 Test Item Value Reference Range Interpretation Comments PROTIME PATIENT (test See_Comment [Auto mated message] code = 5964-2) The system wh ich generated this result transmitted ref erence range: 12.0 - 1 4.7 Seconds. The re ference range was not u sed to interpret this result as normal/abnor mal. INR (test code = 6301-6) Nor mal INR <1.1; Warfarin Therap eutic range 2.0 to 3. 0 or 2.5 to 3.5, dep ending upon the indica tions. Lab Interpretation (test Normal code = 38719-0) [facility] with [id number] 19:51:00 Test Item Value Reference Range Interpretation Comments WBC (test code = See_Comment [Automated 9790-2) message] The sy stem which generated this result transmitted reference range : 4.30 - 11.10 10*3/?L. The reference range was not used to interpret this result as normal/abnormal . RBC (test code = See_Comment L [Automated 789-8) message] The sy stem which generated this result transmitted reference range : 3.93 - 5.25 10*6/?L. The reference range was not used to interpret this result as normal/abnormal . HGB (test code = 11.2 g/dL 11.6-15 L 718-7) HCT (test code = 35.6 % 35.7-45.2 L 4544-3) MCV (test code = 98.6 fL 80.6-95.5 H 787-2) MCH (test code = 31.0 pg 25.9-32.8 785-6) MCHC (test code = 31.5 g/dL 31.6-35.1 L 786-4) RDW-SD (test code = 47.7 fL 39-49.9 20559-6) RDW-CV (test code = 13.2 % 12-15.5 788-0) PLT (test code = See_Comment [Automated 777-3) message] The sy stem which generated this result transmitted reference range : 166 - 358 10*3/ ?L. The reference r melisa was not used to interpret this result as normal/abnormal . MPV (test code = 12.2 fL 9.5-12.9 23472-2) NRBC/100 WBC (test See_Comment [Automat ed code = 6293137358) message] The system which generated this result transmitted reference range : 0.0 - 10.0 /100 WBCs. The refer ence range was not u sed to interpret th is result as normal/abnormal . NRBC x10^3 (test code <0.01 See_Comment [Auto mated = 4319362193) message] The s ystem which generated this result transmitted reference range : 10*3/?L. The reference range was not used to interpret this result as normal/abnormal . GRAN MAT (NEUT) % 75.7 % (test code = 770-8) IMM GRAN % (test code 0.20 % = 1408593560) LYMPH % (test code = 18.2 % 736-9) MONO % (test code = 4.6 % 5905-5) EOS % (test code = 0.9 % 713-8) BASO % (test code = 0.4 % 706-2) GRAN MAT x10^3(ANC) 6.20 10*3/uL 1.88-7.09 (test code = 1900344620) IMM GRAN x10^3 (test <0.03 0-0.06 code = 0424620118) LYMPH x10^3 (test code 1.49 10*3/uL 1.32-3.29 = 731-0) MONO x10^3 (test code 0.38 10*3/uL 0.33-0.92 = 742-7) EOS x10^3 (test code = 0.07 10*3/uL 0.03-0.39 711-2) BASO x10^3 (test code 0.03 10*3/uL 0.01-0.07 = 704-7) Lab Interpretation Abnormal (test code = 13234-7) [facility]XR FOOT 3+ VW [id number] 21:12:491. Comminuted, intra-articular fracture of the base of the proximal phalanxof the great toe2. Diffuse soft tissue swelling involving the distal lower extremity andmedial malleolus3. Small plantar calcaneal spur EXAM: Left ankle 3 views EXAM: Left foot 3 views HISTORY: Left ankle pain status post fallTECHNIQUE:AP, lateral, oblique view of the left ankle and left foot isobtained. FINDINGS: No acute abnormality of the ankle joint is seen. Ankle mortise is intact.No bone lesion is present. Diffuse soft tissue swelling is seen in thedistal lower extremity and medial malleolus. There is a comminuted intra-articular fracture involving the base of theproximal phalanx of the great toe. No other acute abno rmality of the footis seen. A small plantar calcaneal spur is noted. Pes planus deformity ispresent.Calcifications are seen in the vessels of the foot. [facility], Radiant Results Inft User - 12/06/2019 3:13 PM CSTEXAM: Left ankle 3 viewsEXAM: Left foot 3 viewsHISTORY: Left ankle pain status post fallTECHNIQUE:AP, lateral, oblique view of the left ankle and left foot isobtained.FINDINGS:No acute abnormality of the ankle joint is seen. Ankle mortise is intact.No bone lesion is present. Diffuse soft tissue swelling is seen in thedistal lower extremity and medial malleolus.There is a comminuted intra-articular fracture involving the base of theproximal phalanx of the great toe. No other acute abnormalityof the footis seen. A small plantar calcaneal spur is noted. Pes planus deformity ispresent. Calcifications are seen in the vessels of the foot.IMPRESSION1. Comminuted, intra-articular fracture of the base of the proximal phalanxof the great toe2. Diffuse soft tissue swelling involving the distal lower extremity andmedial malleolus3. Small plantar calcaneal spurUnCHI St. [facility] HospitalXR ANKLE 3+ VW [id number] 21:12:491. Comminuted, intra-articular fracture of the base of the proximal phalanxof the great toe2. Diffuse soft tissue swelling involving the distal lower extremity andmedial malleolus3. Small plantar calcaneal spur EXAM: Left ankle 3 views EXAM: Left foot 3 views HISTORY: Left ankle pain status post fallTECHNIQUE:AP, lateral, oblique view of the left ankle and left foot isobtained. FINDINGS: No acute abnormality of the ankle joint is seen. Ankle mortise is intact.No bone lesion is present. Diffuse soft tissue swelling is seen in thedistal lower extremity and medial malleolus. There is a comminuted intra-articular fracture involving the base of theproximal phalanx of the great toe. No other acute abnormality of the footis seen. A small plantar calcaneal spur is noted. Pes planus deformity ispresent.Calcifications are seen in the vessels of the foot. [facility], Radiant Results Inft User - 12/06/2019 3:13 PM CSTEXAM: Left ankle 3 viewsEXAM: Left foot 3 viewsHISTORY: Left ankle pain status post fallTECHNIQUE:AP, lateral, oblique view of the left ankle and left foot isobtained.FINDINGS:No acute abnormality of the ankle joint is seen. Ankle mortise is intact.No bone lesion is present. Diffuse soft tissue swelling is seen in thedistal lower extremity and medial malleolus.There is a comminuted intra-articular fracture involving the base of theproximal phalanx of the great toe. No other acute abnormalityof the footis seen. A small plantar calcaneal spur is noted. Pes planus deformity ispresent. Calcifications are seen in the vessels of the foot.IMPRESSION1. Comminuted, intra-articular fracture of the base of the proximal phalanxof the great toe2. Diffuse soft tissue swelling involving the distal lower extremity andmedial malleolus3. Small plantar calcaneal spurUnCHI St. [facility]
--- NOTE | 2021-11-07 17:46 | ER ---
Nurse's Notes [facility] Name: Poly Granados Age: 81 yrs Sex: Female : 1940 Arrival Date: 11/07/2021 Time: 15:22 Bed 12 Private MD: Shabana Gill Diagnosis: Presentation: 11/07 15:43 Chief complaint: Patient states: Fatigue, body aches, WU for 2 days. Son wants her ll1 checked for covid. Coronavirus screen: Vaccine status: Patient reports receiving the 2nd dose of the covid vaccine. Client denies travel out of the [place] in the last 14 days. fatigue, headache, nausea, Client presents with at least one sign or symptom that may indicate coronavirus-19. Standard/surgical mask placed on the client. Ebola Screen: Patient denies travel to an Ebola-affected area in the 21 days before illness onset. Initial Sepsis Screen: Does the patient meet any 2 criteria? No. Patient's initial sepsis screen is negative. Does the patient have a suspected source of infection? Yes: Other: WU, body aches. Risk Assessment: Do you want to hurt yourself or someone else? Patient reports no desire to harm self or others. Onset of symptoms was November 06, 2021. 15:43 Method Of Arrival: Ambulatory ll1 15:43 Acuity: CODY 3 ll1 Triage Assessment: 15:50 General: Appears in no apparent distress. Behavior is calm, cooperative, appropriate ll1 for age. Pain: Complains of pain in head Quality of pain is described as aching. Neuro: Level of Consciousness is awake, alert, obeys commands, Oriented to person, place, time, situation, Appropriate for age Moves all extremities. Full function Weakness Reports headache. Cardiovascular: No deficits noted. Respiratory: No deficits noted. Musculoskeletal: Reports body aches. Historical: - Allergies: 15:46 NKDA; ll1 - PMHx: 15:46 Hyperlipidemia; Diabetes - NIDDM; Arthritis; "heart burn"; Hypertension; ll1 - PSHx: 15:46 None; ll1 - Immunization history:: Client reports receiving the 2nd dose of the Covid vaccine, Flu vaccine is up to date. - Social history:: Smoking status: Patient denies any tobacco usage or history of. Screenin:09 Abuse screen: Denies threats or abuse. Nutritional screening: No deficits noted. ll3 Tuberculosis screening: No symptoms or risk factors identified. Fall Risk None identified. Assessment: 16:50 Reassessment: No changes from previously documented assessment. Patient and/or family ll1 updated on plan of care and expected duration. Pain level reassessed. 17:09 General: Appears in no apparent distress. comfortable, Behavior is calm, cooperative. ll3 Pain: Complains of pain in H/A Pain currently is 6 out of 10 on a pain scale. Neuro: Level of Consciousness is awake, alert, obeys commands, Oriented to person, place, time, situation, Gait is steady, Speech is normal, Reports headache. Cardiovascular: Patient's skin is warm and dry. Respiratory: Respiratory effort is even, unlabored, Respiratory pattern is regular, symmetrical. GI: Bowel sounds present X 4 quads. Abd is soft and non tender X 4 quads. Derm: Skin is pink, warm \\T\\ dry. 17:44 Reassessment: No changes from previously documented assessment. Patient and/or family ll1 updated on plan of care and expected duration. Pain level reassessed. Patient is alert, oriented x 3, equal unlabored respirations, skin warm/dry/pink. Vital Signs: 15:43 BP 184 / 69; Pulse 62; Resp 17; Temp 97.8; Pulse Ox 97% ; Weight 74.84 kg; Height 5 ft. ll1 5 in. (165.10 cm); Pain 6/10; 15:43 Body Mass Index 27.46 (74.84 kg, 165.10 cm) ll1 ED Course: 15:22 Patient arrived in ED. mr 15:23 Shabana Gill MD is Private Physician. mr 15:46 Triage completed. ll1 15:46 Arm band placed on. ll1 17:06 Patient placed in an exam room, on a stretcher. ll1 17:07 Mouna Christy MD is Attending Physician. ma2 17:07 Patrick Aldana PA is PHCP. cp 17:08 Lizzy Perez, CARLOS is Primary Nurse. ll3 17:09 Mouna Christy MD is Attending Physician. cp 17:09 Patient has correct armband on for positive identification. Bed in low position. Call ll3 light in reach. Side rails up X 1. Adult w/ patient. 17:43 No provider procedures requiring assistance completed. Patient did not have IV access ll3 during this emergency room visit. Administered Medications: No medications were administered Outcome: 17:44 Eloped from patient exam room, after seeing physician ll3 17:44 Condition: stable 17:44 Instructed on Pt was tired of waiting, left without signing AMA form 17:46 Patient left the ED. ll3 Signatures: Jacquie Ashby mr Patrick Aldana PA PA cp Alzahri, Mohammad, MD MD ma2 Janice Borges, RN RN ll1 Lizzy Perez RN RN ll3
--- NOTE | 2021-11-07 17:47 | EDPHYS ---
Physician Documentation [facility] Name: Poly Granados Age: 81 yrs Sex: Female : 1940 Arrival Date: 11/07/2021 Time: 15:22 Bed 12 Private MD: Shabana Gill ED Physician Mouna Christy HPI: 11/07 17:18 This 81 yrs old Female presents to ER via Ambulatory with complaints of Covid cp Test, Headache, Fatigue. 17:18 The patient complains of pain to the top of head. cp 17:18 The patient describes the headache as aching. Onset: The symptoms/episode cp began/occurred today. Associated signs and symptoms: Pertinent positives: fatigue, body aches, Pertinent negatives: neck stiffness, Photophobia vomiting, weakness. Severity of symptoms: in the emergency department the pain a " 5" out of "10". Historical: - Allergies: 15:46 NKDA; ll1 - PMHx: 15:46 Hyperlipidemia; Diabetes - NIDDM; Arthritis; "heart burn"; Hypertension; ll1 - PSHx: 15:46 None; ll1 - Immunization history:: Client reports receiving the 2nd dose of the Covid vaccine, Flu vaccine is up to date. - Social history:: Smoking status: Patient denies any tobacco usage or history of. ROS: 17:20 Constitutional: Positive for body aches, Negative for fever, poor PO intake. cp 17:20 Eyes: Negative for injury, pain, redness, and discharge. cp 17:20 ENT: Negative for drainage from ear(s), ear pain, sore throat, difficulty swallowing, difficulty handling secretions. 17:20 Cardiovascular: Negative for chest pain. 17:20 Respiratory: Negative for cough, shortness of breath, wheezing. 17:20 Abdomen/GI: Negative for abdominal pain, vomiting, diarrhea, constipation. 17:20 : Negative for urinary symptoms. 17:20 Neuro: Positive for headache, Negative for altered mental status, weakness. 17:20 All other systems are negative. Exam: 17:25 Constitutional: The patient appears in no acute distress, alert, awake, cp non-diaphoretic, non-toxic, well developed, well nourished. 17:25 Head/Face: Normocephalic, atraumatic. cp 17:25 Eyes: Periorbital structures: appear normal, Conjunctiva: normal, no exudate, no injection, Sclera: no appreciated abnormality, Lids and lashes: appear normal, bilaterally. 17:25 ENT: External ear(s): are unremarkable, Nose: is normal, Posterior pharynx: Airway: no evidence of obstruction, patent. 17:25 Neck: ROM/movement: is normal, is supple, without pain, no range of motions limitations. 17:25 Chest/axilla: Inspection: normal. 17:25 Cardiovascular: Rate: normal. 17:25 Respiratory: the patient does not display signs of respiratory distress, Respirations: normal, no use of accessory muscles, no retractions, labored breathing, is not present, Breath sounds: are clear throughout, no decreased breath sounds, no stridor, no wheezing. 17:25 Abdomen/GI: Exam negative for discomfort, distension, guarding, Inspection: abdomen appears normal. 17:25 Back: pain, is absent, ROM is normal. 17:25 Neuro: Orientation: to person, place \\T\\ time. Mentation: is normal, Motor: moves all fours, strength is normal, Sensation: is normal. Vital Signs: 15:43 BP 184 / 69; Pulse 62; Resp 17; Temp 97.8; Pulse Ox 97% ; Weight 74.84 kg; Height 5 ft. ll1 5 in. (165.10 cm); Pain 6/10; 15:43 Body Mass Index 27.46 (74.84 kg, 165.10 cm) ll1 MDM: 17:25 ED course: Patient requesting just testing for COVID-19 and refuses any other testing, cp blood work. 11/07 15:48 Order name: COVID-19/FLU A+B (Document "Date of Onset" if Symptomatic) ll1 Administered Medications: No medications were administered Disposition Summary: 11/07/21 17:46 Eloped Disposition: after being seen by provider ll3 Reason: wait time ll3 Signatures: Dispatcher [employer] EDMS Patrick Aldana PA PA cp Lewis, Lynsay, RN RN ll1 Lizzy Perez RN RN ll3 Corrections: (The following items were deleted from the chart) 17:45 17:18 Associated signs and symptoms: Pertinent positives: nausea, fatiigue, Pertinent cp negatives: neck stiffness, vomiting, weakness, cp 11/08 03:05 11/07 17:30 ED course: Patient requesting just testing for COVID-19 and refuses any cp other testing, blood work. cp
[2021-11-07 17:48] LABS: SARS-COV-2 RT PCR NEGATIVE (NEGATIVE)
[2021-11-07 18:01] VITALS: BP 184/69; TEMP 97.8; O2SAT 97
== END 2021-11-07 17:46 | disposition left against medical advice (07) ==
LOC: ER 15:14
DX: R51.9 Headache, unspecified (principal); Z20.822 Contact with and (suspected) exposure to COVID-19
CPT/HCPCS: 0240U; 99281

== ENCOUNTER 2023-09-29 14:14 | Observation (INO) | payer OTHER ==
--- OUTSIDE RECORDS SUMMARY | 2023-09-29 14:28 | XMS REPORT | Continuity of Care Document ---
:1940 Author Organization [facility] t Address [address] [place] [address] Care Team Providers Name Role Phone Marlene Vu Primary Care Physician [phone] Yuly Chino Attending Clinician Unavailable Lizbeth Salmeron Attending Clinician Unavailable Shabana Gill Attending Clinician Unavailable GARY GUPTA Attending Clinician Unavailable Gary Mccoy Attending Clinician [email or web address] Attending Clinician Unavailable ZOEY RAMIREZ Attending Clinician Unavailable Zoey Ramirez DO Attending Clinician JOE VASQUES Attending Clinician Unavailable Joe Vasques MD Attending Clinician Jose GONZALEZ, Wanda Herzog Attending Clinician Unavailable NELSON LOPEZ Attending Clinician Unavailable Nelson Lopez MD Attending Clinician HAYDEN WEINSTEIN Attending Clinician Unavailable Hayden Weinstein MD Attending Clinician Ry COHEN Attending Clinician Unavailable Ry Porter Attending Clinician JUDY ACEVES Attending Clinician Unavailable Unruly Trinidad APN Attending Clinician Jose Matamoros MD Attending Clinician Angelique Lozano DO Attending Clinician Anoop MASTERSON, Fabio Attending Clinician Steven Love MD Attending Clinician STEVEN LOVE Attending Clinician Unavailable WILLIAM ROE Attending Clinician Unavailable Otis Ryderya S Attending Clinician Doctor Unassigned, [place] Attending Clinician Unavailable BLESSING BAUTISTA Attending Clinician Unavailable JUAN ROWELL Attending Clinician Unavailable Juan Rowell DO Attending Clinician JAKE LEYVA Attending Clinician Unavailable Jake Leyva MD Attending Clinician Jose Valdivia MD Attending Clinician JOSE VALDIVIA Attending Clinician Unavailable IZZY BOOTH Attending Clinician Unavailable Brian Lobo MD Attending Clinician Lori Teran Attending Clinician GARY GUPTA Admitting Clinician Unavailable [email or web address]_S Admitting Clinician Unavailable ZOEY RAMIREZ Admitting Clinician Unavailable JOE VASQUES Admitting Clinician Unavailable NELSON LOPEZ Admitting Clinician Unavailable Nelson Lopez MD Admitting Clinician HAYDEN WEINSTEIN Admitting Clinician Unavailable JOSE MATAMOROS Admitting Clinician Unavailable Jose Matamoros MD Admitting Clinician WILLIAM ROE Admitting Clinician Unavailable JAKE LEYVA Admitting Clinician Unavailable JOSE VALDIVIA Admitting Clinician Unavailable Payers Payer Name Policy Type Policy Number Effective Date Expiration Date Thompson cameron MEDICARE PART A \\T\\ [id number] 2004 B 00:00:00 [place] [id number] 2011 00:00:00 [place] ReClaims [id number] 2022 STAR PL[place] 00:00:00 [place] [id number] 2004 [employer] SOLUTIONS 00:00:00 [facility] [id number] 2016 OF [place] (MEDICAID 00:00:00 HMO) Problems Condition Condition Condition Status Onset Resolution Last Treating Co mments Source Name Details Category Date Date Treatment Clinician Date Gastroente Gastroente Disease Active U nivers ritis ritis 6-10 ity of 00:00: [place] 00 Medical Branch Generalize Generalize Disease Active U nivers d d 6-09 [place] of abdominal abdominal [place] pain 00 [place] Epigastric Epigastric Disease Active U nivers pain pain 6-07 ity of 00:00: [place] 00 Medical Branch NSTEMI NSTEMI Disease Active Overview: Univer s (non-ST (non-ST 04-18 Formattin ity o f elevated elevated 00:00: g of this [place] as myocardial myocardial 00 note Me dical infarction infarction might be Branch ) ) different from the original. 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 Sp mitchell - CHI [facility] 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, - CHI stage 3B stage 3b St (disorder) [facility] Gammopathy Gammopathy Problem C ommon Spirit - CHI [facility] Essential Benign Problem Common hypertensi essential Spi rit on HTN - CHI [facility] Anemia due Anemia, Problem Comm on to blood blood loss Spir it loss - CHI [facility] Degenerati DJD Problem Commo n on of (degenerat Spirit lumbosacra shwetha joint - C HI l disease), St interverte lumbosacra [facility] Generalize Generalize Problem C ommon d d Spirit osteoarthr osteoarthr - CHI itis itis [facility] Type II Controlled Problem Comm on diabetes type 2 Spirit mellitus diabetes - [facility] without mellitus St complicati without [facility] on complicati Medica l on, Center without long-term current use of insulin Age-relate Osteoporos Problem C ommon d is without Spirit osteoporos current - CHI is pathologic [facility] fracture, Medical unspecifie Center d osteoporos is type Gastro-eso G[facility]eso [facility] phage[facility] phageal Spirit reflux reflux - [facility] [id number] Chronic Problem Comm on kidney Spirit disease, - CHI stage 3a [facility] Compressio Compressio Problem [facility] n fracture n fracture Sp mitchell of spine of spine - [facility] Allergic Non-season Problem Com mon rhinitis al Spirit [facility], [facility] gout Problem Comm on gout [facility] Osteoporos Other Problem Commo n is osteoporos Spirit is - CHI [facility] [id number] Arthritis Problem Commo n Spirit - CHI [facility] [id number] Dry eyes Problem Comm on Spirit - CHI [facility] Systolic Systolic Problem Commo n heart congestive Spirit failure heart - CHI failure [facility] Neuropathy Neuropathy Problem C ommon Spirit - CHI [facility] [id number] Osteoarthr Problem Co mmon itis of Spirit both - CHI knees, St unspecifie [facility] d Medical osteoarthr Center itis type [id number] Mixed Problem Common stress and Spirit urge - CHI urinary [facility] [id number] Type 2 Problem Common diabetes Spirit mellitus - CHI with diabetic [facility] chronic Medical kidney Center disease [id number] Osteoarthr Problem Co mmon itis of Spirit multiple - CHI joints, St unspecifie [facility] d [facility] osteoarthr Center itis type Seasonal Allergic Problem Commo n allergic rhinitis, Spiri t rhinitis seasonal - [facility] Spinal Lumbosacra Problem Commo n stenosis l spinal Spirit of lumbar stenosis - [facility] region [facility] Varicose Varicose Problem Commo n vein vein [facility] Mixed Mixed Problem Common hyperlipid hyperlipid Sp mitchell emia emia [facility] Hypercalce Hypercalce Problem C ommon bettina bettina [facility] Anemia in Anemia in Problem Com mon chronic chronic Spirit kidney kidney - [facility] disease disease [facility] Allergies, Adverse Reactions, Alerts Allergy Allergy Status Severity Reaction(s) Onset Inactive Treating Comm ents Source Name Type Date Date Clinician NO KNOWN Drug Active Univers ALLERGIE Class ity of S [facility] Social History Social Habit Start Date Stop Date Quantity Comments Source Gender identity Universit y [facility] Sexual orientation Univer sity [facility] History of Tobacco Common Spirit - Use [facility] Sex Assigned At Common Sp mitchell - [facility] Alcohol intake 2023-09-24 2023-09-24 Current University of 00:00:00 00:00:00 non-drinker of [facility] alcohol Wyalusing (finding) Exposure to 2022-09-30 2022-10-10 Not sure [facility] SARS-CoV-2 (event) 00:00:00 09:53:00 [facility] History of Social 2022-04-19 2022-04-19 Univers ity of function 00:00:00 00:00:00 [facility] Tobacco use and 2017-09-19 2017-09-19 Smokeless Universit y of exposure 00:00:00 00:00:00 tobacco non-user [facility] Smoking Status Start Date Stop Date Source Never smoked tobacco [facility] Medications Ordered Filled Start Stop Current Ordering Indication Dosage Frequency Signature Comments Components Source Medication Medication Date Date Medication? Clinician (SIG) Name Name acetaminoph 2022-11- No 1000mg 1,000 mg, Univers en 11-25 Oral, ity of (TYLENOL) 01:45: 01:33 ONCE, 1 [place] tablet 00 :00 dose, On Medical 1,000 mg [place] Wyal[place] 09/24/23 at 1945, [place] hydrocodone 2022-11 Yes Take by Uni vers /acetaminop 1-12 mouth as ity of hen (NORCO 21:55: needed for [place] ORAL) 04 Pain Medical (scale Branch 7-10). fish 2022-11 Yes Take by Univers oil/borage/ 1-12 mouth. ity of flax/om3,6, 21:55: [place] 9 1 (OMEGA 04 Medical 3-6-9 ORAL) Branch esomeprazol 2022-11 Yes 20mg Take 20 mg Univers e 20 mg -12 by mouth ity of capsule 19:41: daily [place] 34 before a Medical meal. Branch fenofibrate 2022-11 Yes 54mg Take 1 Univ ers 54 mg 1-12 tablet by ity of tablet 19:41: mouth [place] 34 daily. Medical Branch B cmplx 2022-11 Yes 1{capsu Take 1 Unive rs 4/vit 1-12 le} capsule by ity of D3/C/folic/ 19:41: mouth [place] zinc 33 daily. Medical (VITAL-D RX Branch ORAL) naproxen 2022-11- Yes [id number] 500mg Take 1 Univers 500 mg -12 11-20 tablet by ity of tablet 00:00: 05:59 mouth 2 [place] 00 :00 (two) Medical times Branch daily with meals for 7 days. lidocaine 5 2022-11- Yes [id number] 1{patch Apply 1 Univers % (700 1-12 11-20 } Patch to ity of mg/patch) 00:00: 05:59 area(s) [place] patch 00 :00 daily for Medical 7 doses. Branch hydralAZINE 2022- No 10mg 10 mg, Uni vers (APRESOLINE 05-14 Slow IV ity of ) injection 07:15: 07:05 [place], [place] 10 mg 00 :00 ONCE, 1 Medical dose, On Branch 05/14/23 at 0215, [place] acetaminoph 2022- No 650mg 650 mg, U nivers en 05-14 Oral, ity of (TYLENOL) 06:00: 06:03 ONCE, 1 [place] tablet 650 00 :00 dose, On Medic al mg [place] 05/14/23 Branch at 0100, [place] hydralAZINE 2022-2022- No 10mg 10 mg, Uni vers (APRESOLINE 05-14 Slow IV ity of ) injection 06:00: 06:14 [place], [place] 10 mg 00 :00 ONCE, 1 Medical dose, On Branch 05/14/23 at 0100, [place] esomeprazol 2022-0 Yes 20mg Take 20 mg Univers e 20 mg 6-10 by mouth ity of capsule 19:16: daily [place] 49 before a Medical meal. Branch B cmplx Yes 1{capsu Take 1 Unive rs 4/vit 6-10 le} capsule by ity of D3/C/folic/ 19:16: mouth [place] zinc 49 daily. Medical (VITAL-D RX Branch ORAL) fenofibrate 0 Yes 54mg Take 1 Univ ers 54 mg 6-10 tablet by ity of tablet 19:16: mouth [place] 49 daily. Medical Branch omeprazole 0 Yes 20mg Take 1 Unive rs 20 mg 6-10 capsule by ity of capsule 19:16: mouth [place] 49 daily. Medical Branch gabapentin 0 Yes 75mg Take 75 mg U nivers 100 mg 6-10 by mouth 3 ity of capsule 19:16: (three) [place] 49 times Medical daily. Branch simvastatin 0 Yes 20mg Take 1 Univ ers 20 mg 6-10 tablet by ity of tablet 19:16: mouth at [place] 49 bedtime. Medical Branch esomeprazol Yes 20mg Take 20 mg Univers e 20 mg 6-10 by mouth ity of capsule 19:16: daily [place] 49 before a Medical meal. Branch B cmplx 0 Yes 1{capsu Take 1 Unive rs 4/vit 6-10 le} capsule by ity of D3/C/folic/ 19:16: mouth [place] zinc 49 daily. Medical (VITAL-D RX Branch ORAL) fenofibrate 2022-0 Yes 54mg Take 1 Univ ers 54 mg 6-10 tablet by ity of tablet 19:16: mouth [place] 49 daily. Medical Branch omeprazole 2022-0 Yes 20mg Take 1 Unive rs 20 mg 6-10 capsule by ity of capsule 19:16: mouth [place] 49 daily. Medical Branch gabapentin 2022-0 Yes 75mg Take 75 mg U nivers 100 mg 6-10 by mouth 3 ity of capsule 19:16: (three) [place] 49 times Medical daily. Branch simvastatin 2022-0 Yes 20mg Take 1 Univ ers 20 mg 6-10 tablet by ity of tablet 19:16: mouth at [place] 49 bedtime. Medical Branch esomeprazol 2022-0 Yes 20mg Take 20 mg Univers e 20 mg 6-10 by mouth ity of capsule 19:16: daily [place] 49 before a Medical meal. Branch B cmplx 2022-0 Yes 1{capsu Take 1 Unive rs 4/vit 6-10 le} capsule by ity of D3/C/folic/ 19:16: mouth [place] zinc 49 daily. Medical (VITAL-D RX Branch ORAL) fenofibrate 2022-0 Yes 54mg Take 1 Univ ers 54 mg 6-10 tablet by ity of tablet 19:16: mouth [place] 49 daily. Medical Branch omeprazole 2022-0 Yes 20mg Take 1 Unive rs 20 mg 6-10 capsule by ity of capsule 19:16: mouth [place] 49 daily. Medical Branch gabapentin 2022-0 Yes 75mg Take 75 mg U nivers 100 mg 6-10 by mouth 3 ity of capsule 19:16: (three) [place] 49 times Medical daily. Branch simvastatin 2022-0 Yes 20mg Take 1 Univ ers 20 mg 6-10 tablet by ity of tablet 19:16: mouth at [place] 49 bedtime. Medical Branch esomeprazol 2022-0 Yes 20mg Take 20 mg Univers e 20 mg 6-10 by mouth ity of capsule 19:16: daily [place] 49 before a Medical meal. Branch B cmplx 2022-0 Yes 1{capsu Take 1 Unive rs 4/vit 6-10 le} capsule by ity of D3/C/folic/ 19:16: mouth [place] zinc 49 daily. Medical (VITAL-D RX Branch ORAL) fenofibrate 2022-0 Yes 54mg Take 1 Univ ers 54 mg 6-10 tablet by ity of tablet 19:16: mouth [place] 49 daily. Medical Branch omeprazole 2022-0 Yes 20mg Take 1 Unive rs 20 mg 6-10 capsule by ity of capsule 19:16: mouth [place] 49 daily. Medical Branch gabapentin 2022-0 Yes 75mg Take 75 mg U nivers 100 mg 6-10 by mouth 3 ity of capsule 19:16: (three) [place] 49 times Medical daily. Branch simvastatin 2022-0 Yes 20mg Take 1 Univ ers 20 mg 6-10 tablet by ity of tablet 19:16: mouth at [place] 49 bedtime. Medical Branch omeprazole 2022-0 Yes 20mg Take 1 Unive rs 20 mg 6-10 capsule by ity of capsule 19:16: mouth [place] 49 daily. Medical Branch gabapentin 2022-0 Yes 75mg Take 75 mg U nivers 100 mg 6-10 by mouth 3 ity of capsule 19:16: (three) [place] 49 times Medical daily. Branch simvastatin 2022-0 Yes 20mg Take 1 Univ ers 20 mg 6-10 tablet by ity of tablet 19:16: mouth at [place] 49 bedtime. Medical Branch loratadine 0 Yes 10mg 10 mg, Unive rs (CLARITIN) 6-10 Oral, ity of tablet 10 14:00: Q48H, [place] mg 00 First dose Medical (after Branch last modificati on) on [facility] 04/22/23 at 0900, Until Discontinu ed, Routine fluticasone 0 Yes 2{spray 2 [place], Univers propionate 6-10 } Nasal, ity of 50 14:00: DAILY, [place] mcg/actuati 00 First dose Me dical on nasal on [facility] spray 2 04/22/23 at [place] 0900, Until Discontinu ed, Routine aspirin 2022-0 Yes 81mg 81 mg, Univers chewable 6-10 Oral, ity of tablet 81 14:00: DAILY, [place] mg 00 First dose Medical on [facility] 04/22/23 at 0900, Until Discontinu ed, Routine pantoprazol 0 Yes 40mg 40 mg, Univ ers e 6-10 Oral, ity of (PROTONIX) 14:00: DAILY, [place] EC tablet 00 First dose Medi anthony [address] [facility] 04/22/23 at 0900, Until Discontinu ed, Routine artificial 2022-0 Yes 1[drp] 1 Drop, Un mina tears(hypro 6-10 Both Eyes, it y of mellose) 13:00: BID, First [place] as (ISOPTO-TEA 00 dose on Medic al RS) 0.5 % [facility] ophthalmic 6/10/23 at drops 1 0800, Drop Until Discontinu ed Sliding 2022- Yes Subcutaneo Univ ers Scale 6-10 us, TID ity of Insulin - 02:00: MEALS+HS, [place] as Lispro 00 First dose Medical (HumaLOG) on Mon Branch 04/21/23 at 2100, Until Discontinu ed, Routine simvastatin Yes 20mg 20 mg, Univ ers (ZOCOR) 6-10 Oral, QHS, ity of tablet 20 02:00: First dose [place] mg 00 on Mon Medical 04/21/23 at Branch 2100, Until Discontinu ed, Routine gabapentin Yes 100mg 100 mg, Uni vers (NEURONTIN) 6-10 Oral, TID, it y of capsule 100 01:45: First dose [place] mg 00 on Mon [facility] 04/21/23 at Branch 2044, Until Discontinu ed, Routine glucagon Yes 1mg 1 mg, Univers (GLUCAGEN 6-10 Intramuscu ity of DIAGNOSTIC 01:35: lar, PRN, [place] KIT) 45 Starting Medical injection 1 on Mon [facility] 04/21/23 at 2034, Until Discontinu ed, [place], Blood Glucose < or = 70 mg/dL and patient is NPO, unable to swallow or has mental changes. dextrose 50 Yes 25mL 25 mL, Univ ers % in water 6-10 Slow IV ity of (D50W) 01:35: Push, PRN, [place] injection 45 Starting Medica l 25 mL on Mon [place]al[place] 04/21/23 at 2034, Until Discontinu ed, [place], Blood Glucose < or = 70 mg/dL and patient is NPO, unable to swallow or has mental status changes. enoxaparin Yes 30mg 30 mg, Unive rs (LOVENOX) 6-09 Subcutaneo ity of injection 22:00: us, DAILY, [place] 30 mg 00 First dose Medical on Mon [place] 04/21/23 at 1700, Until Discontinu ed, Routine NaCl 0.45% Yes 1000mL at 100 Uni vers (1/2NS) IV 6-09 mL/hr, ity of infusion 21:00: 1,000 mL, [place] 1,000 mL 00 IV Medical Infusion, Branch CONTINUOUS , Starting on Mon04/21/23 at 1600, Until Discontinu ed, Routine cefTRIAXone 2022- No 1000mg 1,000 mg, Univers (ROCEPHIN) 04-21 IV ity of 1,000 mg in 20:30: 21:14 [place], [place] NaCl 0.9% 00 :00 ONCE, 1 Medical (NS) 100 mL dose, On Bran ch MINI-BAG Mon04/21/23 at 1530, Administer over 30 Minutes, 100 mL
Reas on for Anti-Infec tive: Empiric Therapy for Suspected Infection< br>Empiric Therapy Site: Urine
D uration of therapy: 72 hours ondansetron Yes 4mg 4 mg, Slow Univers (ZOFRAN 04-21 IV Push, ity of (PF)) 19:49: Q6HPRN, [place] injection 4 01 Starting Medi anthony mg on Mon04/21/23 at 1449, Until Discontinu ed, [place], Nausea and Vomiting (N/V) traMADoL 2022- No 50mg 50 mg, Univer s (ULTRAM) 04-21 Oral, ity of tablet 50 19:47: 19:46 Q8HPRN, [place] mg 47 :47 Starting Medical on Mon04/21/23 at 1447, Until 04/23/23 at 1446, Routine, Pain (scale 4-6) acetaminoph Yes 650mg 650 mg, Un mina en 04-21 Oral, ity of (TYLENOL) 19:47: Q6HPRN, [place] tablet 650 46 Starting Medic al mg on Mon04/21/23 at 1447, Until Discontinu ed, Routine, Pain (scale 1-3) NaCl 0.9% 2022- No 1000mL at 999 Uni vers (NS) bolus 04-21 mL/hr, ity of infusion 17:30: 18:18 1,000 mL, [place] as 1,000 mL 00 :00 IV Medical Infusion, Branch ONCE, 1 dose, On Mon04/21/23 at 1230, [place] famotidine 2022- No 20mg 20 mg, Univ ers (PEPCID 04-21 Slow IV ity of (PF)) 16:45: 16:52 Push, [place] injection 00 :00 ONCE, 1 Medical 20 mg dose, On Branch 04/21/23 at 1145, [place] ondansetron No 4mg 4 mg, Slow Univers (ZOFRAN 04-21 IV Push, ity of (PF)) 16:45: 16:52 ONCE, 1 [place] injection 4 00 :00 dose, On Medi anthony mg Mon04/21/23 Branch at 1145, [place] Simvastatin Simvastatin 0 No 1{table QD Simvastati 20 MG 20 MG 5-17 t_in_th n 20 MG 00:00: e_eveni 00 ng} Fluticasone Fluticasone No 1{spray QD Fluticason Propionate Propionate 5-17 _in_eac e 50 MCG/ACT 50 MCG/ACT 00:00: h_nostr Propionate 00 il} 50 MCG/ACT Loratadine Loratadine No 1{table QD Loratadine 10 MG 10 MG 5-17 t} 10 MG 00:00: 00 Metoprolol Metoprolol 2021-11 No 1{table BID Metoprolol Tartrate 25 Tartrate 25 2-27 t_with_ Tartrate MG MG 00:00: food} 25 MG 00 Metoprolol Metoprolol 2021-11 No 1{table BID Metoprolol Tartrate 25 Tartrate 25 2-27 t_with_ Tartrate MG MG 00:00: food} 25 MG 00 Metoprolol Metoprolol 2021-11 No 1{table BID Metoprolol Tartrate 25 Tartrate 25 2-27 t_with_ Tartrate MG MG 00:00: food} 25 MG 00 Metoprolol Metoprolol 2021-11 No 1{table BID Metoprolol Tartrate 25 Tartrate 25 2-27 t_with_ Tartrate MG MG 00:00: food} 25 MG 00 Metoprolol Metoprolol 2021-11 No 1{table BID Metoprolol Tartrate 25 Tartrate 25 2-27 t_with_ Tartrate MG MG 00:00: food} 25 MG 00 Pregabalin Pregabalin 2021-11 No Pregabalin 100 MG 100 MG 2-07 100 MG 00:00: 00 Pregabalin Pregabalin 2021-11 No Pregabalin 100 MG 100 MG 2- 100 MG 00:00: 00 Pregabalin Pregabalin 2021- No Pregabalin 100 MG 100 MG 12-20 100 MG 00:00: 00 Pregabalin Pregabalin 2021-1 No Pregabalin 100 MG 100 MG 2- 100 MG 00:00: 00 Pregabalin Pregabalin 2021-1 No Pregabalin 100 MG 100 MG 12-20 100 MG 00:00: 00 Pregabalin Pregabalin 2021- No 1{capsu QD Pregabalin 100 MG 100 MG 2-07 le} 100 MG 00:00: 00 clotrimazol 2022-0 Yes [id number] Apply to Univers e 9-27 area(s) 2 ity of (ANTIFUNGAL 00:00: (two) [place] , 00 times Medical CLOTRIMAZOL daily. Branch E,) 1 % topical cream clotrimazol 2022-0 Yes [id number] Apply to Univers e 9-27 area(s) 2 ity of (ANTIFUNGAL 00:00: (two) [place] , 00 times Medical CLOTRIMAZOL daily. Branch E,) 1 % topical cream clotrimazol 2022-0 Yes [id number] Apply to Univers e 9-27 area(s) 2 ity of (ANTIFUNGAL 00:00: (two) [place] , 00 times Medical CLOTRIMAZOL daily. Branch E,) 1 % topical cream clotrimazol 2022-0 Yes [id number] Apply to Univers e 9-27 area(s) 2 ity of (ANTIFUNGAL 00:00: (two) [place] , 00 times Medical CLOTRIMAZOL daily. Branch E,) 1 % topical cream clotrimazol 2022-0 Yes [id number] Apply to Univers e 9-27 area(s) 2 ity of (ANTIFUNGAL 00:00: (two) [place] , 00 times Medical CLOTRIMAZOL daily. Branch E,) 1 % topical cream clotrimazol 2022-0 Yes [id number] Apply to Univers e 9-27 area(s) 2 ity of (ANTIFUNGAL 00:00: (two) [place] , 00 times Medical CLOTRIMAZOL daily. Branch E,) 1 % topical cream clotrimazol 2022-0 Yes [id number] Apply to Univers e 9-27 area(s) 2 ity of (ANTIFUNGAL 00:00: (two) [place] , 00 times Medical CLOTRIMAZOL daily. Branch E,) 1 % topical cream Chlorhexidi Chlorhexidi 2021- No Chlorhexid ne ne 07-20 ine Gluconate 2 Gluconate 2 00:00: 00:00 Gluconate % % 00 :00 2 % Cephalexin Cephalexin 2021- No 1{capsu BID Cephalexin 500 MG 500 MG 07-20 le} 500 MG 00:00: 00:00 00 :00 Pregabalin Pregabalin 2021-0 No Pregabalin 100 MG 100 MG 06-08 100 MG 00:00: 00 Pregabalin Pregabalin 2021-0 No Pregabalin 100 MG 100 MG 06-08 100 MG 00:00: 00 Pregabalin Pregabalin 2021-0 No Pregabalin 100 MG 100 MG 06-08 100 MG 00:00: 00 Pregabalin Pregabalin 2021-0 No Pregabalin 100 MG 100 MG 06-08 100 MG 00:00: 00 Pregabalin Pregabalin 2021-0 No Pregabalin 100 MG 100 MG 06-08 100 MG 00:00: 00 Pregabalin Pregabalin 2021-0 No Pregabalin 100 MG 100 MG - 100 MG 00:00: 00 Pregabalin Pregabalin 2021-0 No Pregabalin 100 MG 100 MG 06-08 100 MG 00:00: 00 &lt 202-0 No 50 7-11 00:00: 00 TAKE 1 2021-0 No 100 CAPSULE BY 11 MOUTH THREE 00:00: TIMES DAILY 00 &lt 2022-0 No 1 7-11 00:00: 00 &lt 2022-0 No 7-11 00:00: 00 Mupirocin 2 Mupirocin 2 2021-0 2021- No TID Mupirocin % % 05-04- 2 % 00:00: 00:00 00 :00 aspirin 81 2021-0 Yes [id number] 81mg Take 1 U nivers mg chewable 6-12 tablet by ity of tablet 00:00: mouth [place] 00 daily. Medical Branch aspirin 81 2021-0 Yes [id number] 81mg Take 1 U nivers mg chewable 6-12 tablet by ity of tablet 00:00: mouth [place] 00 daily. Medical Branch aspirin 81 2021-0 Yes [id number] 81mg Take 1 U nivers mg chewable 6-12 tablet by ity of tablet 00:00: mouth [place] 00 daily. Medical Branch aspirin 81 2021-0 Yes [id number] 81mg Take 1 U nivers mg chewable 6-12 tablet by ity of tablet 00:00: mouth [place] 00 daily. Medical Branch aspirin 81 2021-0 Yes [id number] 81mg Take 1 U nivers mg chewable 6-12 tablet by ity of tablet 00:00: mouth [place] 00 daily. Medical Branch aspirin 81 2021-0 Yes [id number] 81mg Take 1 U nivers mg chewable 6-12 tablet by ity of tablet 00:00: mouth [place] 00 daily. Medical Branch aspirin 81 2021-0 Yes [id number] 81mg Take 1 U nivers mg chewable 6-12 tablet by ity of tablet 00:00: mouth [place] 00 daily. Medical Branch aspirin 81 2021-0 Yes [id number] 81mg Take 1 U nivers mg chewable 6-12 tablet by ity of tablet 00:00: mouth [place] 00 daily. Medical Branch aspirin 81 2021-0 Yes [id number] 81mg Take 1 U nivers mg chewable 6-12 tablet by ity of tablet 00:00: mouth [place] 00 daily. Medical Branch aspirin 81 2021-0 Yes [id number] 81mg Take 1 U nivers mg chewable 6-12 tablet by ity of tablet 00:00: mouth [place] 00 daily. Medical Branch aspirin 81 2021-0 Yes [id number] 81mg Take 1 U nivers mg chewable 6-12 tablet by ity of tablet 00:00: mouth [place] 00 daily. Medical Branch aspirin 81 2021-0 Yes [id number] 81mg Take 1 U nivers mg chewable 6-12 tablet by ity of tablet 00:00: mouth [place] 00 daily. Medical Branch predniSONE 2021-0 2021- No [id number] 20mg Take 1 [facility] 20 mg 6-12 06-16 tablet by ity of tablet 00:00: 04:59 mouth [place] 00 :00 daily for Medical 3 doses. Branch predniSONE 2021-0 2021- No [id number] 20mg Take 1 [facility] 20 mg 6-12 06-16 tablet by ity of tablet 00:00: 04:59 mouth [place] 00 :00 daily for Medical 3 doses. Branch predniSONE 2021- No [id number] 20mg Take 1 [facility] 20 mg 6-12 06-16 tablet by ity of tablet 00:00: 04:59 mouth [place] 00 :00 daily for Medical 3 doses. Branch predniSONE 2021- No [id number] 20mg Take 1 [facility] 20 mg 6-12 06-16 tablet by ity of tablet 00:00: 04:59 mouth [place] 00 :00 daily for Medical 3 doses. Branch predniSONE 2021- No [id number] 20mg Take 1 [facility] 20 mg 6-12 06-11 tablet by ity of tablet 00:00: 00:00 mouth [place] 00 :00 daily for Medical 2 days. Branch predniSONE 2021- No [id number] 20mg Take 1 [facility] 20 mg 6-12 06-11 tablet by ity of tablet 00:00: 00:00 mouth [place] 00 :00 daily for Medical 2 days. Branch esomeprazol Yes 20mg Take 20 mg Univers e 20 mg 6-11 by mouth ity of capsule 18:40: daily [place] 36 before a Medical meal. Branch esomeprazol 0 Yes 20mg Take 20 mg Univers e 20 mg 6-11 by mouth ity of capsule 18:40: daily [place] 36 before a Medical meal. Branch esomeprazol Yes 20mg Take 20 mg Univers e 20 mg 6-11 by mouth ity of capsule 18:40: daily [place] 36 before a Medical meal. Branch esomeprazol 0 Yes 20mg Take 20 mg Univers e 20 mg 6-11 by mouth ity of capsule 18:40: daily [place] 36 before a Medical meal. Branch esomeprazol 0 Yes 20mg Take 20 mg Univers e 20 mg 6-11 by mouth ity of capsule 18:40: daily [place] 36 before a Medical meal. Branch esomeprazol 0 Yes 20mg Take 20 mg Univers e 20 mg 6-11 by mouth ity of capsule 18:40: daily [place] 36 before a Medical meal. [place] lifitegrast 2021- No 2[drp] Place 2 [facility] (XIIDRA) 5 6- 06-11 Drops in ity of % Dpet 12:30: 00:00 each eye 2 [place] :00 (two) Medical times Branch daily. metoprolol 2021- No 50mg Take 50 mg [facility] tartrate 50 6 06-11 by mouth 2 i ty of mg tablet 12:30: 00:00 (two) [place] 57 :00 times Medical daily. Branch lifitegrast 2021- No 2[drp] Place 2 [facility] (XIIDRA) 5 6-11 06-11 Drops in ity of % Dpet 12:30: 00:00 each [place] 2 [place] 57 :00 (two) Medical times Branch daily. metoprolol 2021- No 50mg Take 50 mg [facility] tartrate 50 6 06-11 by mouth 2 i ty of mg tablet 12:30: 00:00 (two) [place] 57 :00 times Medical daily. Branch esomeprazol Yes 20mg Take 20 mg Univers e 20 mg 6-11 by mouth ity of capsule 12:30: daily [place] 54 before a Medical meal. Branch Nebulizers Yes [id number] Use as U nivers Misc 6-11 directed ity of 00:00: [place] 00 Medical Branch lifitegrast Yes [id number] 1[drp] Place 1 [facility] (XIIDRA) 5 6-11 Drop in ity of % Dpet 00:00: each eye 2 [place] 00 (two) Medical times Branch daily. losartan 50 Yes [id number] 50mg Take 1 [facility] mg tablet 6-11 tablet by ity o f 00:00: mouth 2 [place] 00 (two) Medical times Branch daily. metoprolol Yes [id number] 25mg Take 1 U nivers tartrate 25 6-11 tablet by ity of mg tablet 00:00: mouth 2 [place] 00 (two) Medical times Branch daily. artificial Yes [id number] 1[drp] Place 1 [facility] tears, 6-11 Drop in ity of hypromellos 00:00: both eyes [place] e, 0.3 % 00 2 (two) Medical ophthalmic times Branch gel daily. Nebulizers Yes [id number] Use as U nivers Misc 6-11 directed ity of 00:00: [place] 00 Medical Branch lifitegrast Yes [id number] 1[drp] Place 1 [facility] (XIIDRA) 5 6-11 Drop in ity of % Dpet 00:00: each eye 2 (two) Medical times Branch daily. losartan 50 Yes [id number] 50mg Take 1 [facility] mg tablet 6-11 tablet by ity o f 00:00: mouth 2 (two) Medical times Branch daily. metoprolol Yes [id number] 25mg Take 1 U nivers tartrate 25 6-11 tablet by ity of mg tablet 00:00: mouth 2 (two) Medical times Branch daily. artificial Yes [id number] 1[drp] Place 1 [facility] tears, 6-11 Drop in ity of hypromellos 00:00: both eyes [place] e, 0.3 % 00 2 (two) Medical ophthalmic times Branch gel daily. Nebulizers Yes [id number] Use as U nivers Misc 6-11 directed ity of 00:00: Medical Branch lifitegrast Yes [id number] 1[drp] Place 1 [facility] (XIIDRA) 5 6-11 Drop in ity of % Dpet 00:00: each eye 2 (two) Medical times Branch daily. losartan 50 Yes [id number] 50mg Take 1 [facility] mg tablet 6-11 tablet by ity o f 00:00: mouth 2 (two) Medical times Branch daily. metoprolol Yes [id number] 25mg Take 1 U nivers tartrate 25 6-11 tablet by ity of mg tablet 00:00: mouth 2 (two) Medical times Branch daily. artificial Yes [id number] 1[drp] Place 1 [facility] tears, 6-11 Drop in ity of hypromellos 00:00: both eyes [place] e, 0.3 % 00 2 (two) Medical ophthalmic times Branch gel daily. Nebulizers Yes [id number] Use as U nivers Misc 6-11 directed ity of 00:00: [place] 00 Medical Branch lifitegrast Yes [id number] 1[drp] Place 1 [facility] (XIIDRA) 5 6-11 Drop in ity of % Dpet 00:00: each eye 2 (two) Medical times Branch daily. losartan 50 Yes [id number] 50mg Take 1 [facility] mg tablet 6-11 tablet by ity o f 00:00: mouth 2 (two) Medical times Branch daily. metoprolol Yes [id number] 25mg Take 1 U nivers tartrate 25 6-11 tablet by ity of mg tablet 00:00: mouth 2 (two) Medical times Branch daily. artificial Yes [id number] 1[drp] Place 1 [facility] tears, 6-11 Drop in ity of hypromellos 00:00: both eyes [place] e, 0.3 % 00 2 (two) Medical ophthalmic times Branch gel daily. Nebulizers Yes [id number] Use as U nivers Misc 6-11 directed ity of 00:00: Medical Branch lifitegrast Yes [id number] 1[drp] Place 1 [facility] (XIIDRA) 5 6-11 Drop in ity of % Dpet 00:00: each eye 2 (two) Medical times Branch daily. losartan 50 Yes [id number] 50mg Take 1 [facility] mg tablet 6-11 tablet by ity o f 00:00: mouth 2 (two) Medical times Branch daily. metoprolol Yes [id number] 25mg Take 1 U nivers tartrate 25 6-11 tablet by ity of mg tablet 00:00: mouth 2 (two) Medical times Branch daily. artificial Yes [id number] 1[drp] Place 1 [facility] tears, 6-11 Drop in ity of hypromellos 00:00: both eyes [place] e, 0.3 % 00 2 (two) Medical ophthalmic times Branch gel daily. Nebulizers Yes [id number] Use as U nivers Misc 6-11 directed ity of 00:00: Medical Branch lifitegrast Yes [id number] 1[drp] Place 1 [facility] (XIIDRA) 5 6-11 Drop in ity of % Dpet 00:00: each eye 2 (two) Medical times Branch daily. losartan 50 2021-0 Yes [id number] 50mg Take 1 [facility] mg tablet 6-11 tablet by ity o f 00:00: mouth 2 (two) Medical times Branch daily. metoprolol 2021-0 Yes [id number] 25mg Take 1 U nivers tartrate 25 6-11 tablet by ity of mg tablet 00:00: mouth 2 (two) Medical times Branch daily. artificial 2021-0 Yes [id number] 1[drp] Place 1 [facility] tears, 6-11 Drop in ity of hypromellos 00:00: both eyes [place] e, 0.3 % 00 2 (two) Medical ophthalmic times Branch gel daily. Nebulizers 2021-0 Yes [id number] Use as U nivers Misc 6-11 directed ity of 00:00: Medical Branch lifitegrast Yes [id number] 1[drp] Place 1 [facility] (XIIDRA) 5 6-11 Drop in ity of % Dpet 00:00: each eye 2 (two) Medical times Branch daily. losartan 50 2021-0 Yes [id number] 50mg Take 1 [facility] mg tablet 6-11 tablet by ity o f 00:00: mouth 2 (two) Medical times Branch daily. metoprolol 2021-0 Yes [id number] 25mg Take 1 U nivers tartrate 25 6-11 tablet by ity of mg tablet 00:00: mouth 2 (two) Medical times Branch daily. artificial 2021-0 Yes [id number] 1[drp] Place 1 [facility] tears, 6-11 Drop in ity of hypromellos 00:00: both eyes [place] e, 0.3 % 00 2 (two) Medical ophthalmic times Branch gel daily. Nebulizers 2021-0 Yes [id number] Use as U nivers Misc 6-11 directed ity of 00:00: [place] Medical Branch lifitegrast 2021-0 Yes [id number] 1[drp] Place 1 [facility] (XIIDRA) 5 6-11 Drop in ity of % Dpet 00:00: each eye 2 (two) Medical times Branch daily. losartan 50 Yes [id number] 50mg Take 1 [facility] mg tablet 6-11 tablet by ity o f 00:00: mouth 2 (two) Medical times Branch daily. metoprolol Yes [id number] 25mg Take 1 U nivers tartrate 25 6-11 tablet by ity of mg tablet 00:00: mouth 2 (two) Medical times Branch daily. artificial Yes [id number] 1[drp] Place 1 [facility] tears, 6-11 Drop in ity of hypromellos 00:00: both eyes [place], 0.3 % 00 2 (two) Medical ophthalmic times Branch gel daily. Nebulizers Yes [id number] Use as U nivers Misc 6-11 directed ity of 00:00: Medical Branch lifitegrast Yes [id number] 1[drp] Place 1 [facility] (XIIDRA) 5 6-11 Drop in ity of % Dpet 00:00: each eye 2 (two) Medical times Branch daily. losartan 50 Yes [id number] 50mg Take 1 [facility] mg tablet 6-11 tablet by ity o f 00:00: mouth 2 (two) Medical times Branch daily. metoprolol Yes [id number] 25mg Take 1 U nivers tartrate 25 6-11 tablet by ity of mg tablet 00:00: mouth 2 (two) Medical times Branch daily. artificial Yes [id number] 1[drp] Place 1 [facility] tears, 6-11 Drop in ity of hypromellos 00:00: both eyes [place] e, 0.3 % 00 2 (two) Medical ophthalmic times Branch gel daily. Nebulizers Yes [id number] Use as U nivers Misc 6-11 directed ity of 00:00: Medical Branch lifitegrast Yes [id number] 1[drp] Place 1 [facility] (XIIDRA) 5 6-11 Drop in ity of % Dpet 00:00: each eye 2 (two) Medical times Branch daily. losartan 50 Yes [id number] 50mg Take 1 [facility] mg tablet 6-11 tablet by ity o f 00:00: mouth 2 (two) Medical times Branch daily. metoprolol Yes [id number] 25mg Take 1 U nivers tartrate 25 6-11 tablet by ity of mg tablet 00:00: mouth 2 (two) Medical times Branch daily. artificial Yes [id number] 1[drp] Place 1 [facility] tears, 6-11 Drop in ity of hypromellos 00:00: both eyes [place] e, 0.3 % 00 2 (two) Medical ophthalmic times Branch gel daily. Nebulizers Yes [id number] Use as U nivers Misc 6-11 directed ity of 00:00: Medical Branch lifitegrast Yes [id number] 1[drp] Place 1 [facility] (XIIDRA) 5 6-11 Drop in ity of % Dpet 00:00: each eye 2 (two) Medical times Branch daily. losartan 50 Yes [id number] 50mg Take 1 [facility] mg tablet 6-11 tablet by ity o f 00:00: mouth 2 (two) Medical times Branch daily. metoprolol Yes [id number] 25mg Take 1 U nivers tartrate 25 6-11 tablet by ity of mg tablet 00:00: mouth 2 (two) Medical times Branch daily. artificial Yes [id number] 1[drp] Place 1 [facility] tears, 6-11 Drop in ity of hypromellos 00:00: both eyes [place] e, 0.3 % 2 (two) Medical ophthalmic times Branch gel daily. Nebulizers Yes [id number] Use as U nivers Misc 6-11 directed ity of 00:00: Medical Branch lifitegrast Yes [id number] 1[drp] Place 1 [facility] (XIIDRA) 5 6-11 Drop in ity of % Dpet 00:00: each eye 2 (two) Medical times Branch daily. losartan 50 Yes [id number] 50mg Take 1 [facility] mg tablet 6-11 tablet by ity o f 00:00: mouth 2 (two) Medical times Branch daily. metoprolol Yes [id number] 25mg Take 1 U nivers tartrate 25 - tablet by ity of mg tablet 00:00: mouth 2 [place] 00 (two) Medical times Branch daily. artificial Yes [id number] 1[drp] Place 1 [facility] tears, 6-11 Drop in ity of hypromellos 00:00: both eyes [place], 0.3 % 00 2 (two) Medical ophthalmic times Branch gel daily. ipratropium 2021- No [id number] 3mL Inhale 3 Univers -albuteroL 04-23 06-26 mL every 6 it y of 0.5 mg-3 00:00: 04:59 (six) [place] mg(2.5 mg 00 :00 hours as Medica l base)/3 mL needed for Bra nch nebulizer Wheezing, solution Shortness of Breath or Bronchospa sm for up to 14 days. ipratropium 2021- No [id number] 3mL Inhale 3 Univers -albuteroL 04-23 06-26 mL every 6 it y of 0.5 mg-3 00:00: 04:59 (six) [place] mg(2.5 mg 00 :00 hours as Medica l base)/3 mL needed for Bra nch nebulizer Wheezing, solution Shortness of Breath or Bronchospa sm for up to 14 days. ipratropium 2021- No [id number] 3mL Inhale 3 Univers -albuteroL 04-23 06-26 mL every 6 it y of 0.5 mg-3 00:00: 04:59 (six) [place] mg(2.5 mg 00 :00 hours as Medica l base)/3 mL needed for Bra nch nebulizer Wheezing, solution Shortness of Breath or Bronchospa sm for up to 14 days. ipratropium 2021- No [id number] 3mL Inhale 3 Univers -albuteroL 04-23 06-26 mL every 6 it y of 0.5 mg-3 00:00: 04:59 (six) [place] mg(2.5 mg 00 :00 hours as Medica l base)/3 mL needed for Bra nch nebulizer Wheezing, solution Shortness of Breath or Bronchospa sm for up to 14 days. guaiFENesin 2021- No [id number] 100mg Take 5 mL Univers 100 mg/5 mL 04-23 by mouth ity of solution 00:00: 04:59 every 4 [place] 00 :00 (four) Medical hours as Branch needed for Cough for up to 7 days. guaiFENesin 0 2021- No [id number] 100mg Take 5 mL Univers 100 mg/5 mL 04-23 by mouth ity of solution 00:00: 04:59 every 4 [place] 00 :00 (four) Medical hours as Branch needed for Cough for up to 7 days. guaiFENesin 2021- No [id number] 100mg Take 5 mL Univers 100 mg/5 mL 04-23 by mouth ity of solution 00:00: 04:59 every 4 [place] 00 :00 (four) Medical hours as Branch needed for Cough for up to 7 days. guaiFENesin 2021- No [id number] 100mg Take 5 mL [facility] 100 mg/5 mL 04-23 by mouth ity of solution 00:00: 04:59 every 4 [place] 00 :00 (four) Medical hours as Branch needed for Cough for up to 7 days. artificial Yes 1[drp] 1 Drop, [place] tears 04-22 Both Eyes, ity of (hypromello 18:30: BID, [facility] se) 00 dose on Medical (GENTEAL Fri Branch TEARS 04/22/22 at SEVERE GEL) 1330, 0.3 % Until ophthalmic Discontinu gel 1 Drop ed, Routine artificial No 1[drp] 1 Drop, U nivers tears 04-22 Both Eyes, ity of (hypromello 18:30: 01:45 BID, [facility] se) 00 :39 dose on Medical (GENTEAL Fri Branch TEARS 04/22/22 at SEVERE GEL) 1330, 0.3 % Until ophthalmic Discontinu gel 1 Drop ed, Routine predniSONE No 20mg 20 mg, Univ ers (DELTASONE) 04-22 Oral, ity of tablet 20 17:30: 13:59 DAILY, 3 [place] mg 00 :00 doses, Medical First dose Branch on 04/22/22 at 1230, Last dose on Mon04/24/22 at 0900, Routine predniSONE 0 2021- No 20mg 20 mg, Univ ers (DELTASONE) 04-22 Oral, ity of tablet 20 17:30: 01:45 DAILY, 3 [place] mg 00 :39 doses, Medical First dose Branch on Mon04/22/22 at 1230, Last dose on Mon04/24/22 at 0900, Routine loratadine Yes 10mg 10 mg, Unive rs (CLARITIN) 04-22 Oral, ity of tablet 10 14:00: DAILY, [place] mg 00 First dose Medical (after Branch last modificati on) on Mon04/22/22 at 0900, Until Discontinu ed, Routine loratadine 2021- No 10mg 10 mg, Univ ers (CLARITIN) 04-22 Oral, ity of tablet 10 14:00: 01:45 DAILY, [place] mg 00 :39 First dose Medical (after Branch last modificati on) on Mon04/22/22 at 0900, Until Discontinu ed, Routine heparin Yes 5000U 5,000 Univers (porcine) 6-10 Units, ity of injection 01:00: Subcutaneo [place] 5,000 Units 00 us, Q12H, Med ical First dose Branch on Mon04/21/22 at 2000, Until Discontinu ed, Routine heparin 2021-0 2021- No 5000U 5,000 Univers (porcine) 6-08 18-12 Units, ity of injection 01:00: 01:45 Subcutaneo [place] 5,000 Units 00 :39 us, Q12H, Med ical First dose Branch on Mon04/21/22 at 2000, Until Discontinu ed, Routine NaCl 0.9% 2021- No 1000mL at 30 Univ ers (NS) IV 04-21-09 mL/hr, IV ity of infusion 20:15: 22:14 Infusion, [place] 1,000 mL 00 :00 CONTINUOUS Medic al , Starting Branch on Mon04/21/22 at 1515, Until Mon04/21/22 at 1714, Routine iodixanol 2021- No ONCE INTRA U nivers (VISIPAQUE 04-21 PROCEDURE, it y of 320-100 mL) 18:13: 18:27 Starting [place] injection 11 :56 on [facility] 04/21/22 at Branch 1313, Until [facility] 04/21/22 at 1327, Routine, CV Intraproce dure lidocaine 2021- No ONCE INTRA U nivers 1% (PF) 04-21 PROCEDURE, ity o f (XYLOCAINE) 17:41: 18:27 Starting [place] injection 24 :56 on [facility] 04/21/22 at Branch 1241, Until [facility] 04/21/22 at 1327, Routine, CV Intraproce dure midazolam 2021- No ONCE INTRA U nivers (VERSED) 04-21 PROCEDURE, ity of injection 17:36: 18:27 Starting [place] 15 :56 on [facility] 04/21/22 at Branch 1236, Until [facility] 04/21/22 at 1327, Routine, CV Intraproce dure FENTanyl PF 2021- No ONCE INTRA Univers (SUBLIMAZE 04-21 PROCEDURE, it y of (PF)) 17:36: 18:27 Starting [place] injection 10 :56 on [facility] 04/21/22 at Branch 1236, Until [facility] 04/21/22 at 1327, Routine, CV Intraproce dure KCL 2021- No 40meq 40 mEq, Univers (KLOR-CON 04-21 Oral, ity of M20) tablet 14:15: 20:34 ONCE, 1 [place] 40 mEq 00 :00 dose, On Medical [facility] 04/21/22 Branch at 0915, Routine benzocaine- 0 Yes 1{lozen 1 Lozenge, Univers menthoL 04-21 ge} Oral, ity of (CEPACOL 13:57: Q4HPRN, [place] SORE THROAT 17 Starting Medi anthony (JOCELIN-MEN)) on [facility] Branch lozenge 1 04/21/22 at Lozenge 0857, Until Discontinu ed, Routine, Sore throat benzocaine- 202- No 1{lozen 1 Lozenge, Univers menthoL 04-21 ge} Oral, ity of (CEPACOL 13:57: 01:45 Q4HPRN, [place] SORE THROAT 17 :39 Starting Medi anthony (JOCELIN-MEN)) on [facility] 1 04/21/22 at Lozenge 0857, Until 04/23/22 at 2045, Routine, Sore throat guaiFENesin Yes 100mg 100 mg, Un mina 100 mg/5 mL 04-21 Oral, Q4H, it y of solution 13:15: First dose [place] 100 mg 00 (after Medical last Branch modificati on) on [facility] 04/21/22 at 0815, Until Discontinu ed, Routine guaiFENesin 2021- No 100mg 100 mg, U nivers 100 mg/5 mL 04-21 Oral, Q4H, i ty of solution 13:15: 01:45 First dose [place] 100 mg 00 :39 (after Medical last Branch modificati on) on [facility] 04/21/22 at 0815, Until Discontinu ed, Routine guaiFENesin 2021- No 100mg 100 mg, U nivers 100 mg/5 mL 04-21 Oral, ity of solution 05:35: 13:03 Q4HPRN, [place] 100 mg 41 :09 Starting Medical on [facility] 04/21/22 at 0035, Until [facility] 04/21/22 at 0803, Routine, Cough atorvastati Yes 40mg 40 mg, Univ ers n (LIPITOR) 04-21 Oral, QHS, it y of tablet 40 02:00: First dose [place] mg 00 on [facility] 04/20/22 at Branch 2100, Until Discontinu ed, Routine atorvastati 2021- No 40mg 40 mg, Uni vers n (LIPITOR) 04-21 Oral, QHS, i ty of tablet 40 02:00: 01:45 First dose [place] mg 00 :39 on [facility] 04/20/22 at Branch 2100, Until Discontinu ed, Routine sulfur 2021-2021- No [id number] 5mL 5 mL, Unive rs hexafluorid 04-20 Intravenou i ty of e microsphr 16:00: 16:00 s, ONCE, 1 [place] (LUMASON) 00 :00 dose, On Medica l injection 5 Mon04/20/22 Br anch mL at 1100, Routine
tribal council member approving Restricted medication : KARINA BAGLEY furosemide 2021-0 2021- No 40mg 40 mg, Univ ers (LASIX) 04-20 06-08 Slow IV ity of injection 16:00: 16:53 Push, [place] 40 mg 00 :00 ONCE, 1 Medical dose, On Mon04/20/22 at 1100, Routine sennosides 0 Yes 8.6mg 8.6 mg, Uni vers (SENOKOT) 608 Oral, BID, ity of tablet 8.6 13:00: First dose [place] mg 00 on Mon04/20/22 at Branch 0800, Until Discontinu ed, Routine polyethylen Yes 17g 17 g, Unive rs e glycol 6-08 Oral, BID, ity o f 3350 powder 13:00: First dose [place] 17 g 00 on Mon04/20/22 at Branch 0800, Until Discontinu ed, Routine losartan Yes 50mg 50 mg, Univers (COZAAR) 6 Oral, BID, ity o f tablet 50 13:00: First dose [place] mg 00 on Mon [facility] 04/20/22 at Branch 0800, Until Discontinu ed, Routine metoprolol 0 Yes 25mg 25 mg, Unive rs tartrate 08 Oral, BID, ity o f (LOPRESSOR) 13:00: First dose [place] tablet 25 00 on Mon mg 04/20/22 at Branch 0800, Until Discontinu ed, Routine pregabalin 0 Yes 75mg 75 mg, Unive rs (LYRICA) 6-08 Oral, TID, ity o f capsule 75 13:00: First dose [place] mg 00 on Mon [facility] 04/20/22 at Branch 0800, Until Discontinu ed, Routine sennosides 2021-0 2021- No 8.6mg 8.6 mg, Un mina (SENOKOT) 04-20 06-12 Oral, BID, ity of tablet 8.6 13:00: 01:45 First dose [place] mg 00 :39 on [facility] 04/20/22 at Branch 0800, Until Discontinu ed, Routine polyethylen No 17g 17 g, [facility] ers e glycol 04-20 Oral, BID, ity of 3350 powder 13:00: 01:45 First dose [place] 17 g 00 :39 on Mon [facility] 04/20/22 at Branch 0800, Until Discontinu ed, Routine losartan No 50mg 50 mg, Univer s (COZAAR) 04-20 Oral, BID, ity of tablet 50 13:00: 01:45 First dose [place] mg 00 :39 on [facility] 04/20/22 at Branch 0800, Until Discontinu ed, Routine metoprolol No 25mg 25 mg, [facility] ers tartrate 04-20 Oral, BID, ity of (LOPRESSOR) 13:00: 01:45 First dose [place] tablet 25 00 :39 on Mon Medical mg 04/20/22 at Branch 0800, Until Discontinu ed, Routine pregabalin No 75mg 75 mg, [facility] ers (LYRICA) 04-20 Oral, TID, ity of capsule 75 13:00: 01:45 First dose [place] mg 00 :39 on [facility] 04/20/22 at [place] 0800, Until Discontinu ed, Routine cefTRIAXone No 1000mg 1,000 mg, Univers (ROCEPHIN) 04-20 Intravenou it y of 1,000 mg in 05:00: 12:37 s, Q24H [place] NaCl 0.9% 00 :08 ABX, First Medi anthony (NS) 50 mL dose on [place] MINI-BAG [facility] 04/20/22 at 0000, Until Discontinu ed, Administer over 30 Minutes, 50 mL
Reas on for Anti-Infec tive: Empiric Therapy for Suspected Infection< br>Empiric Therapy Site: Respirator y
Durat ion of therapy: 7 days iopamidol 2021- No [id number] 80mL 80 mL, U nivers (ISOVUE 04-20 Intravenou ity o f 370-500 mL) 01:30: 01:30 s, ONCE, 1 [place] injection 00 :00 dose, On Medica l 80 mL [facility] 04/19/22 Branch at 2030, Routine ipratropium Yes 3mL 3 mL, Unive rs -albuteroL 04-19 Inhalation ity of (DUONEB) 17:00: , Q6H, [place] 0.5 mg-3 00 First dose Medic al mg(2.5 mg (after Branch base)/3 mL last nebulizer modificati solution 3 on) on [facility] 04/19/22 at 1200, Until Discontinu ed, Routine ipratropium 0 2021- No 3mL 3 mL, Univ ers -albuteroL 04-1912 Inhalation it y of (DUONEB) 17:00: 01:45 , Q6H, [place] 0.5 mg-3 00 :39 First dose Medic al mg(2.5 mg (after Branch base)/3 mL last nebulizer modificati solution 3 on) on [facility] 04/19/22 at 1200, Until Discontinu ed, Routine magnesium 2021- No 4g 4 g, IV [facility] ers sulfate in 04-19 Piggyback, it y of water 4 16:30: 17:58 ONCE, 1 [place] gram/50 mL 00 :00 dose, On Medic al (8 %) IV 04/19/22 Branc h Piggyback 4 at 1130, g Routine aspirin Yes 81mg 81 mg, Univers chewable 04-19 Oral, ity of tablet 81 14:00: DAILY, [place] mg 00 First dose Medical on [facility] 04/19/22 at 0900, Until Discontinu ed, Routine aspirin 2021-0 2021- No 81mg 81 mg, Univers chewable 04-1912 Oral, ity of tablet 81 14:00: 01:45 DAILY, [place] mg 00 :39 First dose Medical on [facility] 04/19/22 at 0900, Until Discontinu ed, Routine Sliding 2021-0 Yes Subcutaneo Univ ers Scale 04-19 us, AC+HS, ity of Insulin-Reg 12:30: First dose [place] ular + Fsbg 00 on [facility] Medica l Testing 04/19/22 at Branch 0730, Until Discontinu ed, Routine Sliding 2021- No Subcutaneo Uni vers Scale 04-19 us, AC+HS, ity of Insulin-Reg 12:30: 01:45 First dose [place] ular + Fsbg 00 :39 on Mon Medica l Testing 04/19/22 at Branch 0730, Until Discontinu ed, Routine azithromyci 2021- No 500mg 500 mg, IV Univers n 04-19 Piggyback, ity of (ZITHROMAX) 11:30: 11:28 Q24H ABX, [place] 500 mg in 00 :00 3 doses, Medica l NaCl 0.9% First dose Bran ch (NS) 250 mL on Mon [facility] 04/19/22 at IV 0630, Last piggyback dose on [facility] 04/21/22 at 0630, Administer over 60 Minutes, 250 mL
Reas on for Anti-Infec tive: Empiric Therapy for Suspected Infection< br>Empiric Therapy Site: Respirator y
Durat ion of therapy: 7 days HEPARIN 2021- No 4000U 4,000 Univers SODIUM 04-19 Units, IV ity of (PORCINE) 11:30: 14:00 Push, [place] 1,000 00 :00 ONCE, 1 Medical UNIT/ML dose, On Branch BOLUS ACS Mon04/19/22 ORDER SET at 0630, [place] aspirin 2021- No 325mg 325 mg, Unive rs chewable 04-19 Oral, ity of tablet 325 11:30: 13:58 ONCE, 1 [place] mg 00 :00 dose, On Medical Mon04/19/22 Branch at 0630, [place] glucagon Yes 1mg 1 mg, Univers (GLUCAGEN 04-19 Intravenou ity of DIAGNOSTIC 11:18: s, PRN - [place] KIT) 02 SEE Medical injection 1 INSTRUCTIO Br anch mg NS, Starting on Mon04/19/22 at 0618, Until Discontinu ed, Routine, Hypoglycem ia BG < 80 glucagon 2021- No 1mg 1 mg, Univers (GLUCAGEN 04-19 Intravenou ity of DIAGNOSTIC 11:18: 01:45 s, PRN - [place] KIT) 02 :39 SEE Medical injection 1 INSTRUCTIO Br anch mg NS, Starting on e 04/19/22 at 0618, Until 04/23/22 at 2045, Routine, Hypoglycem ia BG < 80 glucagon Yes 1mg 1 mg, Univers (GLUCAGEN 04-19 Intramuscu ity of DIAGNOSTIC 11:17: lar, PRN, [place] KIT) 59 Starting Medical injection 1 on [facility] Branch mg 04/19/22 at 0617, Until Discontinu ed, [place], Blood Glucose < or = 70 mg/dL and patient is unable to swallow or has mental changes. glucagon 2021- No 1mg 1 mg, Univers (GLUCAGEN 04-19-12 Intramuscu ity of DIAGNOSTIC 11:17: 01:45 lar, PRN, [place] KIT) 59 :39 Starting Medical injection 1 on [facility] Branch mg 04/19/22 at 0617, Until 04/23/22 at 2045, [place], Blood Glucose < or = 70 mg/dL and patient is unable to swallow or has mental changes. heparin Yes 3000U FOR [facility] (1,000 6-07 REBOLUSING ity of unit/mL, 10 11:14: , Starting [place] mL vial) 34 on [facility] for 04/19/22 at [facility] 06, Until Discontinu ed, Routine
Dosing based on aPPT testing parameters (refer to continuous heparin drip order).
heparin 2021- No 3000U FOR [facility] (1,000 6-05 18-12 REBOLUSING ity of unit/mL, 10 11:14: 01:45 , Starting [place] mL vial) 34 :39 on [facility] for 04/19/22 at [place] Re[place] 0614, Until 04/23/22 at 2045, Routine
Dosing based on aPPT testing parameters (refer to continuous heparin drip order).
heparin 2021- No 12U/kg/ 12 Univer s 25,000 6-07 06-09 h Units/kg/h ity of Units/250 11:14: 19:14 r ?74.8 kg [place] mL 34 :21 (8.976 Medical (Premixed mL/hr, Branch Bag) in rounded to 0.45 % NS 8.98 mL/hr), IV Infusion, TITRATE, Parameters in Admin. Instr., Starting on Mon04/19/22 at 0614
CA UTION - If LMWH given in ER, AVOID bolus and start next dose/drip 12 hrs after ER dosage.&nb sp; M ust program rate using programmab le infusion pump.&nbsp ; Rebecca ck with the ordering provider first prior to any administra tion should the patient be on existing/a dditional anticoagul ant therapy. Rang e, Dosing and Testing: &nbs p;FOR [facility] &nbs p; - aPTT < 35: & nbsp;Bolus 5000 units, increase rate 300 units/hr&n bsp; - aPTT 35-44:&nbs p; Ariel rohit 3000 units, increase rate 200 units/hr&n bsp; - aPTT 45-54:&nbs p; In crease rate 100 units/hr&n bsp; - aPTT 55-85:&nbs p; NO CHANGE&nbs p; - aPTT 86-95:&nbs p; De crease rate 100 units/hr&n bsp; - aPTT 96-120:&nb sp; H old 30 minutes, decrease rate 150 units/hr&n bsp; - aPTT > 120: Hold 60 minutes, decrease rate 200 units/hr&n bsp; Check aPTT 6 hours after initiation , then Q6H after every change, aPTT Q12H once therapeuti c levels are reached.&n bsp; &nbs p; __ &n bsp;FOR [facility] ONLY - aPTT < 40: & nbsp;Bolus 5000 units, increase rate 300 units/hr&n bsp; - aPTT 40-49:&amp ;nbsp;&nbs p;Bolus 3000 units, increase rate 200 units/hr&n bsp; - aPTT 50-59:&nbs p;&nbs p;Increase rate 100 units/hr&n bsp; - aPTT 60-85:&nbs p; NO CHANGE&nbs p; - aPTT 86-95:&nbs p; De crease rate 100 units/hr&n bsp; - aPTT 96-120:&nb sp; H old 30 minutes, decrease rate 150 units/hr&n bsp; - aPTT > 120: Hold 60 minutes, decrease rate 200 units/hr&n bsp; Check aPTT 6 hours after initiation , then Q6H after every change, aPTT Q12H once therapeuti c levels are reached.&n bsp; DO NOT ADJUST INITIAL BOLUS OR INITIAL INFUSION RATE.
acetaminoph Yes 650mg 650 mg, [facility] en 04-19 Oral, ity of (TYLENOL) 10:25: Q6HPRN, [place] tablet 650 48 Starting Medic al mg on Tue Branch 04/19/22 at 0525, Until Discontinu ed, Routine, Pain (scale 1-3) acetaminoph 2021- No 650mg 650 mg, U nivers en 04-19 06-12 Oral, ity of (TYLENOL) 10:25: 01:45 Q6HPRN, [place] tablet 650 48 :39 Starting Medic al mg on Tue Branch 04/19/22 at 0525, Until 04/23/22 at 2045, Routine, Pain (scale 1-3) cefTRIAXone 2021- No 1000mg 1,000 mg, Univers (ROCEPHIN) 04-19 IV ity of 1,000 mg in 05:30: 05:55 Piggyback, [place] NaCl 0.9% 00 :00 ONCE, 1 Medical (NS) 50 mL dose, On Branc h MINI-BAG 04/19/22 at 0030, Administer over 30 Minutes, 50 mL
R jayme for Anti-Infec tive: Documented Infection< br>Documen dion Infection Site: Respirator y
Du ration of Therapy: Other (see Comments) ipratropium 2021-0 2021- No 3mL 3 mL, Univ ers -albuteroL 04-19 Inhalation it y of (DUONEB) 05:00: 04:09 , ONCE [place] 0.5 mg-3 00 :00 NOW, 1 Medical mg(2.5 mg dose, On Branch base)/3 mL [facility] 04/19/22 nebulizer at 0000, solution 3 [place] mL Dose 2021-0 No Unknown 5-16 00:00: 00 Pregabalin Pregabalin 2021-0 No Pregabalin 100 MG 100 MG 4-27 100 MG 00:00: 00 Pregabalin Pregabalin 2021-0 No Pregabalin 100 MG 100 MG 4-27 100 MG 00:00: 00 Pregabalin Pregabalin 2021-0 No Pregabalin 100 MG 100 MG 4-27 100 MG 00:00: 00 methocarbam 2021-0 2021- No 500mg 500 mg, U nivers oL 02-18- Oral, ity of (ROBAXIN) 23:15: 22:42 ONCE, 1 [place] tablet 500 00 :00 dose, On Medic al mg Mon02/18/22 Branch at 1815, Routine naproxen 2021-0 2021- No 500mg 500 mg, Univ ers (NAPROSYN) 02-18- Oral, ity of tablet 500 23:15: 22:42 ONCE, 1 [place] mg 00 :00 dose, On Medical Mon02/18/22 Branch at 1815, Routine methocarbam 2021-0 Yes [id number] 500mg Take 1 [facility] oL 500 mg - tablet by ity o f tablet 00:00: mouth 4 00 (four) Medical times Branch daily as needed for Pain (scale 4-6). naproxen 2022-0 Yes [id number] 500mg Take 1 [facility] min[facility] (NAPROSYN) 4-08 tablet by ity of 500 mg 00:00: mouth 2 [place] tablet 00 (two) Medical times Branch daily with meals. methocarbam 2022-0 Yes [id number] 500mg Take 1 [facility] oL 500 mg 4-08 tablet by ity o f tablet 00:00: mouth 4 [place] 00 (four) Medical times Branch daily as needed for Pain (scale 4-6). naproxen 2022-0 Yes [id number] 500mg Take 1 [facility]a (NAPROSYN) 4-08 tablet by ity of 500 mg 00:00: mouth 2 [place] tablet 00 (two) Medical times Branch daily with meals. methocarbam 2022-0 Yes [id number] 500mg Take 1 [facility] oL 500 mg 4-08 tablet by ity o f tablet 00:00: mouth 4 [place] 00 (four) Medical times Branch daily as needed for Pain (scale 4-6). naproxen 2-0 Yes [id number] 500mg Take 1 Un mina (NAPROSYN) 4-08 tablet by ity of 500 mg 00:00: mouth 2 [place] tablet 00 (two) Medical times Branch daily with meals. methocarbam 2022-0 2022- No [id number] 500mg Take 1 [facility] oL 500 mg 02-18-11 tablet by ity of tablet 00:00: 00:00 mouth 4 [place] 00 :00 (four) Medical times Branch daily as needed for Pain (scale 4-6). naproxen 2022-0 2022- No [id number] 500mg Take 1 U nivers (NAPROSYN) -06 18-11 tablet by ity of 500 mg 00:00: 00:00 mouth 2 [place] tablet 00 :00 (two) Medical times Branch daily with meals. methocarbam 2022-0 2022- No [id number] 500mg Take 1 [facility] oL 500 mg -06 18-11 tablet by ity of tablet 00:00: 00:00 mouth 4 [place] 00 :00 (four) Medical times Branch daily as needed for Pain (scale 4-6). naproxen 2022-0 2022- No [id number] 500mg Take 1 U nivers (NAPROSYN) 02-18-11 tablet by ity of 500 mg 00:00: 00:00 mouth 2 [place] tablet 00 :00 (two) Medical times Branch daily with meals. Lyrica 75MG Lyrica 75MG 0 No 1{capsu TID Lyrica 02-11 le} 75MG 00:00: 00 Lyrica 75MG Lyrica 75MG 0 No 1{capsu TID Lyrica 02-11 le} 75MG 00:00: 00 Lyrica 75MG Lyrica 75MG 0 No 1{capsu TID Lyrica 02-11 le} 75MG 00:00: 00 Pregabalin Pregabalin No Pregabalin 100 MG 100 MG 2-04 100 MG 00:00: 00 Pregabalin Pregabalin No Pregabalin 100 MG 100 MG 2-04 100 MG 00:00: 00 diphenhydrA 2020-11 No 25mg 25 mg, Uni vers MINE 01-09 Oral, ity of (BENADRYL) 16:30: 15:30 ONCE, 1 [place] tablet 25 00 :00 dose, On Medica l mg Mon Branch 11/08/21 at 1030, [place] metoclopram 2020-11 No 10mg 10 mg, Uni vers kunal HCl 01-09 Oral, ity of (REGLAN) 16:30: 15:30 ONCE, 1 [place] tablet 10 00 :00 dose, On Medica l mg Mon Branch 11/08/21 at 1030, Routine Pregabalin Pregabalin 2020-11 No Pregabalin 100 MG 100 MG 2-26 100 MG 00:00: 00 HYDROcodone 2020-11- No 1{tbl} 1 tablet, Univers -acetaminop 12-23- Oral, ity of hen (NORCO 03:15: 03:04 ONCE, 1 [place] 5) 5-325 mg 00 :00 dose, On Medi anthony tablet u Branch tablet 10/21/21 at 2115, [place] traMADoL 2020-11 Yes [id number] 50mg Take 1 [facility] (ULTRAM) 50 2-09 tablet by ity of mg tablet 00:00: mouth [place] 00 every 6 Medical (six) Branch hours as needed for Pain (scale 7-10). Indication s: acute pain traMADoL 2020-11 Yes [id number] 50mg Take 1 [facility] (ULTRAM) 50 2-09 tablet by ity of mg tablet 00:00: mouth [place] 00 every 6 Medical (six) Branch hours as needed for Pain (scale 7-10). Indication s: acute pain traMADoL 2020-11 Yes [id number] 50mg Take 1 [facility] (ULTRAM) 50 2-09 tablet by ity of mg tablet 00:00: mouth [place] 00 every 6 Medical (six) Branch hours as needed for Pain (scale 7-10). Indication s: acute pain traMADoL 2020-11 Yes [id number] 50mg Take 1 [facility] (ULTRAM) 50 2-09 tablet by ity of mg tablet 00:00: mouth [place] 00 every 6 Medical (six) Branch hours as needed for Pain (scale 7-10). Indication s: acute pain traMADoL 2020-11 Yes [id number] 50mg Take 1 [facility] (ULTRAM) 50 2-09 tablet by ity of mg tablet 00:00: mouth [place] 00 every 6 Medical (six) Branch hours as needed for Pain (scale 7-10). Indication s: acute pain traMADoL 2020-11 Yes [id number] 50mg Take 1 [facility] (ULTRAM) 50 2-09 tablet by ity of mg tablet 00:00: mouth [place] 00 every 6 Medical (six) Branch hours as needed for Pain (scale 7-10). Indication s: acute pain traMADoL 2020-11 Yes [id number] 50mg Take 1 [facility] (ULTRAM) 50 2-09 tablet by ity of mg tablet 00:00: mouth [place] 00 every 6 Medical (six) Branch hours as needed for Pain (scale 7-10). Indication s: acute pain traMADoL 2020-11 No [id number] 50mg Take 1 Univer s (ULTRAM) 50 2-09 06-11 tablet by it y of mg tablet 00:00: 00:00 mouth [place] 00 :00 every 6 Medical (six) Branch hours as needed for Pain (scale 7-10). Indication s: acute pain traMADoL 2020-11 No [id number] 50mg Take 1 Univer s (ULTRAM) 50 2-09 06-11 tablet by it y of mg tablet 00:00: 00:00 mouth [place] 00 :00 every 6 Medical (six) Branch hours as needed for Pain (scale 7-10). Indication s: acute pain iopamidol 2020- No [id number] 80mL 80 mL, Univers (ISOVUE 04-13 Intravenou [...] 04/12/21 at Branch 2045, [place] ondansetron Yes [id number] 4mg Take 1 [facility] (ZOFRAN 5-31 tablet by ity of ODT) 4 mg 00:00: mouth [place] disintegrat 00 every 8 Medic al ing tablet (eight) Branch hours as needed for Nausea and Vomiting (N/V). ondansetron Yes [id number] 4mg Take 1 [facility] (ZOFRAN 5-31 tablet by ity of ODT) 4 mg 00:00: mouth [place] disintegrat 00 every 8 Medic al ing tablet (eight) Branch hours as needed for Nausea and Vomiting (N/V). ondansetron Yes [id number] 4mg Take 1 [facility] (ZOFRAN 5-31 tablet by ity of ODT) 4 mg 00:00: mouth [place] disintegrat 00 every 8 Medic al ing tablet (eight) Branch hours as needed for Nausea and Vomiting (N/V). ondansetron Yes [id number] 4mg Take 1 [facility] (ZOFRAN 5-31 tablet by ity of ODT) 4 mg 00:00: mouth [place] disintegrat 00 every 8 Medic al ing tablet (eight) Branch hours as needed for Nausea and Vomiting (N/V). ondansetron 2020-0 Yes [id number] 4mg Take 1 [facility] (ZOFRAN 5-31 tablet by ity of ODT) 4 mg 00:00: mouth [place] disintegrat 00 every 8 Medic al ing tablet (eight) Branch hours as needed for Nausea and Vomiting (N/V). ondansetron 2020-0 Yes [id number] 4mg Take 1 [facility] (ZOFRAN 5-31 tablet by ity of ODT) 4 mg 00:00: mouth [place] disintegrat 00 every 8 Medic al ing tablet (eight) Branch hours as needed for Nausea and Vomiting (N/V). ondansetron 2020-0 Yes [id number] 4mg Take 1 [facility] (ZOFRAN 5-31 tablet by ity of ODT) 4 mg 00:00: mouth [place] disintegrat 00 every 8 Medic al ing tablet (eight) Branch hours as needed for Nausea and Vomiting (N/V). ondansetron 2020- Yes [id number] 4mg Take 1 [facility] (ZOFRAN 5-31 tablet by ity of ODT) 4 mg 00:00: mouth [place] disintegrat 00 every 8 Medic al ing tablet (eight) Branch hours as needed for Nausea and Vomiting (N/V). ondansetron 2021- No [id number] 4mg Take 1 [facility] (ZOFRAN 5-31 06-11 tablet by ity of ODT) 4 mg 00:00: 00:00 mouth [place] disintegrat 00 :00 every 8 Medic al ing tablet (eight) Branch hours as needed for Nausea and Vomiting (N/V). ondansetron 0 2021- No [id number] 4mg Take 1 [facility] (ZOFRAN 5-31 06-11 tablet by ity of ODT) 4 mg 00:00: 00:00 mouth [place] disintegrat 00 :00 every 8 Medic al ing tablet (eight) Branch hours as needed for Nausea and Vomiting (N/V). Esomeprazol Esomeprazol No QD Esomeprazo e Magnesium e Magnesium 4-19 le 20 MG 20 MG 00:00: Magnesium 00 20 MG Esomeprazol Esomeprazol No QD Esomeprazo e Magnesium e Magnesium 4-19 le 20 MG 20 MG 00:00: Magnesium 00 20 MG Esomeprazol Esomeprazol No QD Esomeprazo e Magnesium e Magnesium 4-19 le 20 MG 20 MG 00:00: Magnesium 00 20 MG ketorolac 2020- No 15mg 15 mg, Unive rs (TORADOL) 01-16 03-06 Slow IV ity of injection 21:00: 19:58 Push, [place] 15 mg 00 :00 ONCE, 1 Medical dose, [facility] Branch 01/16/21 at 1500, [place]
Fa culty member approving Restricted medication : JOSE VALDIVIA predniSONE Yes [id number] 10mg Take 1 U nivers 10 mg 3-06 tablet by ity of tablet 00:00: mouth [place] 00 daily. Medical Branch methocarbam Yes [id number] 500mg Take 1 [facility] oL 500 mg 3-06 tablet by ity o f tablet 00:00: mouth 2 (two) Medical times Branch daily as needed for Pain (scale 7-10). predniSONE Yes [id number] 10mg Take 1 U nivers 10 mg 3-06 tablet by ity of tablet 00:00: mouth [place] 00 daily. Medical Branch methocarbam Yes [id number] 500mg Take 1 [facility] oL 500 mg 3-06 tablet by ity o f tablet 00:00: mouth 2 (two) Medical times Branch daily as needed for Pain (scale 7-10). predniSONE Yes [id number] 10mg Take 1 U nivers 10 mg 3-06 tablet by ity of tablet 00:00: mouth [place] 00 daily. Medical Branch methocarbam Yes [id number] 500mg Take 1 [facility] oL 500 mg 3-06 tablet by ity o f tablet 00:00: mouth 2 00 (two) Medical times Branch daily as needed for Pain (scale 7-10). predniSONE Yes [id number] 10mg Take 1 U nivers 10 mg 3-06 tablet by ity of tablet 00:00: mouth [place] 00 daily. [facility] Branch methocarbam Yes [id number] 500mg Take 1 [facility] oL 500 mg 3-06 tablet by ity o f tablet 00:00: mouth 2 (two) Medical times Branch daily as needed for Pain (scale 7-10). predniSONE Yes [id number] 10mg Take 1 U nivers 10 mg 3-06 tablet by ity of tablet 00:00: mouth [place] 00 daily. Medical Branch methocarbam 0 Yes [id number] 500mg Take 1 [facility] oL 500 mg 3-06 tablet by ity o f tablet 00:00: mouth 2 [place] 00 (two) Medical times Branch daily as needed for Pain (scale 7-10). predniSONE Yes [id number] 10mg Take 1 U nivers 10 mg 3-06 tablet by ity of tablet 00:00: mouth [place] 00 daily. Medical Branch methocarbam Yes [id number] 500mg Take 1 [facility] oL 500 mg 3-06 tablet by ity o f tablet 00:00: mouth 2 [place] 00 (two) Medical times Branch daily as needed for Pain (scale 7-10). predniSONE Yes [id number] 10mg Take 1 U nivers 10 mg 3-06 tablet by ity of tablet 00:00: mouth [place] 00 daily. Medical Branch predniSONE Yes [id number] 10mg Take 1 U nivers 10 mg 3-06 tablet by ity of tablet 00:00: mouth [place] 00 daily. Medical Branch predniSONE 0 Yes [id number] 10mg Take 1 U nivers 10 mg 3-06 tablet by ity of tablet 00:00: mouth [place] 00 daily. Medical Branch predniSONE 2020-2021- No [id number] 10mg Take 1 [facility] 10 mg 3-06 06-11 tablet by ity of tablet 00:00: 00:00 mouth [place] 00 :00 daily. Medical Branch predniSONE 2020-0 2021- No [id number] 10mg Take 1 [facility] 10 mg 3-06 06-11 tablet by ity of tablet 00:00: 00:00 mouth [place] 00 :00 daily. Medical Branch methocarbam 0 2021- No [id number] 500mg Take 1 [facility] oL 500 mg 3-06 04-08 tablet by ity of tablet 00:00: 00:00 mouth 2 [place] 00 :00 (two) Medical times Branch daily as needed for Pain (scale 7-10). Macrobid 2019-11 No 1mg 100 mg 2-31 capsule 00:00: 00 benzonatate 2020-1 No 1mg 100 mg 2-31 capsule 00:00: 00 clotrimazol 2020-1 No % e 1 % 0-02 vaginal 00:00: cream 00 dicyclomine 2020-1 No 1mg 20 mg 0-02 tablet 00:00: 00 Nystatin Nystatin 2020-0 2020- No [place] 1 C ommon 06-26 applicatio Spirit 00:00: 00:00 n to - [facility]I 00 :00 affected [facility] Tramadol Tramadol 2019-0 2020- No Na Gill 1 tablet Common HCl HCl 06-26 Spirit 00:00: 00:00 - [facility]I 00 :00 [facility] Premarin 2020-0 No mg/gram 0.625 7-24 mg/gram 00:00: vaginal 00 cream azithromyci 2020-0 No mg n 250 mg 7-24 tablet 00:00: 00 benzonatate 2020-0 No 1mg 100 mg 7-24 capsule 00:00: 00 loratadine 2019-0 No 1mg 10 mg 4-17 tablet 00:00: 00 amoxicillin 2020-0 No 1mg 875 4-17 mg-potassiu 00:00: m 00 clavulanate 125 mg tablet alendronate 2020-0 Yes TAKE 1 Univ ers 70 mg 2-02 TABLET BY ity of tablet 00:00: MOUTH ONCE [place] 00 A WEEK FOR Medical 90 DAYS Branch alendronate 2020-0 Yes TAKE 1 Univ ers 70 mg 2-02 TABLET BY ity of tablet 00:00: MOUTH ONCE [place] A WEEK FOR Medical 90 DAYS Branch glimepiride 2020-0 Yes TAKE 1 Univ ers 1 mg tablet 2-02 TABLET BY ity of 00:00: MOUTH WITH [place] 00 BREAKFAST Medical OR THE Branch FIRST MAIN MEAL OR THE DAY ONCE A DAY pregabalin 2020-0 Yes 100mg Take 100 [facility] 75 mg 2-02 mg by ity of capsule 00:00: mouth 3 [place] 00 (three) Medical times Branch daily. glimepiride 2020-0 Yes TAKE 1 Univ ers 1 mg tablet 2-02 TABLET BY ity of 00:00: MOUTH WITH [place] 00 BREAKFAST Medical OR THE Branch FIRST MAIN MEAL OR THE DAY ONCE A DAY alendronate 2020-0 Yes TAKE 1 Univ ers 70 mg 2-02 TABLET BY ity of tablet 00:00: MOUTH ONCE [place] 00 A WEEK FOR Medical 90 DAYS Branch glimepiride 2020-0 Yes TAKE 1 Univ ers 1 mg tablet 2-02 TABLET BY ity of 00:00: MOUTH WITH [place] 00 BREAKFAST Medical OR THE Branch FIRST MAIN MEAL OR THE DAY ONCE A DAY pregabalin 2020-0 Yes TAKE 1 Unive rs 75 mg 2-02 CAPSULE BY ity of capsule 00:00: MOUTH [place] THREE Medical TIMES Branch DAILY FOR 30 DAYS alendronate 2020-0 Yes TAKE 1 Univ ers 70 mg 2-02 TABLET BY ity of tablet 00:00: MOUTH ONCE [place] 00 A WEEK FOR Medical 90 DAYS Branch glimepiride 2020-0 Yes TAKE 1 Univ ers 1 mg tablet 2-02 TABLET BY ity of 00:00: MOUTH WITH [place] 00 BREAKFAST Medical OR THE Branch FIRST MAIN MEAL OR THE DAY ONCE A DAY alendronate 2020-0 Yes TAKE 1 Univ ers 70 mg 2-02 TABLET BY ity of tablet 00:00: MOUTH ONCE [place] 00 A WEEK FOR Medical 90 DAYS Branch alendronate 2020-0 Yes TAKE 1 Univ ers 70 mg 2-02 TABLET BY ity of tablet 00:00: MOUTH ONCE 00 A WEEK FOR Medical 90 DAYS Branch glimepiride 2020-0 Yes TAKE 1 Univ ers 1 mg tablet 2-02 TABLET BY ity of 00:00: MOUTH WITH [place] 00 BREAKFAST Medical OR THE Branch FIRST MAIN MEAL OR THE DAY ONCE A DAY alendronate 2020-0 Yes TAKE 1 Univ ers 70 mg 2-02 TABLET BY ity of tablet 00:00: MOUTH ONCE 00 A WEEK FOR Medical 90 DAYS Branch glimepiride 2020-0 Yes TAKE 1 Univ ers 1 mg tablet 2-02 TABLET BY ity of 00:00: MOUTH WITH [place] 00 BREAKFAST Medical OR THE Branch FIRST MAIN MEAL OR THE DAY ONCE A DAY glimepiride 2020-0 Yes TAKE 1 Univ ers 1 mg tablet 2-02 TABLET BY ity of 00:00: MOUTH WITH [place] 00 BREAKFAST Medical OR THE Branch FIRST MAIN MEAL OR THE DAY ONCE A DAY pregabalin 2020-0 Yes TAKE 1 Unive rs 75 mg 2-02 CAPSULE BY ity of capsule 00:00: MOUTH THREE Medical TIMES Branch DAILY FOR 30 DAYS alendronate 2020-0 Yes TAKE 1 Univ ers 70 mg 2-02 TABLET BY ity of tablet 00:00: MOUTH ONCE [place] 00 A WEEK FOR Medical 90 DAYS Branch glimepiride 2020-0 Yes TAKE 1 Univ ers 1 mg tablet 2-02 TABLET BY ity of 00:00: MOUTH WITH 00 BREAKFAST Medical OR THE Branch FIRST MAIN MEAL OR THE DAY ONCE A DAY alendronate 2020-0 Yes TAKE 1 Univ ers 70 mg 2-02 TABLET BY ity of tablet 00:00: MOUTH ONCE 00 A WEEK FOR Medical 90 DAYS Branch glimepiride 2020-0 Yes TAKE 1 Univ ers 1 mg tablet 2-02 TABLET BY ity of 00:00: MOUTH WITH 00 BREAKFAST Medical OR THE Branch FIRST MAIN [...] BY ity of 00:00: MOUTH WITH [place] 00 BREAKFAST Medical OR THE Branch FIRST MAIN [...] TABLET BY ity of 00:00: MOUTH WITH 00 BREAKFAST Medical OR THE Branch FIRST MAIN MEAL OR THE DAY ONCE A DAY pregabalin 2020-0 Yes 100mg Take 100 [place] 75 mg 2-02 mg by ity of capsule 00:00: mouth 3 (three) Medical times Branch daily. alendronate 2020-0 Yes TAKE 1 Univ ers 70 mg 2-02 TABLET BY ity of tablet 00:00: MOUTH ONCE A WEEK FOR Medical 90 DAYS Branch glimepiride 2020-0 Yes TAKE 1 Univ ers 1 mg tablet 2-02 TABLET BY ity of 00:00: MOUTH WITH [place] BREAKFAST Medical OR THE Branch FIRST MAIN MEAL OR THE DAY ONCE A DAY pregabalin 2020-0 Yes 100mg Take 100 [place] 75 mg 2-02 mg by ity of capsule 00:00: mouth 3 (three) Medical times Branch daily. alendronate 2020-0 Yes TAKE 1 Univ ers 70 mg 2-02 TABLET BY ity of tablet 00:00: MOUTH ONCE A WEEK FOR Medical 90 DAYS Branch glimepiride 2020-0 Yes TAKE 1 Univ ers 1 mg tablet 2-02 TABLET BY ity of 00:00: MOUTH WITH [place] 00 BREAKFAST Medical OR THE Branch FIRST MAIN MEAL OR THE DAY ONCE A DAY pregabalin 2020-0 Yes 100mg Take 100 [place] 75 mg 2-02 mg by ity of capsule 00:00: mouth 3 [place] 00 (three) Medical times Branch daily. alendronate 2020-0 Yes TAKE 1 Univ ers 70 mg 2-02 TABLET BY ity of tablet 00:00: MOUTH ONCE 00 A WEEK FOR Medical 90 DAYS Branch alendronate 2020-0 Yes TAKE 1 Univ ers 70 mg 2-02 TABLET BY ity of tablet 00:00: MOUTH ONCE [place] 00 A WEEK FOR Medical 90 DAYS Branch glimepiride 2020-0 Yes TAKE 1 Univ ers 1 mg tablet 2-02 TABLET BY ity of 00:00: MOUTH WITH [place] 00 BREAKFAST Medical OR THE Branch FIRST MAIN MEAL OR THE DAY ONCE A DAY pregabalin 2020-0 Yes 100mg Take 100 [place] 75 mg 2-02 mg by ity of capsule 00:00: mouth 3 (three) Medical times Branch daily. glimepiride 2020-0 Yes TAKE 1 Univ ers 1 mg tablet 2-02 TABLET BY ity of 00:00: MOUTH WITH [place] 00 BREAKFAST Medical OR THE Branch FIRST MAIN [...] TABLET BY ity of 00:00: MOUTH WITH 00 BREAKFAST Medical OR THE Branch FIRST MAIN MEAL OR THE DAY ONCE A DAY pregabalin 2020-0 Yes 100mg Take 100 [place] 75 mg 2-02 mg by ity of capsule 00:00: mouth 3 (three) Medical times Branch daily. alendronate 2020-0 Yes TAKE 1 Univ ers 70 mg 2-02 TABLET BY ity of tablet 00:00: MOUTH ONCE 00 A WEEK FOR Medical 90 DAYS Branch glimepiride 2020-0 Yes TAKE 1 Univ ers 1 mg tablet 2-02 TABLET BY ity of 00:00: MOUTH WITH [place] 00 BREAKFAST Medical OR THE Branch FIRST MAIN MEAL OR THE DAY ONCE A DAY pregabalin 2020-0 Yes 100mg Take 100 [place] 75 mg 2-02 mg by ity of capsule 00:00: mouth 3 (three) Medical times Branch daily. pregabalin 2020-0 2023- No 100mg Take 100 U nivers 75 mg 12-15 06-10 mg by ity of capsule 00:00: 00:00 mouth 3 [place] 00 :00 (three) Medical times Branch daily. RESTASIS 2020-0 Yes INSTILL 1 Univ ers [...] 00 TWICE Medical DAILY Branch RESTASIS 2020-0 2021- No INSTILL 1 Uni vers 0.05 % 12-09- DROP INTO ity of ophthalmic 00:00: 00:00 EACH EYE [place] drops 00 :00 TWICE Medical DAILY Branch RESTASIS 2020-0 2021- No INSTILL 1 Uni vers 0.05 % 12-09-11 DROP INTO ity of ophthalmic 00:00: 00:00 EACH [place] drops 00 :00 TWICE Medical DAILY Branch cefdinir 2020-0 Yes 300mg Take 300 Univ ers 300 mg 1-24 mg by ity of capsule 00:00: mouth [place] (two) Medical times Branch daily. cefdinir 2020-0 Yes 300mg Take 300 Univ ers 300 mg 1-24 mg by ity of capsule 00:00: mouth [place] (two) Medical times Branch daily. cefdinir 2020-0 Yes 300mg Take 300 Univ ers 300 mg 1-24 mg by ity of capsule 00:00: mouth [place] (two) Medical times Branch daily. cefdinir 2020-0 Yes 300mg Take 300 Univ ers 300 mg 1-24 mg by ity of capsule 00:00: mouth [place] (two) Medical times Branch daily. cefdinir 2020-0 Yes 300mg Take 300 Univ ers 300 mg 1-24 mg by ity of capsule 00:00: mouth [place] (two) Medical times Branch daily. cefdinir 2020-0 Yes 300mg Take 300 Univ ers 300 mg 1-24 mg by ity of capsule 00:00: mouth [place] (two) Medical times Branch daily. cefdinir 2020-0 Yes 300mg Take 300 Univ ers 300 mg 1-24 mg by ity of capsule 00:00: mouth [place] (two) Medical times Branch daily. cefdinir 2020-0 Yes 300mg Take 300 Univ ers 300 mg 1-24 mg by ity of capsule 00:00: mouth [place] (two) Medical times Branch daily. cefdinir 2020-0 Yes 300mg Take 300 Univ ers 300 mg 1-24 mg by ity of capsule 00:00: mouth 2 [place] (two) Medical times Branch daily. cefdinir 2020-0 Yes 300mg Take 300 Univ ers 300 mg 1-24 mg by ity of capsule 00:00: mouth 2 [place] 00 (two) Medical times Branch daily. cefdinir 2020-0 Yes 300mg Take 300 Univ ers 300 mg 1-24 mg by ity of capsule 00:00: mouth 2 [place] 00 (two) Medical times Branch daily. cefdinir 2020-0 Yes 300mg Take 300 Univ ers 300 mg 1-24 mg by ity of capsule 00:00: mouth 2 [place] 00 (two) Medical times Branch daily. cefdinir 2020-0 No 1mg 300 mg 1-24 capsule 00:00: 00 cefdinir 2020-0 2022- No 300mg Take 300 Uni vers 300 mg 1-24 06-07 mg by ity of capsule 00:00: 00:00 mouth 2 [place] 00 :00 (two) Medical times Branch daily. cefdinir 2020-0 2022- No 300mg Take 300 Uni vers 300 mg 1-24 06-07 mg by ity of capsule 00:00: 00:00 mouth 2 [place] 00 :00 (two) Medical times Branch daily. cefdinir 2020-0 No 1mg 300 mg 1-17 capsule 00:00: 00 famotidine 2018-11 Yes TAKE 1 Unive rs 40 mg 2-19 TABLET BY ity of tablet 00:00: MOUTH [place] 00 TWICE Medical DAILY Branch NEEDED FOR 90 DAYS famotidine 2018-11 Yes TAKE 1 Unive rs 40 mg 2-19 TABLET BY ity of tablet 00:00: MOUTH [place] 00 TWICE Medical DAILY Branch NEEDED FOR 90 DAYS famotidine 2018-11 Yes TAKE 1 Unive rs 40 mg 2-19 TABLET BY ity of tablet 00:00: MOUTH [place] 00 TWICE Medical DAILY Branch NEEDED FOR 90 DAYS famotidine 2018-11 Yes TAKE 1 Unive rs 40 mg 2-19 TABLET BY ity of tablet 00:00: MOUTH [place] 00 TWICE Medical DAILY Branch NEEDED FOR 90 DAYS famotidine 2018-11 Yes TAKE 1 Unive rs 40 mg 2-19 TABLET BY ity of tablet 00:00: MOUTH [place] 00 TWICE Medical DAILY Branch NEEDED FOR 90 DAYS famotidine 2018-11 Yes TAKE 1 Un[facility] rs 40 mg 2-19 TABLET BY ity of tablet 00:00: MOUTH [place] 00 TWICE Medical DAILY Branch NEEDED FOR 90 DAYS famotidine 2018-11 Yes TAKE 1 Unive rs 40 mg 2-19 TABLET BY ity of tablet 00:00: MOUTH [place] 00 TWICE Medical DAILY Branch NEEDED FOR [...] DAILY Branch NEEDED FOR 90 DAYS famotidine 2018-11- No TAKE 1 Univ ers 40 mg 2-19 06-11 TABLET BY ity of tablet 00:00: 00:00 MOUTH [place] 00 :00 TWICE Medical DAILY Branch NEEDED FOR 90 DAYS famotidine 2018-11- No TAKE 1 Univ ers 40 mg 2-19 06-11 TABLET BY ity of tablet 00:00: 00:00 MOUTH [place] 00 :00 TWICE Medical DAILY Branch NEEDED FOR 90 DAYS ACCU-CHEK 2018-11 Yes USE Univer s SUE PLUS 2-12 DIRECTED ity o f TEST STRP 00:00: DAILY [place] strip 00 Medical Branch ACCU-CHEK 2018- Yes USE Univer s SUE PLUS 2-12 DIRECTED ity o f TEST STRP 00:00: DAILY [place] strip 00 Medical Branch ACCU-CHEK 2018- Yes USE Univer s SUE PLUS 2-12 DIRECTED ity o f TEST STRP 00:00: DAILY [place] strip 00 Medical Branch traMADol 50 2018- Yes TAKE 1 Univ ers mg tablet 2-12 TABLET BY ity o f 00:00: MOUTH [place] 00 EVERY 12 Medical HOURS Branch NEEDED FOR PAIN OF 7 10 SCALE FOR 10 DAYS ACCU-CHEK 2018-11 Yes USE Univer s SUE PLUS 2-12 DIRECTED ity o f TEST STRP 00:00: DAILY [place] strip 00 Medical Branch ACCU-CHEK 2018-11 Yes USE Univer s SUE PLUS 2-12 DIRECTED ity o f TEST STRP 00:00: DAILY [place] strip Medical Branch ACCU-CHEK 2019- Yes USE Univer s SUE PLUS 2-12 DIRECTED ity o f TEST STRP 00:00: DAILY [place] strip Medical Branch ACCU-CHEK 2019- Yes USE Univer s SUE PLUS 2-12 DIRECTED ity o f TEST STRP 00:00: DAILY [place] strip Medical Branch traMADol 50 2019- Yes TAKE 1 Univ ers mg tablet 2-12 TABLET BY ity o f 00:00: MOUTH [place] EVERY 12 Medical HOURS Branch NEEDED FOR PAIN OF 7 10 SCALE FOR 10 DAYS ACCU-CHEK 2019- Yes USE Univer s SUE PLUS 2-12 DIRECTED ity o f TEST STRP 00:00: DAILY [place] strip Medical Branch ACCU-CHEK 2019- Yes USE Univer s SUE PLUS 2-12 DIRECTED ity o f TEST STRP 00:00: DAILY [place] strip Medical Branch traMADol 50 2019- Yes TAKE 1 Univ ers mg tablet 2-12 TABLET BY ity o f 00:00: MOUTH EVERY 12 Medical HOURS Branch NEEDED FOR PAIN OF 7 10 SCALE FOR 10 DAYS ACCU-CHEK 2019- Yes USE Univer s SUE PLUS 2-12 DIRECTED ity o f TEST STRP 00:00: DAILY [place] strip Medical Branch traMADol 50 2019- Yes TAKE 1 Univ ers mg tablet 2-12 TABLET BY ity o f 00:00: MOUTH EVERY 12 Medical HOURS Branch NEEDED FOR PAIN OF 7 10 SCALE FOR 10 DAYS ACCU-CHEK 2019- Yes USE Univer s SUE PLUS 2-12 DIRECTED ity o f TEST STRP 00:00: DAILY [place] strip Medical Branch traMADol 50 2019- Yes TAKE 1 Univ ers mg tablet 2-12 TABLET BY ity o f 00:00: MOUTH [place] EVERY 12 Medical HOURS Branch NEEDED FOR [...] BY ity o f 00:00: MOUTH [place] EVERY 12 Medical HOURS Branch NEEDED FOR PAIN OF 7 10 SCALE FOR 10 DAYS ACCU-CHEK 2018- Yes USE Univer s SUE PLUS 2-12 DIRECTED ity o f TEST STRP 00:00: DAILY [place] [facility] Branch traMADol 50 2018- Yes TAKE 1 Univ ers mg tablet 2-12 TABLET BY ity o f 00:00: MOUTH EVERY 12 Medical HOURS Branch NEEDED FOR PAIN OF 7 10 SCALE FOR 10 DAYS ACCU-CHEK 2018- Yes USE Univer s SUE PLUS 2-12 DIRECTED ity o f TEST STRP 00:00: DAILY [place] [facility] Medical Branch traMADol 50 2018- Yes TAKE 1 Univ ers mg tablet 2-12 TABLET BY ity o f 00:00: MOUTH EVERY 12 Medical HOURS Branch NEEDED FOR PAIN OF 7 10 SCALE FOR 10 DAYS ACCU-CHEK 2018- Yes USE Univer s SUE PLUS 2-12 DIRECTED ity o f TEST STRP 00:00: DAILY [place] [facility] Medical Branch traMADol 50 2019- Yes TAKE 1 Univ ers mg tablet 2-12 TABLET BY ity o f 00:00: MOUTH EVERY 12 Medical HOURS Branch NEEDED FOR PAIN OF 7 10 SCALE FOR 10 DAYS ACCU-CHEK 2019- Yes USE Univer s SUE PLUS 2-12 DIRECTED ity o f TEST STRP 00:00: DAILY [place] strip Medical Branch traMADol 50 2019- Yes TAKE 1 Univ ers mg tablet 2-12 TABLET BY ity o f 00:00: MOUTH [place] EVERY 12 Medical HOURS Branch NEEDED FOR PAIN OF 7 10 SCALE FOR 10 DAYS ACCU-CHEK 2019- Yes USE Univer s SUE PLUS 2-12 DIRECTED ity o f TEST STRP 00:00: DAILY [place] strip Medical Branch ACCU-CHEK 2019- Yes USE Univer s SUE PLUS 2-12 DIRECTED ity o f TEST STRP 00:00: DAILY [facility] Medical Branch ACCU-CHEK 2018- Yes USE Univer s SUE PLUS 2-12 DIRECTED ity o f TEST STRP 00:00: DAILY [facility] Medical Branch ACCU-CHEK 2018- Yes USE Univer s SUE PLUS 2-12 DIRECTED ity o f TEST STRP 00:00: DAILY [facility] Medical Branch ACCU-CHEK 2018- Yes USE Univer s SUE PLUS 2-12 DIRECTED ity o f TEST STRP 00:00: DAILY [facility] Medical Branch traMADol 50 2018-11 Yes TAKE 1 Univ ers mg tablet 2-12 TABLET BY ity o f 00:00: MOUTH [place] 00 EVERY 12 Medical HOURS Branch NEEDED FOR PAIN OF 7 10 SCALE FOR 10 DAYS ACCU-CHEK 2018-11 Yes USE Univer s SUE PLUS 2-12 DIRECTED ity o f TEST STRP 00:00: DAILY [facility] Medical Branch ACCU-CHEK 2018-11 Yes USE Univer s SUE PLUS 2-12 DIRECTED ity o f TEST STRP 00:00: DAILY [facility] Medical Branch traMADol 50 2018-11- No TAKE 1 Uni vers mg tablet 2-10 18- TABLET BY ity of 00:00: 00:00 MOUTH [place] 00 :00 EVERY 12 Medical HOURS Branch NEEDED FOR PAIN OF 7 10 SCALE FOR 10 DAYS traMADol 50 2018-11- No TAKE 1 Uni vers mg tablet -12 - TABLET BY ity of 00:00: 00:00 MOUTH [place] 00 :00 EVERY 12 Medical HOURS Branch NEEDED FOR PAIN OF 7 10 SCALE FOR 10 DAYS fenofibrate 2018-11 Yes 54mg Take 54 mg Univers 54 mg 2-09 by mouth ity of tablet 00:00: daily. [place] [facility] Branch fenofibrate 2018-11 Yes 54mg Take 54 mg Univers 54 mg 2-09 by mouth ity of tablet 00:00: daily. [place] [facility] Branch fenofibrate 2018-11 Yes 54mg Take 54 mg Univers 54 mg 2-09 by mouth ity of tablet 00:00: daily. [place] [facility] Branch fenofibrate 2018-11 Yes 54mg Take 54 mg Univers 54 mg 2-09 by mouth ity of tablet 00:00: daily. [place] [facility] Branch fenofibrate 2018-11 Yes 54mg Take 54 mg Univers 54 mg 2-09 by mouth ity of tablet 00:00: daily. [place] [facility] fenofibrate 2018-11 Yes 54mg Take 54 mg Univers 54 mg 2-09 by mouth ity of tablet 00:00: daily. [place] [facility] fenofibrate 2018-11 Yes 54mg Take 54 mg Univers 54 mg 2-09 by mouth ity of tablet 00:00: daily. [place] [facility] fenofibrate 2018-11 Yes 54mg Take 54 mg Univers 54 mg 2-09 by mouth ity of tablet 00:00: daily. [place] [facility] fenofibrate 2018-11 Yes 54mg Take 54 mg Univers 54 mg 2-09 by mouth ity of tablet 00:00: daily. [place] [facility] fenofibrate 2018-11 Yes 54mg Take 54 mg Univers 54 mg 2-09 by mouth ity of tablet 00:00: daily. [place] [facility] fenofibrate 2018-11 Yes 54mg Take 54 mg Univers 54 mg 2-09 by mouth ity of tablet 00:00: daily. [place] [facility] fenofibrate 2018-11 Yes 54mg Take 54 mg Univers 54 mg 2-09 by mouth ity of tablet 00:00: daily. [place] [facility] fenofibrate 2018-11- No 54mg Take 54 mg Univers 54 mg 2-09 -11 by mouth ity of tablet 00:00: 00:00 daily. [place] 00 : [facility] fenofibrate 2018-11- No 54mg Take 54 mg Univers 54 mg 2-09 -11 by mouth ity of tablet 00:00: 00:00 daily. [place] 00 :00 [facility] fluticasone 2018-11 Yes USE 2 Unive rs propionate 2-06 SPRAY(S) ity o f 50 00:00: IN EACH [place] mcg/actuati 00 NOSTRIL Medic al on nasal ONCE DAILY Branc h spray FOR 30 DAYS fluticasone 2018-11 Yes USE 2 Unive rs propionate 2-06 SPRAY(S) ity o f 50 00:00: IN EACH [place] mcg/actuati 00 NOSTRIL Medic al on nasal ONCE DAILY Branc h spray FOR 30 DAYS fluticasone 2018-11 Yes USE 2 Unive rs propionate 2-06 SPRAY(S) ity o f 50 00:00: IN EACH [place] mcg/actuati 00 NOSTRIL Medic al on nasal ONCE DAILY Branc h spray FOR 30 DAYS fluticasone 2018-11 Yes USE 2 Unive rs propionate 2-06 SPRAY(S) ity o f 50 00:00: IN EACH [place] mcg/actuati 00 NOSTRIL Medic al on nasal ONCE DAILY Branc h spray FOR 30 DAYS fluticasone 2018-11 Yes USE 2 Unive rs propionate 2-06 SPRAY(S) ity o f 50 00:00: IN EACH [place] mcg/actuati 00 NOSTRIL Medic al on nasal ONCE DAILY Branc h spray FOR 30 DAYS fluticasone 2018-11 Yes USE 2 Unive rs propionate 2-06 SPRAY(S) ity o f 50 00:00: IN EACH [place] mcg/actuati 00 NOSTRIL Medic al on nasal ONCE DAILY Branc h spray FOR 30 DAYS fluticasone 2018-11 Yes USE 2 Unive rs propionate 2-06 SPRAY(S) ity o f 50 00:00: IN EACH [place] mcg/actuati 00 NOSTRIL Medic al on nasal ONCE DAILY Branc h spray FOR 30 DAYS fluticasone 2018-11 Yes USE 2 Unive rs propionate 2-06 SPRAY(S) ity o f 50 00:00: IN EACH [place] mcg/actuati 00 NOSTRIL Medic al on nasal ONCE DAILY Branc h spray FOR 30 DAYS fluticasone 2018-11 Yes USE 2 Unive rs propionate 2-06 SPRAY(S) ity o f 50 00:00: IN EACH [place] mcg/actuati 00 NOSTRIL Medic al on nasal ONCE DAILY Branc h spray FOR 30 DAYS fluticasone 2018-11 Yes USE 2 Unive rs propionate 2-06 SPRAY(S) ity o f 50 00:00: IN EACH [place] mcg/actuati 00 NOSTRIL Medic al on nasal ONCE DAILY Branc h spray FOR 30 DAYS fluticasone 2018-11 Yes USE 2 Unive rs propionate 2-06 SPRAY(S) ity o f 50 00:00: IN EACH [place] mcg/actuati 00 NOSTRIL Medic al on nasal ONCE DAILY Branc h spray FOR 30 DAYS fluticasone 2018-11 Yes USE 2 Unive rs propionate 2-06 SPRAY(S) ity o f 50 00:00: IN EACH [place] mcg/actuati 00 NOSTRIL Medic al on nasal ONCE DAILY Branc h spray FOR 30 DAYS fluticasone 2018-11 Yes USE 2 Unive rs propionate 2-06 SPRAY(S) ity o f 50 00:00: IN EACH [place] mcg/actuati 00 NOSTRIL Medic al on nasal ONCE DAILY Branc h spray FOR 30 DAYS fluticasone 2018-11 Yes USE 2 Unive rs propionate 2-06 SPRAY(S) ity o f 50 00:00: IN EACH [place] mcg/actuati 00 NOSTRIL Medic al on nasal ONCE DAILY Branc h spray FOR 30 DAYS fluticasone 2018-11 Yes USE 2 Unive rs propionate 2-06 SPRAY(S) ity o f 50 00:00: IN EACH [place] mcg/actuati 00 NOSTRIL Medic al on nasal ONCE DAILY Branc h spray FOR 30 DAYS fluticasone 2018-11 Yes USE 2 Unive rs propionate 2-06 SPRAY(S) ity o f 50 00:00: IN EACH [place] mcg/actuati 00 NOSTRIL Medic al on nasal ONCE DAILY Branc h spray FOR 30 DAYS fluticasone 2018-11 Yes USE 2 Unive rs propionate 2-06 SPRAY(S) ity o f 50 00:00: IN EACH [place] mcg/actuati 00 NOSTRIL Medic al on nasal ONCE DAILY Branc h spray FOR 30 DAYS fluticasone 2018-11 Yes USE 2 Unive rs propionate 2-06 SPRAY(S) ity o f 50 00:00: IN EACH [place] mcg/actuati 00 NOSTRIL Medic al on nasal ONCE DAILY Branc h spray FOR 30 DAYS fluticasone 2018-11 Yes USE 2 Unive rs propionate 2-06 SPRAY(S) ity o f 50 00:00: IN EACH [place] mcg/actuati 00 NOSTRIL Medic al on nasal ONCE DAILY Branc h spray FOR 30 DAYS fluticasone 2018-11 Yes USE 2 Unive rs propionate 2-06 SPRAY(S) ity o f 50 00:00: IN EACH [place] mcg/actuati 00 NOSTRIL Medic al on nasal ONCE DAILY Branc h spray FOR 30 DAYS fluticasone 2018-11 Yes USE 2 Unive rs propionate 2-06 SPRAY(S) ity o f 50 00:00: IN EACH [place] mcg/actuati 00 NOSTRIL Medic al on nasal ONCE DAILY Branc h spray FOR 30 DAYS fluticasone 2018-11 Yes USE 2 Unive rs propionate 2-06 SPRAY(S) ity o f 50 00:00: IN EACH [place] mcg/actuati 00 NOSTRIL Medic al on nasal ONCE DAILY Branc h spray FOR 30 DAYS fluticasone 2018-11 Yes USE 2 Unive rs propionate 2-06 SPRAY(S) ity o f 50 00:00: IN EACH [place] mcg/actuati 00 NOSTRIL Medic al on nasal ONCE DAILY Branc h spray FOR 30 DAYS fluticasone 2018-11 Yes USE 2 Unive rs propionate 2-06 SPRAY(S) ity o f 50 00:00: IN EACH [place] mcg/actuati 00 NOSTRIL Medic al on nasal ONCE DAILY Branc h spray FOR 30 DAYS Famotidine Famotidine 2018-11 Yes Na [facility] 1 tablet Common 2-06 as needed Spirit 00:00: - CHI 00 [facility] losartan 2018-11 Yes TAKE 1 Univers 100 mg 1-29 TABLET BY ity of tablet 00:00: MOUTH ONCE [place] 00 DAILY FOR Medical 90 DAYS Branch losartan 2018-11 Yes TAKE 1 [facility] 100 mg 1-29 TABLET BY ity of tablet 00:00: MOUTH ONCE [place] 00 DAILY FOR Medical 90 DAYS Branch losartan 2018-11 Yes TAKE 1 Univers 100 mg 1-29 TABLET BY ity of tablet 00:00: MOUTH ONCE [place] 00 DAILY FOR Medical 90 DAYS Branch losartan 2018-11 Yes TAKE 1 Univers 100 mg 1-29 TABLET BY ity of tablet 00:00: MOUTH ONCE [place] 00 DAILY FOR Medical 90 DAYS Branch losartan 2018-11 Yes TAKE 1 [facility] 100 mg 1-29 TABLET BY ity of tablet 00:00: MOUTH ONCE [place] 00 DAILY FOR Medical 90 DAYS Branch losartan 2018-11 Yes TAKE 1 [facility] 100 mg 1-29 TABLET BY ity of tablet 00:00: MOUTH ONCE [place] 00 DAILY FOR Medical 90 DAYS Branch losartan 2018-11 Yes TAKE 1 Univers 100 mg 1-29 TABLET BY ity of tablet 00:00: MOUTH ONCE [place] 00 DAILY FOR Medical 90 DAYS Branch losartan 2018-11 Yes TAKE 1 [facility] 100 mg 1-29 TABLET BY ity of tablet 00:00: MOUTH ONCE [place] 00 DAILY FOR Medical 90 DAYS Branch losartan 2018-11 Yes TAKE 1 [facility] 100 mg 1-29 TABLET BY ity of tablet 00:00: MOUTH ONCE [place] 00 DAILY FOR Medical 90 DAYS Branch losartan 2018-11 Yes TAKE 1 Univers 100 mg 1-29 TABLET BY ity of tablet 00:00: MOUTH ONCE [place] 00 DAILY FOR Medical 90 DAYS Branch losartan 2018-11 Yes TAKE 1 Univers 100 mg 1-29 TABLET BY ity of tablet 00:00: MOUTH ONCE 00 DAILY FOR Medical 90 DAYS Branch losartan 2018-11 Yes TAKE 1 Univers 100 mg 1-29 TABLET BY ity of tablet 00:00: MOUTH ONCE [place] 00 DAILY FOR Medical 90 DAYS Branch losartan 2018-11- No 100mg 100 mg 2 Uni vers 100 mg 12-11 (two) ity of tablet 00:00: 00:00 times [place] 00 :00 daily. Medical Branch losartan 2018-11- No 100mg 100 mg 2 Uni vers 100 mg 12-11 (two) ity of tablet 00:00: 00:00 times [place] 00 :00 daily. Medical Branch loratadine 2018-11 Yes 10mg Take 10 mg U nivers 10 mg 1-15 by mouth ity of tablet 00:00: daily. Medical Branch loratadine 2018-11 Yes 10mg Take 1 Unive rs 10 mg 1-15 tablet by ity of tablet 00:00: mouth 00 daily. Medical Branch loratadine 2018-11 Yes 10mg Take 10 mg U nivers 10 mg 1-15 by mouth ity of tablet 00:00: daily. Medical Branch loratadine 2018-11 Yes 10mg Take 1 Unive rs 10 mg 1-15 tablet by ity of tablet 00:00: mouth 00 daily. Medical Branch loratadine 2018-11 Yes 10mg Take 1 Unive rs 10 mg 1-15 tablet by ity of tablet 00:00: mouth 00 daily. Medical Branch loratadine 2018-11 Yes 10mg Take 1 Unive rs 10 mg 1-15 tablet by ity of tablet 00:00: mouth 00 daily. Medical Branch loratadine 2018-11 Yes 10mg Take 10 mg U nivers 10 mg 1-15 by mouth ity of tablet 00:00: daily. Medical Branch loratadine 2018-11 Yes 10mg Take 1 Unive rs 10 mg 1-15 tablet by ity of tablet 00:00: mouth [place] 00 daily. Medical Branch loratadine 2018-11 Yes 10mg Take 10 mg U nivers 10 mg 1-15 by mouth ity of tablet 00:00: daily. Medical Branch loratadine 2018-11 Yes 10mg Take 10 mg U nivers 10 mg 1-15 by mouth ity of tablet 00:00: daily. [facility] loratadine 2018-11 Yes 10mg Take 10 mg U nivers 10 mg 1-15 by mouth ity of tablet 00:00: daily. [facility] loratadine 2018-11 Yes 10mg Take 10 mg U nivers 10 mg 1-15 by mouth ity of tablet 00:00: daily. [facility] loratadine 2018-11 Yes 10mg Take 10 mg U nivers 10 mg 1-15 by mouth ity of tablet 00:00: daily. [facility] loratadine 2018-11 Yes 10mg Take 10 mg U nivers 10 mg 1-15 by mouth ity of tablet 00:00: daily. [facility] loratadine 2018-11 Yes 10mg Take 10 mg U nivers 10 mg 1-15 by mouth ity of tablet 00:00: daily. [facility] loratadine 2018-11 Yes 10mg Take 10 mg U nivers 10 mg 1-15 by mouth ity of tablet 00:00: daily. [facility] loratadine 2018-11 Yes 10mg Take 10 mg U nivers 10 mg 1-15 by mouth ity of tablet 00:00: daily. [place] [facility] loratadine 2018-11 Yes 10mg Take 10 mg U nivers 10 mg 1-15 by mouth ity of tablet 00:00: daily. [facility] loratadine 2018-11 Yes 10mg Take 10 mg U nivers 10 mg 1-15 by mouth ity of tablet 00:00: daily. [facility] loratadine 2018-11 Yes 10mg Take 10 mg U nivers 10 mg 1-15 by mouth ity of tablet 00:00: daily. [place] [facility] loratadine 2018-11 Yes 10mg Take 10 mg U nivers 10 mg 1-15 by mouth ity of tablet 00:00: daily. [facility] loratadine 2018-11 Yes 10mg Take 10 mg U nivers 10 mg 1-15 by mouth ity of tablet 00:00: daily. [place] [facility] loratadine 2018-11 Yes 10mg Take 10 mg U nivers 10 mg 1-15 by mouth ity of tablet 00:00: daily. [address] loratadine 2018-11 Yes 10mg Take 10 mg U nivers 10 mg 1-15 by mouth ity of tablet 00:00: daily. [address] glimepiride 2018-11 No 1mg 1 mg tablet 1-15 00:00: 00 losartan 2018-11 No 1mg 100 mg 1-15 tablet 00:00: 00 fenofibrate 2018-11 No 1mg 54 mg 1-15 tablet 00:00: 00 loratadine 2018-11 No 1mg 10 mg 1-15 tablet 00:00: 00 ranitidine 2018-11 No 1mg 150 mg 1-15 capsule 00:00: 00 Lyrica 75 2018-11 No 1mg mg capsule 1-15 00:00: 00 ProAir HFA ProAir HFA Yes Na [facility] 2 puffs as Common 4-04 needed Spirit 00:00: - CHI 00 [facility] Hydrocolloi Yes [id number] Use as Univers d Dressing 5-10 directed ity o f (DUODERM 00:00: [place] CGF EXTRA 00 Medical THIN) 4 X 4 Branch " Bndg Hydrocolloi Yes [id number] Use as Univers d Dressing 5-10 directed ity o f (DUODERM 00:00: [place] CGF EXTRA 00 Medical THIN) 4 X 4 Branch " Bndg Hydrocolloi Yes [id number] Use as Univers d Dressing 5-10 directed ity o f (DUODERM 00:00: [place] CGF EXTRA 00 Medical THIN) 4 X 4 Branch " Bndg Hydrocolloi Yes [id number] Use as Univers d Dressing 5-10 directed ity o f (DUODERM 00:00: [place] CGF EXTRA 00 Medical THIN) 4 X 4 Branch " Bndg Hydrocolloi Yes [id number] Use as Univers d Dressing 5-10 directed ity o f (DUODERM 00:00: [place] CGF EXTRA 00 Medical THIN) 4 X 4 Branch " Bndg Hydrocolloi Yes [id number] Use as Univers d Dressing 5-10 directed ity o f (DUODERM 00:00: [place] CGF EXTRA 00 Medical THIN) 4 X 4 Branch " Bndg Hydrocolloi Yes [id number] Use as Univers d Dressing 5-10 directed ity o f (DUODERM 00:00: [place] CGF EXTRA 00 Medical THIN) 4 X 4 Branch " Bndg Hydrocolloi Yes [id number] Use as Univers d Dressing 5-10 directed ity o f (DUODERM 00:00: [place] CGF EXTRA 00 Medical THIN) 4 X 4 Branch " Bndg Hydrocolloi Yes [id number] Use as Univers d Dressing 5-10 directed ity o f (DUODERM 00:00: [place] CGF EXTRA 00 Medical THIN) 4 X 4 Branch " Bndg Hydrocolloi Yes [id number] Use as Univers d Dressing 5-10 directed ity o f (DUODERM 00:00: [place] CGF EXTRA 00 Medical THIN) 4 X 4 Branch " Bndg Hydrocolloi Yes [id number] Use as Univers d Dressing 5-10 directed ity o f (DUODERM 00:00: [place] CGF EXTRA 00 Medical THIN) 4 X 4 Branch " Bndg Hydrocolloi Yes [id number] Use as Univers d Dressing 5-10 directed ity o f (DUODERM 00:00: [place] CGF EXTRA 00 Medical THIN) 4 X 4 Branch " Bndg Hydrocolloi Yes [id number] Use as Univers d Dressing 5-10 directed ity o f (DUODERM 00:00: [place] CGF EXTRA 00 Medical THIN) 4 X 4 Branch " Bndg Hydrocolloi Yes [id number] Use as Univers d Dressing 5-10 directed ity o f (DUODERM 00:00: [place] CGF EXTRA 00 Medical THIN) 4 X 4 Branch " Bndg Hydrocolloi Yes [id number] Use as Univers d Dressing 5-10 directed ity o f (DUODERM 00:00: [place] CGF EXTRA 00 Medical THIN) 4 X 4 Branch " Bndg Hydrocolloi 2021- No [id number] Use as Univers d Dressing 03-2211 directed ity of (DUODERM 00:00: 00:00 [place] CGF EXTRA 00 :00 Medical THIN) 4 X 4 Branch " Bndg Hydrocolloi 2021- No [id number] Use as Univers d Dressing -10 11 directed ity of (DUODERM 00:00: 00:00 [place] CGF EXTRA 00 :00 Medical THIN) 4 X 4 Branch " Bndg collagenase Yes Apply to Un [facility] (SANTYL) 1 affected ity of 250 00:00: area(s) [place] unit/gram 00 daily. Medical ointment Branch acetaminoph 2017- Yes [id number] 1{tbl} Take 1 Univers en-codeine 1-09 tablet by ity of 300-30 mg 00:00: mouth [place] tablet 00 every 4 Medical (four) Branch hours as needed for Pain (scale 4-6). collagenase 2017-0 Yes Apply to [facility] (SANTYL) - affected ity of 250 00:00: area(s) [place] unit/gram 00 daily. Medical ointment Branch acetaminoph Yes [id number] 1{tbl} Take 1 Univers en-codeine 1-09 tablet by ity of 300-30 mg 00:00: mouth [place] tablet 00 every 4 Medical (four) Branch hours as needed for Pain (scale 4-6). collagenase 2017-0 Yes Apply to [facility] (SANTYL) 11-21 affected ity of 250 00:00: area(s) [place] unit/gram 00 daily. Medical ointment Branch acetaminoph Yes [id number] 1{tbl} Take 1 Univers en-codeine 1-09 tablet by ity of 300-30 mg 00:00: mouth [place] tablet 00 every 4 Medical (four) Branch hours as needed for Pain (scale 4-6). collagenase 2017-0 Yes Apply to [facility] (SANTYL) 11-21 affected ity of 250 00:00: area(s) [place] unit/gram 00 daily. Medical ointment Branch acetaminoph 2017- Yes [id number] 1{tbl} Take 1 Univers en-codeine 1-09 tablet by ity of 300-30 mg 00:00: mouth [place] tablet 00 every 4 Medical (four) Branch hours as needed for Pain (scale 4-6). collagenase 2017-0 Yes Apply to [facility] (SANTYL) 11-21 affected ity of 250 00:00: area(s) [place] unit/gram 00 daily. Medical ointment Branch acetaminoph 2017-0 Yes [id number] 1{tbl} Take 1 Univers en-codeine 1-09 tablet by ity of 300-30 mg 00:00: mouth [place] tablet 00 every 4 Medical (four) Branch hours as needed for Pain (scale 4-6). collagenase 2018-0 Yes Apply to [facility] (SANTYL) 11-21 affected ity of 250 00:00: area(s) [place] unit/gram 00 daily. Medical ointment Branch acetaminoph 2017- Yes [id number] 1{tbl} Take 1 Univers en-codeine 1-09 tablet by ity of 300-30 mg 00:00: mouth [place] tablet 00 every 4 Medical (four) Branch hours as needed for Pain (scale 4-6). collagenase 2018-0 Yes Apply to [facility] (SANTYL) 11-21 affected ity of 250 00:00: area(s) [place] unit/gram 00 daily. Medical ointment Branch acetaminoph 2017- Yes [id number] 1{tbl} Take 1 Univers en-codeine 1-09 tablet by ity of 300-30 mg 00:00: mouth [place] tablet 00 every 4 Medical (four) Branch hours as needed for Pain (scale 4-6). collagenase 2017-0 Yes Apply to [facility] (SANTYL) 11-21 affected ity of 250 00:00: area(s) [place] unit/gram 00 daily. Medical ointment Branch acetaminoph Yes [id number] 1{tbl} Take 1 Univers en-codeine 1-09 tablet by ity of 300-30 mg 00:00: mouth [place] tablet 00 every 4 Medical (four) Branch hours as needed for Pain (scale 4-6). collagenase 2017-0 Yes Apply to [facility] (SANTYL) 11-21 affected ity of 250 00:00: area(s) [place] unit/gram 00 daily. Medical ointment Branch acetaminoph 2017- Yes [id number] 1{tbl} Take 1 Univers en-codeine 1-09 tablet by ity of 300-30 mg 00:00: mouth [place] tablet 00 every 4 Medical (four) Branch hours as needed for Pain (scale 4-6). collagenase 2018-0 Yes Apply to [facility] (SANTYL) 11-21 affected ity of 250 00:00: area(s) [place] unit/gram 00 daily. Medical ointment Branch acetaminoph 2017-0 Yes [id number] 1{tbl} Take 1 Univers en-codeine 1-09 tablet by ity of 300-30 mg 00:00: mouth [place] tablet 00 every 4 Medical (four) Branch hours as needed for Pain (scale 4-6). collagenase 2018-0 Yes Apply to [facility] (SANTYL) 1- affected ity of 250 00:00: area(s) [place] unit/gram 00 daily. Medical ointment Branch acetaminoph Yes [id number] 1{tbl} Take 1 Univers en-codeine 1-09 tablet by ity of 300-30 mg 00:00: mouth [place] tablet 00 every 4 Medical (four) Branch hours as needed for Pain (scale 4-6). collagenase 2017-0 Yes Apply to [facility] (SANTYL) 1 affected ity of 250 00:00: area(s) [place] unit/gram 00 daily. Medical ointment Branch acetaminoph Yes [id number] 1{tbl} Take 1 Univers en-codeine 1-09 tablet by ity of 300-30 mg 00:00: mouth [place] tablet 00 every 4 Medical (four) Branch hours as needed for Pain (scale 4-6). collagenase 2017-0 Yes Apply to [facility] (SANTYL) 11-21 affected ity of 250 00:00: area(s) [place] unit/gram 00 daily. Medical ointment Branch acetaminoph Yes [id number] 1{tbl} Take 1 Univers en-codeine 1-09 tablet by ity of 300-30 mg 00:00: mouth [place] tablet 00 every 4 Medical (four) Branch hours as needed for Pain (scale 4-6). collagenase 2017-0 Yes Apply to [facility] (SANTYL) 11-21 affected ity of 250 00:00: area(s) [place] unit/gram 00 daily. Medical ointment Branch acetaminoph 0 Yes [id number] 1{tbl} Take 1 [facility] en-codeine 1-09 tablet by ity of 300-30 mg 00:00: mouth [place] tablet 00 every 4 Medical (four) Branch hours as needed for Pain (scale 4-6). collagenase 2018-0 Yes Apply to [facility] (SANTYL) 11-21 affected ity of 250 00:00: area(s) [place] unit/gram 00 daily. Medical ointment Branch acetaminoph 2017-0 Yes [id number] 1{tbl} Take 1 [facility] en-codeine 1-09 tablet by ity of 300-30 mg 00:00: mouth [place] tablet 00 every 4 Medical (four) Branch hours as needed for Pain (scale 4-6). acetaminoph 2021- No [id number] 1{tbl} Take 1 [facility] en-codeine 11-21 tablet by ity of 300-30 mg 00:00: 00:00 mouth [place] tablet 00 :00 every 4 Medical (four) Branch hours as needed for Pain (scale 4-6). collagenase 2021- No Apply to [facility] (SANTYL) 11-21 affected ity of 250 00:00: 00:00 area(s) [place] unit/gram 00 :00 daily. Medical ointment Branch acetaminoph 2021- No [id number] 1{tbl} Take 1 [facility] en-codeine 11-21 tablet by ity of 300-30 mg 00:00: 00:00 mouth [place] tablet 00 :00 every 4 Medical (four) Branch hours as needed for Pain (scale 4-6). collagenase No Apply to [facility] (SANTYL) 11-21 affected ity of 250 00:00: 00:00 area(s) [place] unit/gram 00 :00 daily. Medical ointment Branch Accu-Chek Accu-Chek Yes Na Gill USE Common Sue Plus Sue Plus DIRECTED Spirit DAILY - [facility] Zyrtec Zyrtec Yes Na Gill 1 tablet Comm on Allergy Allergy [facility] Tylenol Tylenol Yes Na Gill not Common Arthritis Arthritis defined Sp [facility] Pain Pain - [facility] Losartan Losartan Yes Na Gill take one Common Potassium Potassium tablet by Spirit mouth once - [facility] daily [facility] Flonase Flonase Yes Na Gill 2 spray in Common each Spirit nostril - [facility] Glimepiride Glimepiride Yes Na Gill TAKE 1 Common TABLET BY Spirit MOUTH WITH - [facility] BREAKFAST OR THE [facility] FIRST MAIN Medical MEAL OR Center THE DAY ONCE A DAY Lyrica Lyrica Yes Na Gill 1 capsule Com mon Spirit [facility] Fenofibrate Fenofibrate Yes Na Gill TAKE ONE Common TABLET BY Spirit MOUTH ONCE - [facility]ILY [facility] Restasis Restasis Yes Na Gill 1 drop Co mmon into Spirit affected - [facility] eye [facility] Nexium Nexium Yes Na Gill 1 capsule Com mon [facility] Famotidine Famotidine Yes Na Gill 1 tablet Common as needed [facility] Voltaren Voltaren Yes Na Gill APPLY TO Common AFFECTED Spirit AREA(S) UP - [facility] TO FOUR St TIMES A DAY Medical NEEDED FOR Center PAIN Fosamax Fosamax Yes Na Gill 1 tablet Co mmon [facility] Losartan Losartan Yes Na Gill take one Common Potassium Potassium tablet by Spirit mouth once - [facility] daily [facility] Tylenol Tylenol No Tylenol Arthritis Arthritis Arthritis Pain Pain Pain Magnesium Magnesium No 1{table QD Magnesium 500 MG 500 MG t_with_ 500 MG a_meal} traMADol traMADol No 1{table QID traMADol HCl 50 MG HCl 50 MG t_as_ne HCl 50 MG eded} Lifitegrast Lifitegrast No 1{drop_ BID Lifitegras 5 % 5 % into_af t 5 % fected_ eye} Glimepiride Glimepiride No Glimepirid 1 MG 1 MG e 1 MG Glimepiride Glimepiride No 1{table QD Glimepirid 1 MG 1 MG t_with_ e [address]_or_t he_firs t_main_ meal_of _the_da y} Fosamax 70 Fosamax 70 No 1{table Fosamax 70 MG MG t} MG Alendronate Alendronate No Alendronat Sodium 70 Sodium 70 e Sodium MG MG 70 MG Fenofibrate Fenofibrate No Fenofibrat 54 MG 54 MG e 54 MG Lyrica 75MG Lyrica 75MG No 1{capsu TID Lyrica le} 75MG Metoprolol Metoprolol No 1{table BID Metoprolol Tartrate 50 Tartrate 50 t_with_ Tartrate MG MG food} 50 MG Vitamin D3 Vitamin D3 No Vitamin D3 125 MCG 125 MCG 125 MCG (5000 UT) (5000 UT) (5000 UT) Losartan Losartan No 1{table BID Losartan Potassium Potassium t} Potassium 50 MG 50 MG 50 MG Tylenol Tylenol No Tylenol Arthritis Arthritis Arthritis Pain Pain Pain Losartan Losartan No Losartan Potassium Potassium Potassium 50 MG 50 MG 50 MG Fosamax 70 Fosamax 70 No 1{table Fosamax 70 MG MG t} MG Metoprolol Metoprolol No 1{table BID Metoprolol Tartrate 50 Tartrate 50 t_with_ Tartrate MG MG food} 50 MG Losartan Losartan No 1{table BID Losartan Potassium Potassium t} Potassium 50 MG 50 MG 50 MG Glimepiride Glimepiride No 1{table QD Glimepirid 1 MG 1 MG t_with_ e [address]_or_t he_firs t_main_ meal_of _the_da y} Vitamin D3 Vitamin D3 No Vitamin D3 125 MCG 125 MCG 125 MCG (5000 UT) (5000 UT) (5000 UT) Lifitegrast Lifitegrast No 1{drop_ BID Lifitegras 5 % 5 % into_af t 5 % fected_ eye} Glimepiride Glimepiride No Glimepirid 1 MG 1 MG e 1 MG Alendronate Alendronate No Alendronat Sodium 70 Sodium 70 e Sodium MG MG 70 MG Fenofibrate Fenofibrate No Fenofibrat 54 MG 54 MG e 54 MG traMADol traMADol No 1{table QID traMADol HCl 50 MG HCl 50 MG t_as_ne HCl 50 MG eded} Magnesium Magnesium No 1{table QD Magnesium 500 MG 500 MG t_with_ 500 MG a_meal} Tylenol Tylenol No Tylenol Arthritis Arthritis Arthritis Pain Pain Pain Losartan Losartan No Losartan Potassium Potassium Potassium 50 MG 50 MG 50 MG Fosamax 70 Fosamax 70 No 1{table Fosamax 70 MG MG t} MG Metoprolol Metoprolol No 1{table BID Metoprolol Tartrate 50 Tartrate 50 t_with_ Tartrate MG MG food} 50 MG Losartan Losartan No 1{table BID Losartan Potassium Potassium t} Potassium 50 MG 50 MG 50 MG Glimepiride Glimepiride No 1{table QD Glimepirid 1 MG 1 MG t_with_ e [address]_or_t he_firs t_main_ meal_of _theda y} Vitamin D3 Vitamin D3 No Vitamin D3 125 MCG 125 MCG 125 MCG (5000 UT) (5000 UT) (5000 UT) Lifitegrast Lifitegrast No 1{drop_ BID Lifitegras 5 % 5 % into_af t 5 % fected_ eye} Glimepiride Glimepiride No Glimepirid 1 MG 1 MG e 1 MG Alendronate Alendronate No Alendronat Sodium 70 Sodium 70 e Sodium MG MG 70 MG Fenofibrate Fenofibrate No Fenofibrat 54 MG 54 MG e 54 MG traMADol traMADol No 1{table QID traMADol HCl 50 MG HCl 50 MG t_as_ne HCl 50 MG eded} Magnesium Magnesium No 1{table QD Magnesium 500 MG 500 MG t_with_ 500 MG a_meal} Magnesium Magnesium No 1{table QD Magnesium 500 MG 500 MG t_with_ 500 MG a_meal} Alendronate Alendronate No Alendronat Sodium 70 Sodium 70 e Sodium MG MG 70 MG Vitamin D3 Vitamin D3 No Vitamin D3 125 MCG 125 MCG 125 MCG (5000 UT) (5000 UT) (5000 UT) Fenofibrate Fenofibrate No Fenofibrat 54 MG 54 MG e 54 MG Losartan Losartan No Losartan Potassium Potassium Potassium 50 MG 50 MG 50 MG Fosamax 70 Fosamax 70 No 1{table Fosamax 70 MG MG t} MG Tylenol Tylenol No Tylenol Arthritis Arthritis Arthritis Pain Pain Pain Glimepiride Glimepiride No Glimepirid 1 MG 1 MG e 1 MG traMADol traMADol No 1{table QID traMADol HCl 50 MG HCl 50 MG t_as_ne HCl 50 MG eded} Losartan Losartan No 1{table BID Losartan Potassium Potassium t} Potassium 50 MG 50 MG 50 MG Glimepiride Glimepiride No 1{table QD Glimepirid 1 MG 1 MG t_with_ e [address]_or_t he_firs t_main_ meal_of _the_da y} Metoprolol Metoprolol No 1{table BID Metoprolol Tartrate 50 Tartrate 50 t_with_ Tartrate MG MG food} 50 MG Esomeprazol Esomeprazol No Esomeprazo e Magnesium e Magnesium le 20 MG 20 MG Magnesium 20 MG Lifitegrast Lifitegrast No 1{drop_ BID Lifitegras 5 % 5 % into_af t 5 % fected_ eye} traMADol traMADol No 1{table QID traMADol HCl 50 MG HCl 50 MG t_as_ne HCl 50 MG eded} Losartan Losartan No BID Losartan Potassium Potassium Potassium 25 MG 25 MG 25 MG Fenofibrate Fenofibrate No Fenofibrat 54 MG 54 MG e 54 MG Tylenol Tylenol No Tylenol Arthritis Arthritis Arthritis Pain Pain Pain Aspir-Low Aspir-Low No 1{table QD Aspir-Low 81 MG 81 MG t} 81 MG Fosamax 70 Fosamax 70 No 1{table Fosamax 70 MG MG t} MG guaiFENesin guaiFENesin No 10{ml_a 6xD guaiFENesi 100 MG/5ML 100 MG/5ML s_neede n 100 d} MG/5ML Metoprolol Metoprolol No BID Metoprolol Tartrate 50 Tartrate 50 Tartrate MG MG 50 MG Magnesium Magnesium No 1{table QD Magnesium 500 MG 500 MG t_with_ 500 MG a_meal} Vitamin D3 Vitamin D3 No Vitamin D3 125 MCG 125 MCG 125 MCG (5000 UT) (5000 UT) (5000 UT) Glimepiride Glimepiride No 1{table QD Glimepirid 1 MG 1 MG t_with_ e [address]_or_t he_firs t_main_ meal_of _the_da y} Claritin 10 Claritin 10 No 1{table QD Claritin MG MG t} 10 MG Esomeprazol Esomeprazol No Esomeprazo e Magnesium e Magnesium le 20 MG 20 MG Magnesium 20 MG Lifitegrast Lifitegrast No 1{drop_ BID Lifitegras 5 % 5 % into_af t 5 % fected_ eye} Flonase Flonase No BID Flonase predniSONE predniSONE No 1{table QD predniSONE 20 MG 20 MG t} 20 MG Lyrica 75MG Lyrica 75MG No 1{capsu TID Lyrica le} 75MG Losartan Losartan No 1{table BID Losartan Potassium Potassium t} Potassium 50 MG 50 MG 50 MG HYDROcodone HYDROcodone No 1{table BID HYDROcodon -Acetaminop -Acetaminop t_as_ne e-Acetamin hen 5-325 hen 5-325 eded} ophen MG MG 5-325 MG Lyrica 75MG Lyrica 75MG No 1{capsu TID Lyrica le} 75MG Metoprolol Metoprolol No BID Metoprolol Tartrate 50 Tartrate 50 Tartrate MG MG 50 MG guaiFENesin guaiFENesin No 10{ml_a 6xD guaiFENesi 100 MG/5ML 100 MG/5ML s_neede n 100 d} MG/5ML Losartan Losartan No 1{table BID Losartan Potassium Potassium t} Potassium 50 MG 50 MG 50 MG Lifitegrast Lifitegrast No 1{drop_ BID Lifitegras 5 % 5 % into_af t 5 % fected_ eye} Aspir-Low Aspir-Low No 1{table QD Aspir-Low 81 MG 81 MG t} 81 MG Tylenol Tylenol No Tylenol Arthritis Arthritis Arthritis Pain Pain Pain Claritin 10 Claritin 10 No 1{table QD Claritin MG MG t} 10 MG Flonase Flonase No BID Flonase Glimepiride Glimepiride No 1{table QD Glimepirid 1 MG 1 MG t_with_ e [address]_or_t he_firs t_main_ meal_of _the_da y} traMADol traMADol No 1{table QID traMADol HCl 50 MG HCl 50 MG t_as_ne HCl 50 MG eded} Fenofibrate Fenofibrate No Fenofibrat 54 MG 54 MG e 54 MG Fosamax 70 Fosamax 70 No 1{table Fosamax 70 MG MG t} MG Esomeprazol Esomeprazol No Esomeprazo e Magnesium e Magnesium le 20 MG 20 MG Magnesium 20 MG Vitamin D3 Vitamin D3 No Vitamin D3 125 MCG 125 MCG 125 MCG (5000 UT) (5000 UT) (5000 UT) HYDROcodone HYDROcodone No 1{table BID HYDROcodon -Acetaminop -Acetaminop t_as_ne e-Acetamin hen 5-325 hen 5-325 eded} ophen MG MG 5-325 MG Losartan Losartan No BID Losartan Potassium Potassium Potassium 25 MG 25 MG 25 MG predniSONE predniSONE No 1{table QD predniSONE 20 MG 20 MG t} 20 MG Magnesium Magnesium No 1{table QD Magnesium 500 MG 500 MG t_with_ 500 MG a_meal} Lyrica 75MG Lyrica 75MG No 1{capsu TID Lyrica le} 75MG Metoprolol Metoprolol No BID Metoprolol Tartrate 50 Tartrate 50 Tartrate MG MG 50 MG guaiFENesin guaiFENesin No 10{ml_a 6xD guaiFENesi 100 MG/5ML 100 MG/5ML s_neede n 100 d} MG/5ML Losartan Losartan No 1{table BID Losartan Potassium Potassium t} Potassium 50 MG 50 MG 50 MG Lifitegrast Lifitegrast No 1{drop_ BID Lifitegras 5 % 5 % into_af t 5 % fected_ eye} Fenofibrate Fenofibrate No Fenofibrat 54 MG 54 MG e 54 MG Tylenol Tylenol No Tylenol Arthritis Arthritis Arthritis Pain Pain Pain Claritin 10 Claritin 10 No 1{table QD Claritin MG MG t} 10 MG Aspir-Low Aspir-Low No 1{table QD Aspir-Low 81 MG 81 MG t} 81 MG Flonase Flonase No BID Flonase Glimepiride Glimepiride No 1{table QD Glimepirid 1 MG 1 MG t_with_ e [address]_or_t he_firs t_main_ meal_of _the_da y} traMADol traMADol No 1{table QID traMADol HCl 50 MG HCl 50 MG t_as_ne HCl 50 MG eded} predniSONE predniSONE No 1{table QD predniSONE 20 MG 20 MG t} 20 MG Fosamax 70 Fosamax 70 No 1{table Fosamax 70 MG MG t} MG Vitamin D3 Vitamin D3 No Vitamin D3 125 MCG 125 MCG 125 MCG (5000 UT) (5000 UT) (5000 UT) HYDROcodone HYDROcodone No 1{table BID HYDROcodon -Acetaminop -Acetaminop t_as_ne e-Acetamin hen 5-325 hen 5-325 eded} ophen MG MG 5-325 MG Losartan Losartan No BID Losartan Potassium Potassium Potassium 25 MG 25 MG 25 MG Esomeprazol Esomeprazol No Esomeprazo e Magnesium e Magnesium le 20 MG 20 MG Magnesium 20 MG Magnesium Magnesium No 1{table QD Magnesium 500 MG 500 MG t_with_ 500 MG a_meal} Lyrica 75MG Lyrica 75MG No 1{capsu TID Lyrica le} 75MG Metoprolol Metoprolol No BID Metoprolol Tartrate 50 Tartrate 50 Tartrate MG MG 50 MG guaiFENesin guaiFENesin No 10{ml_a 6xD guaiFENesi 100 MG/5ML 100 MG/5ML s_neede n 100 d} MG/5ML Losartan Losartan No 1{table BID Losartan Potassium Potassium t} Potassium 50 MG 50 MG 50 MG Lifitegrast Lifitegrast No 1{drop_ BID Lifitegras 5 % 5 % into_af t 5 % fected_ eye} Fenofibrate Fenofibrate No Fenofibrat 54 MG 54 MG e 54 MG Tylenol Tylenol No Tylenol Arthritis Arthritis Arthritis Pain Pain Pain Claritin 10 Claritin 10 No 1{table QD Claritin MG MG t} 10 MG Aspir-Low Aspir-Low No 1{table QD Aspir-Low 81 MG 81 MG t} 81 MG Flonase Flonase No BID Flonase Glimepiride Glimepiride No 1{table QD Glimepirid 1 MG 1 MG t_with_ e [address]_or_t he_firs t_main_ meal_of _the_da y} traMADol traMADol No 1{table QID traMADol HCl 50 MG HCl 50 MG t_as_ne HCl 50 MG eded} predniSONE predniSONE No 1{table QD predniSONE 20 MG 20 MG t} 20 MG Fosamax 70 Fosamax 70 No 1{table Fosamax 70 MG MG t} MG Vitamin D3 Vitamin D3 No Vitamin D3 125 MCG 125 MCG 125 MCG (5000 UT) (5000 UT) (5000 UT) HYDROcodone HYDROcodone No 1{table BID HYDROcodon -Acetaminop -Acetaminop t_as_ne e-Acetamin hen 5-325 hen 5-325 eded} ophen MG MG 5-325 MG Losartan Losartan No BID Losartan Potassium Potassium Potassium 25 MG 25 MG 25 MG Esomeprazol Esomeprazol No Esomeprazo e Magnesium e Magnesium le 20 MG 20 MG Magnesium 20 MG Magnesium Magnesium No 1{table QD Magnesium 500 MG 500 MG t_with_ 500 MG a_meal} Flonase Flonase No BID Flonase Fenofibrate Fenofibrate No Fenofibrat 54 MG 54 MG e 54 MG Lyrica 75MG Lyrica 75MG No 1{capsu TID Lyrica le} 75MG Losartan Losartan No 1{table BID Losartan Potassium Potassium t} Potassium 50 MG 50 MG 50 MG Esomeprazol Esomeprazol No Esomeprazo e Magnesium e Magnesium le 20 MG 20 MG Magnesium 20 MG Lifitegrast Lifitegrast No 1{drop_ BID Lifitegras 5 % 5 % into_af t 5 % fected_ eye} Tylenol Tylenol No Tylenol Arthritis Arthritis Arthritis Pain Pain Pain Metoprolol Metoprolol No BID Metoprolol Tartrate 50 Tartrate 50 Tartrate MG MG 50 MG Magnesium Magnesium No 1{table QD Magnesium 500 MG 500 MG t_with_ 500 MG a_meal} Claritin 10 Claritin 10 No 1{table QD Claritin MG MG t} 10 MG traMADol traMADol No 1{table QID traMADol HCl 50 MG HCl 50 MG t_as_ne HCl 50 MG eded} Vitamin D3 Vitamin D3 No Vitamin D3 125 MCG 125 MCG 125 MCG (5000 UT) (5000 UT) (5000 UT) Aspir-Low Aspir-Low No 1{table QD Aspir-Low 81 MG 81 MG t} 81 MG guaiFENesin guaiFENesin No 10{ml_a 6xD guaiFENesi 100 MG/5ML 100 MG/5ML s_neede n 100 d} MG/5ML predniSONE predniSONE No 1{table QD predniSONE 20 MG 20 MG t} 20 MG Losartan Losartan No BID Losartan Potassium Potassium Potassium 25 MG 25 MG 25 MG Fosamax 70 Fosamax 70 No 1{table Fosamax 70 MG MG t} MG Glimepiride Glimepiride No 1{table QD Glimepirid 1 MG 1 MG t_with_ e [address]_or_t he_firs t_main_ meal_of _the_da y} HYDROcodone HYDROcodone No 1{table BID HYDROcodon -Acetaminop -Acetaminop t_as_ne e-Acetamin hen 5-325 hen 5-325 eded} ophen MG MG 5-325 MG Losartan Losartan No BID Losartan Potassium Potassium Potassium 25 MG 25 MG 25 MG HYDROcodone HYDROcodone No 1{table BID HYDROcodon -Acetaminop -Acetaminop t_as_ne e-Acetamin hen 5-325 hen 5-325 eded} ophen MG MG 5-325 MG Tylenol Tylenol No Tylenol Arthritis Arthritis Arthritis Pain Pain Pain guaiFENesin guaiFENesin No 10{ml_a 6xD guaiFENesi 100 MG/5ML 100 MG/5ML s_neede n 100 d} MG/5ML traMADol traMADol No 1{table QID traMADol HCl 50 MG HCl 50 MG t_as_ne HCl 50 MG eded} Lyrica 75MG Lyrica 75MG No 1{capsu TID Lyrica le} 75MG Vitamin D3 Vitamin D3 No Vitamin D3 125 MCG 125 MCG 125 MCG (5000 UT) (5000 UT) (5000 UT) Glimepiride Glimepiride No 1{table QD Glimepirid 1 MG 1 MG t_with_ e [address]_or_t he_firs t_main_ meal_of _the_da y} Fosamax 70 Fosamax 70 No 1{table Fosamax 70 MG MG t} MG Esomeprazol Esomeprazol No Esomeprazo e Magnesium e Magnesium le 20 MG 20 MG Magnesium 20 MG Claritin 10 Claritin 10 No 1{table QD Claritin MG MG t} 10 MG Losartan Losartan No 1{table BID Losartan Potassium Potassium t} Potassium 50 MG 50 MG 50 MG Flonase Flonase No BID Flonase Magnesium Magnesium No 1{table QD Magnesium 500 MG 500 MG t_with_ 500 MG a_meal} Aspir-Low Aspir-Low No 1{table QD Aspir-Low 81 MG 81 MG t} 81 MG Chlorhexidi Chlorhexidi No Chlorhexid ne ne ine Gluconate 2 Gluconate 2 Gluconate % % 2 % Lifitegrast Lifitegrast No 1{drop_ BID Lifitegras 5 % 5 % into_af t 5 % fected_ eye} Metoprolol Metoprolol No BID Metoprolol Tartrate 50 Tartrate 50 Tartrate MG MG 50 MG predniSONE predniSONE No 1{table QD predniSONE 20 MG 20 MG t} 20 MG Fenofibrate Fenofibrate No Fenofibrat 54 MG 54 MG e 54 MG guaiFENesin guaiFENesin No 10{ml_a 6xD guaiFENesi 100 MG/5ML 100 MG/5ML s_neede n 100 d} MG/5ML Fenofibrate Fenofibrate No Fenofibrat 54 MG 54 MG e 54 MG Esomeprazol Esomeprazol No Esomeprazo e Magnesium e Magnesium le 20 MG 20 MG Magnesium 20 MG Chlorhexidi Chlorhexidi No Chlorhexid ne ne ine Gluconate 2 Gluconate 2 Gluconate % % 2 % traMADol traMADol No 1{table QID traMADol HCl 50 MG HCl 50 MG t_as_ne HCl 50 MG eded} Fosamax 70 Fosamax 70 No 1{table Fosamax 70 MG MG t} MG HYDROcodone HYDROcodone No 1{table BID HYDROcodon -Acetaminop -Acetaminop t_as_ne e-Acetamin hen 5-325 hen 5-325 eded} ophen MG MG 5-325 MG Lifitegrast Lifitegrast No 1{drop_ BID Lifitegras 5 % 5 % into_af t 5 % fected_ eye} Claritin 10 Claritin 10 No 1{table QD Claritin MG MG t} 10 MG Clotrimazol Clotrimazol No 1{appli BID Clotrimazo e 1 % e 1 % cation} le 1 % Lyrica 75MG Lyrica 75MG No 1{capsu TID Lyrica le} 75MG Aspir-Low Aspir-Low No 1{table QD Aspir-Low 81 MG 81 MG t} 81 MG Losartan Losartan No BID Losartan Potassium Potassium Potassium 25 MG 25 MG 25 MG Flonase Flonase No BID Flonase Glimepiride Glimepiride No 1{table QD Glimepirid 1 MG 1 MG t_with_ e [address]_or_t he_firs t_main_ meal_of _the_da y} predniSONE predniSONE No 1{table QD predniSONE 20 MG 20 MG t} 20 MG Vitamin D3 Vitamin D3 No Vitamin D3 125 MCG 125 MCG 125 MCG (5000 UT) (5000 UT) (5000 UT) Magnesium Magnesium No 1{table QD Magnesium 500 MG 500 MG t_with_ 500 MG a_meal} Losartan Losartan No 1{table BID Losartan Potassium Potassium t} Potassium 50 MG 50 MG 50 MG Tylenol Tylenol No Tylenol Arthritis Arthritis Arthritis Pain Pain Pain Metoprolol Metoprolol No 1{table BID Metoprolol Tartrate 50 Tartrate 50 t_with_ Tartrate MG MG food} 50 MG guaiFENesin guaiFENesin No 10{ml_a 6xD guaiFENesi 100 MG/5ML 100 MG/5ML s_neede n 100 d} MG/5ML Fenofibrate Fenofibrate No Fenofibrat 54 MG 54 MG e 54 MG Esomeprazol Esomeprazol No Esomeprazo e Magnesium e Magnesium le 20 MG 20 MG Magnesium 20 MG Chlorhexidi Chlorhexidi No Chlorhexid ne ne ine Gluconate 2 Gluconate 2 Gluconate % % 2 % traMADol traMADol No 1{table QID traMADol HCl 50 MG HCl 50 MG t_as_ne HCl 50 MG eded} Fosamax 70 Fosamax 70 No 1{table Fosamax 70 MG MG t} MG HYDROcodone HYDROcodone No 1{table BID HYDROcodon -Acetaminop -Acetaminop t_as_ne e-Acetamin hen 5-325 hen 5-325 eded} ophen MG MG 5-325 MG Lifitegrast Lifitegrast No 1{drop_ BID Lifitegras 5 % 5 % into_af t 5 % fected_ eye} Claritin 10 Claritin 10 No 1{table QD Claritin MG MG t} 10 MG Clotrimazol Clotrimazol No 1{appli BID Clotrimazo e 1 % e 1 % cation} le 1 % Lyrica 75MG Lyrica 75MG No 1{capsu TID Lyrica le} 75MG Aspir-Low Aspir-Low No 1{table QD Aspir-Low 81 MG 81 MG t} 81 MG Losartan Losartan No BID Losartan Potassium Potassium Potassium 25 MG 25 MG 25 MG Flonase Flonase No BID Flonase Glimepiride Glimepiride No 1{table QD Glimepirid 1 MG 1 MG t_with_ e [address]_or_t he_firs t_main_ meal_of _the_da y} predniSONE predniSONE No 1{table QD predniSONE 20 MG 20 MG t} 20 MG Vitamin D3 Vitamin D3 No Vitamin D3 125 MCG 125 MCG 125 MCG (5000 UT) (5000 UT) (5000 UT) Magnesium Magnesium No 1{table QD Magnesium 500 MG 500 MG t_with_ 500 MG a_meal} Losartan Losartan No 1{table BID Losartan Potassium Potassium t} Potassium 50 MG 50 MG 50 MG Tylenol Tylenol No Tylenol Arthritis Arthritis Arthritis Pain Pain Pain Metoprolol Metoprolol No 1{table BID Metoprolol Tartrate 50 Tartrate 50 t_with_ Tartrate MG MG food} 50 MG Glimepiride Glimepiride No Glimepirid 1 MG 1 MG e 1 MG Lifitegrast Lifitegrast No 1{drop_ BID Lifitegras 5 % 5 % into_af t 5 % fected_ eye} Chlorhexidi Chlorhexidi No Chlorhexid ne ne ine Gluconate 2 Gluconate 2 Gluconate % % 2 % Esomeprazol Esomeprazol No Esomeprazo e Magnesium e Magnesium le 20 MG 20 MG Magnesium 20 MG Flonase Flonase No BID Flonase traMADol traMADol No 1{table QID traMADol HCl 50 MG HCl 50 MG t_as_ne HCl 50 MG eded} Aspir-Low Aspir-Low No 1{table QD Aspir-Low 81 MG 81 MG t} 81 MG Vitamin D3 Vitamin D3 No Vitamin D3 125 MCG 125 MCG 125 MCG (5000 UT) (5000 UT) (5000 UT) Tylenol Tylenol No Tylenol Arthritis Arthritis Arthritis Pain Pain Pain guaiFENesin guaiFENesin No 10{ml_a 6xD guaiFENesi 100 MG/5ML 100 MG/5ML s_neede n 100 d} MG/5ML Clotrimazol Clotrimazol No 1{appli BID Clotrimazo e 1 % e 1 % cation} le 1 % Claritin 10 Claritin 10 No 1{table QD Claritin MG MG t} 10 MG Losartan Losartan No 1{table BID Losartan Potassium Potassium t} Potassium 50 MG 50 MG 50 MG Lyrica 75MG Lyrica 75MG No 1{capsu TID Lyrica le} 75MG Magnesium Magnesium No 1{table QD Magnesium 500 MG 500 MG t_with_ 500 MG a_meal} Losartan Losartan No BID Losartan Potassium Potassium Potassium 25 MG 25 MG 25 MG Alendronate Alendronate No Alendronat Sodium 70 Sodium 70 e Sodium MG MG 70 MG Metoprolol Metoprolol No 1{table BID Metoprolol Tartrate 50 Tartrate 50 t_with_ Tartrate MG MG food} 50 MG Fenofibrate Fenofibrate No Fenofibrat 54 MG 54 MG e 54 MG HYDROcodone HYDROcodone No 1{table BID HYDROcodon -Acetaminop -Acetaminop t_as_ne e-Acetamin hen 5-325 hen 5-325 eded} ophen MG MG 5-325 MG predniSONE predniSONE No 1{table QD predniSONE 20 MG 20 MG t} 20 MG Glimepiride Glimepiride No Glimepirid 1 MG 1 MG e 1 MG Lifitegrast Lifitegrast No 1{drop_ BID Lifitegras 5 % 5 % into_af t 5 % fected_ eye} Chlorhexidi Chlorhexidi No Chlorhexid ne ne ine Gluconate 2 Gluconate 2 Gluconate % % 2 % Esomeprazol Esomeprazol No Esomeprazo e Magnesium e Magnesium le 20 MG 20 MG Magnesium 20 MG Flonase Flonase No BID Flonase traMADol traMADol No 1{table QID traMADol HCl 50 MG HCl 50 MG t_as_ne HCl 50 MG eded} Aspir-Low Aspir-Low No 1{table QD Aspir-Low 81 MG 81 MG t} 81 MG Vitamin D3 Vitamin D3 No Vitamin D3 125 MCG 125 MCG 125 MCG (5000 UT) (5000 UT) (5000 UT) Tylenol Tylenol No Tylenol Arthritis Arthritis Arthritis Pain Pain Pain guaiFENesin guaiFENesin No 10{ml_a 6xD guaiFENesi 100 MG/5ML 100 MG/5ML s_neede n 100 d} MG/5ML Clotrimazol Clotrimazol No 1{appli BID Clotrimazo e 1 % e 1 % cation} le 1 % Claritin 10 Claritin 10 No 1{table QD Claritin MG MG t} 10 MG Losartan Losartan No 1{table BID Losartan Potassium Potassium t} Potassium 50 MG 50 MG 50 MG Lyrica 75MG Lyrica 75MG No 1{capsu TID Lyrica le} 75MG Magnesium Magnesium No 1{table QD Magnesium 500 MG 500 MG t_with_ 500 MG a_meal} Losartan Losartan No BID Losartan Potassium Potassium Potassium 25 MG 25 MG 25 MG Alendronate Alendronate No Alendronat Sodium 70 Sodium 70 e Sodium MG MG 70 MG Metoprolol Metoprolol No 1{table BID Metoprolol Tartrate 50 Tartrate 50 t_with_ Tartrate MG MG food} 50 MG Fenofibrate Fenofibrate No Fenofibrat 54 MG 54 MG e 54 MG HYDROcodone HYDROcodone No 1{table BID HYDROcodon -Acetaminop -Acetaminop t_as_ne e-Acetamin hen 5-325 hen 5-325 eded} ophen MG MG 5-325 MG predniSONE predniSONE No 1{table QD predniSONE 20 MG 20 MG t} 20 MG Lifitegrast Lifitegrast No 1{drop_ BID Lifitegras 5 % 5 % into_af t 5 % fected_ eye} Chlorhexidi Chlorhexidi No Chlorhexid ne ne ine Gluconate 2 Gluconate 2 Gluconate % % 2 % traMADol traMADol No 1{table QID traMADol HCl 50 MG HCl 50 MG t_as_ne HCl 50 MG eded} Alendronate Alendronate No Alendronat Sodium 70 Sodium 70 e Sodium MG MG 70 MG Glimepiride Glimepiride No Glimepirid 1 MG 1 MG e 1 MG Losartan Losartan No BID Losartan Potassium Potassium Potassium 25 MG 25 MG 25 MG Esomeprazol Esomeprazol No Esomeprazo e Magnesium e Magnesium le 20 MG 20 MG Magnesium 20 MG Tylenol Tylenol No Tylenol Arthritis Arthritis Arthritis Pain Pain Pain guaiFENesin guaiFENesin No 10{ml_a 6xD guaiFENesi 100 MG/5ML 100 MG/5ML s_neede n 100 d} MG/5ML Clotrimazol Clotrimazol No 1{appli BID Clotrimazo e 1 % e 1 % cation} le 1 % Losartan Losartan No 1{table BID Losartan Potassium Potassium t} Potassium 50 MG 50 MG 50 MG Flonase Flonase No BID Flonase Aspir-Low Aspir-Low No 1{table QD Aspir-Low 81 MG 81 MG t} 81 MG Metoprolol Metoprolol No 1{table BID Metoprolol Tartrate 50 Tartrate 50 t_with_ Tartrate MG MG food} 50 MG Fenofibrate Fenofibrate No Fenofibrat 54 MG 54 MG e 54 MG predniSONE predniSONE No 1{table QD predniSONE 20 MG 20 MG t} 20 MG Claritin 10 Claritin 10 No 1{table QD Claritin MG MG t} 10 MG Vitamin D3 Vitamin D3 No Vitamin D3 125 MCG 125 MCG 125 MCG (5000 UT) (5000 UT) (5000 UT) HYDROcodone HYDROcodone No 1{table BID HYDROcodon -Acetaminop -Acetaminop t_as_ne e-Acetamin hen 5-325 hen 5-325 eded} ophen MG MG 5-325 MG Lyrica 75MG Lyrica 75MG No 1{capsu TID Lyrica le} 75MG Magnesium Magnesium No 1{table QD Magnesium 500 MG 500 MG t_with_ 500 MG a_meal} Lifitegrast Lifitegrast No 1{drop_ BID Lifitegras 5 % 5 % into_af t 5 % fected_ eye} Chlorhexidi Chlorhexidi No Chlorhexid ne ne ine Gluconate 2 Gluconate 2 Gluconate % % 2 % traMADol traMADol No 1{table QID traMADol HCl 50 MG HCl 50 MG t_as_ne HCl 50 MG eded} Alendronate Alendronate No Alendronat Sodium 70 Sodium 70 e Sodium MG MG 70 MG Glimepiride Glimepiride No Glimepirid 1 MG 1 MG e 1 MG guaiFENesin guaiFENesin No 10{ml_a 6xD guaiFENesi 100 MG/5ML 100 MG/5ML s_neede n 100 d} MG/5ML Esomeprazol Esomeprazol No Esomeprazo e Magnesium e Magnesium le 20 MG 20 MG Magnesium 20 MG Clotrimazol Clotrimazol No 1{appli BID Clotrimazo e 1 % e 1 % cation} le 1 % Tylenol Tylenol No Tylenol Arthritis Arthritis Arthritis Pain Pain Pain Losartan Losartan No 1{table BID Losartan Potassium Potassium t} Potassium 50 MG 50 MG 50 MG Flonase Flonase No BID Flonase Aspir-Low Aspir-Low No 1{table QD Aspir-Low 81 MG 81 MG t} 81 MG Metoprolol Metoprolol No 1{table BID Metoprolol Tartrate 50 Tartrate 50 t_with_ Tartrate MG MG food} 50 MG Fenofibrate Fenofibrate No Fenofibrat 54 MG 54 MG e 54 MG predniSONE predniSONE No 1{table QD predniSONE 20 MG 20 MG t} 20 MG Claritin 10 Claritin 10 No 1{table QD Claritin MG MG t} 10 MG Vitamin D3 Vitamin D3 No Vitamin D3 125 MCG 125 MCG 125 MCG (5000 UT) (5000 UT) (5000 UT) HYDROcodone HYDROcodone No 1{table BID HYDROcodon -Acetaminop -Acetaminop t_as_ne e-Acetamin hen 5-325 hen 5-325 eded} ophen MG MG 5-325 MG Losartan Losartan No BID Losartan Potassium Potassium Potassium 25 MG 25 MG 25 MG Lyrica 75MG Lyrica 75MG No 1{capsu TID Lyrica le} 75MG Magnesium Magnesium No 1{table QD Magnesium 500 MG 500 MG t_with_ 500 MG a_meal} Glimepiride Glimepiride No Glimepirid 1 MG 1 MG e 1 MG Vitamin D3 Vitamin D3 No Vitamin D3 125 MCG 125 MCG 125 MCG (5000 UT) (5000 UT) (5000 UT) Losartan Losartan No Losartan Potassium Potassium Potassium 25 MG 25 MG 25 MG Magnesium Magnesium No 1{table QD Magnesium 500 MG 500 MG t_with_ 500 MG a_meal} Alendronate Alendronate No Alendronat Sodium 70 Sodium 70 e Sodium MG MG 70 MG Lifitegrast Lifitegrast No 1{drop_ BID Lifitegras 5 % 5 % into_af t 5 % fected_ eye} Glimepiride Glimepiride No 1{table QD Glimepirid 1 MG 1 MG t_with_ e [address]_or_t he_firs t_main_ meal_of _the_da y} Tylenol Tylenol No Tylenol Arthritis Arthritis Arthritis Pain Pain Pain Fosamax 70 Fosamax 70 No 1{table Fosamax 70 MG MG t} MG Metoprolol Metoprolol No 1{table BID Metoprolol Tartrate 50 Tartrate 50 t_with_ Tartrate MG MG food} 50 MG Losartan Losartan No 1{table BID Losartan Potassium Potassium t} Potassium 50 MG 50 MG 50 MG Esomeprazol Esomeprazol No Esomeprazo e Magnesium e Magnesium le 20 MG 20 MG Magnesium 20 MG Losartan Losartan No 1{table BID Losartan Potassium Potassium t} Potassium 50 MG 50 MG 50 MG Omeprazole Omeprazole No Omeprazole 20 MG 20 MG 20 MG Tylenol Tylenol No Tylenol Arthritis Arthritis Arthritis Pain Pain Pain Magnesium Magnesium No 1{table QD Magnesium 500 MG 500 MG t_with_ 500 MG a_meal} Fenofibrate Fenofibrate No 1{table QD Fenofibrat 54 MG 54 MG t_with_ e 54 MG food} Lifitegrast Lifitegrast No 1{drop_ BID Lifitegras 5 % 5 % into_af t 5 % fected_ eye} Loratadine Loratadine No 1{table QD Loratadine 10 MG 10 MG t} 10 MG Vitamin D3 Vitamin D3 No Vitamin D3 125 MCG 125 MCG 125 MCG (5000 UT) (5000 UT) (5000 UT) amLODIPine amLODIPine No 1{table QD amLODIPine Besylate 5 Besylate 5 t} Besylate 5 MG MG MG Simvastatin Simvastatin No 1{table QD Simvastati 20 MG 20 MG t_in_th n 20 MG e_eveni ng} Fluticasone Fluticasone No 1{spray QD Fluticason Propionate Propionate _in_eac e 50 MCG/ACT 50 MCG/ACT h_nostr Propionate il} 50 MCG/ACT Metoprolol Metoprolol No 1{table BID Metoprolol Tartrate 50 Tartrate 50 t_with_ Tartrate MG MG food} 50 MG Alendronate Alendronate No Alendronat Sodium 70 Sodium 70 e Sodium MG MG 70 MG Fosamax 70 Fosamax 70 No 1{table Fosamax 70 MG MG t} MG Losartan Losartan No BID Losartan Potassium Potassium Potassium 25 MG 25 MG 25 MG HYDROcodone HYDROcodone No 1{table BID HYDROcodon -Acetaminop -Acetaminop t_as_ne e-Acetamin hen 5-325 hen 5-325 eded} ophen MG MG 5-325 MG Tylenol Tylenol No Tylenol Arthritis Arthritis Arthritis Pain Pain Pain guaiFENesin guaiFENesin No 10{ml_a 6xD guaiFENesi 100 MG/5ML 100 MG/5ML s_neede n 100 d} MG/5ML traMADol traMADol No 1{table QID traMADol HCl 50 MG HCl 50 MG t_as_ne HCl 50 MG eded} Lyrica 75MG Lyrica 75MG No 1{capsu TID Lyrica le} 75MG Vitamin D3 Vitamin D3 No Vitamin D3 125 MCG 125 MCG 125 MCG (5000 UT) (5000 UT) (5000 UT) Glimepiride Glimepiride No 1{table QD Glimepirid 1 MG 1 MG t_with_ e [address]_or_t he_firs t_main_ meal_of _the_da y} Fosamax 70 Fosamax 70 No 1{table Fosamax 70 MG MG t} MG Esomeprazol Esomeprazol No Esomeprazo e Magnesium e Magnesium le 20 MG 20 MG Magnesium 20 MG Claritin 10 Claritin 10 No 1{table QD Claritin MG MG t} 10 MG Losartan Losartan No 1{table BID Losartan Potassium Potassium t} Potassium 50 MG 50 MG 50 MG Flonase Flonase No BID Flonase Magnesium Magnesium No 1{table QD Magnesium 500 MG 500 MG t_with_ 500 MG a_meal} Aspir-Low Aspir-Low No 1{table QD Aspir-Low 81 MG 81 MG t} 81 MG Chlorhexidi Chlorhexidi No Chlorhexid ne ne ine Gluconate 2 Gluconate 2 Gluconate % % 2 % Lifitegrast Lifitegrast No 1{drop_ BID Lifitegras 5 % 5 % into_af t 5 % fected_ eye} Metoprolol Metoprolol No BID Metoprolol Tartrate 50 Tartrate 50 Tartrate MG MG 50 MG predniSONE predniSONE No 1{table QD predniSONE 20 MG 20 MG t} 20 MG Fenofibrate Fenofibrate No Fenofibrat 54 MG 54 MG e 54 MG Immunizations Ordered Filled Date Status Comments Source Immunization Name Immunization Name FLUZONE HIGH DOSE FLUZONE HIGH DOSE 2022-08-19 [facility]pleted [facility] - OVER [facility] OVER 65 11:50:00 [facility] FLUZONE HIGH DOSE FLUZONE HIGH DOSE 2022-08-19 Completed [facility] - OVER 65 OVER 65 11:50:00 [facility] FLUZONE HIGH DOSE FLUZONE HIGH DOSE 2022-08-19 Completed [facility] - OVER 65 OVER 65 11:50:00 [facility] FLUZONE HIGH DOSE FLUZONE HIGH DOSE 2022-08-19 Completed [facility] - OVER 65 OVER 65 11:50:00 [facility] FLUZONE HIGH DOSE FLUZONE HIGH DOSE 2022-08-19 Completed [facility] - OVER 65 OVER 65 11:50:00 [facility] FLUZONE HIGH DOSE FLUZONE HIGH DOSE 2022-08-19 Completed [facility] - OVER 65 OVER 65 11:50:00 [facility] FLUZONE HIGH DOSE FLUZONE HIGH DOSE 2022-08-19 Completed [facility] - OVER 65 OVER 65 11:50:00 [facility] SARS-COV-2 COVID-2020-12-20 Completed [facility]ive rs[facility] of [facility] 12+ YRS 00:00:00 [facility] VACCINE Branch SARS-COV-2 COVID-19 2020-12-20 Completed [facility]ive rs[facility] of [facility] 12+ YRS 00:00:00 [facility] VACCINE Branch SARS-COV-2 COVID-19 2020-12-20 Completed [facility] 12+ YRS 00:00:00 [facility] SARS-COV-2 COVID-19 2020-12-20 Completed [facility] of [facility] 12+ YRS 00:00:00 [facility] SARS-COV-2 COVID-19 2020-12-20 Completed [facility] rs[facility] of [facility] 12+ YRS 00:00:00 [facility] SARS-COV-2 COVID-19 2020-12-20 Completed [facility]ive rs[facility] of [facility] 12+ YRS 00:00:00 [facility] SARS-COV-2 COVID-19 2020-12-20 Completed [facility] VACCINE 00:00:00 [place] [facility] SARS-COV-2 COVID-19 2020-12-20 Completed [facility] VACCINE 00:00:00 [facility] SARS-COV-2 COVID-19 2020-12-20 Completed [facility] VACCINE 00:00:00 [facility] SARS-COV-2 COVID-19 2020-12-20 Completed [facility] VACCINE 00:00:00 [facility] SARS-COV-2 COVID-19 2020-12-20 Completed [facility] VACCINE 00:00:00 [facility] SARS-COV-2 COVID-19 2020-12-20 Completed [facility] VACCINE 00:00:00 [facility] SARS-COV-2 COVID-19 2020-12-20 Completed [facility] VACCINE 00:00:00 [place] [facility] SARS-COV-2 COVID-19 2020-12-20 Completed [facility] VACCINE 00:00:00 [facility] SARS-COV-2 COVID-19 2020-12-20 Completed [facility] VACCINE 00:00:00 [place] [facility] SARS-COV-2 COVID-19 2020-12-20 Completed [facility] VACCINE 00:00:00 [place] [facility] ical Branch SARS-COV-2 COVID-19 2020-12-20 Completed [facility] VACCINE 00:00:00 [place] [facility] SARS-COV-2 COVID-19 2020-12-20 Completed [facility] VACCINE 00:00:00 [place] [facility] SARS-COV-2 COVID-19 2020-12-20 Completed [facility] VACCINE 00:00:00 [place] [facility] SARS-COV-2 COVID-19 2020-12-20 Completed [facility] VACCINE 00:00:00 [place] [facility] SARS-COV-2 COVID-19 2020-12-20 Completed [facility] rs[facility] of [facility] 12+ YRS 00:00:00 [place] [facility] SARS-COV-2 COVID-19 2020-11-22 Completed [facility] of [facility] 12+ YRS 00:00:00 [place] [facility] SARS-COV-2 COVID-19 2020-11-22 Completed [facility] of [facility] 12+ YRS 00:00:00 [place] [facility] SARS-COV-2 COVID-19 2020-11-22 Completed [facility] of [facility] 12+ YRS 00:00:00 [place] [facility] SARS-COV-2 COVID-19 2020-11-22 Completed [facility] of [facility] 12+ YRS 00:00:00 [place] [facility] SARS-COV-2 COVID-19 2020-11-22 Completed [facility] of [facility] 12+ YRS 00:00:00 [place] [facility] SARS-COV-2 COVID-19 2020-11-22 Completed [facility] of [facility] 12+ YRS 00:00:00 [place] [facility] SARS-COV-2 COVID-19 2020-11-22 Completed [facility] VACCINE 00:00:00 [place] [facility] SARS-COV-2 COVID-19 2020-11-22 Completed [facility] VACCINE 00:00:00 [place] [facility] SARS-COV-2 COVID-19 2020-11-22 Completed [facility] VACCINE 00:00:00 [place] [facility] SARS-COV-2 COVID-19 2020-11-22 Completed [facility] VACCINE 00:00:00 [place] [facility] SARS-COV-2 COVID-19 2020-11-22 Completed [facility] VACCINE 00:00:00 [facility] ical Branch SARS-COV-2 COVID-19 2020-11-22 Completed [facility] of [facility] VACCINE 00:00:[address] [facility] ical Branch SARS-COV-2 COVID-19 2020-11-22 Completed [facility]ive rs[facility] of [facility] VACCINE 00:00:00 [facility] ical Branch SARS-COV-2 COVID-19 2020-11-22 Completed [facility] of [facility] VACCINE 00:00:00 [facility] ical Branch SARS-COV-2 COVID-19 2020-11-22 Completed [facility] VACCINE 00:00:[address] [facility] ical Branch SARS-COV-2 COVID-19 2020-11-22 Completed [facility] VACCINE 00:00:[address] [facility] ical Branch SARS-COV-2 COVID-19 2020-11-22 Completed [facility] of [facility] VACCINE 00:00:[address] [facility] ical Branch SARS-COV-2 COVID-19 2020-11-22 Completed [facility] VACCINE 00:00:00 [facility] ical Branch SARS-COV-2 COVID-19 2020-11-22 Completed [facility] of [facility] VACCINE 00:00:[address] [facility] ical Branch SARS-COV-2 COVID-19 2020-11-22 Completed [facility] of [facility] VACCINE 00:00:[address] [facility] ical Branch SARS-COV-2 COVID-19 2020-11-22 Completed Unive rsity of MODERNA 12+ YRS 00:00:00 [facility] ical VACCINE Branch SARS-COV-2 COVID-19 Unknown Completed Unive rsity of MODERNA 12+ YRS [facility] ical VACCINE Branch SARS-COV-2 COVID-19 Unknown Completed Unive rsity of MODER[facility] 12+ Y[facility] ical VACCINE Branch FluAD Quad SD FluAD Quad SD Unknown [facility] FLUZONE HIGH DOSE FLUZONE HIGH DOSE Unknown Completed [facility] - OVER 65 OVER 65 [facility] Vital Signs Vital Name Observation Time Observation Value Comments Source Systolic blood 2023-09-25 03:00:00 135 mm[Hg] [facility] Diastolic blood 2023-09-25 03:00:00 70 mm[Hg] [facility] Heart rate 2023-09-25 03:00:00 67 /min [facility] Respiratory rate 2023-09-25 03:00:00 17 /min [facility] Oxygen saturation in 2023-09-25 03:00:00 96 /min [facility] Arterial blood by [facility] anthony Pulse oximetry Branch Body temperature 2023-09-25 01:23:00 36.67 Aruna [facility] Body height 2023-09-25 01:23:00 157.5 cm [facility] Body weight 2023-09-25 01:23:00 70.761 kg [facility] BMI 2023-09-25 01:23:00 28.53 kg/m2 [facility] Systolic blood 2023-06-07 16:58:00 146 mm[Hg] [facility] Diastolic blood 2023-06-07 16:58:00 77 mm[Hg] [facility] Heart rate 2023-06-07 16:58:00 71 /min [facility] Body temperature 2023-06-07 16:58:00 36.83 Aruna [facility] Respiratory rate 2023-06-07 16:58:00 20 /min [facility] Body height 2023-06-07 16:58:00 149.9 cm [facility] Body weight 2023-06-07 16:58:00 70.308 kg [facility] BMI 2023-06-07 16:58:00 31.31 kg/m2 [facility] Oxygen saturation in 2023-06-07 16:58:00 99 /min [facility]terial blood by [facility] anthony Pulse oximetry Branch Heart rate 2023-05-14 07:11:55 71 /min [facility] Body temperature 2023-05-14 07:11:55 37.22 Aruna [facility] Respiratory rate 2023-05-14 07:11:55 21 /min [facility] Oxygen saturation in 2023-05-14 07:11:55 100 /min [facility]terial blood by [facility] Pulse oximetry Branch Systolic blood 2023-05-14 05:39:00 180 mm[Hg] [facility] pressure [facility] Diastolic blood 2023-05-14 05:39:00 66 mm[Hg] [facility] Body height 2023-05-14 05:37:00 154.9 cm [facility] Body weight 2023-05-14 05:37:00 72.53 kg [facility] BMI 2023-05-14 05:37:00 30.21 kg/m2 [facility] Systolic blood 2023-04-22 22:04:00 149 mm[Hg] [facility] Diastolic blood 2023-04-22 22:04:00 93 mm[Hg] [facility] Heart rate 2023-04-22 22:04:00 84 /min [facility] Oxygen saturation in 2023-04-22 22:04:00 96 /min [facility] blood by [facility] Pulse oximetry Branch Body temperature 2023-04-22 21:59:00 35.78 Aruna [facility] Respiratory rate 2023-04-22 21:59:00 18 /min [facility] Body weight 2023-04-22 09:12:00 68.947 kg [facility] BMI 2023-04-22 09:12:00 28.72 kg/m2 [facility] Body height 2023-04-21 23:10:00 154.9 cm [facility] Respiratory rate 2022-10-10 17:57:00 19 /min [facility] Oxygen saturation in 2022-10-10 17:57:00 97 /min [facility] blood by [facility] Pulse oximetry Branch Systolic blood 2022-10-10 17:00:00 143 mm[Hg] [facility] Diastolic blood 2022-10-10 17:00:00 66 mm[Hg] [facility] of pressure [facility] Heart rate 2022-10-10 17:00:00 69 /min [facility]i ty of [facility] Body temperature 2022-10-10 15:54:00 36.28 Aruna Univ ers[facility] of [facility] Body height 2022-10-10 15:54:00 154.9 cm Universi ty of [facility] Body weight 2022-10-10 15:54:00 76.204 kg Universi ty [facility] BMI 2022-10-10 15:54:00 31.74 kg/m2 [facility] of [facility] height 2022-08-19 11:00:00 61.25 [in_i] [facility] weight 2022-08-19 11:00:00 165.0 [lb_av] [facility] temperature 2022-08-19 11:00:00 97.6 [degF] [facility] bmi 2022-08-19 11:00:00 30.92 kg/m2 [facility] oximetry 2022-08-19 11:00:00 95 % [facility] respiratory rate 2022-08-19 11:00:00 16 /min [facility] on [facility] blood pressure 2022-08-19 11:00:00 135 mm[Hg] [facility] - systolic [facility] blood pressure 2022-08-19 11:00:00 65 mm[Hg] [facility] - diastolic [facility] Systolic blood 2022-08-09 23:56:00 148 mm[Hg] Univer sity of [facility] Diastolic blood 2022-08-09 23:56:00 81 mm[Hg] Unive rsity of pressure [facility] Heart rate 2022-08-09 23:56:00 77 /min Universi ty of [facility] Body temperature 2022-08-09 23:56:00 36.06 Aruna Univ ers[facility] of [facility] Respiratory rate 2022-08-09 23:56:00 18 /min Univ ersity of [facility] Body height 2022-08-09 23:56:00 154.9 cm [facility] Body weight 2022-08-09 23:56:[address] [facility] BMI 2022-08-09 23:56:00 31.89 kg/m2 [facility] Oxygen saturation in 2022-08-09 23:56:00 96 /min [facility]terial blood by [facility] Pulse oximetry Branch height 2022-07-27 10:20:00 61.25 [in_i] [facility] weight 2022-07-27 10:20:00 165.5 [lb_av] [facility] temperature 2022-07-27 10:20:00 97.8 [degF] [facility] bmi 2022-07-27 10:20:00 31.01 kg/m2 [facility] oximetry 2022-07-27 10:20:00 95 % [facility] respiratory rate 2022-07-27 10:20:00 16 /min Comm on [facility] blood pressure 2022-07-27 10:20:00 135 mm[Hg] Common [facility] - systolic [facility] blood pressure 2022-07-27 10:20:00 78 mm[Hg] Common [facility] diastolic [facility] height 2022-07-20 08:40:00 61.25 [in_i] [facility] weight 2022-07-20 08:40:00 164.6 [lb_av] [facility] temperature 2022-07-20 08:40:00 97.4 [degF] [facility] bmi 2022-07-20 08:40:00 30.84 kg/m2 [facility] oximetry 2022-07-20 08:40:00 97 % [facility] respiratory rate 2022-07-20 08:40:00 16 /min Comm on [facility] blood pressure 2022-07-20 08:40:00 130 mm[Hg] Common [facility] - systolic [facility] blood pressure 2022-07-20 08:40:00 65 mm[Hg] [facility] - diastolic [facility] height 2022-06-06 10:00:00 61.25 [in_i] [facility] weight 2022-06-06 10:00:00 165.0 [lb_av] [facility] bmi 2022-06-06 10:00:00 30.92 kg/m2 [facility] height 2022-05-03 11:50:00 61.25 [in_i] [facility] weight 2022-05-03 11:50:00 165.8 [lb_av] [facility] temperature 2022-05-03 11:50:00 97.3 [degF] [facility] bmi 2022-05-03 11:50:00 31.07 kg/m2 [facility] oximetry 2022-05-03 11:50:00 95 % [facility] respiratory rate 2022-05-03 11:50:00 15 /min Comm on [facility] blood pressure 2022-05-03 11:50:00 113 mm[Hg] [facility] - systolic [facility] blood pressure 2022-05-03 11:50:00 75 mm[Hg] [facility] - diastolic [facility] Systolic blood 2022-04-23 17:14:00 143 mm[Hg] Univer [facility]ity of [facility] Diastolic blood 2022-04-23 17:14:00 83 mm[Hg] Unive rsity of pressure [facility] Heart rate 2022-04-23 17:14:00 69 /min [facility] Body temperature 2022-04-23 17:14:00 36.11 [facility] 2022-04-23 17:14:00 24 /min [facility] in 2022-04-23 17:14:00 92 /min [facility] blood by [facility] Pulse oximetry Branch Body height 2022-04-20 15:46:00 154.9 cm [facility] Body weight 2022-04-20 15:46:00 74.844 kg [facility] BMI 2022-04-20 15:46:00 31.18 kg/m2 [facility] Heart rate 2022-04-21 18:47:00 71 /min [facility] Respiratory rate 2022-04-21 18:47:00 19 /min [facility] Oxygen saturation in 2022-04-21 18:47:00 96 /min [facility] blood by [facility] Pulse oximetry Branch Systolic blood 2022-04-21 18:45:00 145 mm[Hg] [facility] Diastolic blood 2022-04-21 18:45:00 72 mm[Hg] [facility] pressure [facility] Body temperature 2022-04-21 12:37:00 35.67 Aruna [facility] Body height 2022-04-20 15:46:00 154.9 cm [facility] Body weight 2022-04-20 15:46:00 74.844 kg [facility] BMI 2022-04-20 15:46:00 31.18 kg/m2 [facility] Systolic blood 2022-02-18 23:40:00 182 mm[Hg] [facility] Diastolic blood 2022-02-18 23:40:00 71 mm[Hg] [facility] pressure [facility] Heart rate 2022-02-18 23:40:00 61 /min [facility] Respiratory rate 2022-02-18 23:40:00 18 /min [facility] Oxygen saturation in 2022-02-18 23:40:00 97 /min [facility] blood by [facility] Pulse oximetry Branch Body temperature 2022-02-18 21:26:00 36.06 Aruna [facility] Body weight 2022-02-18 21:26:00 74.844 kg [facility] BMI 2022-02-18 21:26:00 31.18 kg/m2 [facility] height 2022-02-11 11:20:00 61.25 [in_i] [facility] weight 2022-02-11 11:20:00 164.8 [lb_av] [facility] temperature 2022-02-11 11:20:00 97.3 [degF] [facility] bmi 2022-02-11 11:20:00 30.88 kg/m2 [facility] oximetry 2022-02-11 11:20:00 98 % [facility] respiratory rate 2022-02-11 11:20:00 16 /min [facility] on [facility] blood pressure 2022-02-11 11:20:00 130 mm[Hg] [facility] systolic [facility] blood pressure 2022-02-11 11:20:00 78 mm[Hg] [facility] diastolic [facility] Systolic blood 2021-11-08 15:20:00 172 mm[Hg] Univer [facility]ity of [facility] Diastolic blood 2021-11-08 15:20:00 86 mm[Hg] Unive rsity of [facility] Heart rate 2021-11-08 15:20:00 64 /min [facility] Body temperature 2021-11-08 15:20:00 37.06 Aruna [facility] Res[facility] 2021-11-08 15:20:00 17 /min [facility] Body weight 2021-11-08 15:20:00 74.844 kg [facility] BMI 2021-11-08 15:20:00 31.18 kg/m2 [facility] [facility] in 2021-11-08 15:20:00 97 /min [facility] Arterial blood by [facility] Pulse oximetry Branch height 2021-10-29 11:40:00 61.25 [in_i] [facility] weight 2021-10-29 11:40:00 168 [lb_av] [facility] temperature 2021-10-29 11:40:00 97.3 [degF] [facility] bmi 2021-10-29 11:40:00 31.48 kg/m2 [facility] oximetry 2021-10-29 11:40:00 96 % [facility] blood pressure 2021-10-29 11:40:00 121 mm[Hg] [facility] systolic [facility] blood pressure 2021-10-29 11:40:00 56 mm[Hg] [facility] - diastolic [facility] Systolic blood 2021-10-22 04:48:26 174 mm[Hg] Univer sity of pressure [facility] Diastolic blood 2021-10-22 04:48:26 64 mm[Hg] Unive rsity of [facility] Heart rate 2021-10-22 04:48:26 63 /min Universi ty [facility] Body temperature 2021-10-22 04:48:26 35.67 Aruna Univ ersity of [facility] Respiratory rate 2021-10-22 04:48:26 18 /min Univ ersity of [facility] Oxygen saturation in 2021-10-22 04:48:26 98 /min University of Arterial blood by [place] [employer] Pulse oximetry Branch Body height 2021-10-22 01:05:00 154.9 cm Universi ty [facility] Body weight 2021-10-22 01:05:00 74.844 kg [facility] BMI 2021-10-22 01:05:00 31.18 kg/m2 Univers ty [facility] Systolic blood 2021-04-13 03:12:37 141 mm[Hg] Univer sity of pressure [facility] Diastolic blood 2021-04-13 03:12:37 60 mm[Hg] Unive rsity of pressure [facility] Heart rate 2021-04-13 03:12:37 84 /min Universi ty of [facility] Respiratory rate 2021-04-13 03:12:37 21 /min Univ ersity of [facility] Oxygen saturation in 2021-04-13 03:12:37 96 /min [facility] Arterial blood by [place] [employer] Pulse oximetry Branch Body temperature 2021-04-12 22:39:00 37 Aruna Univ ersity of [facility] Body height 2021-04-12 22:39:00 157.5 cm [facility]i [facility] Body weight 2021-04-12 22:39:00 75.751 kg [facility] BMI 2021-04-12 22:39:00 30.54 kg/m2 [facility] Systolic blood 2021-01-16 21:10:00 164 mm[Hg] Univer sity of pressure [facility] Diastolic blood 2021-01-16 21:10:00 83 mm[Hg] Unive rsity of pressure [facility] Heart rate 2021-01-16 21:10:00 73 /min [facility]i ty [facility] Respiratory rate 2021-01-16 21:10:00 12 /min Univ ersity of [facility] Oxygen saturation in 2021-01-16 21:10:00 97 /min University of Arterial blood by [facility] Pulse oximetry Branch Body temperature 2021-01-16 18:41:00 36.72 Aruna Univ ersity [facility] Body weight 2021-01-16 18:41:00 70.308 kg [facility] BMI 2021-01-16 18:41:00 26.61 kg/m2 [facility] Systolic blood 2019-12-20 15:18:00 122 mm[Hg] Univer sity of pressure [facility] Diastolic blood 2019-12-20 15:18:00 58 mm[Hg] Unive rsity of pressure [facility] Heart rate 2019-12-20 15:18:00 89 /min [facility]i [facility] Respiratory rate 2019-12-20 15:18:00 20 /min Univ ersity of [facility] Body height 2019-12-20 15:18:00 162.6 cm [facility] Body weight 2019-12-20 15:18:00 68.947 kg [facility] BMI 2019-12-20 15:18:00 26.09 kg/m2 [facility] Systolic blood 2019-12-20 15:18:00 122 mm[Hg] Univer sity of pressure [facility] Diastolic blood 2019-12-20 15:18:00 58 mm[Hg] Unive rsity of pressure [facility] Heart rate 2019-12-20 15:18:00 89 /min Universi ty of [facility] Respiratory rate 2019-12-20 15:18:00 20 /min Univ ersity of [facility] Body height 2019-12-20 15:18:00 162.6 cm Universi ty of [facility] Body weight 2019-12-20 15:18:00 68.947 kg Universi ty of [facility] BMI 2019-12-20 15:18:00 26.09 kg/m2 Universi ty of [facility] Systolic blood 2019-12-06 20:22:00 139 mm[Hg] Univer sity of pressure [facility] Diastolic blood 2019-12-06 20:22:00 73 mm[Hg] Unive rsity of pressure [facility] Heart rate 2019-12-06 20:22:00 77 /min Universi ty of [facility] Body temperature 2019-12-06 20:22:00 36.72 [address]una [address] Respiratory rate 2019-12-06 20:22:00 16 /min Univ ersity of [facility] Body weight 2019-12-06 20:22:00 68.947 kg Universi ty of [facility] BMI 2019-12-06 20:22:00 26.09 kg/m2 Universi ty of [facility] Oxygen saturation in 2019-12-06 20:22:00 96 /min [facility] Arterial blood by [facility] Pulse oximetry Branch BP Systolic 2022-05-23 13:57:00 BP Diastolic 2022-05-23 13:57:00 Weight Measured 2022-05-23 13:57:00 167.60 pounds Height Measured 2022-05-23 13:57:00 49.50 inches Body Temperature 2022-05-23 13:57:00 Heart Rate 2022-05-23 13:57:00 Respiratory Rate 2022-05-23 13:57:00 BP Systolic 2020-11-12 08:28:00 121 mm[Hg] BP Diastolic 2020-11-12 08:28:00 66 mm[Hg] Weight Measured 2020-11-12 08:28:00 167.60 pounds Height Measured 2020-11-12 08:28:00 49.50 inches Body Temperature 2020-11-12 08:28:00 97.00 degrees Heart Rate 2020-11-12 08:28:00 81.00 /min Respiratory Rate 2020-11-12 08:28:00 16.00 /min BP Systolic 2020-08-14 08:56:00 140 mm[Hg] BP Diastolic 2020-08-14 08:56:00 68 mm[Hg] Weight Measured 2020-08-14 08:56:00 166.80 pounds Height Measured 2020-08-14 08:56:00 49.50 inches Body Temperature 2020-08-14 08:56:00 97.60 degrees Heart Rate 2020-08-14 08:56:00 84.00 /min Respiratory Rate 2020-08-14 08:56:00 17.00 /min BP Systolic 2020-06-05 09:41:00 BP Diastolic 2020-06-05 09:41:00 Weight Measured 2020-06-05 09:41:00 161.00 pounds Height Measured 2020-06-05 09:41:00 49.50 inches Body Temperature 2020-06-05 09:41:00 Heart Rate 2020-06-05 09:41:00 Respiratory Rate 2020-06-05 09:41:00 BP Systolic 2019-12-06 13:34:00 128 mm[Hg] BP Diastolic 2019-12-06 13:34:00 70 mm[Hg] Weight Measured 2019-12-06 13:34:00 162.50 pounds Height Measured 2019-12-06 13:34:00 49.50 inches Body Temperature 2019-12-06 13:34:00 97.90 degrees Heart Rate 2019-12-06 13:34:00 82.00 /min Respiratory Rate 2019-12-06 13:34:00 BP Systolic 2019-11-29 10:52:00 140 mm[Hg] BP Diastolic 2019-11-29 10:52:00 78 mm[Hg] Weight Measured 2019-11-29 10:52:00 161.00 pounds Height Measured 2019-11-29 10:52:00 49.20 inches Body Temperature 2019-11-29 10:52:00 97.50 degrees Heart Rate 2019-11-29 10:52:00 78.00 /min Respiratory Rate 2019-11-29 10:52:00 BP Systolic 2019-09-27 13:39:00 137 mm[Hg] BP Diastolic 2019-09-27 13:39:00 77 mm[Hg] Weight Measured 2019-09-27 13:39:00 161.00 pounds Height Measured 2019-09-27 13:39:00 49.20 inches Body Temperature 2019-09-27 13:39:00 98.50 degrees Heart Rate 2019-09-27 13:39:00 65.00 /min Respiratory Rate 2019-09-27 13:39:00 16.00 /min Procedures Procedure Date / Time Performing Clinician Source Performed LIPASE 2023-09-25 02:13:00 Gary Gupta [facility] TROPONIN I 2023-09-25 02:13:00 Gary Gupta [facility] COMP. METABOLIC PANEL 2023-09-25 02:13:00 Gary Gupta [facility] ([id number]) [facility] CBC WITH DIFF 2023-09-25 02:13:00 Gary Gupta [facility] N-TERMINAL PRO-BNP 2023-09-25 02:13:00 Gary Gupta [facility] CONSENT/REFUSAL FOR 2023-09-25 00:57:07 Doctor Unassigned, [facility] DIAGNOSIS AND TREATMENT [facility] [place] ASSIGNMENT OF BENEFITS 2023-06-07 18:46:30 Doctor Unassigned, [facility] CT TRAUMA HEAD WO CONTRAST 2023-06-07 18:05:22 Zoey Ramirez [facility] CT TRAUMA CERVICAL SPINE 2023-06-07 18:05:22 Zoey Ramirez [facility] WO CONTRAST [facility] CONSENT/REFUSAL FOR 2023-06-07 16:50:05 Doctor Unasschang, [facility] DIAGNOSIS AND TREATMENT [facility] EKG-12 LEAD 2023-05-14 06:56:09 Joe Vasques [facility] BASIC METABOLIC PANEL (NA, 2023-05-14 06:10:00 [facility], CL, CO2, GLUCOSE, BUN, Medica l Branch CREATININE, CA) CBC WITH DIFF 2023-05-14 06:10:00 Joe Vasques [facility] CONSENT/REFUSAL FOR 2023-05-14 05:33:39 Doctor Unassigned, [facility] DIAGNOSIS AND TREATMENT [facility] POCT GLUCOSE (AUTOMATED) 2023-04-22 21:42:00 Nelson Lopez [facility] BASIC METABOLIC PANEL (NA, 2023-04-22 20:26:00 Deepti Friedman [facility] K, CL, CO2, GLUCOSE, BUN, Medica l Branch CREATININE, CA) POCT GLUCOSE (AUTOMATED) 2023-04-22 17:09:00 Nelson Lopez [facility] POCT GLUCOSE (AUTOMATED) 2023-04-22 13:18:00 Nelson Lopez [facility] POCT GLUCOSE (AUTOMATED) 2023-04-22 13:01:00 Nelson Lopez [facility] PHOSPHORUS 2023-04-22 09:15:00 Tuan [facility] MAGNESIUM 2023-04-22 09:15:00 [facility] BASIC METABOLIC PANEL (NA, 2023-04-22 09:15:00 Damian Dickerson [facility] K, CL, CO2, GLUCOSE, BUN, Medica [place] CREATININE, CA) CBC WITH DIFF 2023-04-22 09:15:00 [facility] POCT GLUCOSE (AUTOMATED) 2023-04-22 01:43:00 Nelson Lopez [facility] POCT GLUCOSE (AUTOMATED) 2023-04-21 22:25:00 Nelson Lopez [facility] URINALYSIS 2023-04-21 18:14:00 Zoey Ramirez [facility] CT ABDOMEN PELVIS WO 2023-04-21 18:02:22 Zoey Ramirez [facility] CONTRAST [facility] LIPASE 2023-04-21 16:51:00 Zoey Ramirez [facility] MAGNESIUM 2023-04-21 16:51:00 Zoey Ramirez [facility] TROPONIN I 2023-04-21 16:51:00 Zoey Ramirez [facility] COMP. METABOLIC PANEL 2023-04-21 16:51:00 Zoey Ramirez [facility] ([id number]) Medical Branch CBC WITH DIFF 2023-04-21 16:51:00 Zoey Ramirez [facility] NOTICE OF PRIVACY 2023-04-21 16:26:36 Doctor Unassigned, [facility] PRACTICES [facility] CONSENT/REFUSAL FOR 2023-04-21 16:23:20 Doctor Unasschang, [facility] DIAGNOSIS AND TREATMENT [place] XR SHOULDER 2+ VW RIGHT 2022-10-10 16:58:11 Hayden Weinstein [facility] CT CERVICAL SPINE WO 2022-10-10 16:51:04 Hayden Weinstein [facility] CONTRAST [facility] CT MAXILLOFACIAL/MANDIBLE 2022-10-10 16:51:04 Hayden Weinstein [facility] WO CONTRAST Medical Branch CT HEAD WO CONTRAST 2022-10-10 16:51:04 Hayden Weinstein [facility] TROPONIN I 2022-10-10 16:28:00 Hayden Weinstein [facility] COMP. METABOLIC PANEL 2022-10-10 16:28:00 [id number] CBC WITH DIFF 2022-10-10 16:28:00 Hayden Weinstein [facility] CONSENT/REFUSAL FOR 2022-10-10 15:48:14 Doctor Unakerry [facility] DIAGNOSIS AND TREATMENT [facility] CONSENT/REFUSAL FOR 2022-08-09 23:53:20 Doctor Marichuy [facility] DIAGNOSIS AND TREATMENT [facility] POCT GLUCOSE (AUTOMATED) 2022-04-23 16:54:00 Judy Aceves [facility] POCT GLUCOSE (AUTOMATED) 2022-04-23 16:54:00 MuJudy krishnamurthy [facility] POCT GLUCOSE (AUTOMATED) 2022-04-23 13:57:00 Judy Aceves Uni [facility] POCT GLUCOSE (AUTOMATED) 2022-04-23 13:57:00 [facility] 2022-04-23 10:18:00 Lozano, [facility] BASIC METABOLIC PANEL (NA, 2022-04-23 10:18:00 Lozano, Angelique [facility] K, CL, CO2, GLUCOSE, BUN, Medica l Branch CREATININE, CA) MAGNESIUM 2022-04-23 10:18:00 Lozano, [facility] BASIC METABOLIC PANEL (NA, 2022-04-23 10:18:00 Lozano, [facility] K, CL, CO2, GLUCOSE, BUN, Medica l Branch CREATININE, CA) POCT GLUCOSE (AUTOMATED) 2022-04-23 01:17:00 Muraghu [facility]OM[facility]) 2022-04-23 01:17:00 MuftJudy mckay [facility] PO[facility]SE (AUTOMATED) 2022-04-22 22:59:00 [facility]fti [facility]SE (AUTOMATED) 2022-04-22 22:59:00 [facility]iNeldam [facility]SE (AUTOMATED) 2022-04-22 17:00:00 Mufti Judy Uni versity of [facility] POCT GLUCOSE (AUTOMATED) 2022-04-22 17:00:00 [facility]Neldam [facility]SE (AUTOMATED) 2022-04-22 13:29:00 Mufti Judy Uni versity [facility] POCT GLUCOSE (AUTOMATED) 2022-04-22 13:29:00 MuftiNeldam Uni versity [facility] MAGNESIUM 2022-04-22 09:18:00 Lozano, [facility] BASIC METABOLIC PANEL (NA, 2022-04-22 09:18:00 Lozano, [facility] K, CL, CO2, GLUCOSE, BUN, Medica l Branch CREATININE, CA) CBC WITH DIFF 2022-04-22 09:18:00 Lozano, [facility] MAGNESIUM 2022-04-22 09:18:00 Lozano, [facility] BASIC METABOLIC PANEL (NA, 2022-04-22 09:18:00 Angelique Lozano [facility] K, CL, CO2, GLUCOSE, BUN, Medica l Branch CREATININE, CA) CBC WITH DIFF 2022-04-22 09:18:[address] [facility] POCT GLUCOSE (AUTOMATED) 2022-04-22 01:27:00 Mufti [facility] versity [facility] POCT GLUCOSE (AUTOMATED) 2022-04-22 01:27:00 [facility] CARDIAC CATHETERIZATION 2022-04-21 18:07:00 Traci, Mostafa Uni [facility] CARDIAC CATHETERIZATION 2022-04-21 18:07:00 Traci, Mostafa Uni versity of [facility] ch CATH PROCEDURE LOG 2022-04-21 17:41:49 Traci, Mostafa Universi ty of [facility] ch CATH PROCEDURE LOG 2022-04-21 17:41:49 Traci, Mostafa [facility] POCT GLUCOSE (AUTOMATED) 2022-04-21 13:14:00 Unruly Trinidad Un iversity [facility] POCT GLUCOSE (AUTOMATED) 2022-04-21 13:14:00 Unruly Trinidad Un iversity [facility] MAGNESIUM 2022-04-21 10:29:[address] [facility] BASIC METABOLIC PANEL (NA, 2022-04-21 10:29:00 Angelique Lozano [facility] K, CL, CO2, GLUCOSE, BUN, Medica l Branch CREATININE, CA) ACTIVATED PARTIAL THRMPLAS 2022-04-21 10:29:00 Braulio [place] EXTRA TUBE LAV 2022-04-21 10:29:00 Mufti [facility] MAGNESIUM 2022-04-21 10:29:[address] [facility] BASIC METABOLIC PANEL (NA, 2022-04-21 10:29:00 Angelique [facility], CL, CO2, GLUCOSE, BUN, Medica l Branch CREATININE, CA) ACTIVATED PARTIAL THRMPLAS 2022-04-21 10:29:00 Mahin, Braulio U niversity of [facility] EXTRA TUBE LAV 2022-04-21 10:29:00 Mufti [facility] POCT GLUCOSE (AUTOMATED) 2022-04-21 01:22:00 Unruly Trinidad Un iversity of [facility] POCT GLUCOSE (AUTOMATED) 2022-04-21 01:22:00 Unruly Trinidad Un iversity of [facility] POCT GLUCOSE (AUTOMATED) 2022-04-20 21:53:00 Unruly Trinidad Un iversity of [facility] POCT GLUCOSE (AUTOMATED) 2022-04-20 21:53:00 Unruly Trinidad iversity of [facility] ACTIVATED PARTIAL THRMPLAS 2022-04-20 21:51:00 Mahin, Braulio U niversity of [facility] ACTIVATED PARTIAL THRMPLAS 2022-04-20 21:51:00 Mahin, Braulio U niversity of [facility] POCT GLUCOSE (AUTOMATED) 2022-04-20 17:37:00 Unruly Trinidad Un iversity of [facility] POCT GLUCOSE (AUTOMATED) 2022-04-20 17:37:00 Unruly Trin[place] iversity of [facility] TRANSTHORACIC ECHO (TTE) 2022-04-20 15:45:00 Mahin, Braulio [facility] [place] COMPLETE W/ CONTRAST Medical [facility] TRANSTHORACIC ECHO (TTE) 2022-04-20 15:45:00 Mahin, Braulio Uni [facility] [place] COMPLETE W/ CONTRAST Medical [facility] POCT GLUCOSE (AUTOMATED) 2022-04-20 13:47:00 Unruly Trinidad Un iversity of [facility] POCT GLUCOSE (AUTOMATED) 2022-04-20 13:47:00 Unruly Trinidad Un iversity of [facility] MAGNESIUM 2022-04-20 10:34:00 Lozano, [facility] BASIC METABOLIC PANEL (NA, 2022-04-20 10:34:00 Lozano, Angelique [facility] K, CL, CO2, GLUCOSE, BUN, Medica l Branch CREATININE, CA) CBC WITH DIFF 2022-04-20 10:34:00 Lozano, [facility] ACTIVATED PARTIAL THRMPLAS 2022-04-20 10:34:00 Mahin[facility]MINAL PRO-BNP 2022-04-20 10:34:00 Mahin, [facility] MAGNESIUM 2022-04-20 10:34:00 Lozano, [facility] BASIC METABOLIC PANEL (NA, 2022-04-20 10:34:00 Lozano, Angelique [facility] K, CL, CO2, GLUCOSE, BUN, Medica l Branch CREATININE, CA) CBC WITH DIFF 2022-04-20 10:34:00 Lozano, [facility] ACTIVATED PARTIAL THRMPLAS 2022-04-20 10:34:00 Mahin, [facility] N-TERMINAL PRO-BNP 2022-04-20 10:34:00 Mahin [facility] POCT GLUCOSE (AUTOMATED) 2022-04-20 01:23:00 [facility] [facility] PO[facility] GLUCOSE (AUTOMATED) 2022-04-20 01:23:00 Unruly [place] [facility] POCT GLUCOSE (AUTOMATED) 2022-04-20 00:55:00 Unruly [place] [facility] POCT GLUCOSE (AUTOMATED) 2022-04-20 00:55:00 [facility]ST PULMONARY 2022-04-20 00:22:00 Blake [facility] CT CHEST PULMONARY 2022-04-20 00:22:00 Blake [facility] N-TERMINAL PRO-BNP 2022-04-19 22:17:00 Balta Desouza [facility] N-TERMINAL PRO-BNP 2022-04-19 22:17:00 Balta Desouza [facility] ACTIVATED PARTIAL THRMPLAS 2022-04-19 22:16:00 [facility]ulio [place] [facility] ACTIVATED PARTIAL THRMPLAS 2022-04-19 22:16:00 [facility]io [place] [facility] POCT GLUCOSE (AUTOMATED) 2022-04-19 21:23:00 Unruly Trinidad Un iversity of [facility] POCT GLUCOSE (AUTOMATED) 2022-04-19 21:23:00 Unruly Trinidad Un iversity of [facility] POCT GLUCOSE (AUTOMATED) 2022-04-19 17:19:00 Unruly Trinidad Un iversity of [facility] POCT GLUCOSE (AUTOMATED) 2022-04-19 17:19:00 Unruly [place] [facility] HB ECG ROUTINE & RHYTHM 2022-04-19 14:31:48 [facility]OUT[facility] & RHYTHM 2022-04-19 14:31:48 Arpit, [facility] POCT GLUCOSE (AUTOMATED) 2022-04-19 13:18:00 Unruly Trinidad Un iversity of [facility] POCT GLUCOSE (AUTOMATED) 2022-04-19 13:18:00 Unruly [place] [facility] PROTHROMBIN TIME / INR 2022-04-19 11:37:00 Mahin [facility] D-DIMER 2022-04-19 11:37:00 Mahin [facility] o f [facility] ACTIVATED PARTIAL THRMPLAS 2022-04-19 11:37:00 Braulio [place] [facility] HEPARIN ANTI-XA, 2022-04-19 11:37:00 Mahin [facility] UNFRACTIONATED HEPARIN [facility] [employer] PROTHROMBIN TIME / INR 2022-04-19 11:37:00 Mahin Braulio [facility] D-DIMER 2022-04-19 11:37:00 Mahin [facility] ACTIVATED PARTIAL THRMPLAS 2022-04-19 11:37:00 Mahin, [facility] HEPARIN ANTI-XA, 2022-04-19 11:37:00 Mahin, [facility] UNFRACTIONATED HEPARIN [employer] RESPIRATORY PANEL BY PCR 2022-04-19 11:05:00 Mahin [facility] COVID-19 (MOLECULAR 2022-04-19 11:05:00 Mahin, [facility] NUCLEIC ACID AMPLIFICATION) LAB ONLY COVID 2022-04-19 11:05:00 Mahin [facility] RESPIRATORY PANEL BY PCR 2022-04-19 11:05:00 Mahin [facility] COVID-19 (MOLECULAR 2022-04-19 11:05:00 Mahin, [facility] NUCLEIC ACID AMPLIFICATION) LAB ONLY COVID 2022-04-19 11:05:00 Mahin [facility] MAGNESIUM 2022-04-19 11:04:[address] [facility] TROPONIN I 2022-04-19 11:04:00 Mahin, [facility] LIPID PANEL ([id number])(TOTAL 2022-04-19 11:04:[address] [facility] CHOLESTEROL, [facility] TRIGLYCERIDES, HDL) MAGNESIUM 2022-04-19 11:04:[address] [facility] TROPONIN I 2022-04-19 11:04:00 Mahin [facility] LIPID PANEL ([id number])(TOTAL 2022-04-19 11:04:00 Apolinar Stockton [facility] CHOLESTEROL, Medical Branch TRIGLYCERIDES, HDL) URINE CULTURE 2022-04-19 05:05:00 Unruly Trinidad [facility] URINE CULTURE 2022-04-19 05:05:00 Unruly Trinidad [facility] URINALYSIS 2022-04-19 04:05:00 Unruly Trinidad [facility] URINALYSIS 2022-04-19 04:05:00 nUruly Trinidad [facility] CBC WITH DIFF 2022-04-19 04:00:00 Unruly Trinidad [facility] GLYCOSYLATED HEMOGLOBIN 2022-04-19 04:00:00 [facility] CBC WITH DIFF 2022-04-19 04:00:00 Unruly Trinidad [facility] GLYCOSYLATED HEMOGLOBIN 2022-04-19 04:00:[facility] XR CHEST 1 VW 2022-04-19 03:29:34 Unruly Trinidad [facility] XR CHEST 1 VW 2022-04-19 03:29:34 Unruly Trinidad [facility] LIPASE 2022-04-19 03:19:00 Unruly Trinidad [facility] TROPONIN I 2022-04-19 03:19:00 Unruly Trinidad [facility] COMP. METABOLIC PANEL 2022-04-19 03:19:00 Unruly Trinidad [facility] ([id number]) [facility] N-TERMINAL PRO-BNP 2022-04-19 03:19:00 Unruly Trinidad [facility] COVID-19 (ID NOW RAPID 2022-04-19 03:19:00 Unruly Trinidad [facility] TESTING) Medical Branch LAB ONLY COVID 2022-04-19 03:19:00 Unruly Trinidad [facility] INTERPRETATION [facility] LIPASE 2022-04-19 03:19:00 Unruly Trinidad [facility] TROPONIN I 2022-04-19 03:19:00 Unruly Trinidad [facility] COMP. METABOLIC PANEL 2022-04-19 03:19:00 Unruly Trinidad [facility] ([id number]) [facility] N-TERMINAL PRO-BNP 2022-04-19 03:19:00 Unruly Trinidad [facility] COVID-19 (ID NOW RAPID 2022-04-19 03:19:00 Unruly Trinidad [facility] TESTING) Medical Branch LAB ONLY COVID 2022-04-19 03:19:00 Unruly Trinidad [facility] INTERPRETATION Medical Branch HB ECG ROUTINE & RHYTHM 2022-04-19 03:18:35 Unruly Trinidad [facility] Medical Branch HB ECG ROUTINE & RHYTHM 2022-04-19 03:18:35 Unruly Trinidad [facility] Medical Branch HOSPITAL ADMISSION 2022-04-18 05:01:00 Doctor Unakerry [facility] HOSPITAL ADMISSION 2022-04-18 05:01:00 Doctor Marichuy, [facility] MR CERVICAL SPINE WO 2022-03-25 21:24:34 Steven Love [facility] MR LUMBAR SPINE WO 2022-03-25 21:23:32 Steven Love [facility] Medical Branch NOTICE OF PRIVACY 2022-03-25 19:11:23 Doctor Marichuy, [facility] CONSENT/REFUSAL FOR 2022-03-25 19:09:33 Doctor Marichuy [facility] DIAGNOSIS AND TREATMENT [facility] ASSIGNMENT OF BENEFITS 2022-03-25 19:09:05 Doctor Marichuy, [facility] XR SHOULDER 2+ VW RIGHT 2022-02-18 22:40:36 William Roe [facility] [place] NOTICE OF PRIVACY 2022-02-18 21:05:38 Doctor Marichuy, [facility] CONSENT/REFUSAL FOR 2022-02-18 21:01:53 Doctor Marichuy [facility] DIAGNOSIS AND TREATMENT [facility] RAPID INFLUENZA A/B 2021-11-08 15:28:00 Juan Rowell [facility] Medical Branch COVID-19 (ID NOW RAPID 2021-11-08 15:28:00 Juan Rowell [facility] TESTING) Medical Branch CONSENT/REFUSAL FOR 2021-11-08 15:17:18 Doctor Marichuy [facility] DIAGNOSIS AND TREATMENT [facility] [place] XR ANKLE 3+ VW RIGHT 2021-10-22 02:41:39 Jake Leyva [facility] XR HIP 1 VW RIGHT 2021-10-22 02:41:39 Jake Leyva [facility] CONSENT/REFUSAL FOR 2021-10-22 00:54:58 Doctor Unasschang, [facility] DIAGNOSIS AND TREATMENT [facility] [place] ABDOMEN PELVIS W 2021-04-13 01:28:42 William Roe [facility] CONTRAST Medical Branch LIPASE 2021-04-12 23:29:00 [facility] METABOLIC PANEL 2021-04-12 23:29:00 RoeWilliam duval [facility] ([id number]) [facility] CBC WITH DIFF 2021-04-12 23:29:00 Roe, [facility] URINALYSIS 2021-04-12 23:29:00 [facility]REFUSAL FOR 2021-04-12 22:15:41 Doctor Unasschang, [facility] DIAGNOSIS AND TREATMENT [facility] CT CERVICAL SPINE WO 2021-01-16 20:15:05 Jose Valdivia [facility] MAGNESIUM 2021-01-16 19:43:00 Jose Valdivia [facility] TROPONIN I 2021-01-16 19:43:00 Jose Valdivia [facility] HEPATIC FUNCTION PANEL 2021-01-16 19:43:00 Jose Valdivia [facility] ([id number]) (ALB,T.PRO,BILI Medical Branch T,BU/BC,ALT,AST,ALK PHOS) BASIC METABOLIC PANEL (NA, 2021-01-16 19:43:00 Jose Valdivia [facility] K, CL, CO2, GLUCOSE, BUN, Medica l Branch CREATININE, CA) CBC WITH DIFF 2021-01-16 19:43:00 Jose Valdivia [facility] PROTHROMBIN TIME / INR 2021-01-16 19:43:00 Jose Valdivia [facility] [place] [facility] ACTIVATED PARTIAL THRMPLAS 2021-01-16 19:43:00 Jose Valdivia [facility] N-TERMINAL PRO-BNP 2021-01-16 19:43:00 Jose Valdivia [facility] XR CHEST 1 VW 2021-01-16 19:40:05 Jose Valdivia [place] [facility] NOTICE OF PRIVACY 2021-01-16 18:36:17 Doctor Unakerry, [facility] CONSENT/REFUSAL FOR 2021-01-16 18:35:46 Doctor Unasschang, [facility] DIAGNOSIS AND TREATMENT [facility] ASSIGNMENT OF BENEFITS 2019-12-20 15:14:51 Doctor Unakerry, [facility] XR ANKLE 3+ VW LEFT 2019-12-06 20:59:17 Lori Smith [facility] XR FOOT 3+ VW LEFT 2019-12-06 20:59:17 Lori Smith [facility] ED SPLINT APPLICATION 2019-12-06 20:29:22 Lori Smith [facility] NOTICE OF PRIVACY 2019-12-06 20:09:42 Doctor Marichuy, [facility] [place] CONSENT/REFUSAL FOR 2019-12-06 20:09:21 Doctor Marichuy, [facility] DIAGNOSIS AND TREATMENT [facility] [place] Plan of Care Planned Activity Planned Date Details Comments Source Goal Plan of Care Note [code = 85519-3] Goal Plan of Care Note [code = 63983-8] Goal Plan of Care Note [code = 49262-0] Goal Plan of Care Note [code = 25487-7] Goal Plan of Care Note [code = 35888-7] Goal Plan of Care Note [code = 01136-6] Goal Plan of Care Note [code = 69738-7] Goal Plan of Care Note [code = 57160-0] Goal Plan of Care Note [code = 74132-1] Goal Plan of Care Note [code = 70417-3] Encounters Start End Encounter Admission Attending Care Care Encounter Source Date/Time Date/Time Type Type Clinicians Facility Department ID 2023-03-07 Outpatient ARGELIA Ch[facility] [id number] Common 08:36:00 Yuly 35504 [facility] 2023-02-14 Outpatient Chino, STLMLC STLMLC [id number] Common 15:16:01 Yuly [id number] [facility] 2023-01-05 Outpatient Faviola, STLMLC STLMLC [id number] Common 10:48:01 Lizbeth 34837 [facility] 2022-08-17 Outpatient Gill, Na STLMLC STLMLC [id number] 2 Common 10:44:00 [facility] 2022-04-29 Outpatient Gill, Na STLMLC STLMLC [id number] Common 13:36:00 [facility] 2021-12-09 Outpatient Gill, Na STLMLC STLMLC [id number] 2 Common 11:31:00 [facility] 2021-12-08 Outpatient Gill, Na STLMLC STLMLC [id number] 2 Common 14:26:21 [id number] [facility] 2021-12-08 Outpatient Gill, Na STLMLC STLMLC [id number] 2 Common 14:25:22 [id number] [facility] 2021-12-08 Outpatient Gill, Na STLMLC STLMLC [id number] 2 Common 13:07:58 [id number] [facility] 2021-12-08 Outpatient Gill, Na STLMLC STLMLC [id number] 2 Common 12:31:19 [id number] [facility] 2021-12-08 Outpatient Gill, Na STLMLC STLMLC [id number] 2 Common 12:31:17 [id number] [facility] 2021-12-08 Outpatient Gill, Na STLMLC STLMLC [id number] 2 Common 12:31:02 [id number] [facility] 2021-12-08 Outpatient Gill, Na STLMLC STLMLC [id number] 2 Common 12:17:54 [id number] [facility] 2021-12-08 Outpatient Gill, Na STLMLC STLMLC [id number] 2 Common 12:14:40 [id number] [facility] 2021-12-08 Outpatient Gill, Na STLMLC STLMLC [id number] 2 Common 12:09:51 [id number] [facility] 2021-12-08 Outpatient Gill, Na STLMLC STLMLC [id number] 2 Common 12:06:18 [id number] [facility] 2021-12-08 Outpatient Gill, Na STLMLC STLMLC [id number] 2 Common 11:12:25 [id number] [facility] 2021-12-08 Outpatient Gill, Na STLMLC STLMLC [id number] 2 Common 11:12:13 [id number] [facility] 2021-09-12 Emergency [facility] [id number] Univers [facility] 2023-09-24 Emergency X [facility] ERT [id number] Univers 19:15:00 22:08:00 [facility] 2023-09-24 2023-09-24 Emergency [facility] 1.2.840.114 [id number] Univers 19:15:00 22:08:00 [facility] 350.1.13.10 ity [facility] 4.2.7.2.686 [facility] [id number] [address] 2023-09-18 2023-09-18 Outpatient GC_GCBZW_Ka PRIV PRIV [id number] [facility] 00:00:00 00:00:00 diyala_S [id number] Medic al 2023-09-18 2023-09-18 Outpatient GC_GCBZW_Ka PRIV PRIV [id number] [facility] 00:00:00 00:00:00 diyala_S [id number] Medic al 2023-09-18 2023-09-18 Outpatient GC_GCBZW_Ka PRIV PRIV [id number] [facility] 00:00:00 00:00:00 diyala_S [id number] Medic al 2023-06-23 2023-06-23 Outpatient GC_GCBZW_Ka PRIV PRIV [id number] [facility] 00:00:00 00:00:00 diyala_S [id number] Medic al 2023-06-15 2023-06-15 Outpatient GC_GCBZW_Ka PRIV PRIV [id number] [facility] 00:00:00 00:00:00 diyala_S [id number] Medic al 2023-06-07 2023-06-07 Emergency X JAMES [facility] ERT [id number] Univers 12:00:00 14:05:00 ZOEY hightower [facility] 2023-06-07 2023-06-[address] [facility] 1.2.840.114 [id number] Univers 12:00:00 14:05:00 Zoey AN 350.1.13.10 ity of [facility] [place] [id number] [place] [address] [place] 2023-05-14 2023-05-14 Emergency X ROBERT [facility] ERT [id number] Univers 00:46:00 02:20:00 JOE [facility] 2023-05-14 2023-05-14 Emergency [facility] [id number] Univers 00:46:00 02:20:00 Joe AN 350.1.13.10 i ty of [facility] [place] [id number] [facility] 084 Branch 2023-04-24 2023-04-24 Transition AMA Garcia 1.2.840.114 [id number] Univers 00:00:00 00:00:00 of Care Wanda OSORIO 350.1.13.10 it y of [place] [id number] [facility] 403 Branch 2023-04-21 2023-04-22 Inpatient X JESSICA [facility] CHRISTOPH [id number] Univers 11:32:00 19:15:00 NELSON hightower [facility] 2023-04-21 2023-04-22 [facility] Zoey Ramirez [facility] 1.2.84 0.114 [id number] Univers 11:32:00 19:15:00 Encounter Nelson Lopez 350.1.13.10 ity [facility] 4.2.7.2.686 [facility] [id number] [place] [address] Branch 2023-03-08 2023-03-08 (TEL) STLMLC STLMLC [id number] Co mmon 00:00:00 00:00:00 [facility] 2022-11-21 2022-11-21 (TEL) STLMLC STLMLC [id number] Co mmon 00:00:00 00:00:00 [facility] 2022-11-18 2022-11-18 (TEL) STLMLC STLMLC [id number] Co mmon 00:00:00 00:00:00 [facility] 2022-11-08 2022-11-08 (TEL) STLMLC STLMLC [id number] Co mmon 00:00:00 00:00:00 [facility] 2022-11-08 2022-11-08 (TEL) STLMLC STLMLC [id number] Co mmon 00:00:00 00:00:00 [facility] 2022-10-10 2022-10-10 Emergency X MORRICAL, [facility] ERT [id number] Univers 09:55:00 12:06:00 HAYDEN hightower [facility] 2022-10-10 2022-10-10 Emergency Morrical, [facility] 1.2.840.114 [id number] Univers 09:55:00 12:06:00 Hayden AN 350.1.13.10 ity [facility] 4.2.7.2.686 [facility] [id number] [place] [address] Branch 2022-08-19 2022-08-19 OFFICE STLMLC STLMLC [id number] Co mmon 00:00:00 00:00:00 VISIT [facility] LEVEL 4 [facility] 2022-08-09 2022-08-09 Emergency X Ry COHEN [facility] ERT [id number] Univers 18:59:00 20:00:00 ity of [facility] 2022-08-09 2022-08-09 Emergency Ry Cohen [facility] 1.2.840.114 [id number] Univers 18:59:00 20:00:00 Juanita AN 350.1.13.[address] [facility] 4.2.7.2.686 [facility] [id number] [place] [address] Branch 2022-08-09 2022-08-09 (TEL) STLMLC STLMLC [id number] Co mmon 00:00:00 00:00:00 Spirit - [facility] 2022-07-27 2022-07-27 OFFICE STLMLC STLMLC [id number] Co mmon 00:00:00 00:00:00 VISIT EST Spir it PT LEVEL 3 - [facility] 2022-07-20 2022-07-20 OFFICE STLMLC STLMLC [id number] Co mmon 00:00:00 00:00:00 VISIT EST Spir it PT LEVEL 3 - [facility] 2022-07-19 2022-07-19 (TEL) STLMLC STLMLC [id number] Co mmon 00:00:00 00:00:00 [facility] 2022-06-08 2022-06-08 (TEL) STLMLC STLMLC [id number] Co mmon 00:00:00 00:00:00 [facility] 2022-06-06 2022-06-06 SUB ANNUAL STLMLC STLMLC [id number] Common 00:00:00 00:00:00 [facility] WELLNESS - CHI VISIT [facility] 2022-05-23 2022-05-23 Outpatient [id number] 00:00:00 00:00:00 Visit [id number]-[id number] 2022-05-03 2022-05-03 (HOSP F/U) STLMLC STLMLC [id number] Common 00:00:00 00:00:00 [facility] 2022-04-26 2022-04-26 (TEL) [facility] ST[facility] [id number] Co mmon 00:00:00 00:00:00 Spirit - CHI [facility] 2022-04-25 2022-04-25 Transition AMA Garcia 1.2.840.114 [id number] Univers 00:00:00 00:00:00 of Care Wanda Herzog OSORIO 350.1.13.10 [place] [id number] [facility] 403 Branch 2022-04-18 2022-04-23 Inpatient X MUFTI [facility] [id number] Univers 21:57:00 18:30:00 JUDY ity of [facility] 2022-04-18 2022-04-23 Hospital Unruly Trinidad 1.2.840. 114 [id number] Univers 21:57:00 18:30:00 Encounter Judy Aceves DOMO 350.1.13.10 ity [facility] 4.2.7.2.686 [place] [id number] [facility] 100 Branch 2022-04-23 2022-04-23 Telephone JAMES Trinidad 1.2.328.585 [id number] Univers 00:00:00 00:00:00 Unruly OLIVEROS 350.1.13.10 ity of [facility] 4.2.7.2.686 Miki as [id number] [facility] 100 Branch 2022-04-23 2022-04-23 Angelique Vega [facility] 1.2.891.125 [id number] Univers 00:00:00 00:00:00 PRIMARY 350.1.13.10 [place] [id number] Nm dical 388 Branch 2022-04-21 2022-04-21 Surgery JAMES Davalos 1.2.567.043 [id number] Univers 12:15:00 14:15:00 Afaq DOMO 350.1.13.10 it y of HOSPITAL 4.2.7.2.686 Miki as [id number] [facility] 840 Branch 2022-03-25 2022-03-25 [facility] 1.2.840.114 [id number] Univers 14:12:21 23:59:00 Encounter Steven AN 350.1.13.10 ity of [place] 4.2.7.2.686 [facility] [id number] [facility] 804 Branch 2022-03-25 2022-03-25 Outpatient R [facility] [id number] Univers 14:10:06 14:11:00 STEVEN ity of [facility] 2022-03-25 2022-03-25 [facility] 1.2.840.114 [id number] Univers 14:10:06 14:11:00 Encounter Steven AN 350.1.13.10 ity of [place] 4.2.7.2.686 [facility] [id number] [facility] 804 [place] 2022-02-18 2022-02-[address] [facility] ERT [id number] Univers 16:27:00 19:52:00 WILLIAM ity of [facility] 2022-02-18 2022-02-[address] [facility] 1.2.338.949 [id number] Univers 16:27:00 19:52:00 William AN 350.1.13.10 i ty of [place] 4.2.7.2.686 [facility] [id number] [facility] 084 Branch 2022-02-18 2022-02-18 Orders Doctor BLESSING 1.2.840.114 [id number] Univers 00:00:00 00:00:00 Only Unassigned, DOMO 350.1.13.10 ity of [place] [facility] 4.2.7.2.686 Miki as [id number] [facility] 009 Branch 2022-02-17 2022-02-17 (TEL) [facility] [id number] Co mmon 00:00:00 00:00:00 [facility] 2022-02-11 2022-02-11 [facility] [id number] Co mmon 00:00:00 00:00:00 VISIT Spirit ESTAB PT - CHI LEVEL 4 [facility] 2021-11-15 2021-11-15 (TEL) [facility] [id number] Co mmon 00:00:00 00:00:00 Spirit - CHI [facility] 2021-11-08 2021-11-08 Outpatient Ethan BAUTISTA [facility] [id number] Univers 19:45:00 19:45:00 BLESSING campbell [facility] 2021-11-08 2021-11-08 Emergency [facility] [id number] Univers 09:30:00 11:04:00 JUAN keniaashutosh [facility] 2021-11-08 2021-11-08 Emergency [facility] 1.2.540.272 [id number] Univers 09:30:00 11:04:00 Juan AN 350.1.13.10 i ty [facility] 4.2.7.2.686 [facility] [id number] [address] 2021-11-08 2021-11-08 Orders Doctor BLESSING 1.2.840.114 [id number] Univers 00:00:00 00:00:00 Only Unassigned, DOMO 350.1.13.10 ity of [place] [facility] 4.2.7.2.686 Miki [id number] [place] [address] Branch 2021-10-29 2021-10-29 [facility] [id number] Co mmon 00:00:00 00:00:00 VISIT Spirit ESTAB PT - CHI LEVEL 4 [facility] 2021-10-21 2021-10-21 [facility] [id number] Univers 19:15:00 23:06:00 JAKE hightower [facility] 2021-10-21 2021-10-21 [facility] 1.2.861.740 [id number] Univers 19:15:00 23:06:00 Jake AN 350.1.13.10 ity [facility] 4.2.7.2.686 [facility] [id number] [place] [address] Branch 2021-07-30 2021-07-30 Outpatient STLMLC STLC [id number] Common 00:00:00 00:00:00 [facility] 2021-04-12 2021-04-12 Emergency [facility] 1.2.615.444 [id number] Univers 17:42:00 23:14:00 William An 350.1.13.10 i ty of [place] 4.2.7.2.686 [facility] [id number] [address] 2021-03-01 2021-03-01 Outpatient STLC STLC [id number] Common 00:00:00 00:00:00 [facility] 2021-01-16 2021-01-16 Emergency [facility] 1.2.670.551 [id number] Univers 12:44:00 15:51:00 Jose An 350.1.13.10 i ty of [place] 4.2.7.2.686 [facility] [id number] [place] [address] Branch 2021-01-16 2021-01-[address] [facility] ERT [id number] Univers 12:44:00 15:51:00 JOSE hightower [facility] 2021-01-16 2021-01-16 Orders Doctor BLESSING 1.2.840.114 [id number] Univers 00:00:00 00:00:00 Only Unassigned, DOMO 350.1.13.10 ity of [place] [facility] 4.2.7.2.686 Miki [id number] [place] [address] Branch 2021-01-01 2021-01-01 Outpatient STLC STLC [id number] Common 00:00:00 00:00:00 [facility] 2020-12-25 2020-12-25 Outpatient STLC STLC [id number] Common 00:00:00 00:00:00 [facility] 2020-12-20 2020-12-20 Outpatient Ethan BOOTH [facility] [id number] Univers 12:30:00 09:07:41 IZZY hightower [facility] 2020-11-22 2020-11-22 [facility]patient [facility] [id number] Univers 12:30:00 11:53:01 IZZY y [facility] 2020-10-28 2020-10-28 Outpatient STLMLC STLMLC [id number] Common 00:00:00 00:00:00 [facility] 2020-10-07 2020-10-07 Outpatient STLMLC STLMLC [id number] Common 00:00:00 00:00:00 [facility] 2020-10-06 2020-10-06 Outpatient STLMLC STLMLC [id number] Common 00:00:00 00:00:00 [facility] 2020-10-02 2020-10-02 Outpatient STLMLC STLMLC [id number] Common 00:00:00 00:00:00 [facility] 2020-07-21 2020-07-21 Out[facility] [id number] Common 09:41:00 09:41:[address] Sp[address] [facility] 2020-06-26 2020-06-26 Outpatient [facility] [id number] Common 10:20:00 10:20:[address] Spir it [address] [facility] 2020-03-20 2020-03-20 Outpatient [facility] [id number] Common 09:40:00 09:40:[address] Spir it [address] [facility] 2020-03-06 2020-03-06 Outpatient [facility] [id number] Common 17:08:00 17:08:[address] Spir it [address] [facility] 2020-03-06 2020-03-06 Out[facility] [id number] Common 10:51:00 10:51:[address] Spir it [address] [facility] 2020-01-20 2020-01-20 Outpatient [facility] [id number] Common 15:19:00 15:19:[address] Spir it [address] [facility] 2020-01-17 2020-01-17 Outpatient [facility] [id number] Common 11:00:00 11:00:[address] Spir it [address] [facility] 2019-12-20 2019-12-[address] [facility] 1.2.604.634 [id number] 09:17:00 09:36:32 Visit [facility] 350.1.13.10 Surgical 4.2.7.2.686 Specialti [id number] es [address] [place] 2019-12-20 2019-12-20 Office [facility] 1.2.166.155 [id number] [facility] 09:17:00 09:36:32 Visit [facility] 350.1.13.10 it y of Surgical 4.2.7.2.686 Miki as Specialti [id number] Nm dical es 198 [facility] 2019-12-20 2019-12-20 Orders Doctor BLESSING 1.2.840.114 [id number] Univers 00:00:00 00:00:00 Only Unassigned, DOMO 350.1.13.10 ity of [place] [facility]PITAL 4.2.7.2.686 Miki as [id number] [address] 2019-12-06 2019-12-[address] [facility] 1.2.980.078 [id number] [facility] 14:27:57 16:23:00 Lori An 350.1.13.10 i ty of [place] 4[place]2.7.2.686 [place] [facility] [id number] [place] [address] [place] 2019-12-06 2019-12-06 Orders Doctor BLESSING 1.2.840.114 [id number] Univers 00:00:00 00:00:00 Only Unassigned, DOMO 350.1.13.10 ity of [place] [facility]PITAL 4.2.7.2.686 Miki as [id number] [address] 2019-10-24 2019-10-24 Out[facility] [id number] Common 13:44:00 13:44:00 TATE'S LIST Spir it Drive [facility] 2019-10-24 2019-10-24 Out[facility] [id number] Common 13:00:00 13:00:00 TATE'S LIST Spir it Drive [facility] 2019-10-21 2019-10-21 Outpatient [facility] [id number] Common 12:48:00 12:48:[address] Spir it [address] [facility] 2019-10-21 2019-10-21 Out[facility] [id number] Common 09:20:00 09:20:[address] Spir it [address] [facility] 2019-10-18 2019-10-18 Out[facility] [id number] Common 13:40:00 13:40:[address] Spir it [address] [facility] 2019-10-07 2019-10-07 [facility] [id number] Common 15:44:00 15:44:[address] Spir [address] [facility] 2019-09-23 2019-09-23 [facility] [id number] Common 16:40:00 16:40:[address] Spir it [address] [facility] 2019-06-27 2019-06-27 [facility] [id number] Common 10:40:00 10:40:[address] Spir it [address] [facility] 2019-06-07 2019-06-07 Outpatient [facility] [id number] Common 10:52:00 10:52:[address] Spir it [address] [facility] 2019-04-30 2019-04-30 Out[facility] [id number] Common 15:00:00 15:00:[address] Spir it [address] [facility] 2019-02-22 2019-02-22 Outpatient [facility] [id number] Common 14:00:00 14:00:[address] Spir it [address] [facility] 2019-02-18 2019-02-18 Out[facility] [id number] Common 11:57:00 11:57:[address] Spir it [address] [facility] 2019-02-14 2019-02-14 [facility] [id number] Common 11:40:00 11:40:[address] Spir it [address] [facility] 2019-02-14 2019-02-14 [facility] [id number] Common 11:31:00 11:31:[address] Spir it [address] [facility] 2018-12-19 2018-12-19 [facility] [id number] Common 13:18:00 13:18:[address] [facility] 2018-12-14 2018-12-14 [facility] [id number] Common 15:13:00 15:13:[address] [facility] 2018-11-08 2018-11-08 [facility] [id number] Common 08:15:00 08:15:[address] [facility] 2018-11-07 2018-11-07 [id number] Common 10:02:00 10:02:[address] [facility] 2018-09-27 2018-09-27 [facility] 22 [id number] [address] 11:00:00 11:00:[address] [facility] Results Test Description Test Time Test Comments Results Result Comments Source TROPONIN I 2023-09-25 02:58:04 Test Item Value Reference Range Interpretation Comme nts TROPONIN I (test code = 2655406174) 0.004 ng/mL <=0.034 MONTY (test code = MONTY) Reference (Normal) Range (defined by the 99th percentile reference limit): <= 0.034 ng/mL Note: Cardiac troponin begins to rise 3-4 hours after the onset of ischemia. Repeat in 4-6 hours if the sample was drawn within 3-4 hours of the onset of the symptom and found normal. Diagnosis of myocardial injury is made with acute changes in cTn concentrations with at least one serial sample above the 99th percentile upper reference limit (URL), taken together with the patient's clinical presentation. Biotin has been reported to cause a negative bias, interpret results relative to patient's use of biotin. Lab Interpretation (test code = Normal 06115-2) [id number] 02:55:23 Test Item Value Reference Range Interpretation Comments NT-proBNP (test code = 1840 pg/mL <=125 H 76991-3) MONTY (test code = MONTY) Positive: Heart Failure Likely Lab Interpretation (test Abnormal code = 06394-4) [facility] ([id number])2023-09-25 02:47:00 Test Item Value Reference Range Interpretation Comments NA (test code = 135 mmol/L 135-145 1043577768) K (test code = 5.1 mmol/L 3.5-5.0 H 4578334819) CL (test code = 99 mmol/L 98-108 9704377020) CO2 TOTAL (test code = 27 mmol/L 23-31 6742193276) AGAP (test code = 9 2-16 6435129515) BUN (test code = 36 mg/dL 7-23 H 1967367088) GLUCOSE (test code = 119 mg/dL 70-110 H 1115958660) CREATININE (test code = 1.42 mg/dL 0.50-1.04 H 1010131206) TOTAL BILI (test code = 0.5 mg/dL 0.1-1.2 7458340097) CALCIUM (test code = 9.3 mg/dL 8.6-10.6 1969754730) T PROTEIN (test code = 7.5 g/dL 6.3-8.2 2360997025) ALBUMIN (test code = 4.1 g/dL 3.5-5.0 9277460783) ALK PHOS (test code = 69 U/L 34-122 5142950036) ALTv (test code = 23 U/L 5-35 1742-6) AST(SGOT) (test code = 28 U/L 13-40 9835282854) eGFR (test code = 36.8 mL/min/1.73m2 CKD-EPI e GFR 87561-9) (2020). Assumin g creatinine has been stable day-to-d ay for at least th ree months, the eGF R indicates Categ ory G3b (30 - 44 mL/min/1.73 m2) Lab Interpretation (test Abnormal code = 81098-8) [facility]46[facility]20 Test Item Value Reference Range Interpretation Comments LIPASE (test code = 8218683011) 119 U/L 0-220 Lab Interpretation (test code = Normal 68721-2) [facility] [id number] 02:34:56 Test Item Value Reference Range Interpretation Comments WBC (test code = 7.79 See_Comment [Automated 6690-2) message] The sy stem which generated this result transmitted reference range : 4.30 - 11.10 10*3/?L. The reference range was not used to interpret this result as normal/abnormal . RBC (test code = 3.53 See_Comment L [Automated 789-8) message] The sy stem which generated this result transmitted reference range : 3.93 - 5.25 10*6/?L. The reference range was not used to interpret this result as normal/abnormal . HGB (test code = 11.1 g/dL 11.6-15.0 L 718-7) HCT (test code = 34.0 % 35.7-45.2 L 4544-3) MCV (test code = 96.3 fL 80.6-95.5 H 787-2) MCH (test code = 31.4 pg 25.9-32.8 785-6) MCHC (test code = 32.6 g/dL 31.6-35.1 786-4) RDW-SD (test code = 44.9 fL 39.0-49.9 65768-8) RDW-CV (test code = 12.8 % 12.0-15.5 788-0) PLT (test code = 149 See_Comment L [Automated 777-3) message] The sy stem which generated this result transmitted reference range : 166 - 358 10*3/ ?L. The reference r melisa was not used to interpret this result as normal/abnormal . MPV (test code = 12.4 fL 9.5-12.9 96565-8) NRBC/100 WBC (test 0.0 See_Comment [Automat ed code = 0911571458) message] The system which generated this result transmitted reference range : 0.0 - 10.0 /100 WBCs. The refer ence range was not u sed to interpret th is result as normal/abnormal . NRBC x10^3 (test code See_Comment [Auto mated = 5755503666) message] The s ystem which generated this result transmitted reference range : 10*3/?L. The reference range was not used to interpret this result as normal/abnormal . GRAN MAT (NEUT) % 66.3 % (test code = 770-8) IMM GRAN % (test code 0.50 % = 6373365990) LYMPH % (test code = 20.7 % 736-9) MONO % (test code = 6.9 % 5905-5) EOS % (test code = 5.0 % 713-8) BASO % (test code = 0.6 % 706-2) GRAN MAT x10^3(ANC) 5.16 10*3/uL 1.88-7.09 (test code = 1757877347) IMM GRAN x10^3 (test 0.04 10*3/uL 0.00-0.06 code = 2528582476) LYMPH x10^3 (test code 1.61 10*3/uL 1.32-3.29 = 731-0) MONO x10^3 (test code 0.54 10*3/uL 0.33-0.92 = 742-7) EOS x10^3 (test code = 0.39 10*3/uL 0.03-0.39 711-2) BASO x10^3 (test code 0.05 10*3/uL 0.01-0.07 = 704-7) Lab Interpretation Abnormal (test code = 22505-6) [facility] GLUCOSE (AUTOMATED)2023-04-22 21:46:26 Test Item Value Reference Range Interpretation Comments POCT GLU (test code = 5880072060) 77 mg/dL 70-110 Lab Interpretation (test code = Normal 25260-7) [facility] GLUCOSE (AUTOMATED)2023-04-22 17:11:49 Test Item Value Reference Range Interpretation Comments POCT GLU (test code = 6825869100) 88 mg/dL 70-110 Lab Interpretation (test code = Normal 53054-4) [facility] GLUCOSE (AUTOMATED)2023-04-22 13:18:51 Test Item Value Reference Range Interpretation Comments POCT GLU (test code = 4856403959) 75 mg/dL 70-110 Lab Interpretation (test code = Normal 27595-9) [facility] GLUCOSE (AUTOMATED)2023-04-22 13:02:59 Test Item Value Reference Range Interpretation Comments POCT GLU (test code = 2786679320) 69 mg/dL 70-110 L Lab Interpretation (test code = Abnormal 13250-9) [facility] 11:42:12 Test Item Value Reference Range Interpretation Comments MAGNESIUM (test code = 7374131645) 2.0 mg/dL 1.7-2.4 Lab Interpretation (test code = Normal 46979-3) [facility] METABOLIC PANEL (NA, K, CL, CO2, GLUCOSE, BUN, CREATININE, CA)2023-04-22 11:41:52 Test Item Value Reference Range Interpretation Comments NA (test code = 136 mmol/L 135-145 4813883578) K (test code = 4.4 mmol/L 3.5-5.0 8849496836) CL (test code = 105 mmol/L 98-108 6334670387) CO2 TOTAL (test code = 19 mmol/L 23-31 L 7871384654) AGAP (test code = 12 2-16 8310359564) BUN (test code = 42 mg/dL 7-23 H 4996191957) GLUCOSE (test code = 56 mg/dL 70-110 L 2939082859) CREATININE (test code = 1.50 mg/dL 0.50-1.04 H 9029627175) CALCIUM (test code = 7.9 mg/dL 8.6-10.6 L 6113847076) eGFR (test code = 33.2 mL/min/1.73m2 9668147876) MONTY (test code = MONTY) Association of [...] tests). Lab Interpretation Abnormal (test code = 61167-6) [facility] 11:41:52 Test Item Value Reference Range Interpretation Comments PHOSPHORUS (test code = 4152817308) 3.8 mg/dL 2.5-5.0 Lab Interpretation (test code = Normal 00161-9) [facility] WITH [id number] 09:47:44 Test Item Value Reference Range Interpretation Comments WBC (test code = 7.42 See_Comment [Automated 5190-2) message] The sy stem which generated this result transmitted reference range : 4.30 - 11.10 10*3/?L. The reference range was not used to interpret this result as normal/abnormal . RBC (test code = 3.28 See_Comment L [Automated 439-8) message] The sy stem which generated this result transmitted reference range : 3.93 - 5.25 10*6/?L. The reference range was not used to interpret this result as normal/abnormal . HGB (test code = 10.5 g/dL 11.6-15.0 L 718-7) HCT (test code = 32.3 % 35.7-45.2 L 4544-3) MCV (test code = 98.5 fL 80.6-95.5 H 787-2) MCH (test code = 32.0 pg 25.9-32.8 785-6) MCHC (test code = 32.5 g/dL 31.6-35.1 786-4) RDW-SD (test code = 48.0 fL 39.0-49.9 24128-3) RDW-CV (test code = 13.3 % 12.0-15.5 788-0) PLT (test code = 128 See_Comment L [Automated 777-3) message] The sy stem which generated this result transmitted reference range : 166 - 358 10*3/ ?L. The reference r melisa was not used to interpret this result as normal/abnormal . MPV (test code = 12.6 fL 9.5-12.9 80423-9) NRBC/100 WBC (test 0.0 See_Comment [Automat ed code = 1789662556) message] The system which generated this result transmitted reference range : 0.0 - 10.0 /100 WBCs. The refer ence range was not u sed to interpret th is result as normal/abnormal . NRBC x10^3 (test code See_Comment [Auto mated = 5922198390) message] The s ystem which generated this result transmitted reference range : 10*3/?L. The reference range was not used to interpret this result as normal/abnormal . GRAN MAT (NEUT) % 66.7 % (test code = 770-8) IMM GRAN % (test code 0.30 % = 1264693931) LYMPH % (test code = 21.6 % 736-9) MONO % (test code = 8.1 % 5905-5) EOS % (test code = 3.2 % 713-8) BASO % (test code = 0.1 % 706-2) GRAN MAT x10^3(ANC) 4.95 10*3/uL 1.88-7.09 (test code = 8865491774) IMM GRAN x10^3 (test 0.00-0.06 code = 5599869823) LYMPH x10^3 (test code 1.60 10*3/uL 1.32-3.29 = 731-0) MONO x10^3 (test code 0.60 10*3/uL 0.33-0.92 = 742-7) EOS x10^3 (test code = 0.24 10*3/uL 0.03-0.39 711-2) BASO x10^3 (test code 0.01-0.07 = 704-7) Lab Interpretation Abnormal (test code = 46248-7) [facility] GLUCOSE (AUTOMATED)2023-04-22 01:46:21 Test Item Value Reference Range Interpretation Comments POCT GLU (test code = 3997617536) 82 mg/dL 70-110 Lab Interpretation (test code = Normal 92720-2) [facility] GLUCOSE (AUTOMATED)2023-04-21 22:27:25 Test Item Value Reference Range Interpretation Comments POCT GLU (test code = 6313202916) 56 mg/dL 70-110 L Lab Interpretation (test code = Abnormal 90125-2) [facility] [id number] 17:37:21 Test Item Value Reference Range Interpretation Comments TROPONIN I (test code = 0.033 ng/mL <=0.034 5204009937) MONTY (test code = MONTY) Reference (Normal) Range (defined by the 99th percentile reference limit): <= 0.034 ng/mL Note: Cardiac troponin begins to rise 3-4 hours after the onset of ischemia. Repeat in 4-6 hours if the sample was drawn within 3-4 hours of the onset of the symptom and found normal. Diagnosis of myocardial injury is made with acute changes in cTn concentrations with at least one serial sample above the 99th percentile upper reference limit (URL), taken together with the patient's clinical presentation. Biotin has been reported to cause a negative bias, interpret results relative to patient's use of biotin. Lab Interpretation Normal (test code = 88937-8) [facility]. METABOLIC PANEL (69486)2023-04-21 17:26:17 Test Item Value Reference Range Interpretation Comments NA (test code = 135 mmol/L 135-145 6751237077) K (test code = 4.7 mmol/L 3.5-5.0 1655127366) CL (test code = 101 mmol/L 98-108 4116898287) CO2 TOTAL (test code = 20 mmol/L 23-31 L 3873083943) AGAP (test code = 14 2-16 4081084430) BUN (test code = 53 mg/dL 7-23 H 9275128004) GLUCOSE (test code = 79 mg/dL 70-110 6161900254) CREATININE (test code = 2.27 mg/dL 0.50-1.04 H 3836003465) TOTAL BILI (test code = 0.6 mg/dL 0.1-1.3 4716157942) CALCIUM (test code = 8.6 mg/dL 8.6-10.6 2257636908) T PROTEIN (test code = 7.3 g/dL 6.3-8.2 3671683540) ALBUMIN (test code = 4.3 g/dL 3.5-5.0 9581216647) ALK PHOS (test code = 47 U/L 34-122 7929816796) ALTv (test code = 21 U/L 5-35 1742-6) AST(SGOT) (test code = 34 U/L 13-40 8925335507) eGFR (test code = 20.6 mL/min/1.73m2 7623180257) MONTY (test code = MONTY) Association of [...] tests). Lab Interpretation Abnormal (test code = 82349-2) [facility] 17:26:17 Test Item Value Reference Range Interpretation Comments MAGNESIUM (test code = 9079312347) 2.0 mg/dL 1.7-2.4 Lab Interpretation (test code = Normal 23220-6) [facility] 17:26:02 Test Item Value Reference Range Interpretation Comments LIPASE (test code = 1250279495) 81 U/L 0-220 Lab Interpretation (test code = Normal 22667-9) [facility] [id number] 17:09:35 Test Item Value Reference Range Interpretation Comments WBC (test code = 7.82 See_Comment [Automated 6690-2) message] The sy stem which generated this result transmitted reference range : 4.30 - 11.10 10*3/?L. The reference range was not used to interpret this result as normal/abnormal . RBC (test code = 3.48 See_Comment L [Automated 759-8) message] The sy stem which generated this result transmitted reference range : 3.93 - 5.25 10*6/?L. The reference range was not used to interpret this result as normal/abnormal . HGB (test code = 11.2 g/dL 11.6-15.0 L 718-7) HCT (test code = 34.3 % 35.7-45.2 L 4544-3) MCV (test code = 98.6 fL 80.6-95.5 H 787-2) MCH (test code = 32.2 pg 25.9-32.8 785-6) MCHC (test code = 32.7 g/dL 31.6-35.1 786-4) RDW-SD (test code = 48.1 fL 39.0-49.9 52306-7) RDW-CV (test code = 13.4 % 12.0-15.5 788-0) PLT (test code = 149 See_Comment L [Automated 777-3) message] The sy stem which generated this result transmitted reference range : 166 - 358 10*3/ ?L. The reference r melisa was not used to interpret this result as normal/abnormal . MPV (test code = 12.4 fL 9.5-12.9 31061-6) NRBC/100 WBC (test 0.0 See_Comment [Automat ed code = 5384210962) message] The system which generated this result transmitted reference range : 0.0 - 10.0 /100 WBCs. The refer ence range was not u sed to interpret th is result as normal/abnormal . NRBC x10^3 (test code See_Comment [Auto mated = 6996602255) message] The s ystem which generated this result transmitted reference range : 10*3/?L. The reference range was not used to interpret this result as normal/abnormal . GRAN MAT (NEUT) % 64.4 % (test code = 770-8) IMM GRAN % (test code 0.40 % = 6346051899) LYMPH % (test code = 22.4 % 736-9) MONO % (test code = 10.4 % 5905-5) EOS % (test code = 2.0 % 713-8) BASO % (test code = 0.4 % 706-2) GRAN MAT x10^3(ANC) 5.04 10*3/uL 1.88-7.09 (test code = 6326981973) IMM GRAN x10^3 (test 0.03 10*3/uL 0.00-0.06 code = 0317844201) LYMPH x10^3 (test code 1.75 10*3/uL 1.32-3.29 = 731-0) MONO x10^3 (test code 0.81 10*3/uL 0.33-0.92 = 742-7) EOS x10^3 (test code = 0.16 10*3/uL 0.03-0.39 711-2) BASO x10^3 (test code 0.03 10*3/uL 0.01-0.07 = 704-7) Lab Interpretation Abnormal (test code = 03656-7) [facility] GLUCOSE (AUTOMATED)2022-04-23 16:58:35 Test Item Value Reference Range Interpretation Comments POCT GLU (test code = 4583897621) 121 mg/dL 70-110 H Lab Interpretation (test code = Abnormal 95389-7) [facility] GLUCOSE (AUTOMATED)2022-04-23 16:58:35 Test Item Value Reference Range Interpretation Comments POCT GLU (test code = 3613083435) 121 mg/dL 70-110 H Lab Interpretation (test code = Abnormal 19666-2) [facility] GLUCOSE (AUTOMATED)2022-04-23 13:59:14 Test Item Value Reference Range Interpretation Comments POCT GLU (test code = 5150376934) 113 mg/dL 70-110 H Lab Interpretation (test code = Abnormal 93810-8) [facility] GLUCOSE (AUTOMATED)2022-04-23 13:59:14 Test Item Value Reference Range Interpretation Comments POCT GLU (test code = 4068460684) 113 mg/dL 70-110 H Lab Interpretation (test code = Abnormal 43117-1) [facility] METABOLIC PANEL (NA, K, CL, CO2, GLUCOSE, BUN, CREATININE, CA)2022-04-23 11:58:10 Test Item Value Reference Range Interpretation Comments NA (test code = 136 mmol/L 135-145 1167920956) K (test code = 4.3 mmol/L 3.5-5.0 3781653901) CL (test code = 104 mmol/L 98-108 7715980085) CO2 TOTAL (test code = 27 mmol/L 23-31 0994895174) AGAP (test code = 2-16 2469424992) BUN (test code = 24 mg/dL 7-23 H 2666332408) GLUCOSE (test code = 142 mg/dL 70-110 H 0533639555) CREATININE (test code = 0.96 mg/dL 0.50-1.04 3640887564) CALCIUM (test code = 8.8 mg/dL 8.6-10.6 8103893223) eGFR (test code = mL/min/1.73m2 9502604743) MONTY (test code = MONTY) Association of [...] tests). Lab Interpretation Abnormal (test code = 67330-5) [facility] 11:58:10 Test Item Value Reference Range Interpretation Comments MAGNESIUM (test code = 2434096476) 1.9 mg/dL 1.7-2.4 Lab Interpretation (test code = Normal 69444-4) [facility] (NA, K, CL, CO2, GLUCOSE, BUN, CREATININE, CA)2022-04-23 11:58:10 Test Item Value Reference Range Interpretation Comments NA (test code = 136 mmol/L 135-145 8653318349) K (test code = 4.3 mmol/L 3.5-5.0 1493808448) CL (test code = 104 mmol/L 98-108 4175095919) CO2 TOTAL (test code = 27 mmol/L 23-31 1255265874) AGAP (test code = 2-16 4427059193) BUN (test code = 24 mg/dL 7-23 H 0829075154) GLUCOSE (test code = 142 mg/dL 70-110 H 0195564187) CREATININE (test code = 0.96 mg/dL 0.50-1.04 8307961622) CALCIUM (test code = 8.8 mg/dL 8.6-10.6 0926428563) eGFR (test code = mL/min/1.73m2 7001857757) MONTY (test code = MONTY) Association of [...] tests). Lab Interpretation Abnormal (test code = 36254-2) [facility] 11:58:10 Test Item Value Reference Range Interpretation Comments MAGNESIUM (test code = 5776964111) 1.9 mg/dL 1.7-2.4 Lab Interpretation (test code = Normal 90374-6) [facility]22-[facility]-23 01:18:24 Test Item Value Reference Range Interpretation Comments POCT GLU (test code = 8805095904) 177 mg/dL 70-110 H Lab Interpretation (test code = Abnormal 54422-1) [facility] GLUCOSE (AUTOMATED)2022-04-23 01:18:24 Test Item Value Reference Range Interpretation Comments POCT GLU (test code = 3412281787) 177 mg/dL 70-110 H Lab Interpretation (test code = Abnormal 73626-3) [facility] GLUCOSE (AUTOMATED)2022-04-22 23:01:10 Test Item Value Reference Range Interpretation Comments POCT GLU (test code = 5621952061) 167 mg/dL 70-110 H Lab Interpretation (test code = Abnormal 54785-9) [facility] GLUCOSE (AUTOMATED)2022-04-22 23:01:10 Test Item Value Reference Range Interpretation Comments POCT GLU (test code = 5443634779) 167 mg/dL 70-110 H Lab Interpretation (test code = Abnormal 05355-7) [facility] GLUCOSE (AUTOMATED)2022-04-22 17:05:53 Test Item Value Reference Range Interpretation Comments POCT GLU (test code = 0547802716) 101 mg/dL 70-110 Lab Interpretation (test code = Normal 20045-2) [facility] GLUCOSE (AUTOMATED)2022-04-22 17:05:53 Test Item Value Reference Range Interpretation Comments POCT GLU (test code = 2910532924) 101 mg/dL 70-110 Lab Interpretation (test code = Normal 49545-3) [facility] GLUCOSE (AUTOMATED)2022-04-22 13:35:19 Test Item Value Reference Range Interpretation Comments POCT GLU (test code = 2622192661) 144 mg/dL 70-110 H Lab Interpretation (test code = Abnormal 83335-9) [facility] GLUCOSE (AUTOMATED)2022-04-22 13:35:19 Test Item Value Reference Range Interpretation Comments POCT GLU (test code = 6368390743) 144 mg/dL 70-110 H Lab Interpretation (test code = Abnormal 05602-2) [facility] METABOLIC PANEL (NA, K, CL, CO2, GLUCOSE, BUN, CREATININE, CA)2022-04-22 10:02:38 Test Item Value Reference Range Interpretation Comments NA (test code = 141 mmol/L 135-145 0520597592) K (test code = 4.7 mmol/L 3.5-5.0 Slight 0014213130) hemolysis CL (test code = 108 mmol/L 98-108 0364113893) CO2 TOTAL (test code 29 mmol/L 23-31 = 5328388793) AGAP (test code = 2-16 5214657504) BUN (test code = 19 mg/dL 7-23 Slight 9323163671) hemolysis GLUCOSE (test code = 117 mg/dL 70-110 H 0020490735) CREATININE (test code 1.12 mg/dL 0.50-1.04 H = 1847803524) CALCIUM (test code = 8.5 mg/dL 8.6-10.6 L 4509389223) eGFR (test code = mL/min/1.73m2 5697562207) MONTY (test code = MONTY) Association of Glomerular Filtration Rate (GFR) and Staging of Kidney Disease* + -----+ --------+ +| GFR (mL/min/1.73 m2) ?| With Kidney Damage ?| ?Without Kidney Damage+ +------- +---- --+| ?>90 ?| ?Stage one ?| ? Normal ?+ ------+ ---------+--------- +| ?60-89 ?| ?Stage two ?| ? Decreased GFR ? + -----+ --------+ +| ?30-59 ?| ?Stage three ?| ? Stage three ? + -----+ --------+ +| ?15-29 ?| ?Stage four ? | ? Stage four ?+ ------+ ---------+--------- +| ?<15 (or dialysis) ? ?| ?Stage five ? | ? Stage five ?+ ------+ ---------+--------- + *Each stage assumes the associated GFR level [...] tests). Lab Interpretation Abnormal (test code = 17960-9) [facility] 10:02:38 Test Item Value Reference Range Interpretation Comments MAGNESIUM (test code = 5709322719) 2.0 mg/dL 1.7-2.4 Lab Interpretation (test code = Normal 88784-9) [facility] (NA, K, CL, CO2, GLUCOSE, BUN, CREATININE, CA)2022-04-22 10:02:38 Test Item Value Reference Range Interpretation Comments NA (test code = 141 mmol/L 135-145 3110367760) K (test code = 4.7 mmol/L 3.5-5.0 Slight 3338827459) hemolysis CL (test code = 108 mmol/L 98-108 1260709772) CO2 TOTAL (test code 29 mmol/L 23-31 = 9887736710) AGAP (test code = 2-16 1716246673) BUN (test code = 19 mg/dL 7-23 Slight 7314655759) hemolysis GLUCOSE (test code = 117 mg/dL 70-110 H 7838389889) CREATININE (test code 1.12 mg/dL 0.50-1.04 H = 4183892078) CALCIUM (test code = 8.5 mg/dL 8.6-10.6 L 1182417527) eGFR (test code = mL/min/1.73m2 4148241646) MONTY (test code = MONTY) Association of Glomerular Filtration Rate (GFR) and Staging of Kidney Disease* + -----+ --------+ +| GFR (mL/min/1.73 m2) ?| With Kidney Damage ?| ?Without Kidney Damage+ +------- +---- --+| ?>90 ?| ?Stage one ?| ? Normal ?+ ------+ ---------+--------- +| ?60-89 ?| ?Stage two ?| ? Decreased GFR ? + -----+ --------+ +| ?30-59 ?| ?Stage three ?| ? Stage three ? + -----+ --------+ +| ?15-29 ?| ?Stage four ? | ? Stage four ?+ ------+ ---------+--------- +| ?<15 (or dialysis) ? ?| ?Stage five ? | ? Stage five ?+ ------+ ---------+--------- + *Each stage assumes the associated GFR level [...] tests). Lab Interpretation Abnormal (test code = 54396-7) [facility] 10:02:38 Test Item Value Reference Range Interpretation Comments MAGNESIUM (test code = 7843288876) 2.0 mg/dL 1.7-2.4 Lab Interpretation (test code = Normal 43430-4) [facility] WITH [id number] 09:40:56 Test Item Value Reference Range Interpretation Comments [...] as normal/abnormal . HGB (test code = 10.4 g/dL 11.6-15.0 L 718-7) HCT (test code = 32.4 % 35.7-45.2 L 4544-3) MCV (test code = 98.8 fL 80.6-95.5 H 787-2) MCH (test code = 31.7 pg 25.9-32.8 785-6) MCHC (test code = 32.1 g/dL 31.6-35.1 786-4) RDW-SD (test code = 46.8 fL 39.0-49.9 47267-3) RDW-CV (test code = 13.0 % 12.0-15.5 788-0) PLT (test code = See_Comment L [Automated 777-3) message] The sy stem which generated this result transmitted reference range : 166 - 358 10*3/ ?L. The reference r melisa was not used to interpret this result as normal/abnormal . MPV (test code = 12.9 fL 9.5-12.9 77260-6) NRBC/100 WBC (test See_Comment [Automat ed code = 3714524772) message] The system which generated this result transmitted reference range : 0.0 - 10.0 /100 WBCs. The refer ence range was not u sed to interpret th is result as normal/abnormal . NRBC x10^3 (test code <0.01 See_Comment [Auto mated = 2299877061) message] The s ystem which generated this result transmitted reference range : 10*3/?L. The reference range was not used to interpret this result as normal/abnormal . GRAN MAT (NEUT) % 59.1 % (test code = 770-8) IMM GRAN % (test code 0.20 % = 3415735162) LYMPH % (test code = 23.2 % 736-9) MONO % (test code = 9.6 % 5905-5) EOS % (test code = 7.1 % 713-8) BASO % (test code = 0.8 % 706-2) GRAN MAT x10^3(ANC) 3.90 10*3/uL 1.88-7.09 (test code = [id number]) IMM GRAN x10^3 (test <0.03 0.00-0.06 code = [id number]) LYMPH x10^3 (test code 1.53 10*3/uL 1.32-3.29 = 731-0) MONO x10^3 (test code 0.63 10*3/uL 0.33-0.92 = 742-7) EOS x10^3 (test code = 0.47 10*3/uL 0.03-0.39 H 711-2) BASO x10^3 (test code 0.05 10*3/uL 0.01-0.07 = 704-7) Lab Interpretation Abnormal (test code = 85256-0) [facility] WITH [id number] 09:40:56 Test Item Value Reference Range Interpretation Comments [...] as normal/abnormal . HGB (test code = 10.4 g/dL 11.6-15.0 L 718-7) HCT (test code = 32.4 % 35.7-45.2 L 4544-3) MCV (test code = 98.8 fL 80.6-95.5 H 787-2) MCH (test code = 31.7 pg 25.9-32.8 785-6) MCHC (test code = 32.1 g/dL 31.6-35.1 786-4) RDW-SD (test code = 46.8 fL 39.0-49.9 35331-8) RDW-CV (test code = 13.0 % 12.0-15.5 788-0) PLT (test code = See_Comment L [Automated 777-3) message] The sy stem which generated this result transmitted reference range : 166 - 358 10*3/ ?L. The reference r melisa was not used to interpret this result as normal/abnormal . MPV (test code = 12.9 fL 9.5-12.9 00216-5) NRBC/100 WBC (test See_Comment [Automat ed code = 3346582040) message] The system which generated this result transmitted reference range : 0.0 - 10.0 /100 WBCs. The refer ence range was not u sed to interpret th is result as normal/abnormal . NRBC x10^3 (test code <0.01 See_Comment [Auto mated = 8639238916) message] The s ystem which generated this result transmitted reference range : 10*3/?L. The reference range was not used to interpret this result as normal/abnormal . GRAN MAT (NEUT) % 59.1 % (test code = 770-8) IMM GRAN % (test code 0.20 % = 4094364282) LYMPH % (test code = 23.2 % 736-9) MONO % (test code = 9.6 % 5905-5) EOS % (test code = 7.1 % 713-8) BASO % (test code = 0.8 % 706-2) GRAN MAT x10^3(ANC) 3.90 10*3/uL 1.88-7.09 (test code = 2282003044) IMM GRAN x10^3 (test <0.03 0.00-0.06 code = 6530390252) LYMPH x10^3 (test code 1.53 10*3/uL 1.32-3.29 = 731-0) MONO x10^3 (test code 0.63 10*3/uL 0.33-0.92 = 742-7) EOS x10^3 (test code = 0.47 10*3/uL 0.03-0.39 H 711-2) BASO x10^3 (test code 0.05 10*3/uL 0.01-0.07 = 704-7) Lab Interpretation Abnormal (test code = 87493-7) [facility] GLUCOSE (AUTOMATED)2022-04-22 01:28:32 Test Item Value Reference Range Interpretation Comments POCT GLU (test code = 7365180482) 127 mg/dL 70-110 H Lab Interpretation (test code = Abnormal 10318-3) [facility] GLUCOSE (AUTOMATED)2022-04-22 01:28:32 Test Item Value Reference Range Interpretation Comments POCT GLU (test code = 3579449854) 127 mg/dL 70-110 H Lab Interpretation (test code = Abnormal 19815-5) [facility] GLUCOSE (AUTOMATED)2022-04-21 13:15:23 Test Item Value Reference Range Interpretation Comments POCT GLU (test code = 0876359127) 109 mg/dL 70-110 Lab Interpretation (test code = Normal 73141-0) [facility] GLUCOSE (AUTOMATED)2022-04-21 13:15:23 Test Item Value Reference Range Interpretation Comments POCT GLU (test code = 8865582981) 109 mg/dL 70-110 Lab Interpretation (test code = Normal 05062-9) [facility] (NA, K, CL, CO2, GLUCOSE, BUN, CREATININE, CA)2022-04-21 11:24:10 Test Item Value Reference Range Interpretation Comments NA (test code = 140 mmol/L 135-145 8218574680) K (test code = 3.6 mmol/L 3.5-5.0 6659909522) CL (test code = 105 mmol/L 98-108 9795233663) CO2 TOTAL (test code = 31 mmol/L 23-31 9444675454) AGAP (test code = 2-16 2175169956) BUN (test code = 17 mg/dL 7-23 7160798466) GLUCOSE (test code = 114 mg/dL 70-110 H 8719552163) CREATININE (test code = 1.11 mg/dL 0.50-1.04 H 7367989182) CALCIUM (test code = 8.6 mg/dL 8.6-10.6 5898800575) eGFR (test code = mL/min/1.73m2 9944478046) MONTY (test code = MONTY) Association of [...] tests). Lab Interpretation Abnormal (test code = 72022-6) [facility] Test Item Value Reference Range Interpretation Comments MAGNESIUM (test code = 4012595488) 2.0 mg/dL 1.7-2.4 Lab Interpretation (test code = Normal 49003-5) [facility] METABOLIC PANEL (NA, K, CL, CO2, GLUCOSE, BUN, CREATININE, CA)2022-04-21 11:24:10 Test Item Value Reference Range Interpretation Comments NA (test code = 140 mmol/L 135-145 7579863268) K (test code = 3.6 mmol/L 3.5-5.0 2017764173) CL (test code = 105 mmol/L 98-108 0887213577) CO2 TOTAL (test code = 31 mmol/L 23-31 7539498939) AGAP (test code = 2-16 0735852228) BUN (test code = 17 mg/dL 7-23 4838351703) GLUCOSE (test code = 114 mg/dL 70-110 H 5568770338) CREATININE (test code = 1.11 mg/dL 0.50-1.04 H 7914264890) CALCIUM (test code = 8.6 mg/dL 8.6-10.6 3384486585) eGFR (test code = mL/min/1.73m2 3900501523) OMNTY (test code = MONTY) Association of Glomerular [...] tests). Lab Interpretation Abnormal (test code = 32041-7) [facility]10 Test Item Value Reference Range Interpretation Comments MAGNESIUM (test code = 6392279742) 2.0 mg/dL 1.7-2.4 Lab Interpretation (test code = Normal 10920-1) [facility] (for use with Heparin Infusion)2022-04-21 11:14:51 Test Item Value Reference Range Interpretation Comments APTT Patient (test code See_Comment H [Au tomated message] = 3173-2) The system [employer] generated this result transmitted ref erence range: 26 - 36 Seconds. The reference range was not used to int erpret this result as normal/abnormal . Lab Interpretation (test Abnormal code = 86544-4) [facility] (for use with Heparin Infusion)2022-04-21 11:14:51 Test Item Value Reference Range Interpretation Comments APTT Patient (test code See_Comment H [Au tomated message] = 3173-2) The system [employer] generated this result transmitted ref erence range: 26 - 36 Seconds. The reference range was not used to int erpret this result as normal/abnormal . Lab Interpretation (test Abnormal code = 47710-8) [facility] 01:23:10 Test Item Value Reference Range Interpretation Comments POCT GLU (test code = 7592103714) 167 mg/dL 70-110 H Lab Interpretation (test code = Abnormal 84138-9) [facility] GLUCOSE (AUTOMATED)2022-04-21 01:23:10 Test Item Value Reference Range Interpretation Comments POCT GLU (test code = 2346978804) 167 mg/dL 70-110 H Lab Interpretation (test code = Abnormal 34547-3) [facility] (for use with Heparin Infusion)2022-04-20 22:14:23 Test Item Value Reference Range Interpretation Comments APTT Patient (test code See_Comment H [Au tomated message] = 3173-2) The system [employer] generated this result transmitted ref erence range: 26 - 36 Seconds. The reference range was not used to int erpret this result as normal/abnormal . Lab Interpretation (test Abnormal code = 05414-4) [facility] (for use with Heparin Infusion)2022-04-20 22:14:23 Test Item Value Reference Range Interpretation Comments APTT Patient (test code See_Comment H [Au tomated message] = 3173-2) The system [employer] generated this result transmitted ref erence range: 26 - 36 Seconds. The reference range was not used to int erpret this result as normal/abnormal . Lab Interpretation (test Abnormal code = 72827-8) [facility] GLUCOSE (AUTOMATED)2022-04-20 21:54:43 Test Item Value Reference Range Interpretation Comments POCT GLU (test code = 6616947737) 90 mg/dL 70-110 Lab Interpretation (test code = Normal 77960-9) [facility] GLUCOSE (AUTOMATED)2022-04-20 21:54:43 Test Item Value Reference Range Interpretation Comments POCT GLU (test code = 8034082885) 90 mg/dL 70-110 Lab Interpretation (test code = Normal 48841-3) [facility] 19:27:55 Test Item Value Reference Range Interpretation Comments Ao root annulus (test 3.3 cm code = 7647913097) Ao root diam (test code 3.30 cm = 3398786585) Aortic root (test code = 3.3 cm 1344323257) LA size (test code = 4.4 cm 9996054366) LVOT diameter (test code 1.76 cm = 5278991307) LVIDS (test code = 3.00 cm 9891048316) EF(Teich) (test code = 64.60 % 0184947484) LVIDD (test code = 4.60 cm 2514167128) IVS (test code = 1.17 cm 8147591443) FS (test code = 35 % 0629239534) EF - 2D (test code = 64.60 % 78706967) Interventricular Septum 1.17 cm Diastolic Thickness by 2D (test code = 6332732) LVPWD (test code = 1.18 cm 6321031821) PW (test code = 1.18 cm 0.6-1.5 2444626876) LAV(MOD-sp4) (test code 85.60 mL = 1324964181) E wave decelartion time 0.19 s (test code = 9189724703) MV Peak E Sharan (test code 146.5 cm/s = 6848963154) MV Prop V (test code = 43.20 cm/s 2492788445) LVOT stroke volume (test 52.30 cm3 code = 6459820884) LVOT peak sharan (test code 109.7 cm/s = 6019167163) LVOT mn grad (test code mmHg = 7546894147) AV LVOT peak gradient mmHg (test code = 6145387076) LVOT peak VTI (test code 21.5 cm = 0940622876) LV V1 mean (test code = 65.10 cm/s 4701362785) Aortic valve mean 127.0 cm/s velocity (test code = 7658611750) Ao peak sharan (test code = 214.2 cm/s 2875844755) Ao VTI (test code = 36.7 cm 3832084442) AV area by cont VTI 1.4 cm2 (test code = 8637285028) AV area peak sharan (test 1.2 cm2 code = 4471233721) Ao max PG (test code = 18.30 mm[Hg] 3994759317) AV peak gradient (test mmHg code = 8072109142) AV valve area (test code 1.43 cm2 = 1004042365) AV mean gradient (test mmHg code = 6550558930) TR Peak Sharan (test code = 318.2 cm/s 6048432244) Triscuspid Valve mmHg Regurgitation Peak Gradient (test code = 7001687336) Tapse (test code = 1.83 cm 7430690074) LA volume (BP) (test 88.9 mL code = 2824713414) LAV(MOD-sp2) (test code 78.60 mL = 4259100539) LA Volume Index (BP) 51.1 mL/m2 (test code = 3714984207) MV mean gradient (test mmHg code = 2709307020) MV peak gradient (test mmHg code = 3824529946) MV pk sharan (test code = 175.0 cm/s 3723371398) MV valve area by 1.57 cm2 continuity eq (test code = 2348530363) MV VTI (test code = 33.6 cm 0296784944) MV V2 mean (test code = 114.90 cm/s 5274468256) MV stenosis pressure 1/2 75.9 ms time (test code = 3655333205) LV Diastolic Volume (BP) 130.2 mL (test code = 9135469364) EF(MOD-bp) (test code = 63.40 % 2651508915) LV Systolic Volume (BP) 47.7 mL (test code = 9178842732) SV(MOD-bp) (test code = 82.60 mL 7393200486) EF (test code = 63 % 2987536603) Left Ventricular Stroke 82.6 mL Volume by 2-D Biplane-MOD (test code = 3436687) Radiology Study observation (narrative) (test code = 39710-5) MONTY (test code = MONTY) ?Left?Ventricle: Normal wall motion. Normal systolic function with a visually estimated EF of 60 - 65%. EF by 2D Tirado biplane is 63 %. Normal diastolic function. ?Right?Ventricle: Right ventricle size is normal. Normal systolic function. ?Tricuspid?Valve: Mild transvalvular regurgitation. Right ventricular systolic pressure is 50-55 mmHg. ?RA pressure is 0-5 mmHg. ?Left?Atrium: Left atrium is severely dilated. Left atrium volume index is 51.1 mL/m2. ?Mild mitral stenosis VitalsHeight Weight BSA (Calculated - sq m) BP Pulse 5' 1" (1.549 m) 165 lb (74.8 kg) 1.79 sq meters 117/76 96 [facility] 19:27:55 Test Item Value Reference Range Interpretation Comments Ao root annulus (test 3.3 cm code = 5180993837) Ao root diam (test code 3.30 cm = 6584388032) Aortic root (test code = 3.3 cm 2841499935) LA size (test code = 4.4 cm 5448142063) LVOT diameter (test code 1.76 cm = 5354204238) LVIDS (test code = 3.00 cm 9777253527) EF(Teich) (test code = 64.60 % 0401413162) LVIDD (test code = 4.60 cm 1824124725) IVS (test code = 1.17 cm 2303051881) FS (test code = 35 % 2647153690) EF - 2D (test code = 64.60 % 10170346) Interventricular Septum 1.17 cm Diastolic Thickness by 2D (test code = 8399416) LVPWD (test code = 1.18 cm 4629194768) PW (test code = 1.18 cm 0.6-1.1 1123113610) LAV(MOD-sp4) (test code 85.60 mL = 8343336879) E wave decelartion time 0.19 s (test code = 3467271961) MV Peak E Sharan (test code 146.5 cm/s = 7214651984) MV Prop V (test code = 43.20 cm/s 4447146583) LVOT stroke volume (test 52.30 cm3 code = 9825847627) LVOT peak sharan (test code 109.7 cm/s = 9370780088) LVOT mn grad (test code mmHg = 0578811938) AV LVOT peak gradient mmHg (test code = 6905812227) LVOT peak VTI (test code 21.5 cm = 3113727201) LV V1 mean (test code = 65.10 cm/s 8357757078) Aortic valve mean 127.0 cm/s velocity (test code = 1114551920) Ao peak sharan (test code = 214.2 cm/s 6401061894) Ao VTI (test code = 36.7 cm 0388045164) AV area by cont VTI 1.4 cm2 (test code = 6429714135) AV area peak sharan (test 1.2 cm2 code = 5005896284) Ao max PG (test code = 18.30 mm[Hg] 1116409572) AV peak gradient (test mmHg code = 3159447460) AV valve area (test code 1.43 cm2 = 6496592995) AV mean gradient (test mmHg code = 2889398733) TR Peak Sharan (test code = 318.2 cm/s 8625787897) Triscuspid Valve mmHg Regurgitation Peak Gradient (test code = 6615756242) Tapse (test code = 1.83 cm 8502118116) LA volume (BP) (test 88.9 mL code = 6380136352) LAV(MOD-sp2) (test code 78.60 mL = 6838087626) LA Volume Index (BP) 51.1 mL/m2 (test code = 3453887010) MV mean gradient (test mmHg code = 3179837563) MV peak gradient (test mmHg code = 6822415590) MV pk sharan (test code = 175.0 cm/s 1494917517) MV valve area by 1.57 cm2 continuity eq (test code = 9714871130) MV VTI (test code = 33.6 cm 5802881452) MV V2 mean (test code = 114.90 cm/s 4198999228) MV stenosis pressure 1/2 75.9 ms time (test code = 1506927815) LV Diastolic Volume (BP) 130.2 mL (test code = 4476560536) EF(MOD-bp) (test code = 63.40 % 9788718172) LV Systolic Volume (BP) 47.7 mL (test code = 6755743827) SV(MOD-bp) (test code = 82.60 mL 9774848744) EF (test code = 63 % 6782228968) Left Ventricular Stroke 82.6 mL Volume by 2-D Biplane-MOD (test code = 8188238) Radiology Study observation (narrative) (test code = 10707-2) MONTY (test code = MONTY) ?Left?Ventricle: Normal wall motion. Normal systolic function with a visually estimated EF of 60 - 65%. EF by 2D Tirado biplane is 63 %. Normal diastolic function. ?Right?Ventricle: Right ventricle size is normal. Normal systolic function. ?Tricuspid?Valve: Mild transvalvular regurgitation. Right ventricular systolic pressure is 50-55 mmHg. ?RA pressure is 0-5 mmHg. ?Left?Atrium: Left atrium is severely dilated. Left atrium volume index is 51.1 mL/m2. ?Mild mitral stenosis VitalsHeight Weight BSA (Calculated - sq m) BP Pulse 5' 1" (1.549 m) 165 lb (74.8 kg) 1.79 sq meters 117/76 96 [facility] GLUCOSE (AUTOMATED)2022-04-20 17:38:44 Test Item Value Reference Range Interpretation Comments POCT GLU (test code = 7401256646) 133 mg/dL 70-110 H Lab Interpretation (test code = Abnormal 39683-1) [facility] GLUCOSE (AUTOMATED)2022-04-20 17:38:44 Test Item Value Reference Range Interpretation Comments POCT GLU (test code = 2015217219) 133 mg/dL 70-110 H Lab Interpretation (test code = Abnormal 48253-7) [facility] GLUCOSE (AUTOMATED)2022-04-20 13:48:05 Test Item Value Reference Range Interpretation Comments POCT GLU (test code = 4984679150) 129 mg/dL 70-110 H Lab Interpretation (test code = Abnormal 76988-0) [facility] GLUCOSE (AUTOMATED)2022-04-20 13:48:05 Test Item Value Reference Range Interpretation Comments POCT GLU (test code = 2329284357) 129 mg/dL 70-110 H Lab Interpretation (test code = Abnormal 47215-6) [id number] 11:28:59 Test Item Value Reference Range Interpretation Comments NT-proBNP (test code 6160 pg/mL See_Comment H [Autom ated = 8191862634) message] The system which generated this result transmitted reference range : <=450. The reference range was not used to interpret this result as normal/abnormal . MONTY (test code = MONTY) Biotin has been reported to cause a negative bias, interpret results relative to patient's use of biotin. Lab Interpretation Abnormal (test code = 97054-5) [facility] [id number] 11:28:59 Test Item Value Reference Range Interpretation Comments NT-proBNP (test code 6160 pg/mL See_Comment H [Autom ated = 8425052909) message] The system which generated this result transmitted reference range : <=450. The reference range was not used to interpret this result as normal/abnormal . MONTY (test code = MONTY) Biotin has been reported to cause a negative bias, interpret results relative to patient's use of biotin. Lab Interpretation Abnormal (test code = 45013-9) [facility] (for use with Heparin Infusion)2022-04-20 11:21:27 Test Item Value Reference Range Interpretation Comments APTT Patient (test code See_Comment H [Au tomated message] = 3173-2) The system [employer] generated this result transmitted ref erence range: 26 - 36 Seconds. The reference range was not used to int erpret this result as normal/abnormal . Lab Interpretation (test Abnormal code = 85333-6) [facility] (for use with Heparin Infusion)2022-04-20 11:21:27 Test Item Value Reference Range Interpretation Comments APTT Patient (test code See_Comment H [Au tomated message] = 3173-2) The system [employer] generated this result transmitted ref erence range: 26 - 36 Seconds. The reference range was not used to int erpret this result as normal/abnormal . Lab Interpretation (test Abnormal code = 05437-7) [facility] METABOLIC PANEL (NA, K, CL, CO2, GLUCOSE, BUN, CREATININE, CA)2022-04-20 11:18:40 Test Item Value Reference Range Interpretation Comments NA (test code = 142 mmol/L 135-145 3228337082) K (test code = 3.9 mmol/L 3.5-5.0 3021976040) CL (test code = 110 mmol/L 98-108 H 5014737719) CO2 TOTAL (test code = 29 mmol/L 23-31 3640266187) AGAP (test code = 2-16 7769440925) BUN (test code = 22 mg/dL 7-23 4430085827) GLUCOSE (test code = 119 mg/dL 70-110 H 3590386382) CREATININE (test code = 1.07 mg/dL 0.50-1.04 H 1645165161) CALCIUM (test code = 8.5 mg/dL 8.6-10.6 L 8087204350) eGFR (test code = mL/min/1.73m2 5776012178) MONTY (test code = MONTY) Association of [...] tests). Lab Interpretation Abnormal (test code = 55936-3) [facility] 11:18:40 Test Item Value Reference Range Interpretation Comments MAGNESIUM (test code = 3128510066) 2.5 mg/dL 1.7-2.4 H Lab Interpretation (test code = Abnormal 04873-0) [facility] (NA, K, CL, CO2, GLUCOSE, BUN, CREATININE, CA)2022-04-20 11:18:40 Test Item Value Reference Range Interpretation Comments NA (test code = 142 mmol/L 135-145 5148225864) K (test code = 3.9 mmol/L 3.5-5.0 7603895356) CL (test code = 110 mmol/L 98-108 H 1425744390) CO2 TOTAL (test code = 29 mmol/L 23-31 6038707472) AGAP (test code = 2-16 3806238882) BUN (test code = 22 mg/dL 7-23 5604567497) GLUCOSE (test code = 119 mg/dL 70-110 H 1795900934) CREATININE (test code = 1.07 mg/dL 0.50-1.04 H 9636645204) CALCIUM (test code = 8.5 mg/dL 8.6-10.6 L 3943088422) eGFR (test code = mL/min/1.73m2 3441278085) MONTY (test code = MONTY) Association of [...] tests). Lab Interpretation Abnormal (test code = 26447-6) [facility] Test Item Value Reference Range Interpretation Comments MAGNESIUM (test code = 0388743670) 2.5 mg/dL 1.7-2.4 H Lab Interpretation (test code = Abnormal 89829-3) [facility] WITH [id number] 10:47:35 Test Item Value Reference Range Interpretation Comments [...] as normal/abnormal . HGB (test code = 9.9 g/dL 11.6-15.0 L 718-7) HCT (test code = 30.9 % 35.7-45.2 L 4544-3) MCV (test code = 98.4 fL 80.6-95.5 H 787-2) MCH (test code = 31.5 pg 25.9-32.8 785-6) MCHC (test code = 32.0 g/dL 31.6-35.1 786-4) RDW-SD (test code = 47.4 fL 39.0-49.9 26904-4) RDW-CV (test code = 13.4 % 12.0-15.5 788-0) PLT (test code = See_Comment L [Automated 777-3) message] The sy stem which generated this result transmitted reference range : 166 - 358 10*3/ ?L. The reference r melisa was not used to interpret this result as normal/abnormal . MPV (test code = 13.0 fL 9.5-12.9 H 18245-7) NRBC/100 WBC (test See_Comment [Automat ed code = 8399128501) message] The system which generated this result transmitted reference range : 0.0 - 10.0 /100 WBCs. The refer ence range was not u sed to interpret th is result as normal/abnormal . NRBC x10^3 (test code <0.01 See_Comment [Auto mated = 1027502740) message] The s ystem which generated this result transmitted reference range : 10*3/?L. The reference range was not used to interpret this result as normal/abnormal . GRAN MAT (NEUT) % 75.6 % (test code = 770-8) IMM GRAN % (test code 0.20 % = 8706675396) LYMPH % (test code = 14.4 % 736-9) MONO % (test code = 6.9 % 5905-5) EOS % (test code = 2.5 % 713-8) BASO % (test code = 0.4 % 706-2) GRAN MAT x10^3(ANC) 6.95 10*3/uL 1.88-7.09 (test code = 3732512246) IMM GRAN x10^3 (test <0.03 0.00-0.06 code = 8332613282) LYMPH x10^3 (test code 1.32 10*3/uL 1.32-3.29 = 731-0) MONO x10^3 (test code 0.63 10*3/uL 0.33-0.92 = 742-7) EOS x10^3 (test code = 0.23 10*3/uL 0.03-0.39 711-2) BASO x10^3 (test code 0.04 10*3/uL 0.01-0.07 = 704-7) Lab Interpretation Abnormal (test code = 95465-5) [facility] WITH [id number] 10:47:35 Test Item Value Reference Range Interpretation Comments WBC (test code = See_Comment [Automated 9267-2) message] The sy stem which generated this result transmitted reference range : 4.30 - 11.10 10*3/?L. The reference range was not used to interpret this result as normal/abnormal . RBC (test code = See_Comment L [Automated 400-8) message] The sy stem which generated this result transmitted reference range : 3.93 - 5.25 10*6/?L. The reference range was not used to interpret this result as normal/abnormal . HGB (test code = 9.9 g/dL 11.6-15.0 L 718-7) HCT (test code = 30.9 % 35.7-45.2 L 4544-3) MCV (test code = 98.4 fL 80.6-95.5 H 787-2) MCH (test code = 31.5 pg 25.9-32.8 785-6) MCHC (test code = 32.0 g/dL 31.6-35.1 786-4) RDW-SD (test code = 47.4 fL 39.0-49.9 79005-6) RDW-CV (test code = 13.4 % 12.0-15.5 788-0) PLT (test code = See_Comment L [Automated 777-3) message] The sy stem which generated this result transmitted reference range : 166 - 358 10*3/ ?L. The reference r melisa was not used to interpret this result as normal/abnormal . MPV (test code = 13.0 fL 9.5-12.9 H 78036-5) NRBC/100 WBC (test See_Comment [Automat ed code = 9452556270) message] The system which generated this result transmitted reference range : 0.0 - 10.0 /100 WBCs. The refer ence range was not u sed to interpret th is result as normal/abnormal . NRBC x10^3 (test code <0.01 See_Comment [Auto mated = 0615114064) message] The s ystem which generated this result transmitted reference range : 10*3/?L. The reference range was not used to interpret this result as normal/abnormal . GRAN MAT (NEUT) % 75.6 % (test code = 770-8) IMM GRAN % (test code 0.20 % = 4797577234) LYMPH % (test code = 14.4 % 736-9) MONO % (test code = 6.9 % 5905-5) EOS % (test code = 2.5 % 713-8) BASO % (test code = 0.4 % 706-2) GRAN MAT x10^3(ANC) 6.95 10*3/uL 1.88-7.09 (test code = 3341720197) IMM GRAN x10^3 (test <0.03 0.00-0.06 code = 6253392628) LYMPH x10^3 (test code 1.32 10*3/uL 1.32-3.29 = 731-0) MONO x10^3 (test code 0.63 10*3/uL 0.33-0.92 = 742-7) EOS x10^3 (test code = 0.23 10*3/uL 0.03-0.39 711-2) BASO x10^3 (test code 0.04 10*3/uL 0.01-0.07 = 704-7) Lab Interpretation Abnormal (test code = 75715-8) [facility] GLUCOSE (AUTOMATED)2022-04-20 01:24:09 Test Item Value Reference Range Interpretation Comments POCT GLU (test code = 5263836286) 160 mg/dL 70-110 H Lab Interpretation (test code = Abnormal 49740-9) [facility] GLUCOSE (AUTOMATED)2022-04-20 01:24:09 Test Item Value Reference Range Interpretation Comments POCT GLU (test code = 9060155824) 160 mg/dL 70-110 H Lab Interpretation (test code = Abnormal 77402-6) [facility] GLUCOSE (AUTOMATED)2022-04-20 00:56:58 Test Item Value Reference Range Interpretation Comments POCT GLU (test code = 4489704498) 123 mg/dL 70-110 H Lab Interpretation (test code = Abnormal 71440-4) [facility] GLUCOSE (AUTOMATED)2022-04-20 00:56:58 Test Item Value Reference Range Interpretation Comments POCT GLU (test code = 6384972702) 123 mg/dL 70-110 H Lab Interpretation (test code = Abnormal 13598-0) [id number] 23:00:55 Test Item Value Reference Range Interpretation Comments NT-proBNP (test code 7860 pg/mL See_Comment H [Autom ated = 1083624686) message] The system which generated this result transmitted reference range : <=450. The reference range was not used to interpret this result as normal/abnormal . MONTY (test code = MONTY) Biotin has been reported to cause a negative bias, interpret results relative to patient's use of biotin. Lab Interpretation Abnormal (test code = 03995-1) [facility] [id number] 23:00:55 Test Item Value Reference Range Interpretation Comments NT-proBNP (test code 7860 pg/mL See_Comment H [Autom ated = 9672279086) message] The system which generated this result transmitted reference range : <=450. The reference range was not used to interpret this result as normal/abnormal . MONTY (test code = MONTY) Biotin has been reported to cause a negative bias, interpret results relative to patient's use of biotin. Lab Interpretation Abnormal (test code = 18754-5) [facility] (for use with Heparin Infusion)2022-04-19 22:52:22 Test Item Value Reference Range Interpretation Comments APTT Patient (test code See_Comment H [Au tomated message] = 3173-2) The system [employer] generated this result transmitted ref erence range: 26 - 36 Seconds. The reference range was not used to int erpret this result as normal/abnormal . Lab Interpretation (test Abnormal code = 16646-3) [facility] (for use with Heparin Infusion)2022-04-19 22:52:22 Test Item Value Reference Range Interpretation Comments APTT Patient (test code See_Comment H [Au tomated message] = 3173-2) The system [employer] generated this result transmitted ref erence range: 26 - 36 Seconds. The reference range was not used to int erpret this result as normal/abnormal . Lab Interpretation (test Abnormal code = 03886-1) [facility] GLUCOSE (AUTOMATED)2022-04-19 21:31:40 Test Item Value Reference Range Interpretation Comments POCT GLU (test code = 1120590530) 103 mg/dL 70-110 Lab Interpretation (test code = Normal 53318-8) [facility] GLUCOSE (AUTOMATED)2022-04-19 21:31:40 Test Item Value Reference Range Interpretation Comments POCT GLU (test code = 2383598870) 103 mg/dL 70-110 Lab Interpretation (test code = Normal 63488-2) [facility] GLUCOSE (AUTOMATED)2022-04-19 17:36:49 Test Item Value Reference Range Interpretation Comments POCT GLU (test code = 5742829761) 108 mg/dL 70-110 Lab Interpretation (test code = Normal 74184-0) [facility] GLUCOSE (AUTOMATED)2022-04-19 17:36:49 Test Item Value Reference Range Interpretation Comments POCT GLU (test code = 3765719439) 108 mg/dL 70-110 Lab Interpretation (test code = Normal 23854-5) [facility] 16:24:53 Test Item Value Reference Range Interpretation Comments HGB A1C (test code = 6.0 % 4.0-5.7 H 4548-4) MONTY (test code = MONTY) Reference RangesNormal: <5.7%Prediabetes: 5.7 - 6.4%Diabetes: > 6.5% Lab Interpretation (test Abnormal code = 87792-4) [facility]22-[facility]-19 16:24:53 Test Item Value Reference Range Interpretation Comments HGB A1C (test code = 6.0 % 4.0-5.7 H 4548-4) MONTY (test code = MONTY) Reference RangesNormal: <5.7%Prediabetes: 5.7 - 6.4%Diabetes: > 6.5% Lab Interpretation (test Abnormal code = 10149-6) [facility]39278[facility]TOTAL CHOLESTEROL, TRIGLYCERIDES, HDL)2022-04-19 16:06:26 Test Item Value Reference Range Interpretation Comments CHOL (test code = 114 mg/dL 120-200 L 4928772358) HDL (test code = 31 mg/dL >50 L 8435149072) HDLC RATIO (test code = See_Comment [Au tomated message] 0142326182) The system [employer] generated this result transmit dion reference range : <=4.5. The refe rence range was not u sed to interpret th is result as normal/abnormal . TRIG (test code = 95 mg/dL 30-170 0784382014) LDL CHOL (test code = 64 mg/dL See_Comment [Auto mated message] 34848-1) The system [employer] generated this result transmit dion reference range : <=160. The refe rence range was not u sed to interpret th is result as normal/abnormal . VLDL (test code = 19 mg/dL 5-60 2417626868) Lab Interpretation (test Abnormal code = 62849-3) [facility]55401[facility]TOTAL CHOLESTEROL, TRIGLYCERIDES, HDL)2022-04-19 16:06:26 Test Item Value Reference Range Interpretation Comments CHOL (test code = 114 mg/dL 120-200 L 7267746454) HDL (test code = 31 mg/dL >50 L 3589223944) HDLC RATIO (test code = See_Comment [Au tomated message] 3767695104) The system [employer] generated this result transmit dion reference range : <=4.5. The refe rence range was not u sed to interpret th is result as normal/abnormal . TRIG (test code = 95 mg/dL 30-170 4709511452) LDL CHOL (test code = 64 mg/dL See_Comment [Auto mated message] 37772-3) The system [employer] generated this result transmit dion reference range : <=160. The refe rence range was not u sed to interpret th is result as normal/abnormal . VLDL (test code = 19 mg/dL 5-60 1508538994) Lab Interpretation (test Abnormal code = 66198-7) [facility] Test Item Value Reference Range Interpretation Comments MAGNESIUM (test code = 0887368043) 1.7 mg/dL 1.7-2.4 Lab Interpretation (test code = Normal 15530-9) [facility] 13:59:52 Test Item Value Reference Range Interpretation Comments MAGNESIUM (test code = 6352126987) 1.7 mg/dL 1.7-2.4 Lab Interpretation (test code = Normal 51146-4) [facility] GLUCOSE (AUTOMATED)2022-04-19 13:29:43 Test Item Value Reference Range Interpretation Comments POCT GLU (test code = 4667873362) 115 mg/dL 70-110 H Lab Interpretation (test code = Abnormal 36324-6) [facility] GLUCOSE (AUTOMATED)2022-04-19 13:29:43 Test Item Value Reference Range Interpretation Comments POCT GLU (test code = 6084421497) 115 mg/dL 70-110 H Lab Interpretation (test code = Abnormal 55989-3) [facility] [id number] 12:06:10 Test Item Value Reference Interpretation Comments Range TROPONIN I (test 2.320 ng/mL See_Comment H [Automated code = 3520012877) message] The system which generated this result transmitted reference range : <=0.034. The reference range was not used to interpret this result as normal/abnormal . MONTY (test code = Reference (Normal) MONTY) Range (defined by the 99th percentile reference limit): <= 0.034 ng/mL Note: Cardiac troponin begins to rise 3-4 hours after the onset of ischemia. Repeat in 4-6 hours if the sample was drawn within 3-4 hours of the onset of the symptom and found normal. Diagnosis of myocardial injury is made with acute changes in cTn concentrations with at least one serial sample above the 99th percentile upper reference limit (URL), taken together with the patient's clinical presentation. Biotin has been reported to cause a negative bias, interpret results relative to patient's use of biotin. Lab Interpretation Abnormal (test code = 93776-6) [facility] [id number] 12:06:10 Test Item Value Reference Interpretation Comments Range TROPONIN I (test 2.320 ng/mL See_Comment H [Automated code = 0869038759) message] The system which generated this result transmitted reference range : <=0.034. The reference range was not used to interpret this result as normal/abnormal . MONTY (test code = Reference (Normal) MONTY) Range (defined by the 99th percentile reference limit): <= 0.034 ng/mL Note: Cardiac troponin begins to rise 3-4 hours after the onset of ischemia. Repeat in 4-6 hours if the sample was drawn within 3-4 hours of the onset of the symptom and found normal. Diagnosis of myocardial injury is made with acute changes in cTn concentrations with at least one serial sample above the 99th percentile upper reference limit (URL), taken together with the patient's clinical presentation. Biotin has been reported to cause a negative bias, interpret results relative to patient's use of biotin. Lab Interpretation Abnormal (test code = 94199-5) [facility] Un[facility]ated Heparin 2022-04-19 12:00:19 Test Item Value Reference Range Interpretation Comments Anti-Xa UFH (test code = <0.04 See_Comment L [A utomated message] 3274-8) The system [employer] generated this result transmitted ref erence range: 0.30 - 0 .70 IU/mL. The refe rence range was not u sed to interpret this result as normal/abnor mal. Lab Interpretation (test Abnormal code = 53573-8) [facility] Heparin 2022-04-19 12:00:19 Test Item Value Reference Range Interpretation Comments Anti-Xa UFH (test code = <0.04 See_Comment L [A utomated message] 3274-8) The system [employer] generated this result transmitted ref erence range: 0.30 - 0 .70 IU/mL. The refe rence range was not u sed to interpret this result as normal/abnor mal. Lab Interpretation (test Abnormal code = 08118-4) [facility] HospitalProthrombin [facility] (PT) / [id number] 12:00:09 Test Item Value Reference Range Interpretation Comments PROTIME PATIENT (test See_Comment H [Auto mated message] code = 5964-2) The system [employer] generated this result transmitted ref erence range: 10.1 - 1 2.6 Seconds. The reference range was not used to int erpret this result as normal/abnormal . INR (test code = 6301-6) Nor mal INR <1.1; Warfarin Therap eutic range 2.0 to 3. 0 or 2.5 to 3.5, dep ending upon the indica tions. Lab Interpretation (test Abnormal code = 72414-8) [facility] 12:00:09 Test Item Value Reference Range Interpretation Comments APTT Patient (test code = See_Comment [ Automated message] 3173-2) The system [employer] generated this result transmitted ref erence range: 26 - 36 Seconds. The re ference range was not u sed to interpret this result as normal/abnor mal. Lab Interpretation (test Normal code = 20627-2) [facility]D-[id number] 12:00:09 Test Item Value Reference Interpretation Comments Range D-DIMER (test code = See_Comment H [Autom ated 5018666460) message] The system which generated this result transmitted reference range : <0.50 ?g/mL (FEU). The reference range was not used to interpret this result as normal/abnormal . MONTY (test code = This test may be MONTY) used in conjunction with a clinical pretest probability (PTP) assessment model to exclude venous thromboembolism (VTE) in patients suspected of deep venous thrombosis (DVT) and pulmonary embolism (PE) A D-Dimer value less than 0.50 ?g/ml (FEU) has a negative predicative value of 96 to 100% (95% CI)and 97 to 100% (95% CI) as an aid in the diagnosis of deep vein thrombosis (DVT) and pulmonary embolism when there is low or moderate pretest probability of PE or DVT. D-Dimer values are expressed in initial fibrinogen equivalent units (FEU)" The assay results should be used with other information, including the clinical context, in forming a diagnosis. Lab Interpretation Abnormal (test code = 26823-1) [facility] (PT) / [id number] 12:00:09 Test Item Value Reference Range Interpretation Comments PROTIME PATIENT (test See_Comment H [Auto mated message] code = 5964-2) The system [employer] generated this result transmitted ref erence range: 10.1 - 1 2.6 Seconds. The reference range was not used to int erpret this result as normal/abnormal . INR (test code = 6301-6) Nor mal INR <1.1; Warfarin Therap eutic range 2.0 to 3. 0 or 2.5 to 3.5, dep ending upon the indica tions. Lab Interpretation (test Abnormal code = 03713-8) [facility] 12:00:09 Test Item Value Reference Range Interpretation Comments APTT Patient (test code = See_Comment [ Automated message] 3173-2) The system [employer] generated this result transmitted ref erence range: 26 - 36 Seconds. The re ference range was not u sed to interpret this result as normal/abnor mal. Lab Interpretation (test Normal code = 57099-1) [facility] HospitalD-[id number] 12:00:09 Test Item Value Reference Interpretation Comments Range D-DIMER (test code = See_Comment H [Autom ated 1088603931) message] The system which generated this result transmitted reference range : <0.50 ?g/mL (FEU). The reference range was not used to interpret this result as normal/abnormal . MONTY (test code = This test may be MONTY) used in conjunction with a clinical pretest probability (PTP) assessment model to exclude venous thromboembolism (VTE) in patients suspected of deep venous thrombosis (DVT) and pulmonary embolism (PE) A D-Dimer value less than 0.50 ?g/ml (FEU) has a negative predicative value of 96 to 100% (95% CI)and 97 to 100% (95% CI) as an aid in the diagnosis of deep vein thrombosis (DVT) and pulmonary embolism when there is low or moderate pretest probability of PE or DVT. D-Dimer values are expressed in initial fibrinogen equivalent units (FEU)" The assay results should be used with other information, including the clinical context, in forming a diagnosis. Lab Interpretation Abnormal (test code = 68957-3) [facility] WITH [id number] 04:21:00 Test Item Value Reference Range Interpretation Comments WBC (test code = See_Comment H [Automated 7590-2) message] The sy stem which generated this [...] as normal/abnormal . HGB (test code = 10.6 g/dL 11.6-15.0 L 718-7) HCT (test code = 32.5 % 35.7-45.2 L 4544-3) MCV (test code = 97.9 fL 80.6-95.5 H 787-2) MCH (test code = 31.9 pg 25.9-32.8 785-6) MCHC (test code = 32.6 g/dL 31.6-35.1 786-4) RDW-SD (test code = 47.4 fL 39.0-49.9 21201-5) RDW-CV (test code = 13.2 % 12.0-15.5 788-0) PLT (test code = See_Comment L [Automated 777-3) message] The sy stem which generated this result transmitted reference range : 166 - 358 10*3/ ?L. The reference r melisa was not used to interpret this result as normal/abnormal . MPV (test code = 13.5 fL 9.5-12.9 H 63710-6) IPF % (test code = 7.5 % 1.3-7.7 Platelet count 0423635291) measured by fluorescence method. NRBC/100 WBC (test See_Comment [Automat ed code = 1899252405) message] The system which generated this result transmitted reference range : 0.0 - 10.0 /100 WBCs. The refer ence range was not u sed to interpret th is result as normal/abnormal . NRBC x10^3 (test code <0.01 See_Comment [Auto mated = 0381676906) message] The s ystem which generated this result transmitted reference range : 10*3/?L. The reference range was not used to interpret this result as normal/abnormal . GRAN MAT (NEUT) % 81.3 % (test code = 770-8) IMM GRAN % (test code 0.40 % = 9177382774) LYMPH % (test code = 11.3 % 736-9) MONO % (test code = 6.6 % 5905-5) EOS % (test code = 0.2 % 713-8) BASO % (test code = 0.2 % 706-2) GRAN MAT x10^3(ANC) 13.43 10*3/uL 1.88-7.09 H (test code = 4769350643) IMM GRAN x10^3 (test 0.07 10*3/uL 0.00-0.06 H code = 2720865048) LYMPH x10^3 (test 1.86 10*3/uL 1.32-3.29 code = 731-0) MONO x10^3 (test code 1.09 10*3/uL 0.33-0.92 H = 742-7) EOS x10^3 (test code 0.03 10*3/uL 0.03-0.39 = 711-2) BASO x10^3 (test code 0.03 10*3/uL 0.01-0.07 = 704-7) Lab Interpretation Abnormal (test code = 56222-9) [facility] WITH [id number] 04:21:00 Test Item Value Reference Range Interpretation Comments WBC (test code = See_Comment H [Automated 6690-2) message] The sy stem which [...] as normal/abnormal . HGB (test code = 10.6 g/dL 11.6-15.0 L 718-7) HCT (test code = 32.5 % 35.7-45.2 L 4544-3) MCV (test code = 97.9 fL 80.6-95.5 H 787-2) MCH (test code = 31.9 pg 25.9-32.8 785-6) MCHC (test code = 32.6 g/dL 31.6-35.1 786-4) RDW-SD (test code = 47.4 fL 39.0-49.9 83319-3) RDW-CV (test code = 13.2 % 12.0-15.5 788-0) PLT (test code = See_Comment L [Automated 777-3) message] The sy stem which generated this result transmitted reference range : 166 - 358 10*3/ ?L. The reference r melisa was not used to interpret this result as normal/abnormal . MPV (test code = 13.5 fL 9.5-12.9 H 18247-4) IPF % (test code = 7.5 % 1.3-7.7 Platelet count [id number]) measured by fluorescence method. NRBC/100 WBC (test See_Comment [Automat ed code = 7806498696) message] The system which generated this result transmitted reference range : 0.0 - 10.0 /100 WBCs. The refer ence range was not u sed to interpret th is result as normal/abnormal . NRBC x10^3 (test code <0.01 See_Comment [Auto mated = 7073534426) message] The s ystem which generated this result transmitted reference range : 10*3/?L. The reference range was not used to interpret this result as normal/abnormal . GRAN MAT (NEUT) % 81.3 % (test code = 770-8) IMM GRAN % (test code 0.40 % = 5309649482) LYMPH % (test code = 11.3 % 736-9) MONO % (test code = 6.6 % 5905-5) EOS % (test code = 0.2 % 713-8) BASO % (test code = 0.2 % 706-2) GRAN MAT x10^3(ANC) 13.43 10*3/uL 1.88-7.09 H (test code = 4701758562) IMM GRAN x10^3 (test 0.07 10*3/uL 0.00-0.06 H code = 9295602923) LYMPH x10^3 (test 1.86 10*3/uL 1.32-3.29 code = 731-0) MONO x10^3 (test code 1.09 10*3/uL 0.33-0.92 H = 742-7) EOS x10^3 (test code 0.03 10*3/uL 0.03-0.39 = 711-2) BASO x10^3 (test code 0.03 10*3/uL 0.01-0.07 = 704-7) Lab Interpretation Abnormal (test code = 03142-7) [facility] [id number] 04:04:02 Test Item Value Reference Interpretation Comments Range TROPONIN I (test 4.270 ng/mL See_Comment H [Automated code = 4273058489) message] The system which generated this result transmitted reference range : <=0.034. The reference range was not used to interpret this result as normal/abnormal . MONTY (test code = Reference (Normal) MONTY) Range (defined by the 99th percentile reference limit): <= 0.034 ng/mL Note: Cardiac troponin begins to rise 3-4 hours after the onset of ischemia. Repeat in 4-6 hours if the sample was drawn within 3-4 hours of the onset of the symptom and found normal. Diagnosis of myocardial injury is made with acute changes in cTn concentrations with at least one serial sample above the 99th percentile upper reference limit (URL), taken together with the patient's clinical presentation. Biotin has been reported to cause a negative bias, interpret results relative to patient's use of biotin. Lab Interpretation Abnormal (test code = 42716-3) [facility] [id number] 04:04:02 Test Item Value Reference Interpretation Comments Range TROPONIN I (test 4.270 ng/mL See_Comment H [Automated code = 4587185879) message] The system which generated this result transmitted reference range : <=0.034. The reference range was not used to interpret this result as normal/abnormal . MONTY (test code = Reference (Normal) MONTY) Range (defined by the 99th percentile reference limit): <= 0.034 ng/mL Note: Cardiac troponin begins to rise 3-4 hours after the onset of ischemia. Repeat in 4-6 hours if the sample was drawn within 3-4 hours of the onset of the symptom and found normal. Diagnosis of myocardial injury is made with acute changes in cTn concentrations with at least one serial sample above the 99th percentile upper reference limit (URL), taken together with the patient's clinical presentation. Biotin has been reported to cause a negative bias, interpret results relative to patient's use of biotin. Lab Interpretation Abnormal (test code = 12802-6) [facility] [id number] 04:00:59 Test Item Value Reference Range Interpretation Comments NT-proBNP (test code 29677 pg/mL See_Comment H [Autom ated = 2392387641) message] The system which generated this result transmitted reference range : <=450. The reference range was not used to interpret this result as normal/abnormal . MONTY (test code = MONTY) Biotin has been reported to cause a negative bias, interpret results relative to patient's use of biotin. Lab Interpretation Abnormal (test code = 45441-8) [facility] [id number] 04:00:59 Test Item Value Reference Range Interpretation Comments NT-proBNP (test code 53276 pg/mL See_Comment H [Autom ated = 0706721619) message] The system which generated this result transmitted reference range : <=450. The reference range was not used to interpret this result as normal/abnormal . MONTY (test code = MONTY) Biotin has been reported to cause a negative bias, interpret results relative to patient's use of biotin. Lab Interpretation Abnormal (test code = 66643-9) [facility]. METABOLIC PANEL (29093)2022-04-19 03:52:20 Test Item Value Reference Range Interpretation Comments NA (test code = 137 mmol/L 135-145 2075936840) K (test code = 4.7 mmol/L 3.5-5.0 0106591881) CL (test code = 104 mmol/L 98-108 3649318811) CO2 TOTAL (test code = 23 mmol/L 23-31 5814047014) AGAP (test code = 2-16 2597155334) BUN (test code = 39 mg/dL 7-23 H 9237738099) GLUCOSE (test code = 134 mg/dL 70-110 H 8772623208) CREATININE (test code = 1.23 mg/dL 0.50-1.04 H 7928836501) TOTAL BILI (test code = 0.8 mg/dL 0.1-1.4 1181791096) CALCIUM (test code = 8.8 mg/dL 8.6-10.6 5183596361) T PROTEIN (test code = 6.3 g/dL 6.3-8.2 4812526761) ALBUMIN (test code = 3.8 g/dL 3.5-5.0 1200377453) ALK PHOS (test code = 38 U/L 34-122 3970252504) ALTv (test code = 48 U/L 5-35 H 1742-6) AST(SGOT) (test code = 61 U/L 13-40 H 6492439022) eGFR (test code = mL/min/1.73m2 2993132754) MONTY (test code = MONTY) Association of [...] tests). Lab Interpretation Abnormal (test code = 58080-2) [facility]. METABOLIC PANEL (93101)2022-04-19 03:52:20 Test Item Value Reference Range Interpretation Comments NA (test code = 137 mmol/L 135-145 1601863681) K (test code = 4.7 mmol/L 3.5-5.0 2954878855) CL (test code = 104 mmol/L 98-108 7780505009) CO2 TOTAL (test code = 23 mmol/L 23-31 8391887809) AGAP (test code = 2-16 1541553317) BUN (test code = 39 mg/dL 7-23 H 8447041124) GLUCOSE (test code = 134 mg/dL 70-110 H 5948611132) CREATININE (test code = 1.23 mg/dL 0.50-1.04 H 5086223249) TOTAL BILI (test code = 0.8 mg/dL 0.1-1.9 4605037362) CALCIUM (test code = 8.8 mg/dL 8.6-10.6 3274800369) T PROTEIN (test code = 6.3 g/dL 6.3-8.2 1741950930) ALBUMIN (test code = 3.8 g/dL 3.5-5.0 0226721517) ALK PHOS (test code = 38 U/L 34-122 4302101413) ALTv (test code = 48 U/L 5-35 H 2-6) AST(SGOT) (test code = 61 U/L 13-40 H 9394129240) eGFR (test code = mL/min/1.73m2 5786579937) MONTY (test code = MONTY) Association of [...] tests). Lab Interpretation Abnormal (test code = 04502-2) [facility] 03:52:00 Test Item Value Reference Range Interpretation Comments LIPASE (test code = 9589268653) 26 U/L 0-220 Lab Interpretation (test code = Normal 07569-1) [facility] 03:52:00 Test Item Value Reference Range Interpretation Comments LIPASE (test code = 2023201373) 26 U/L 0-220 Lab Interpretation (test code = Normal 07486-8) [facility] HospitalUrinalysis20[facility] 00:26:21 Test Item Value Reference Range Interpretation Comments APPEARANCE (test code = Clear Clear 2612583320) COLOR (test code = Straw Yellow A 4320444694) PH (test code = 4.8-8.0 9378699883) SP GRAVITY (test code = 1.003-1.030 8207443054) GLU U QUAL (test code = Normal Normal 8321304702) BLOOD (test code = Negative Negative 8842343213) KETONES (test code = Negative Negative 9691533992) PROTEIN (test code = Negative Negative 2887-8) UROBILIN (test code = Normal Normal 7224741273) BILIRUBIN (test code = Negative Negative 5717408066) NITRITE (test code = Negative Negative 3268775918) LEUK HOMER (test code = Negative Negative 3919757809) RBC/HPF (test code = <1 See_Comment [Autom ated message] 2692738365) The system [employer] generated this result transmitted ref erence range: 0 - 3 HP F. The reference range was not used to int erpret this result as normal/abnormal . WBC/HPF (test code = <1 See_Comment [Autom ated message] 9111472337) The system [employer] generated this result transmitted ref erence range: 0 - 5 HP F. The reference range was not used to int erpret this result as normal/abnormal . BACTERIA (test code = Negative Negative 0359246002) SQ EPITH (test code = <1 HPF 4998686490) Lab Interpretation (test Abnormal code = 81764-3) [facility] Metabolic [id number] 00:16:40 Test Item Value Reference Range Interpretation Comments NA (test code = 137 mmol/L 135-145 4112251384) K (test code = 5.2 mmol/L 3.5-5.0 H 9712059714) CL (test code = 101 mmol/L 98-108 1079394013) CO2 TOTAL (test code = 28 mmol/L 23-31 9777742575) AGAP (test code = 2-16 9220317156) BUN (test code = 56 mg/dL 7-23 H 0474097913) GLUCOSE (test code = 75 mg/dL 70-110 9915757032) CREATININE (test code = 1.46 mg/dL 0.50-1.04 H 7882708594) TOTAL BILI (test code = 0.4 mg/dL 0.1-1.0 3725361840) CALCIUM (test code = 9.6 mg/dL 8.6-10.6 3683138821) T PROTEIN (test code = 7.3 g/dL 6.3-8.2 5909980390) ALBUMIN (test code = 4.2 g/dL 3.5-5.0 2750079511) ALK PHOS (test code = 44 U/L 34-122 3724423451) ALTv (test code = 22 U/L 5-35 1742-6) AST(SGOT) (test code = 52 U/L 13-40 H 7388525869) eGFR (test code = mL/min/1.73m2 9958199273) OMNTY (test code = MONTY) Association of Glomerular [...] tests). Lab Interpretation Abnormal (test code = 59197-6) [facility], [id number] 00:16:25 Test Item Value Reference Range Interpretation Comments LIPASE (test code = 6956493567) 143 U/L 0-220 Lab Interpretation (test code = Normal 79151-6) [facility] with [id number] 23:50:22 Test Item Value Reference Range Interpretation [...] RDW-SD (test code = 47.1 fL 39.0-49.9 20978-3) RDW-CV (test code = 13.5 % 12.0-15.5 788-0) PLT (test code = See_Comment [Automated 777-3) message] The sy stem which generated this result transmitted reference range : 166 - 358 10*3/ ?L. The reference r melisa was not used to interpret this result as normal/abnormal . MPV (test code = 12.5 fL 9.5-12.9 19429-4) NRBC/100 WBC (test See_Comment [Automat ed code = 8007811754) message] The system which generated this result transmitted reference range : 0.0 - 10.0 /100 WBCs. The refer ence range was not u sed to interpret th is result as normal/abnormal . NRBC x10^3 (test code <0.01 See_Comment [Auto mated = 1440973018) message] The s ystem which generated this result transmitted reference range : 10*3/?L. The reference range was not used to interpret this result as normal/abnormal . GRAN MAT (NEUT) % 54.9 % (test code = 770-8) IMM GRAN % (test code 0.20 % = 3776215485) LYMPH % (test code = 30.0 % 736-9) MONO % (test code = 10.0 % 5905-5) EOS % (test code = 4.4 % 713-8) BASO % (test code = 0.5 % 706-2) GRAN MAT x10^3(ANC) 4.62 10*3/uL 1.88-7.09 (test code = 8437127095) IMM GRAN x10^3 (test <0.03 0.00-0.06 code = 3091057075) LYMPH x10^3 (test code 2.52 10*3/uL 1.32-3.29 = 731-0) MONO x10^3 (test code 0.84 10*3/uL 0.33-0.92 = 742-7) EOS x10^3 (test code = 0.37 10*3/uL 0.03-0.39 711-2) BASO x10^3 (test code 0.04 10*3/uL 0.01-0.07 = 704-7) Lab Interpretation Abnormal (test code = 54005-7) [facility] [id number] 20:44:07 No acute fracture or traumatic malalignment of the cervical spine.Degenerative changes of the cervical spine as detailed with right C4- G6cruuom foraminal narrowing. EXAMINATION: CT CERVICAL SPINE WO CONTRAST HISTORY: Neck pain, chronic, no prior imaging [...] sclerosis in right C4 pedicle, possibly bone island.IMPRESSIONNo acute fracture or traumatic malalignment of the cervical spine.Degenerative changes of the cervical spine as detailed with right C4- P2srgfxy foraminal narrowing.[facility] HospitalTrmem[facility] institutebriseida I 2021-01-16 20:14:00 Test Item Value Reference Range Interpretation Comments TROPONIN I (test 0.005 ng/mL See_Comment [Automated code = 7176181069) message] The system which generated this result [...] ? Lab Interpretation Normal (test code = 91932-2) [facility] HospitalN-TERMINAL [id number] 20:10:00 Test Item Value Reference Range Interpretation Comments NT-proBNP (test code 466 pg/mL See_Comment H [Autom ated = 7443457852) message] The system which generated this result transmitted reference range : <=450. The reference range was not used to interpret this result as normal/abnormal . MONTY (test code = MONTY) Biotin has been reported to cause a negative bias, interpret results relative to patient's use of biotin. Lab Interpretation Abnormal (test code = 82833-9) [facility] 1 [id number] 20:09:52 No acute cardiopulmonary abnormality. Preliminary Report [...] User - 01/16/2021 2:10 PM CSTEXAM: XR CHEST 1 VWCLINICAL INDICATION: left shoulder pain COMPARISON: NoneFINDINGS:The lungs are well-expanded and clear without focal consolidation, pleuraleffusion, or pneumothorax. Mild cardiomegaly. The aorta is tortuousNo acute osseous abnormality. IMPRESSIONNo acute cardiopulmonary abnormality.Preliminary Report Dictated by Resident: Norman Clifton MD., have reviewed this study and agree with the abovereport.[facility] HospitalaPTT2021-03-06 20:03:00 Test Item Value Reference Range Interpretation Comments APTT Patient (test See_Comment [Automat ed code = 3173-2) message] The system which generated this result transmitted reference range : 23 - 38 Seconds . The reference range was not used to interpr et this result as normal/abnormal . MONTY (test code = MONTY) The [facility] patient population mean normal value for aPTT is 30 seconds. Lab Interpretation Normal (test code = 41598-1) [facility] Metabolic Panel (NA, K, CL, CO2, GLUCOSE, BUN, CREATININE, CA)2021-01-16 20:02:00 Test Item Value Reference Range Interpretation Comments NA (test code = 140 mmol/L 135-145 3505367152) K (test code = 4.5 mmol/L 3.5-5 0611128979) CL (test code = 102 mmol/L 98-108 6849910789) CO2 TOTAL (test code = 31 mmol/L 23-31 4024526714) AGAP (test code = 2-16 2827495446) BUN (test code = 43 mg/dL 7-23 H 0657683545) GLUCOSE (test code = 119 mg/dL 70-110 H 1383318004) CREATININE (test code = 1.20 mg/dL 0.5-1.04 H 6399792889) CALCIUM (test code = 9.4 mg/dL 8.6-10.6 3359685160) eGFR Calculation mL/min/1.73m2 (Non-) (test code = 8839707801) eGFR Calculation mL/min/1.73m2 () (test code = 9210481808) MONTY (test code = MONTY) Association of [...] tests). Lab Interpretation Abnormal (test code = 56668-6) [facility] HospitalHepatic Function Panel (ALB, T.PRO, BILI T, BU/BC, ALT, AST, ALK PHOS)2021-01-16 20:02:00 Test Item Value Reference Range Interpretation Comments TOTAL BILI (test code = 7992720069) 0.4 mg/dL 0.1-1.1 BILI UNCON (test code = 2863400886) 0.3 mg/dL 0.1-1.1 BILI CONJ (test code = 4877645665) 0.0 mg/dL 0-0.3 T PROTEIN (test code = 6470546736) 7.5 g/dL 6.3-8.2 ALBUMIN (test code = 4335472705) 4.6 g/dL 3.5-5 ALK PHOS (test code = 3583103810) 46 U/L 34-122 ALTv (test code = 1742-6) 17 U/L 5-35 AST(SGOT) (test code = 3744009500) 26 U/L 13-40 Lab Interpretation (test code = Normal 62128-6) [facility] HospitalMAGNESIUM2021-03-06 20:02:00 Test Item Value Reference Range Interpretation Comments MAGNESIUM (test code = 3252187825) 1.9 mg/dL 1.7-2.4 Lab Interpretation (test code = Normal 77496-9) [facility] HospitalProthrombin Time (PT) / [id number] 20:01:00 Test Item Value Reference Range Interpretation [...] tions. Lab Interpretation (test Normal code = 04199-6) [facility] with [id number] 19:51:00 Test Item Value Reference Range Interpretation Comments WBC (test code = See_Comment [Automated 6890-2) message] The sy stem which generated this [...] RDW-SD (test code = 47.7 fL 39-49.9 43194-0) RDW-CV (test code = 13.2 % 12-15.5 788-0) PLT (test code = See_Comment [Automated 777-3) message] The sy stem which generated this result transmitted reference range : 166 - 358 10*3/ ?L. The reference r melisa was not used to interpret this result as normal/abnormal . MPV (test code = 12.2 fL 9.5-12.9 34516-9) NRBC/100 WBC (test See_Comment [Automat ed code = 5479371128) message] The system which generated this result transmitted reference range : 0.0 - 10.0 /100 WBCs. The refer ence range was not u sed to interpret th is result as normal/abnormal . NRBC x10^3 (test code <0.01 See_Comment [Auto mated = 6429155120) message] The s ystem which generated this result transmitted reference range : 10*3/?L. The reference range was not used to interpret this result as normal/abnormal . GRAN MAT (NEUT) % 75.7 % (test code = 770-8) IMM GRAN % (test code 0.20 % = 3810181702) LYMPH % (test code = 18.2 % 736-9) MONO % (test code = 4.6 % 5905-5) EOS % (test code = 0.9 % 713-8) BASO % (test code = 0.4 % 706-2) GRAN MAT x10^3(ANC) 6.20 10*3/uL 1.88-7.09 (test code = 9649012377) IMM GRAN x10^3 (test <0.03 0-0.06 code = 1026832776) LYMPH x10^3 (test code 1.49 10*3/uL 1.32-3.29 = 731-0) MONO x10^3 (test code 0.38 10*3/uL 0.33-0.92 = 742-7) EOS x10^3 (test code = 0.07 10*3/uL 0.03-0.39 711-2) BASO x10^3 (test code 0.03 10*3/uL 0.01-0.07 = 704-7) Lab Interpretation Abnormal (test code = 42896-3) [facility] HospitalXR FOOT 3+ VW [id number] 21:12:491. Comminuted, intra-articular fracture of the base of the proximal phalanxof the great toe2. Diffuse soft tissue swelling involving the distal lower extremity andmedial malleolus3. Small plantar calcaneal spur EXAM: Left ankle 3 views EXAM: Left foot 3 views HISTORY: Left ankle pain status post fall TECHNIQUE:AP, lateral, oblique view of the left ankle and left foot isobtained. FINDINGS: No acute abnormality of the ankle joint is seen. Ankle mortise is intact.No bone lesion is present. Diffuse softtissue swelling is seen in thedistal lower extremity and medial malleolus. There is a comminuted intra-articular fracture involving the base of theproximal phalanx of the great toe. No other acute abnor mality of the footis seen. A small plantar calcaneal spur is noted. Pes planus deformity ispresent. Calcifications are seen in the vessels of the foot. [facility], Radiant Results Inft User - 12/06/2019 3:13PM CSTEXAM: Left ankle 3 viewsEXAM: Left foot [...] lower extremity andmedial malleolus3. Small plantar calcaneal spurUnSt. David's Georgetown HospitalXR ANKLE 3+ VW [id number] 21:12:491. Comminuted, intra-articular fracture of the base of the proximal phalanxof the great toe2. Diffuse soft tissue swelling involving the distal lower extremity andmedial malleolus3. Small plantar calcaneal spur EXAM: Left ankle 3 views EXAM: Left foot 3 views HISTORY: Left ankle pain status post fall TECHNIQUE:AP, lateral, oblique view of the left ankle [...] seen in the vessels of the foot. [facility], Radiant Results Inft User - 12/06/2019 3:13PM CSTEXAM: Left ankle 3 viewsEXAM: Left foot [...] lower extremity andmedial malleolus3. Small plantar calcaneal spurUnSt. David's Georgetown Hospital
[2023-09-29 16:07] LABS: Absolute Lymphocytes (CBC) 1.6 K/uL (0.7-4.9); Hematocrit 33.3 % (36.0-45.0); Lymphocytes % 19.3 % (15.3-44.8); MCV 95.2 fL (80-100); MPV 9.9 fL (7.6-11.3); Platelets 183 thou/uL (152-406)
[2023-09-29] MEDS ORDERED: NA CHLORIDE 0.9% 500 ML ONE ×2 (16:16→17:52)
[2023-09-29 16:24] LABS: Albumin 3.4 g/dL (3.4-5.0); Bilirubin Total 0.2 mg/dL (0.2-1.0); Potassium 5.7 mEq/L (3.5-5.1); Protein, Total 7.3 g/dL (6.4-8.2)
[2023-09-29 16:25] LABS: Specific Gravity 1.008 (1.005-1.030); Urine Bilirubin NEGATIVE (Negative); Urine Blood Negative (Negative); Urine Clarity Clear (Clear); Urine Color Colorless (Yellow); Urine Glucose NEGATIVE (Negative); Urine Protein NEGATIVE (Negative); Urine Urobilinogen Normal (Normal); Urine pH 6.5 (5.0-7.0)
[2023-09-29] MEDS ORDERED: DOXYCYCLINE 100 MG CAP PO ONE (17:13)
[2023-09-29] MEDS ORDERED: MUPIROCIN 2% OINT 22GM TUBE TOP ONE (17:13)
[2023-09-29] MEDS ORDERED: CLINDAMYCIN 900MG/D5W 900 MG/50 ML IVPB IV ONE (17:13)
--- NOTE | 2023-09-29 17:20 | RAD REPORT ---
EXAM DESCRIPTION: US - Extremity Nonvascular Limited - 09/29/2023 4:48 pm CLINICAL HISTORY: PAIN COMPARISON: BREAST/AXILLA, LIMITED dated 09/21/2015 TECHNIQUE: Real-time sonographic evaluation of the area of interest was performed left groin. FINDINGS: Nonspecific 3 mm cystic structure inner thigh of unclear etiology. No obvious mass is evid ent.
--- NOTE | 2023-09-29 17:40 | RAD REPORT ---
EXAM DESCRIPTION: CT - Abdomen Pelvis Wo Contrast - 09/29/2023 5:24 pm CLINICAL HISTORY: Abdominal pain. ABDOMINAL DISTENTION COMPARISON: CT ABD PELVIS W CONTRAST dated 11/02/2015 TECHNIQUE: CT imaging of the abdomen and pelvis was performed without contrast. Solid organ, bowel a nd vascular assessment is limited due to lack of IV and oral contrast. All CT scans are performed using dose optimization technique as appropriate and may include automated exposure control or mA/KV adjustment according to patient size. FINDINGS: The lower lung ellison are clear. The liver, spleen, pancreas, adrenal glands and kidneys are within normal limits for a limited non-co ntrast examination. No bowel obstruction, free air, free fluid or abscess. There is significant stool retained throughout the colon. Advanced colonic diverticulosis is present, greatest in the sigmoid colon without diverti culitis. The appendix is normal. Significant compression fractures are present affecting L1 and L4, likely chronic.Moderate lower lumb ar degenerative changes are present. Mild degenerative anterolisthesis of L4 on 5. IMPRESSION: There is significant fecal retention throughout the colon present with advanced divertic ulosis coli noted, particularly involving the sigmoid colon. Moderate lumbar degenerative changes are present as detailed. A limited non-contrast examination was performed as detailed.
[2023-09-29] MEDS ORDERED: LACTULOSE 20 GM/30 ML UCUP ONE (18:34)
[2023-09-29] MEDS ORDERED: SOD POLYSTYREN SUL 15 GM/60 ML UCUP ONE (18:34)
[2023-09-29] MEDS ORDERED: BISACODYL 10 MG RECTAL SUPP ONE (18:34)
--- NOTE | 2023-09-29 19:21 | ER ---
Nurse's Notes [facility] Name: Poly Granados Age: 82 yrs Sex: Female : 1940 Arrival Date: 09/29/2023 Time: 14:14 Bed 20 Private MD: Diagnosis: Type 2 diabetes mellitus with hyperglycemia;Acute kidney failure, unspecified-ON CHRONIC;Hyperkalemia;Other specified disorders of the skin and subcutaneous tissue-LEFT LABIA AND GROIN Presentation: 09/29 14:46 Chief complaint: Granddaughter states OBGYN sent her over to ED for IV abx, has been nj1 treated with bactrim for a vaginal boil but has not gotten better. Coronavirus screen: Vaccine status: Patient reports receiving the 2nd dose of the covid vaccine. Ebola Screen: Patient denies travel to an Ebola-affected area in the 21 days before illness onset. Initial Sepsis Screen: Does the patient meet any 2 criteria? No. Patient's initial sepsis screen is negative. Does the patient have a suspected source of infection? Yes: Skin breakdown/wound. Risk Assessment: Do you want to hurt yourself or someone else? Patient reports no desire to harm self or others. Onset of symptoms was September 2023. 14:46 Method Of Arrival: Ambulatory [facility] 14:46 Acuity: CODY 3 nj1 Historical: - Allergies: 14:54 NKDA; nj1 - PMHx: 14:54 Arthritis; Diabetes - NIDDM; Hyperlipidemia; Hypertension; Gastric reflux; nj1 - Immunization history:: Client reports receiving the 2nd dose of the Covid vaccine. - Social history:: Smoking status: Patient denies any tobacco usage or history of. - Family history:: not pertinent. Screenin:15 [facility] ED Fall Risk Assessment (Adult) History of falling in the last 3 months, db including since admission No falls in past 3 months (0 pts) Confusion or Disorientation No (0 pts) Intoxicated or Sedated No (0 pts) Impaired Gait No (0 pts) Mobility Assist Device Used Yes (1 pt) Altered Elimination No (0 pt) Score/Fall Risk Level 0 - 2 = Low Risk Oriented to surroundings, Maintained a safe environment. Abuse screen: Denies threats or abuse. Denies injuries from another. Nutritional screening: No deficits noted. Tuberculosis screening: No symptoms or risk factors identified. Assessment: 15:27 Reassessment: Patient appears in no apparent distress at this time. Patient and/or db family updated on plan of care and expected duration. Pain level reassessed. Patient is alert, oriented x 3, equal unlabored respirations, skin warm/dry/pink. PT AMBULATORY TO ROOM. 16:15 Reassessment: Patient appears in no apparent distress at this time. Patient and/or db family updated on plan of care and expected duration. Pain level reassessed. Patient is alert, oriented x 3, equal unlabored respirations, skin warm/dry/pink. 17:00 Neuro: Level of Consciousness is awake, alert, obeys commands. db 17:00 Reassessment: Patient appears in no apparent distress at this time. Patient and/or db family updated on plan of care and expected duration. Pain level reassessed. Patient is alert, oriented x 3, equal unlabored respirations, skin warm/dry/pink. Patient states feeling better. Pain: Denies pain. 18:15 Reassessment: Patient appears in no apparent distress at this time. Patient and/or db family updated on plan of care and expected duration. Pain level reassessed. Patient is alert, oriented x 3, equal unlabored respirations, skin warm/dry/pink. AMBULATORY TO RESTROOM. 19:15 Reassessment: Patient appears in no apparent distress at this time. Patient and/or jb4 family updated on plan of care and expected duration. Pain level reassessed. Patient is alert, oriented x 3, equal unlabored respirations, skin warm/dry/pink. 20:10 Reassessment: Patient appears in no apparent distress at this time. Patient and/or jb4 family updated on plan of care and expected duration. Pain level reassessed. Patient is alert, oriented x 3, equal unlabored respirations, skin warm/dry/pink. Pt and family speaking with ER provider and Admitting provider about trying to leave. 20:20 Reassessment: Pt decided to stay in the hospital. jb4 21:15 Reassessment: Patient appears in no apparent distress at this time. Patient and/or jb4 family updated on plan of care and expected duration. Pain level reassessed. Patient is alert, oriented x 3, equal unlabored respirations, skin warm/dry/pink. Vital Signs: 14:46 BP 157 / 66; Pulse 66; Resp 18; Temp 98.3(O); Pulse Ox 97% ; Weight 69.4 kg; Height 5 nj1 ft. 1 in. ; 16:15 BP 154 / 57; Pulse 63; Resp 16; Pulse Ox 99% on R/A; db 17:25 BP 157 / 67; Pulse 63; Resp 18; Pulse Ox 98% on R/A; db 18:08 BP 165 / 63; Pulse 65; Resp 16; Pulse Ox 100% on R/A; db 20:00 BP 154 / 71; Pulse 68; Resp 16; Pulse Ox 97% on R/A; jb4 21:15 BP 162 / 67; Pulse 65; Resp 16; Pulse Ox 95% on R/A; jb4 14:46 Body Mass Index 28.91 (69.40 kg, 154.94 cm) nj1 [place] Coma Score: 16:22 Eye Response: spontaneous(4). Motor Response: obeys commands(6). Verbal Response: raymond oriented(5). Total: 15. ED Course: 14:16 Patient arrived in ED. rg4 14:27 Patrick Villeda MD is Attending Physician. raymond 14:54 Triage completed. nj1 14:55 Arm band placed on right wrist. nj1 15:45 Inserted saline lock: 22 gauge in right antecubital area, using aseptic technique. db Blood collected. 15:46 Jory Ng, CARLOS is Primary Nurse. db 16:15 Patient has correct armband on for positive identification. Bed in low position. Call db light in reach. Side rails up X 1. Pulse ox on. NIBP on. Warm blanket given. 16:50 US Extrmty Nonvasular Limited: left groin , labia In Process Unspecified. EDMS 17:26 CT Abd/Pelvis - Without Contrast In Process Unspecified. EDMS 18:04 Repeat lab(s) drawn. by nd, sent to lab. db 18:06 Inserted saline lock: 22 gauge in left antecubital area, using aseptic technique. Blood db collected. 19:10 Mouna Hayes MD is Hospitalizing Provider. raymond 21:46 No provider procedures requiring assistance completed. jb4 21:47 Patient admitted, IV remains in place. jb4 Administered Medications: 16:03 Drug: NS 0.9% IV 500 ml IV at bolus once Route: IV; Rate: bolus; Site: right db antecubital; 16:50 Drug: Mupirocin Topical Ointment 2 % 1 application Topical once Route: Topical; Site: db affected area; 16:55 Drug: Clindamycin IVPB 900 mg IVPB once over 30 mins; (mix in 50 mL) Route: IVPB; db Infused Over: 30 mins; Site: right antecubital; 16:55 Drug: Doxycycline PO 200 mg PO once Route: PO; db 19:07 Follow up: Response: No adverse reaction db 17:35 Drug: NS 0.9% IV 500 ml IV at bolus once Route: IV; Rate: bolus; Site: right db antecubital; 18:33 Drug: Lactulose PO 30 grams 45 ml PO once Volume: 45 ml; Route: PO; db 19:07 Follow up: Response: No adverse reaction db 18:52 Drug: Kayexalate PO 30 grams PO once Route: PO; db 19:07 Follow up: Response: No adverse reaction db 19:07 Drug: Dulcolax TX Suppository 10 mg TX once Route: TX; db 19:07 Follow up: Response: No adverse reaction db Outcome: 19:21 Decision to Hospitalize by Provider. raymond 21:46 Admitted to Tele accompanied by nurse, via wheelchair, room 401, with chart, jb4 21:46 Condition: stable 21:46 Discharge instructions given to patient, Instructed on the need for admit, Demonstrated understanding of instructions, 21:47 Patient left the ED. jb4 Signatures: Dispatcher [employer] EDPatrick Snell MD MD cha Garcia, Rubi rg4 Dom Tam RN RN jb4 Jory Ng RN RN db Jaco, Norma, CARLOS RN nj1 Corrections: (The following items were deleted from the chart) 19:18 19:18 Reassessment: Patient appears in no apparent distress at this time. Patient db and/or family updated on plan of care and expected duration. Pain level reassessed. Patient is alert, oriented x 3, equal unlabored respirations, skin warm/dry/pink. Patient states feeling better. db 19:18 19:18 Pain: Denies pain. db db
--- NOTE | 2023-09-29 19:21 | EDPHYS ---
Physician Documentation [facility] Name: Poly Granados Age: 82 yrs Sex: Female : 1940 Arrival Date: 09/29/2023 Time: 14:14 Bed 20 Private MD: Patrick Montero HPI: 09/29 16:22 This 82 yrs old Female presents to ER via Ambulatory with complaints of Sent raymond by Dr for IV Antibiotics. 16:22 The patient presents with an abscess of the pelvis, the patient presents with a swollen raymond area of the pelvis. Description: The affected area is small, confluent, swollen. Onset: The symptoms/episode began/occurred 3 week(s) ago. Possible cause(s): unknown. Associated signs and symptoms: The patient has no apparent associated signs or symptoms. Modifying factors: the symptoms are alleviated by nothing, the symptoms are aggravated by nothing. The patient has not experienced similar symptoms in the past. Historical: - Allergies: 14:54 NKDA; nj1 - PMHx: 14:54 Arthritis; Diabetes - NIDDM; Hyperlipidemia; Hypertension; Gastric reflux; nj1 - Immunization history:: Client reports receiving the 2nd dose of the Covid vaccine. - Social history:: Smoking status: Patient denies any tobacco usage or history of. - Family history:: not pertinent. ROS: 16:22 Constitutional: Negative for fever, chills, and weight loss, Eyes: Negative for injury, raymond pain, redness, and discharge, ENT: Negative for injury, pain, and discharge, Neck: Negative for injury, pain, and swelling, Cardiovascular: Negative for chest pain, palpitations, and edema, Respiratory: Negative for shortness of breath, cough, wheezing, and pleuritic chest pain, Abdomen/GI: Negative for abdominal pain, nausea, vomiting, diarrhea, and constipation, Back: Negative for injury and pain, : Negative for injury, bleeding, discharge, and swelling, Neuro: Negative for headache, weakness, numbness, tingling, and seizure, Psych: Negative for depression, anxiety, suicide ideation, homicidal ideation, and hallucinations, Allergy/Immunology: Negative for hives, rash, and allergies, Endocrine: Negative for neck swelling, polydipsia, polyuria, polyphagia, and marked weight changes, Hematologic/Lymphatic: Negative for swollen nodes, abnormal bleeding, and unusual bruising, 16:22 MS/extremity: Positive for swelling, of the left labia majora, Exam: 16:22 Constitutional: This is a well developed, well nourished patient who is awake, alert, raymond and in no acute distress. Head/Face: Normocephalic, atraumatic. Eyes: Pupils equal round and reactive to light, extra-ocular motions intact. Lids and lashes normal. Conjunctiva and sclera are non-icteric and not injected. Cornea within normal limits. Periorbital areas with no swelling, redness, or edema. ENT: Nares patent. No nasal discharge, no septal abnormalities noted. Tympanic membranes are normal and external auditory canals are clear. Oropharynx with no redness, swelling, or masses, exudates, or evidence of obstruction, uvula midline. Mucous membranes moist. Neck: Trachea midline, no thyromegaly or masses palpated, and no cervical lymphadenopathy. Supple, full range of motion without nuchal rigidity, or vertebral point tenderness. No Meningismus. Chest/axilla: Normal chest wall appearance and motion. Nontender with no deformity. No lesions are appreciated. Cardiovascular: Regular rate and rhythm with a normal S1 and S2. No gallops, murmurs, or rubs. Normal PMI, no JVD. No pulse deficits. Respiratory: Lungs have equal breath sounds bilaterally, clear to auscultation and percussion. No rales, rhonchi or wheezes noted. No increased work of breathing, no retractions or nasal flaring. Abdomen/GI: Soft, non-tender, with normal bowel sounds. No distension or tympany. No guarding or rebound. No evidence of tenderness throughout. Back: No spinal tenderness. No costovertebral tenderness. Full range of motion. Female : Normal external genitalia. MS/ Extremity: Pulses equal, no cyanosis. Neurovascular intact. Full, normal range of motion. Neuro: Awake and alert, GCS 15, oriented to person, place, time, and situation. Cranial nerves II-XII grossly intact. Motor strength 5/5 in all extremities. Sensory grossly intact. Cerebellar exam normal. Normal gait. Psych: Awake, alert, with orientation to person, place and time. Behavior, mood, and affect are within normal limits. 16:22 Skin: cellulitis, is not appreciated, induration, that is moderate is noted, injury, is not appreciated, Vital Signs: 14:46 BP 157 / 66; Pulse 66; Resp 18; Temp 98.3(O); Pulse Ox 97% ; Weight 69.4 kg; Height 5 nj1 ft. 1 in. ; 16:15 BP 154 / 57; Pulse 63; Resp 16; Pulse Ox 99% on R/A; db 17:25 BP 157 / 67; Pulse 63; Resp 18; Pulse Ox 98% on R/A; db 18:08 BP 165 / 63; Pulse 65; Resp 16; Pulse Ox 100% on R/A; db 20:00 BP 154 / 71; Pulse 68; Resp 16; Pulse Ox 97% on R/A; jb4 21:15 BP 162 / 67; Pulse 65; Resp 16; Pulse Ox 95% on R/A; jb4 14:46 Body Mass Index 28.91 (69.40 kg, 154.94 cm) nj1 [place] Coma Score: 16:22 Eye Response: spontaneous(4). Motor Response: obeys commands(6). Verbal Response: raymond oriented(5). Total: 15. MDM: 14:27 Patient medically screened. raymond 16:25 Differential diagnosis: abscess, allergic reaction, cellulitis, insect bite. Data raymond reviewed: vital signs, nurses notes, lab test result(s), radiologic studies, ultrasound. Consideration of Admission/Observation Escalation of care including admission/observation considered. I considered the following discharge prescriptions or medication management in the emergency department Medications were administered in the Emergency Department. See MAR. Test considered but Not performed: CT: no ct. Historians other than the Patient: Family Member: daughter. Care significantly affected by the following chronic conditions: Diabetes, Hypertension. Counseling: I had a detailed discussion with the patient and/or guardian regarding the historical points, exam findings, and any diagnostic results supporting the discharge/admit diagnosis, lab results, radiology results. 09/29 15:13 Order name: CBC with Diff; Complete Time: 16:19 raymond 09/29 15:13 Order name: Comprehensive Metabolic Panel; Complete Time: 16:53 raymond 09/29 15:13 Order name: Urinalysis w/ reflexes; Complete Time: 16:53 raymond 09/29 16:55 Order name: Potassium; Complete Time: 18:53 raymond 09/29 20:53 Order name: T4 Free EDMS 09/29 20:53 Order name: Thyroid Stimulating Hormone EDMS 09/29 20:53 Order name: Urinalysis w/ reflexes EDMS 09/29 20:53 Order name: Basic Metabolic Panel EDMS 09/29 20:53 Order name: Basic Metabolic Panel EDMS 09/29 20:53 Order name: Basic Metabolic Panel EDMS 09/29 20:53 Order name: Basic Metabolic Panel EDMS 09/29 20:53 Order name: CBC with Automated Diff EDMS 09/29 20:53 Order name: CBC with Automated Diff EDMS 09/29 20:53 Order name: CBC with Automated Diff EDMS 09/29 20:53 Order name: CBC with Automated Diff EDMS 09/29 20:53 Order name: Lipid Profile EDMS 09/29 20:53 Order name: Lipid Profile EDMS 09/29 20:53 Order name: Magnesium EDMS 09/29 20:53 Order name: Magnesium EDMS 09/29 20:53 Order name: Magnesium EDMS 09/29 20:53 Order name: Magnesium EDMS 09/29 20:53 Order name: Phosphorus EDMS 09/29 20:53 Order name: Phosphorus EDMS 09/29 20:53 Order name: Phosphorus EDMS 09/29 20:53 Order name: Phosphorus EDMS 09/29 16:21 Order name: US Extrmty Nonvasular Limited: left groin , labia; Complete Time: 17:36 [facility] 09/29 16:54 Order name: CT Abd/Pelvis - Without Contrast; Complete Time: 17:40 [facility] 09/29 16:58 Order name: EKG; Complete Time: 16:58 [facility] 09/29 16:58 Order name: EKG - Nurse/Tech; Complete Time: 19:07 [facility] Administered Medications: 16:03 Drug: NS 0.9% IV 500 ml IV at bolus once Route: IV; Rate: bolus; Site: right db antecubital; 16:50 Drug: Mupirocin Topical Ointment 2 % 1 application Topical once Route: Topical; Site: db affected area; 16:55 Drug: Clindamycin IVPB 900 mg IVPB once over 30 mins; (mix in 50 mL) Route: IVPB; db Infused Over: 30 mins; Site: right antecubital; 16:55 Drug: Doxycycline PO 200 mg PO once Route: PO; db 19:07 Follow up: Response: No adverse reaction db 17:35 Drug: NS 0.9% IV 500 ml IV at bolus once Route: IV; Rate: bolus; Site: right db antecubital; 18:33 Drug: Lactulose PO 30 grams 45 ml PO once Volume: 45 ml; Route: PO; db 19:07 Follow up: Response: No adverse reaction db 18:52 Drug: Kayexalate PO 30 grams PO once Route: PO; db 19:07 Follow up: Response: No adverse reaction db 19:07 Drug: Dulcolax OH Suppository 10 mg OH once Route: OH; db 19:07 Follow up: Response: No adverse reaction db Disposition Summary: 09/29/23 19:21 Hospitalization Ordered Notes: Hospitalization Status: Observation [facility] Provider: Mouna Hayes cha Location: Telemetry/MedSur (Inpatient) raymond Condition: Fair raymond Problem: new raymond Symptoms: have improved raymond Bed/Room Type: Standard [facility] Room Assignment: 401(09/29/23 21:01) rv1 Diagnosis - Type 2 diabetes mellitus with hyperglycemia raymond - Acute kidney failure, unspecified - ON CHRONIC raymond - Hyperkalemia raymond - Other specified disorders of the skin and subcutaneous tissue - LEFT LABIA AND GROINcha Discharge Instructions: - Discharge Summary Sheet raymond - Skin Abscess raymond - Hyperkalemia raymond - Hyperkalemia, [id number] raymond - How to Take a Sitz Bath raymond - Skin Abscess, [id number] raymond - Diabetes Mellitus and Nutrition, Adult raymond - Chronic Kidney Disease, Adult, [id number] raymond - Chronic Kidney Disease, Adult raymond Forms: - Medication Reconciliation Form raymond - SBAR form [facility] - Leadership Thank You Letter [facility] Prescriptions: - Centany 2 % Topical ointment - apply 1 application TOPICAL route 3 times per day administer after dialysis on raymond dialysis days; 15 gram tube; Refills: 0, Product Selection Permitted - Clindamycin HCl 300 mg Oral capsule - take 1 capsule ORAL route every 8 hours for 10 days; 30 capsule; Refills: 0, [facility] Product Selection Permitted - Doxycycline Hyclate 100 mg Oral Tablet - take 1 tablet ORAL route every 12 hours; 20 tablet; Refills: 0, Product [facility] Selection Permitted Signatures: Dispatcher [employer] Patrick Salinas MD MD cha Hadash, Jennifer, ENVIRONMENTAL FIELD TEAM MEMBER ENVIRONMENTAL FIELD TEAM MEMBER [facility] Jory Ng RN RN db Paige Byrne rv1 Jocelyne Bishop RN RN nj1 Corrections: (The following items were deleted from the chart) 21:01 19:21 raymond molina
[2023-09-29] MEDS ORDERED: ACETAMINOPHEN 500 MG TAB PO PRN (20:48)
[2023-09-29] MEDS ORDERED: ONDANSETRON 4 MG/2 ML VIAL IV PRN (20:48)
[2023-09-29] MEDS: INSULIN REGULAR (HUMAN) 100 UNIT/ML SQ SCH (21:00)
[2023-09-29] MEDS ORDERED: DOXYCYCLINE 100 MG CAP PO SCH (21:00)
[2023-09-29] MEDS: MUPIROCIN 2% OINT 22GM TUBE TOP SCH (21:00)
--- NOTE | 2023-09-29 21:06 | P.HP ---
Certification for Inpatient Patient admitted to: Observation With expected LOS: <2 Midnights Patient will require the following post-hospital care: None Practitioner: I am a practitioner with admitting privileges, knowledge of patient current condition, hospital course, and medical plan of care. Services: Services provided to patient in accordance with Admission requirements found in Title 42 Section 412.3 of the Code of Federal Regulations Patient History Date of Service: 09/29/23 History of Present Illness: Ms. Granados, 82-year-old female patient with medical history of diabetes and IDDM, hyperlipidemia, hypertension, gastric reflux, arthritis presented to ER via ambulatory with complaints of skin abscess on the left groin area. Patient was sent by ASSISTANT DIRECT[employer] OF [employer]CIAL [employer] For IV antibiotics. The affected area a small, confluent, mildly swollen started 3 weeks ago. Patient has no pain, no apparent associated signs or symptoms. Patient denies fever chills, nausea or vomiting. Patient denies chest pain, shortness of breath or any chest discomfort. ED course Vital signs blood pressure 157/66, pulse, 66, respiration 18, temperature 98.3, pulse ox 97% on room air. Patient denies any pain or discomfort at this time. Laboratory reports significant for hyponatremia sodium 129, hyperkalemia potassium 5.7, elevated BUN 47 creatinine 1.91, low GFR 26. Ultrasound of extremity shows nonspecific 3 mm cystic structure inner thigh of unclear etiology. No obvious mass is evident. CT abdomen pelvis without contrast showing severe significant fecal retention throughout the colon with advanced diverticulosis coli noted involving sigmoid colon. Admitting the patient with a diagnosis of chronic worsening CKD stage IV, hyperkalemia, hyponatremia, skin disorder of skin and subcutaneous tissue left labia and groin Allergies No Known Allergies Allergy (Unverified 09/16/19 01:36) Home medications list reviewed: Yes Home Medications: Acetaminophen [8Hr Arthritis Pain] 1 tab PO BIDP PRN 09/15/19 Alendronate Sodium [Fosamax] 1 tab PO DIRECTED 09/15/19 Aspirin Chewable [Aspirin Chewable*] 1 tab PO DAILY 09/15/19 Cetirizine HCl [Zyrtec*] 10 mg PO DAILY PRN 09/15/19 Cyanocobalamin (Vitamin B-12) [Vitamin B12] 1 tab PO DAILY 09/15/19 Cyclosporine [Restasis] 1 gtt OPTH BID 09/15/19 Fenofibrate [Tricor*] 54 mg PO DAILY 09/15/19 Fluticasone Propionate [Flovent Diskus] 1 sherri IH BIDP PRN 09/15/19 Glimepiride 1 tab PO DAILY 09/15/19 Losartan Potassium 1 tab PO DAILY 09/15/19 Pregabalin [Lyrica*] 1 tab PO BID 09/15/19 Ranitidine [Zantac*] 1 tab PO BID 09/15/19 Turmeric Root Extract [Turmeric Curcumin] 1 tab PO DAILY 09/15/19 - Past Medical/Surgical History Diabetic: Yes -: HTN -: GERD -: Diabetic neuropathy -: Diabetes mellitus type 2 [id number] -: Chronic renal disease -: Hyperlipidemia -: Arthritis?unsure what kind -: eye - lens placement -: Bryce leg surgery for varicose veins Psychosocial/ Personal History: Patient lives at home by herself. - Family History Father -: Other (see notes) Notes: Asthma Mother Notes: Rheumatoid Arthritis - Social History Smoking Status: Never smoker Alcohol use: No CD- Drugs: No Caffeine use: Yes Review of Systems 10-point ROS is otherwise unremarkable Physical Examination - Physical Exam General: Alert, Oriented x3 HEENT: Atraumatic, Normocephalic Neck: Supple, 2+ carotid pulse no bruit Respiratory: Clear to auscultation bilaterally, Normal air movement Cardiovascular: No edema, Normal pulses Capillary refill: <2 Seconds Gastrointestinal: Normal bowel sounds, Soft and benign Musculoskeletal: No clubbing, No swelling Integumentary: No rashes, No breakdown Neurological: Normal gait, Normal speech - Studies Laboratory Data (last 24 hrs) 09/29/23 09/29/23 09/29/23 18:00 15:45 15:45 WBC 8.30 Hgb 11.3 L Hct 33.3 L Plt Count 183 Sodium 129 L Potassium 5.6 H 5.7 H BUN 47 H Creatinine 1.91 H Glucose 101 Total Bilirubin 0.2 AST 15 ALT 19 Alkaline Phosphatase 71 Assessment and Plan - Problems (Diagnosis) (1) Hyponatremia Current Visit: Yes Status: Acute Plan: Acute, sodium 129 Admitting the patient in the MedSur floor Patient is asymptomatic, normal saline 100 mL/h started We will recheck the sodium Water restriction 1.5 L/day (2) Hyperkalemia Current Visit: Yes Status: Acute Plan: Acute serum potassium 5.7 EKG showing normal sinus rhythm with right bundle branch block Recheck the potassium ordered We will treat accordingly (3) CKD (chronic kidney disease) stage 4, GFR 15-29 ml/min Current Visit: Yes Status: Chronic Plan: Chronic, worsening Patient's granddaughter reports that patient sees a mill helper IV hydration started normal saline 100 mill per hour Will monitor kidney function Avoid neck nephrotoxic drugs, renal dosing of all medications Nephrology consult (4) Abscess of skin and subcutaneous tissue Current Visit: Yes Status: Acute Plan: Acute, patient presented with a small swollen area on the left groin close to labia began almost 3 weeks ago Obesity ovarian doctor sent her to the hospital for IV antibiotic therapy Ultrasound of the area shows nonspecific 3 mm cystic structure on the inner thigh of unclear etiology. Patient denies pain or tenderness or any discomfort. Mupirocin topical 2% 3 times daily Doxycycline, clindamycin oral antibiotic started Qualifiers: Site of cutaneous abscess of trunk: perineum (5) Diabetes mellitus Current Visit: No Status: Chronic Plan: Chronic, controlled insulin-dependent With hyperglycemia on the lab Blood sugar check before meals and at bedtime with regular low-dose insulin sliding Hypoglycemic precaution Diabetic diet Discharge Plan: Home Plan to discharge in: 24 Hours - Advance Directives Does patient have a Living Will: No Does patient have a Durable POA for Healthcare: No - Code Status/Comfort Care Code Status Assessed: Yes (full code) Code Status: Full Code Physician Review: Patient Assessed, Agree with Above Assessment and Plan Critical Care: No Time Spent Managing Pts Care (In Minutes): 55
[2023-09-29 21:23] LABS: Thyroid Stimulating Hormone 1.85 uIU/mL (0.358-3.740)
[2023-09-29 22:08] VITALS: BMI 28.9
[2023-09-29 22:30] VITALS: O2SAT 95
[2023-09-29] MEDS: NA CHLORIDE 0.9% 1,000 ML IV SCH (23:36)
[2023-09-30 00:20] LABS: Magnesium 1.9 mg/dL (1.6-2.4); Phosphorus 3.3 mg/dL (2.5-4.9)
[2023-09-30] MEDS: HEPARIN 5000 UNIT/ML 1 ML VIAL SQ SCH ×2 (00:34→09:00)
[2023-09-30 06:20] LABS: Absolute Lymphocytes (CBC) 1.6 K/uL (0.7-4.9); Hematocrit 31.3 % (36.0-45.0); Lymphocytes % 25.8 % (15.3-44.8); MCV 94.8 fL (80-100); MPV 9.8 fL (7.6-11.3); Platelets 170 thou/uL (152-406)
[2023-09-30 06:40] LABS: Magnesium 1.9 mg/dL (1.6-2.4); Phosphorus 3.3 mg/dL (2.5-4.9); Potassium 5.1 mEq/L (3.5-5.1)
[2023-09-30] MEDS: INSULIN REGULAR (HUMAN) 100 UNIT/ML SQ SCH ×2 (07:30→11:30)
[2023-09-30] MEDS: MUPIROCIN 2% OINT 22GM TUBE TOP SCH (09:00)
[2023-09-30] MEDS: NA CHLORIDE 0.9% 1,000 ML IV SCH (09:00)
[2023-09-30] MEDS ORDERED: DOXYCYCLINE 100 MG CAP PO SCH (09:00)
[2023-09-30 10:07] VITALS: BP 179/69; TEMP 97.7
--- NOTE | 2023-10-04 17:08 | EKG ---
Test Date: 2023-09-29 Test Time: 19:02:20 Geochemist: FELISA MEASUREMENT RESULTS: Intervals: Rate: 68 OR: 180 QRSD: 132 QT: 438 QTc: 465 [place]: P: 37 OR: 180 QRS: 16 T: 32 INTERPRETIVE STATEMENTS: Normal sinus rhythm Right bundle branch block Abnormal ECG Compared to ECG 07/24/2020 23:01:58 Right bundle-branch block now present Atrial premature complex(es) no longer present Aberrant conduction of supraventricular beat(s) no longer present Electronically Signed On 10-04-23 16:55:47 MUSEUM SERVICE SCHEDULER by Tyler Goins
== END 2023-09-30 12:55 | disposition home or self-care (01) ==
LOC: ER 14:14 → INTOOBSV 20:46 → 4TH 20:46
PROVIDERS: ADMIT Hospitalist; ATTEND Hospitalist
DX: L02.214 Cutaneous abscess of groin (principal); E87.1 Hypo-osmolality and hyponatremia; E87.5 Hyperkalemia; E11.22 Type 2 diabetes mellitus with diabetic chronic kidney disease; I12.9 Hypertensive chronic kidney disease with stage 1 through stage 4 chronic kidney disease, or unspecified chronic kidney disease; N18.4 Chronic kidney disease, stage 4 (severe)
CPT/HCPCS: 93005; 85025 ×2; 80048; 36415 ×2; 83735 ×2; 84100 ×2; 84132 ×2; 80061; 82947 ×3; 84443; 81003; 84439; 80053; 74176; 76882; 96374; 99285; J1644; J7040 ×2; J7030 ×2